=== PATIENT | female | born 1950 | race Caucasian/White ===

== ENCOUNTER 2023-06-02 21:49 | Outpatient (REF) | payer MEDICARE, SELFPAY ==
[2023-06-06 14:14] LABS: Age Gdln ACOG Testing Note (.); Pap IG (Image Guided) Note (.)
== END 2023-06-02 21:50 | disposition home or self-care (01) ==
LOC: LAB 21:49
PROVIDERS: Visit Provider Obstetrics & Gynecology
DX: Z01.419 Encounter for gynecological examination (general) (routine) without abnormal findings (principal)
CPT/HCPCS: G0145

== ENCOUNTER 2023-07-08 07:46 | Outpatient (OUT) | payer MEDICARE, SELFPAY ==
--- NOTE | 2023-07-08 07:49 | US_ITS ---
The [address] [address] Patient Name: PRESTON CAMPOS MRN: [id number] date: 1950 Sex: F Assigned Patient Location: US Current Patient Location: US Accession/Order Number: [id number] Exam Date: 07/08/2023 07:55 Report Date: 07/08/2023 14:25 At the request of: MACIEJ SZYMANSKI Procedure: US thyroid EXAMINATION: US thyroid HISTORY: Papillary Microcarcinoma Of Thyroid C73 COMPARISON: Ultrasound thyroid 06/06/2022, 11/28/2021, 06/01/2021 FINDINGS: RIGHT LOBE: Thyroidectomy with no suspicious tissue within thyroid fossa. Lobe size: LEFT LOBE: Thyroidectomy with no suspicious tissue within thyroid fossa. Cephalad to the left lobe fossa is a stable 10 x 7 x 5 mm hypoechoic smoothly marginated structure; possible lymph node. Lobe size: ISTHMUS: Thyroidectomy. No suspicious tissue. Thickness: US/US thyroid IMPRESSION: 1. Post thyroidectomy with no suspicious tissue remaining within thyroid fossa. 2. Stable small focal area of hypoechoic tissue cephalad to the left thyroid fossa of doubtful clinical significance. Electronically authenticated by: PEDRO SULLIVAN Date: 07/08/2023 14:25
[2023-07-08 09:14] LABS: Thyroid Stimulating Hormone 0.537 uIU/mL (0.358-3.740)
== END 2023-07-08 07:47 | disposition home or self-care (01) ==
LOC: US 07:46
PROVIDERS: PCP Family Medicine; Visit Provider Otolaryngology
DX: C73 Malignant neoplasm of thyroid gland (principal); E03.9 Hypothyroidism, unspecified
CPT/HCPCS: 36415; 76536; 84443

== ENCOUNTER 2024-02-12 12:56 | Outpatient (OUT) | payer MEDICARE, SELFPAY ==
--- NOTE | 2024-02-12 13:04 | XR_ITS ---
[address] [address] Patient Name: PRESTON CAMPOS MRN: [id number] date: 1950 Sex: F Assigned Patient Location: [facility] Current Patient Location: [facility] Accession/Order Number: [id number] Exam Date: 02/12/2024 13:15 Report Date: 02/12/2024 13:35 At the request of: CONNOR PERSAUD Procedure: XR DEXA axial skeleton EXAMINATION: XR DEXA axial skeleton HISTORY: Estrogen Deficiency E28.39 COMPARISON: DEXA bone densitometry 05/03/2021 TECHNIQUE: Dual-energy X-ray absorptiometry (DXA) was performed. FINDINGS: SPINE ANALYSIS: Average bone mineral density is 1.205 g/cm2. T-score (standard deviation relative to young adult mean): 0.2 . -1.9% change since prior study. HIP ANALYSIS: Lowest bone mineral density is within the right femoral neck, 0.792 g/cm2. T-score (standard deviation relative to young adult mean): -1.8 . -3.0% change since prior study. XR/XR DEXA axial skeleton IMPRESSION: [employer] Classification: Osteopenia - Moderate Fracture Risk Electronically authenticated by: PEDRO SULLIVAN Date: 02/12/2024 13:35
== END 2024-02-12 12:57 | disposition home or self-care (01) ==
LOC: RAD 12:56
PROVIDERS: PCP Family Medicine; Visit Provider Family Medicine
DX: E28.39 Other primary ovarian failure (principal); M85.80 Other specified disorders of bone density and structure, unspecified site
CPT/HCPCS: 77080

== ENCOUNTER 2024-07-01 08:43 | Outpatient (OUT) | payer MEDICARE, SELFPAY ==
--- NOTE | 2024-07-01 08:46 | US_ITS ---
The [address] [address] Patient Name: PRESTON CAMPOS MRN: [id number] date: 1950 Sex: F Assigned Patient Location: US Current Patient Location: Accession/Order Number: [id number] Exam Date: 07/01/2024 08:47 Report Date: 07/02/2024 05:29 At the request of: MACIEJ SZYMANSKI Procedure: US thyroid EXAMINATION: US thyroid HISTORY: Papillary Microcarcinoma Of Thyroid COMPARISON: Ultrasound thyroid 07/08/2023, 06/01/2021 FINDINGS: RIGHT LOBE: Thyroidectomy. Within mid thyroid fossa is a hypoechoic 7 x 4 x 3 mm area without appreciable internal blood flow; nonspecific. LEFT LOBE: Thyroidectomy. Within superior aspect of thyroid fossa is a 12 x 7 x 6 mm hypoechoic area with small amount of internal blood flow on color Doppler. ISTHMUS: Thyroidectomy. US/US thyroid IMPRESSION: 1. Small nonspecific 7 mm hypoechoic area within right thyroid bed, not appreciably changed. 06/01/2021. 2. Stable 12 mm nonspecific soft tissue within left thyroid bed, but stable compared to studies back to 06/01/2021. Electronically authenticated by: PEDRO SULLIVAN Date: 07/02/2024 05:29
[2024-07-01 10:17] LABS: Thyroid Stimulating Hormone 0.082 uIU/mL (0.358-3.740)
== END 2024-07-01 08:44 | disposition home or self-care (01) ==
LOC: US 08:44
PROVIDERS: PCP Family Medicine; Visit Provider Otolaryngology
DX: C73 Malignant neoplasm of thyroid gland (principal)
CPT/HCPCS: 36415; 76536; 84443

== ENCOUNTER 2024-08-23 09:04 | Outpatient (OUT) | payer MEDICARE, SELFPAY | END 2024-08-23 09:05 | disposition home or self-care (01) | LOC: LAB 09:04 | PROVIDERS: PCP Family Medicine; Visit Provider Otolaryngology | DX: E89.0 Postprocedural hypothyroidism (principal) | CPT/HCPCS: 36415; 84443 ==

== ENCOUNTER 2024-10-25 11:23 | Outpatient (OUT) | payer MEDICARE, SELFPAY ==
[2024-10-25 12:21] LABS: Thyroid Stimulating Hormone 1.204 uIU/mL (0.358-3.740)
== END 2024-10-25 11:24 | disposition home or self-care (01) ==
LOC: LAB 11:23
PROVIDERS: PCP Family Medicine; Visit Provider Otolaryngology
DX: E89.0 Postprocedural hypothyroidism (principal)
CPT/HCPCS: 36415; 84443

== ENCOUNTER 2025-06-07 19:11 | Outpatient (REF) | payer MEDICARE, SELFPAY ==
--- OUTSIDE RECORDS SUMMARY | 2025-06-07 19:20 | XMS_ITS | CCD ---
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 Name Role Phone Connor Persaud Primary Care Provider [phone] Self, Referral Attending Provider Unavailable Connor Persaud Attending Provider [phone] Stone Lind Attending Provider Camilo Kelley Attending Provider Connor Persaud Primary Care Provider Lux Bowden Unavailable [phone] Susanna Atkins Unavailable Unavailable MD Connor Persaud Primary Care Provider MD Jerson Clark V Attending Provider [phone] Connor Persaud Primary Care Provider Lux Bowden DO Unavailable [phone] MD Lucas Melo Attending Provider Connor Persaud Primary Care Provider Lux Bowden DO Unavailable Delmar RANGEL Susanna Unavailable Unavailable HUNG, DR RYAN Primary Care Unavailable TIMMIS, DR WING Attending Unavailable TIMMIS, DR WING Admitting Unavailable HUNG, DR RYAN Primary Care Unavailable HUNG, DR RYAN Consulting Unavailable HUNG, DR RYAN Attending Unavailable HUNG, DR RYAN Admitting Unavailable ZIEBER, DR PEDRO Calderon Consulting Unavailable KAL, DR DOMINGUEZ Consulting Unavailable KAL, DR DOMINGUEZ Attending Unavailable KAL, DR DOMINGUEZ Admitting Unavailable HUNG, DR RYAN Primary Care Unavailable Lux Bowden DO Unavailable [facility] MD Connor Persaud Primary Care Provider MD Lucas Melo Attending Provider [facility] Provider Connor Persaud MD Primary Care Provider Connor Persuad MD Unavailable Connor Persaud MD Primary Care Provider [phone] Lux Bowden DO Attending Provider [phone] HungConnor Primary Care Unavailable Lux Bowden Attending Unavailable Lux Bowden Admitting Unavailable HUNG, CONNOR LANTIGUA Primary Care Unavailable JERSON CLARK Attending Unavailable JERSON CLARK Referring Unavailable HUNGCONNOR Primary Care Unavailable HUNG, CONNOR LANTIGUA Primary Care Unavailable HUNG, CONNOR LANTIGUA Primary Care Unavailable AMBER, JERSON Referring Unavailable GABY MELGAR Attending Unavailable JERSON CLARK Referring Unavailable HUNG, CONNOR LANTIGUA Primary Care Unavailable ELGIN CLARKEK Referring Unavailable HUNG, CONNOR LANTIGUA Primary Care Unavailable GUERLINE SAUCEDO Attending Unavailable MARTHA FABIAN Referring Unavailable HUNG, CONNOR LANTIGUA Primary Care Unavailable HUNG, CONNOR LANTIGUA Primary Care Unavailable MARTHA FABAIN Referring Unavailable CAMILO KELLEY Attending Unavailable HUNGCONNOR Camilo M Attending Unavailable CAMILO KELLEY Attending Unavailable HUNG, JORDINEN M Attending Unavailable CAMILO KELLEY Attending Unavailable LUX BOWDEN Attending Unavailable MACIEJ SZYMANSKI Attending Unavailable CONNOR PERSAUD M Attending Unavailable MACIEJ SZYMANSKI Attending Unavailable CONNOR PERSAUD M Attending Unavailable MACIEJ SZYMANSKI Attending Unavailable Unavailable Unavailable Unavailable Medications Current Medications Medication Drug Class(es) Dates Sig (Normalized) Sig (Original) acetaminophen 325 mg / HYDROcodone bitartrate 5 mg oral tablet (6 sources) Opioid Agonist Start: 09-26-2020 take 1 tablet by mouth every four to six hours as needed for pain Hydrocodone-Aceta minophen ([place]) 5-325 mg tablet Active 1 TAB PO EVERY 4-6 HOURS as needed for pain 14 September 26, 2020 acetaminophen 325 mg / oxyCODONE hydrochloride 5 mg oral tablet (5 sources) Opioid Agonist Start: 10-12-2020 take 1 tablet by mouth every four to six hours as needed for pain Oxycodone-Acetami nophen (Percocet) 5-325 mg tablet Active 1 TAB PO EVERY 4-6 HOURS as needed for pain 20 October 12, 2020 b complex vitamins capsule (20 sources) take 1 capsule by mouth in the morning b complex vitamins capsule Take 1 capsule by mouth in the morning. Active Doxylamine (16 sources) doxylamine succinate (SLEEP AID ORAL) Take 1 Cap-Full by mouth as needed. Active doxylamine succi alfredito (SLEEP AID ORAL) Take 1 Cap-Full by mouth as needed. 0 Active Comment on above: Take 1 Cap-Full by m outh as needed. ergocalciferol 1.25 mg oral capsule (20 sources) Provitamin D2 Compound Start: 10-21-19 take 1 capsule by mouth every week ergocalciferol (Vitamin D2) 1.25 MG (11591 UT) capsule Indications: Vitamin D deficiency TAKE 1 CAPSULE BY MOUTH WEEKLY 12 capsule 3 10/21/2024 Active Start: 06-28-2024 take 1 capsule by mo uth once daily Vitamin D, Ergocalciferol, 45612 units capsule Indications: Vitamin D deficiency Take 1 each by mouth Daily 90 capsule 06/28/2024 Active Start: 08-17-2013 End: 09-20-2020 take 1 capsule by mouth every week ergocalciferol 50,000 unit capsule (VITAMIN D2, DRISDOL) take 1 capsule by oral route every week 08/17/2013 Active Comment on above: take 1 capsule by or al route every week Fish Oils (12 sources) omega-3 (FISH OI L) 300 MG capsule Take by mouth Daily Active hydroCHLOROthiazide 25 mg / lisinopril 20 mg oral tablet (20 sources) Thiazide Diuretic, Angiotensin Converting Enzyme Inhibitor Start: 07-16-2023 lisinopril-hydroCHLORO thiazide 20-25 MG tablet Indications: Benign essential hypertension (CMS/HCC) TAKE 1 AND 1/2 TABLETS BY MOUTH EVERY DAY 135 tablet 3 07/16/2023 Active Start: 09-01-2020 take 1.5 tablets by mouth once daily lisinopril-hydroCHLOROthiazide 20-25 MG tablet Indications: Benign essential hypertension Take 1.5 tablets by mouth Daily 135 tablet 3 07/26/2024 Active take 1 tablet by celso th once lisinopril-hydrochlorothiazide (PRINZIDE , ZESTORETIC) 20-25 mg per tablet Take 1 tablet by mouth once daily. 1.5 tablet daily Active Comment on above: Take 1 tablet by celso th once daily. Take 1 tablet by celso th once daily. 1.5 tablet daily ibuprofen 600 mg oral tablet (8 sources) Nonsteroidal Anti-inflammatory Drug Start: 09-26-2020 Ibuprofen Active 600 MG PO EVERY 4-6 HOURS 14 September 26, 2020 12:31pm do not exceed 4 doses in a 24 hour period Start: 09-26-2020 take 12-21 tablets b y mouth every four to six hours in the morning Ibuprofen 600 mg tablet Active 600 MG PO EVERY 4-6 HOURS as needed for pain 14 September 26, 2020 12:00am 200mg x2 taken on 10-09-20 in AM Comment on above: Take 600 mg by mouth every 6 hours as needed. letrozole 2.5 mg oral tablet (20 sources) Aromatase Inhibitor Start: 11-01-19 End: 09-27-20 take 1 tablet by mouth once daily letrozole (Femara) 2.5 MG chemo tablet Take 2.5 mg by mouth Daily. 04/16/2023 Active Comment on above: Take 1 tablet by celso th once daily. TAKE 1 TABLET BY CELSO TH EVERY DAY levothyroxine sodium 0.1 mg oral tablet (20 sources) l-Thyroxine Start: 07-14-20 24 End: 09-12-20 24 take 1 tablet by mouth before mealtime levothyroxine (Synthroid) 112 MCG tablet Indications: Postoperative hypothyroidism (CMS/HCC) Take 1 tablet (112 mcg) by mouth in the morning. Take before meals. 30 tablet 1 07/14/2024 08/31/2024 Discontinued Start: 08-29-2021 End: 01-06-2025 levothyroxine (SYNTHROID) 12 5 mcg tablet Take 112 mcg by mouth once daily. 08/29/2021 01/06/2025 Discontinued Start: 08-29-2021 End: 07-15-2024 take 1 tablet by mouth before mealtime levothyroxine (Synthroid) 125 MCG tablet Indications: Postoperative hypothyroidism (CMS/HCC) Take 1 tablet (125 mcg) by mouth in the morning. Take before meals. 90 tablet 3 07/16/2023 07/15/2024 Active Start: 09-01-2020 End: 11-02-2025 take 1 tablet by mouth before mealtime levothyroxine (Synthroid) 100 MCG tablet Indications: Postoperative hypothyroidism Take 1 tablet (100 mcg) by mouth in the morning. Take before meals. 90 tablet 3 11/02/2024 11/02/2025 Active Start: 09-01-2020 End: 09-04-2020 take 1 tablet by mouth once daily Levothyroxine (Levoxyl) 125 mcg Tablet Discontinued 125 MCG PO Daily September 01, 2020 12:00am September 04, 2020 11:10am levothyroxine so dium (SYNTHROID ORAL) Take by mouth. 0 Active Comment on above: Take 100 mcg by mout h daily before breakfast. 125 mg daily Take by mouth. 125 mcg. melatonin 5 mg chewable tablet (16 sources) melatonin 5 mg c hew Take by mouth as needed. Active Comment on above: Take by mouth. Take by mouth as nee ded. metFORMIN hydrochloride 500 mg oral tablet (6 sources) Biguanide Start: 0 take 1 tablet by mouth once daily Metformin 500 mg Tablet Active 500 MG PO Daily September 01, 2020 12:00am Multivitamin preparation (5 sources) Start: 0 take 1 tablet by mouth once daily Multivitamin Active 1 TAB PO Daily September 01, 2020 8:30am Start: 09-01-2020 take 1 tablet by celso th once daily Multivitamin Active 1 TAB PO Daily September 01, 2020 1:00am Multivitamin Tablet (1 source) Start: 09-01-2020 take 1 tablet by mouth once daily Multivitamin Tablet Active 1 TAB PO Daily September 01, 2020 12:00am VITAMIN B COMPLEX ORAL (9 sources) VITAMIN B COMPLE X ORAL Take by mouth once daily. Active VITAMIN B COMPLE X ORAL Take by mouth once daily. 0 Active Comment on above: Take by mouth once d aily. Completed/Discontinued Medications Medication Drug Class(es) Dates Sig (Normalized) Sig (Original) ALPRAZolam 0.25 mg oral tablet (20 sources) Benzodiazepine Start: 09-01-2020 End: 06-07-2025 ALPRAZolam (Xanax) 0.25 MG tablet Indications: Adjustment disorder with anxiety Take 1 tablet (0.25 mg) by mouth as needed at bedtime for anxiety or sleep 30 tablet 02/10/2024 06/07/2025 Discontinued (Other) Comment on above: Take 0.25 mg by mout h at bedtime as needed. atorvastatin 20 mg oral tablet (9 sources) HMG-CoA Reductase Inhibitor Start: 05-09-2022 End: 01-15-2024 take 1 tablet by mouth once daily atorvastatin (LIPITOR) 20 mg tablet Take 20 mg by mouth once daily. 0 05/09/2022 01/15/2024 Discontinued (Discontinued by another Health Care Provider) Comment on above: Take 20 mg by mouth once daily. doxepin hydrochloride 10 mg oral capsule (2 sources) Tricyclic Antidepressant Start: 12-07-2020 take 1 capsule by mouth once daily at bedtime doxepin capsule 10 mg TAKE 1 CAPSULE BY MOUTH EVERY DAY AT BEDTIME 0 12/07/2020 Active Comment on above: TAKE 1 CAPSULE BY MO UTH EVERY DAY AT BEDTIME mirtazapine 30 mg oral tablet (10 sources) Start: 04-27-2021 End: 01-15-2024 take 1 tablet by mouth once daily at bedtime mirtazapine (REMERON) 30 mg tablet Take 30 mg by mouth daily at bedtime. 0 04/27/2021 01/15/2024 Discontinued (Discontinued by another Health Care Provider) Comment on above: Take 30 mg by mouth daily at bedtime. MULTIVITAMIN ORAL (10 sources) End: 01-15-2024 MULTIVITAMIN ORAL Take by mouth. 0 01/15/2024 Discontinued (Discontinued by Patient) MULTIVITAMIN ORA L Take by mouth. 0 Active Comment on above: Take by mouth. 100 ml zoledronic acid 0.04 mg/ml injection (2 sources) Bisphosphonate Start: 01-06-2025 End: 01-06-2025 4 mg, INTRAVENOUS, Administer over 15 Minutes, ONCE, 1 dose, On Jessica 01/06/25 at 1430, Hazardous Potential Reproductive Risk Drug: Use appropriate PPE. Start: 07-15-2024 End: 07-15-2024 4 mg, INTRAVENOUS, Administe r over 15 Minutes, ONCE, 1 dose, On Jessica 07/15/24 at 1500, Hazardous Potential Reproductive Risk Drug: Use appropriate PPE. Problems Active Problems Problem Classification Problem Date Documented Date Episodic/Chronic Adjustment disorders (20 sources) Adjustment disorder with anxious mood; 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: [Adjustment disorder with anxiety] Onset: 04-28-2023 04-28-2023 Chronic Anxiety disorders (20 sources) Anxiety neurosis ; 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: [Generalized anxiety disorder] Onset: 10-23-2020 Chronic Cancer of breast (20 sources) Malignant neoplasm of upper-outer quadrant of female breast; 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: [Malignant neoplasm of upper-outer quadrant of left female breast] Onset: 10-23-2020 Chronic Comment on above: Problem List clean-u p per request of Phys. EHR Cmte Cancer of thyroid (20 sources) Malignant tumor of thyroid gland; 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: [Malignant neoplasm of thyroid gland] Onset: 05-03-2020 Chronic Cancer of uterus (20 sources) Malignant neoplasm of endometrium of corpus uteri ; 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: [Malignant neoplasm of endometrium] Onset: 04-03-2018 Chronic Cataract (20 sources) Bilateral cataracts; 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: [Unspecified cataract] Onset: 02-10-2024 02-10-2024 Chronic Chronic kidney disease (20 sources) Chronic kidney disease stage 3A ; 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: [Stage 3a chronic kidney disease] Onset: 04-28-2023 07-15-2024 Chronic Complications of surgical procedures or medical care (20 sources) Postoperative hypothyroidism; 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: [Postprocedural hypothyroidism] Onset: 09-12-2015 04-28-2023 Chronic Diabetes mellitus with complications (20 sources) Type 2 diabetes mellitus; 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: [Type 2 diabetes mellitus with diabetic chronic kidney disease] Onset: 04-07-2019 08-16-2024 Chronic Diabetes mellitus without complication (16 sources) Diabetes mellitus; 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: [Type 2 diabetes mellitus without complications] 04-03-2018 Chronic Disorders of lipid metabolism (20 sources) Hypertriglyceridemia; 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: [Pure hyperglyceridemia] Onset: 04-28-2023 04-28-2023 Chronic Essential hypertension (20 sources) Hypertensive disorder; 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: [Essential (primary) hypertension] Onset: 04-28-2023 04-08-2018 Chronic Hypertension with complications and secondary hypertension (20 sources) Hypertension secondary to endocrine disorder; 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: [Hypertension secondary to endocrine disorders] Onset: 04-28-2023 08-16-2024 Chronic Immunizations and screening for infectious disease (3 sources) Encounter for screening for human papillomavirus (HPV); 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: [Patient encounter status] Onset: 11-28-2022 09-13-2024 Episodic Menopausal disorders (20 sources) Decreased estrogen level; 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: [Other primary ovarian failure] Onset: 04-28-2023 04-28-2023 Chronic Nutritional deficiencies (20 sources) Vitamin D deficiency; 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: [Vitamin D deficiency, unspecified] Onset: 04-28-2023 04-28-2023 Chronic Osteoporosis (20 sources) Postmenopausal osteoporosis; 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: [Age-related osteoporosis without current pathological fracture] Onset: 05-26-2023 05-26-2023 Chronic Other aftercare (1 source) Prophylactic aromatase inhibitors given; 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: [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] Episodic Other female genital disorders (20 sources) Vaginal bleeding; 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: [Abnormal uterine and vaginal bleeding, unspecified] Onset: 04-28-2023 04-28-2023 Chronic Other nutritional; endocrine; and metabolic disorders (16 sources) Obese class II; 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: [Obesity, unspecified] Onset: 04-11-2018 04-11-2018 Chronic Other nutritional; endocrine; and metabolic disorders (11 sources) Obesity caused by energy imbalance; 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: [Morbid (severe) obesity due to excess calories] Onset: 04-28-2023 08-16-2024 Chronic Other nutritional; endocrine; and metabolic disorders (11 sources) Body mass index 30+ - obesity; 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: [Body mass index (BMI) 39.0-39.9, adult] Onset: 03-15-2025 08-16-2024 Chronic Other nutritional; endocrine; and metabolic disorders (2 sources) Severe obesity; 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: [Class 2 severe obesity due to excess calories with serious comorbidity and body mass index (BMI) of 38.0 to 38.9 in adult ([facility])] 08-16-2024 Chronic Other nutritional; endocrine; and metabolic disorders (20 sources) Obesity; 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: [Obesity, unspecified] Onset: 04-28-2023 04-28-2023 Chronic Other screening for suspected conditions (not mental disorders or infectious disease) (20 sources) Endometrium thickened; 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: [Abnormal findings on diagnostic imaging of other specified body structures] Onset: 04-28-2023 04-28-2023 Chronic Other screening for suspected conditions (not mental disorders or infectious disease) (20 sources) Encounter for screening for malignant neoplasm of cervix; 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: [Mammography abnormal] Onset: 08-04-2020 Episodic Residual codes; unclassified (20 sources) Obstructive sleep apnea syndrome; 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: [Obstructive sleep apnea (adult) (pediatric)] Onset: 04-28-2023 04-28-2023 Chronic Residual codes; unclassified (2 sources) Postmenopausal state; 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: [Asymptomatic menopausal state] 06-07-2025 Episodic Thyroid disorders (20 sources) Hypothyroidism; 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: [Hypothyroidism, unspecified] Onset: 08-08-2023 04-08-2018 Chronic Past or Other Problems Problem Classification Problem Date Documented Da te Episodic/Chronic Mood disorders (20 sources) Mood disorders Onset: 08-12-2023 08-12-2023 Nonmalignant breast conditions (20 sources) Breast lump; 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: [Unspecified lump in the left breast, unspecified quadrant] Onset: 09-08-2024 09-04-2020 Episodic Comment on above: Problem List clean-u p per request of Phys. EHR Cmte Nonmalignant breast conditions (2 sources) Unspecified lump in the left breast, unspecified quadrant; 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: [Mass of multiple sites of left breast] Other connective tissue disease (20 sources) Muscle pain; 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: [Myalgia, unspecified site] Onset: 11-21-2023 11-21-2023 Episodic Other female genital disorders (20 sources) Vaginal discharge; 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: [Other specified noninflammatory disorders of vagina] Onset: 04-28-2023 04-28-2023 Episodic Other gastrointestinal disorders (20 sources) Stool DNA-based colorectal cancer screening positive; 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: [Other fecal abnormalities] Onset: 11-25-2024 11-25-2024 Episodic Residual codes; unclassified (20 sources) Insomnia; 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: [Insomnia, unspecified] Onset: 04-28-2023 04-28-2023 Episodic Residual codes; unclassified (20 sources) Pain; 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: [Pain, unspecified] Onset: 04-28-2023 04-28-2023 Episodic Residual codes; unclassified (20 sources) Estrogen receptor positive tumor; 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: [Estrogen receptor positive status [ER+]] Onset: 04-28-2023 04-28-2023 Episodic Residual codes; unclassified (1 source) Estrogen receptor positive status [ER+]; 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: [Malignant neoplasm of upper-outer quadrant of left breast in female, estrogen receptor positive (HCC)] Onset: 10-23-2020 Episodic Thyroid disorders (20 sources) Mass of thyroid gland; 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: [Disorder of thyroid, unspecified] Onset: 04-28-2023 04-28-2023 Episodic Varicose veins of lower extremity (20 sources) Varicose veins of lower extremity; 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: [Asymptomatic varicose veins of bilateral lower extremities] Onset: 08-16-2024 08-16-2024 Episodic Results Test Name Value Interpretation Reference Range Facility Laboratory - Hematology and Cell countson 03-15-2025 HbA1c (Bld) [Mass fraction] 5.7 % [facility] No Panel Informationon 03-15 Interpretation and review of laboratory results Normal [facility] CNOVSPon 01-06-2025 CNOVSP Visit (SP) Office ( [facility]) -- SAVANA TRAN ([id number]) 1950 F Date Time Provider Department 01/06/25 2:00 PM GUERLINE SAUCEDO During your visit today, we recorded the following information about you: Temperature Pulse Respiration Blood pressure 97.7 degrees 96/minute 16/minute 109/65 Weight 105.5 kg Guerline Saucedo APRN.CNP 01/06/2025 4:04 PM Signed NAME: Savana Tran CLINIC NO.: [id number] DATE OF SERVICE: January 06, 2025 (Aminah) Some elements in this clinic note that are critical to medical decision making have been carefully reviewed and included from a prior clinic note dated: July 15, 2024 (Amber) Referring Provider: Dr. Lucas Melo Additional Clinicians involved in Savana Tran's care: Dr. Connor Persaud, Dr. Kd Kelley, Dr. Charlie Bowden, Dr. Maciej Szymanski CC: Breast cancer follow up. ASSESSMENT/PLAN: 1. Malignant neoplasm of upper-outer quadrant of left breast in female, estrogen receptor positive 74 year old woman with left breast cancer T1c(sn)N0M0 s/p lumpectomy with Dr. Kelley on 09/26/2020. She presents for Medical oncology opinion regarding ER/OR + HER2-gilbert (-) breast cancer with a prior history of resected endometrial adenocarcinoma diagnosed and treated in 07/2018. Oncotype DX recurrence score was 16. She completed radiation. And is currently on AI since December 2020. She also had genetic testing due to her history or multiple cancers. The results are scanned into Pulsant and reviewed and negative. 2. Endometrial cancer Staging for this was: IB endometrioid type endometrial adenocarcinoma, FIGO grade 1, + LVSI, tumor size 6 cm, 72% depth of invasion with limited pelvic sampling s/p pelvic RT after surgery. Normal IHC MMR expression. 3. Cancer of thyroid She has also had a history of papillary thyroid cancer 2019 noted in a thyroidectomy specimen for a nodule that was causing her difficulty swallowing. She follows with ENT. Thyroglobulin Ab is elevated Obviating the need for thyroglobulin levels and therefore we will just follow TSH. 4. Anxiety neurosis Managed by her PCP. PLAN: Zometa today and q 6 months 4mg due to tolerance Continue Femara 2.5 mg daily Labs 1 week prior to visit - CBC, CMP, TSH, breast tumor markers RTC in 6 months with labs as above _- HPI: CASE HISTORY: Reverse Chronological Order 01/10/2021-Current - Femara 2.5 mg p.o. daily 12/07/2020-01/03/2021- Radiation to left breast total dose 5005 cGy 10/12/2020 - Re-excision and evacuation of hematoma 09/26/2020 - [facility] left breast lumpectomy and SLN resection A. [place] lymph nodes, left axilla, biopsy: - Four lymph nodes, negative for metastatic carcinoma (0/4) - Concurs with the frozen section diagnosis Note: One additional lymph node has been identified in the fibroadipose tissue which was not submitted for intraoperative frozen section. All lymph nodes are negative for metastatic carcinoma. B. Left breast, lumpectomy with radioactive seeds localization: - Invasive ductal carcinoma, [place] histologic grade 2 (3+2+1), size: 17mm - Ductal carcinoma in situ, nuclear grade 2, solid and cribriform patterns, with focal central necrosis and associated microcalcifications - Medial margin is focally positive for invasive carcinoma; all other margins are negative - Prior biopsy site reactions - Pathologic Stage Classification: pT1c (sn)nN0 pM - not applicable ER+ (95%) OR+ (85%) HER2- (0) 08/09/2020 - Mammography / US: Left upper breast anomaly 2 O'Clock 02/18/2020 - CT CAP: Chest: Stable appearance of numerous bilateral pulmonary nodules measuring up to 5mm size. No new or enlarging nodules are seen. The central airways are widely patent. A/P: Stable CT of the abdomen and pelvis. No findings to suggest abdominal or pelvic metastatic disease. Hepatic steatosis. Findings suggestive of hepatic hemangiomas. Updated Visit, January 07, 2024: Savana returns today for a follow-up visit. Overall she is feeling well. She has recently gained some weight back that she had lost and is trying to get back on her diet. She does engage in exercise [place] local [place]. Patient's TSH is normal today. Continues to follow-up with Dr. Bowden. CA 27.29 is less than 10.0. Will proceed with Zometa today. Updated Visit, July 15, 2024: Savana returns today for a follow up. TSH: 0.089, decreased from 0.258 in 12/2023. She endorses watching what she eats, she has lost 6lbs since her last visit. Unfortunately, her brother about 2 months ago from cancer. Updated Visit, January 15, 2024: Savana Tran returns for scheduled follow-up. Since her last visit there has been there has been no significant medical changes. She remains on Femara 2.5 mg daily. She denies any (more content not included)... Normal [facility] CA 27.29on 12-30-2024 Cancer Ag 27-29 Qn <10.0 Normal <38.6 [facility] Comment on above: Order Comment: Speci men Type: BLOOD SPECIMEN Ordering Facility: [facility] Address: [address] [place] [address] Result Comment: The CA27.29 test was performed using the Siemens Shopnationaur XP chemiluminometric immunoassay method. Results obtained with different assay methods or kits cannot be used interchangeably. [facility] will discontinue CA 27.29 testing effective 03/08/2025, with CA 15-3 as its replacement. In preparation for the discontinuation, CA 15-3 testing in parallel was conducted with CA 27.29 to establish a new baseline. Performed By: #### L [id number] #### [facility] CLIA [id number] [address] [place] [address] [place] CBC W Auto Differential pane l (Bld)on 12-30-2024 Basophils (Bld) [#/Vol] 0.04 10*3/uL Normal <0.11 [facility] Comment on above: Order Comment: Speci men Type: BLOOD SPECIMEN Ordering Facility: [facility] Address: [address] [place] [address] Performed By: #### 2 4323-8 #### [facility] CLIA [id number] [address] [place] [address] 02373 Basophils/100 WBC (Bld) 0.5 % Normal [facility] Comment on above: Order Comment: Speci men Type: BLOOD SPECIMEN Ordering Facility: [facility] Address: [address] [place] [address] Performed By: #### 2 4323-8 #### [facility] CLIA [id number] [address] [place] [address] 71157 Differential cell count method Nom (Bld) Auto Normal [facility] Comment on above: Order Comment: Speci men Type: BLOOD SPECIMEN Ordering Facility: [facility] Address: [address] [place] [address] Performed By: #### 2 4323-8 #### [facility] CLIA [id number] [address] [place] [address] 84124 Eosinophils (Bld) [#/Vol] 0.08 10*3/uL Normal <0.46 [facility] Comment on above: Order Comment: Speci men Type: BLOOD SPECIMEN Ordering Facility: [facility] Address: [address] [place] [address] Performed By: #### 2 4323-8 #### [facility] CLIA [id number] [address] [place] [address] 10220 Eosinophils/100 WBC (Bld) 1.0 % Normal [facility] Comment on above: Order Comment: Speci men Type: BLOOD SPECIMEN Ordering Facility: [facility] Address: [address] [place] [address] Performed By: #### 2 4323-8 #### [facility] CLIA [id number] [address] [place] [address] 49643 Erythrocyte distribution width (RBC) [Ratio] 12.8 % Normal 11.5-15.0 [facility] Comment on above: Order Comment: Speci men Type: BLOOD SPECIMEN Ordering Facility: [facility] Address: [address] [place] [address] Performed By: #### 2 4323-8 #### [facility] CLIA [id number] [address] [place] [address] 75431 Hematocrit (Bld) [Volume fraction] 46.0 % Normal 36.0-46.0 [facility] Comment on above: Order Comment: Speci men Type: BLOOD SPECIMEN Ordering Facility: [facility] Address: [facility] [place] [address] Performed By: #### 2 4323-8 #### [facility] CLIA [id number] [address] [place] [address] 71903 Hemoglobin (Bld) [Mass/Vol] 15.4 g/dL Normal 11.5-15.5 [facility] Comment on above: Order Comment: Speci men Type: BLOOD SPECIMEN Ordering Facility: [facility] Address: [address] [place] [address] Performed By: #### 2 4323-8 #### [facility] CLIA [id number] [address] [place] [address] 17267 Immature granulocytes (Bld) [#/Vol] 10*3/uL Normal <0.10 [facility] Comment on above: Order Comment: Speci men Type: BLOOD SPECIMEN Ordering Facility: [facility] Address: [address] [place] [address] Performed By: #### 2 432-8 #### [facility] CLIA [id number] [address] [place] [address] 71709 Immature granulocytes/100 WBC (Bld) 0.1 % Normal [facility] Comment on above: Order Comment: Speci men Type: BLOOD SPECIMEN Ordering Facility: [facility] Address: [address] [place] [address] Performed By: #### 2 4323-8 #### [facility] CLIA [id number] [address] [place] [address] 31452 Lymphocytes (Bld) [#/Vol] 1.24 10*3/uL Normal 1.00-4.00 [facility] Comment on above: Order Comment: Speci men Type: BLOOD SPECIMEN Ordering Facility: [facility] Address: [address] [place] [address] Performed By: #### 2 4323-8 #### [facility] CLIA [id number] [address] [place] [address] 85194 Lymphocytes/100 WBC (Bld) 16.0 % Normal [facility] Comment on above: Order Comment: Speci men Type: BLOOD SPECIMEN Ordering Facility: [facility] Address: [address] [place] [address] Performed By: #### 2 4323-8 #### [facility] CLIA [id number] [address] [place] [address] MCH (RBC) [Entitic mass] 30.5 pg Normal 26.0-34.0 [facility] Comment on above: Order Comment: Speci men Type: BLOOD SPECIMEN Ordering Facility: [facility] Address: [address] [place] [address] 45851 Performed By: #### 2 4323-8 #### [facility] CLIA [id number] [address] [place] [address] 36406 MCHC (RBC) [Mass/Vol] 33.5 g/dL Normal 30.5-36.0 [facility] Comment on above: Order Comment: Speci men Type: BLOOD SPECIMEN Ordering Facility: [facility] Address: [address] [place] [address] 99649 Performed By: #### 2 4323-8 #### [facility] CLIA [id number] [address] [place] [address] 32745 MCV (RBC) [Entitic vol] 91.1 fL Normal 80.0-100.0 [facility] Comment on above: Order Comment: Speci men Type: BLOOD SPECIMEN Ordering Facility: [facility] Address: [address] [place] [address] 70979 Performed By: #### 2 4323-8 #### [facility] CLIA [id number] [address] [place] [address] 56195 Monocytes (Bld) [#/Vol] 0.49 10*3/uL Normal <0.87 [facility] Comment on above: Order Comment: Speci men Type: BLOOD SPECIMEN Ordering Facility: [facility] Address: [address] [place] [address] Performed By: #### 2 4323-8 #### [facility] CLIA [id number] [address] [place] [address] 13536 Monocytes/100 WBC (Bld) 6.3 % Normal [facility] Comment on above: Order Comment: Speci men Type: BLOOD SPECIMEN Ordering Facility: [facility] Address: [address] [place] [address] Performed By: #### 2 4323-8 #### [facility] CLIA [id number] [address] [place] [address] 61893 Neutrophils (Bld) [#/Vol] 5.89 10*3/uL Normal 1.45-7.50 [facility] Comment on above: Order Comment: Speci men Type: BLOOD SPECIMEN Ordering Facility: [facility] Address: [address] [place] [address] Performed By: #### 2 4323-8 #### [facility] CLIA [id number] [address] [place] [address] 12194 Neutrophils/100 WBC (Bld) 76.1 % Normal [facility] Comment on above: Order Comment: Speci men Type: BLOOD SPECIMEN Ordering Facility: [facility] Address: [address] [place] [address] Performed By: #### 2 4323-8 #### [facility] CLIA [id number] [address] [place] [address] 52903 Nucleated RBC (Bld) [#/Vol] 10*3/uL Normal <0.01 [facility] Comment on above: Order Comment: Speci men Type: BLOOD SPECIMEN Ordering Facility: [facility] Address: [address] [place] [address] Performed By: #### 2 4323-8 #### [facility] CLIA [id number] [address] [place] [address] 15886 Nucleated RBC/100 WBC (Bld) [Ratio] 0.0 /100 WBC Normal [facility] Comment on above: Order Comment: Speci men Type: BLOOD SPECIMEN Ordering Facility: [facility] Address: [address] [place] [address] Performed By: #### 2 4323-8 #### [facility] CLIA [id number] [address] [place] [address] 77421 Platelet mean volume (Bld) [Entitic vol] 9.9 fL Normal 9.0-12.7 [facility] Comment on above: Order Comment: Speci men Type: BLOOD SPECIMEN Ordering Facility: [facility] Address: [address] [place] [address] 08329 Performed By: #### 2 4323-8 #### [facility] CLIA [id number] [address] [place] [address] 40093 Platelets (Bld) [#/Vol] 244 10*3/uL Normal 150-400 [facility] Comment on above: Order Comment: Speci men Type: BLOOD SPECIMEN Ordering Facility: [facility] Address: [address] [place] [address] Performed By: #### 2 4323-8 #### [facility] CLIA [id number] [address] [place] [address] 45258 RBC (Bld) [#/Vol] 5.05 10*6/uL Normal 3.90-5.20 [facility] Comment on above: Order Comment: Speci men Type: BLOOD SPECIMEN Ordering Facility: [facility] Address: [address] [place] [address] Performed By: #### 2 4323-8 #### [facility] CLIA [id number] [address] [place] [address] 40054 WBC (Bld) [#/Vol] 7.75 10*3/uL Normal 3.70-11.00 [facility] Comment on above: Order Comment: Speci men Type: BLOOD SPECIMEN Ordering Facility: [facility] Address: [address] [place] [address] Performed By: #### 2 4323-8 #### [facility] CLIA [id number] [address] [place] [address] 88735 [facility] CBC W AUTO DIFF BLDon Basophils/100 WBC (Bld) 0.5 % [facility] BASOPHILS # BLD AUTO 0.04 [facility] DIFFERENTIAL METHOD BLD Auto [facility] EOSINOPHIL # BLD AUTO 0.08 [facility] LYMPHOCYTES # BLD AUTO 1.24 [facility] MONOCYTES # BLD AUTO 0.49 [facility] NEUTROPHILS # BLD AUTO 5.89 [facility] NRBC # BLD AUTO <0.01 [facility] NRBC/100 WBC BLD-RTO 0 /100 WBC [facility] PLATELET # BLD AUTO 244 [facility] PMV BLD AUTO 9.9 fL 9.0 - 12.7 fL [facility] WBC # BLD AUTO 7.75 [facility] Eosinophils/100 WBC (Bld) 1 % [facility] Erythrocyte distribution width (RBC) [Ratio] 12.8 % 11.5 - 15.0 % [facility] Hematocrit (Bld) [Volume fraction] 46 % 36.0 - 46.0 % [facility] Hemoglobin (Bld) [Mass/Vol] 15.4 g/dL 11.5 - 15.5 g/dL [facility] IMM GRANULOCYTES # BLD AUTO <0.03 [facility] IMM GRANULOCYTES/LEUK NFR BLD AUTO 0.1 % [facility] Lymphocytes/100 WBC (Bld) 16 % [facility] MCH (RBC) [Entitic mass] 30.5 pg 26.0 - 34.0 pg [facility] MCHC (RBC) [Mass/Vol] 33.5 g/dL 30.5 - 36.0 g/dL [facility] MCV (RBC) [Entitic vol] 91.1 fL 80.0 - 100.0 fL [facility] Monocytes/100 WBC (Bld) 6.3 % [facility] Neutrophils/100 WBC (Bld) 76.1 % [facility] RBC (Bld) [#/Vol] 5.05 10*6/uL 3.90 - 5.2 0 m/uL [facility] Specimen Type: BLOOD SPECIMEN Ordering Facility: [facility] Address: [address] [place] [address] Original Ordering Provider: JERSON KAUR [facility] Cancer Ag15-3 SerPl-aCncon 0 12-30-2024 Cancer Ag 15-3 Qn 8.3 U/mL Normal <26.0 [facility] Comment on above: Order Comment: Speci men Type: BLOOD SPECIMEN Ordering Facility: [facility] Address: [address] [place] [address] Result Comment: The CA 15-3 test methodology used is the Electrochemiluminescence Immunoassay by [employer]. Results obtained with different methods or kits cannot be used interchangeably. [facility] will discontinue CA 27.29 testing effective 03/08/2025, with CA 15-3 as its replacement. In preparation for the discontinuation, CA 15-3 testing in parallel was conducted with CA 27.29 to establish a new baseline. Performed By: #### 3 016-3, 6875-9 #### [facility] CLIA [id number] [address] [place] [address] [place] [address] [facility] Comprehensive metabolic 2000 panelon 12-30-2024 Albumin [Mass/Vol] 4.3 g/dL Normal 3.9-4.9 [facility] Comment on above: Order Comment: Speci men Type: BLOOD SPECIMEN Ordering Facility: [facility] Address: [address] [place] [address] Performed By: #### 2 4323-8 #### [facility] CLIA [id number] [address] [place] [address] 01570 ALP [Catalytic activity/Vol] 69 U/L Normal 34-123 [facility] Comment on above: Order Comment: Speci men Type: BLOOD SPECIMEN Ordering Facility: [facility] Address: [address] [place] [address] Performed By: #### 2 4323-8 #### [facility] CLIA [id number] [address] [place] [address] 97651 ALT [Catalytic activity/Vol] 25 U/L Normal 7-38 [facility] Comment on above: Order Comment: Speci men Type: BLOOD SPECIMEN Ordering Facility: [facility] Address: [address] [place] [address] Performed By: #### 2 4323-8 #### [facility] CLIA [id number] [address] [place] [address] 27370 Anion gap [Moles/Vol] 11 mmol/L Normal 8-15 [facility] Comment on above: Order Comment: Speci men Type: BLOOD SPECIMEN Ordering Facility: [facility] Address: [address] [place] [id number] Performed By: #### 2 4323-8 #### [facility] CLIA [id number] [address] [place] [address] AST [Catalytic activity/Vol] 17 U/L Normal 13-35 [facility] Comment on above: Order Comment: Speci men Type: BLOOD SPECIMEN Ordering Facility: [facility] Address: [address] [place] [address] Performed By: #### 2 4323-8 #### [facility] CLIA [id number] [address] [place] [address] 77661 Bilirubin [Mass/Vol] 0.3 mg/dL Normal 0.2-1.3 [facility] Comment on above: Order Comment: Speci men Type: BLOOD SPECIMEN Ordering Facility: [facility] Address: [address] [place] [address] Performed By: #### 2 4323-8 #### [facility] CLIA [id number] [address] [place] [address] 38701 Calcium [Mass/Vol] 9.7 mg/dL Normal 8.5-10.2 [facility] Comment on above: Order Comment: Speci men Type: BLOOD SPECIMEN Ordering Facility: [facility] Address: [address] [place] [address] Performed By: #### 2 4323-8 #### [facility] CLIA [id number] [address] [place] [address] 91081 Chloride [Moles/Vol] 99 mmol/L Normal 98-107 [facility] Comment on above: Order Comment: Speci men Type: BLOOD SPECIMEN Ordering Facility: [facility] Address: [address] [place] [address] Performed By: #### 2 4323-8 #### [facility] CLIA [id number] [address] [place] [address] CO2 [Moles/Vol] 27 mmol/L Normal 22-30 [facility] Comment on above: Order Comment: Speci men Type: BLOOD SPECIMEN Ordering Facility: [facility] Address: [address] [place] [address] Performed By: #### 2 4323-8 #### [facility] CLIA [id number] [address] [place] [address] 49763 Creatinine [Mass/Vol] 1.10 mg/dL High 0.58-0.96 [facility] Comment on above: Order Comment: Speci men Type: BLOOD SPECIMEN Ordering Facility: [facility] Address: [address] [place] [address] Performed By: #### 2 4323-8 #### [facility] CLIA [id number] [address] [place] [address] 20537 Creatinine and Glomerular filtration rate.predicted panel (S/P/Bld) 53 mL/min/1.73m??? Low >=60 [facility] Comment on above: Order Comment: Speci men Type: BLOOD SPECIMEN Ordering Facility: [facility] Address: [address] [place] [address] Result Comment: Su mated Glomerular Filtration Rate (eGFR) is calculated using the 2020 CKD-EPI creatinine equation. This equation utilizes serum creatinine, sex, and age as parameters. The creatinine assay has traceable calibration to isotope dilution-mass spectrometry. Refer to KDIGO guidelines for clinical interpretation. In patients with unstable renal function, e.g. those with acute kidney injury, the eGFR may not accurately reflect actual GFR. Performed By: #### 2 4323-8 #### [facility] CLIA [id number] [address] [place] [address] 82805 Glucose [Mass/Vol] 102 mg/dL High 74-99 [facility] Comment on above: Order Comment: Speci men Type: BLOOD SPECIMEN Ordering Facility: [facility] Address: [address] [place] [id number] Result Comment: The [place] [employer] (ADA) provides guidance for cutoff values for fasting glucose and random glucose. The ADA defines fasting as no caloric intake for at least 8 hours. Fasting plasma glucose results between 100 to 125 mg/dL indicate increased risk for diabetes (prediabetes). Fasting plasma glucose results greater than or equal to 126 mg/dL meet the criteria for diagnosis of diabetes. In the absence of unequivocal hyperglycemia, results should be confirmed by repeat testing. In a patient with classic symptoms of hyperglycemia or hyperglycemic crisis, random plasma glucose results greater than or equal to 200 mg/dL meet the criteria for diagnosis of diabetes. Reference: Standards of Medical Care in Diabetes 2016, [place] [employer]. Diabetes Care. 2016.39(Suppl 1). Performed By: #### 2 4323-8 #### [facility] CLIA [id number] [address] [place] [address] Potassium [Moles/Vol] 3.7 mmol/L Normal 3.7-5.1 [facility] Comment on above: Order Comment: Speci men Type: BLOOD SPECIMEN Ordering Facility: [facility] Address: [address] [place] [address] Performed By: #### 2 4323-8 #### [facility] CLIA [id number] [address] [place] [address] 21246 Protein [Mass/Vol] 6.9 g/dL Normal 6.3-8.0 [facility] Comment on above: Order Comment: Speci men Type: BLOOD SPECIMEN Ordering Facility: [facility] Address: [address] [place] [address] Performed By: #### 2 4323-8 #### [facility] CLIA [id number] [address] [place] [address] 75076 Sodium [Moles/Vol] 137 mmol/L Normal 136-144 [facility] Comment on above: Order Comment: Speci men Type: BLOOD SPECIMEN Ordering Facility: [facility] Address: [address] [place] [address] Performed By: #### 2 4323-8 #### [facility] CLIA [id number] [address] [place] [address] Urea nitrogen [Mass/Vol] 17 mg/dL Normal 7-21 [facility] Comment on above: Order Comment: Speci men Type: BLOOD SPECIMEN Ordering Facility: [facility] Address: [address] [place] [address] Performed By: #### 2 4323-8 #### [facility] CLIA [id number] [address] [place] [address] 28419 TSH SerPl-aCncon 12-30-2024 TSH Qn 1.160 m[IU]/L Normal 0.270-4.200 [facility] Comment on above: Order Comment: Speci men Type: BLOOD SPECIMEN Ordering Facility: [facility] Address: [address] [place] [address] Performed By: #### 3 016-3, 6875-9 #### [facility] CLIA [id number] [address] [place] [address] [facility] ALL THYROID STIM HORMONEon 0 10-25-2024 TSH Qn 1.204 m[IU]/L [facility] LIPID PANEL, STANDARDon 11-2 Cholesterol [Mass/Vol] 213 mg/dL High <200 [facility] Comment on above: Order Comment: FASTI NG:YES FASTING: YES Performed By: #### 7 600 #### [facility] [address], [address] [place] [address] [employer] Former: Saran Castillo MD Cholesterol in HDL [Mass/Vol] 50 mg/dL Normal > OR = 50 [facility] Comment on above: Order Comment: FASTI NG:YES FASTING: YES Performed By: #### 7 600 #### [facility] [address], [address] [place], [place] [id number] [employer] Former: Saran Castillo MD Cholesterol in LDL [Mass/Vol] 133 mg/dL High [facility] Comment on above: Order Comment: FASTI NG:YES FASTING: YES Result Comment: Refe rence range: <100 Desirable range <100 mg/dL for primary prevention; <70 mg/dL for patients with CHD or diabetic patients with > or = 2 CHD risk factors. LDL-C is now calculated using the Eric-Casiano calculation, which is a validated novel method providing better accuracy than the Friedewald equation in the estimation of LDL-C. Eric SS et al. DARYL. 2013;310(19): 6283-1951 (http://education.[employer].Mindlikes/faq/AWM838) Performed By: #### 7 600 #### [facility] [address], [address] [place] [address] [employer] Former: Saran Castillo MD Cholesterol.total/Ch olesterol in HDL [Mass ratio] 4.3 {ratio} Normal <5.0 [facility] Comment on above: Order Comment: FASTI NG:YES FASTING: YES Performed By: #### 7 600 #### [facility] [place] [address] [employer] Former: Saran Castillo MD NON HDL CHOLESTEROL 163 mg/dL (calc) High <130 [facility] Comment on above: Order Comment: FASTI NG:YES FASTING: YES Result Comment: For patients with diabetes plus 1 major ASCVD risk factor, treating to a non-HDL-C goal of <100 mg/dL (LDL-C of <70 mg/dL) is considered a therapeutic option. Performed By: #### 7 600 #### [facility] [place] [address] [employer] Former: Saran Castillo MD Triglyceride [Mass/Vol] 161 mg/dL High <150 [facility] Comment on above: Order Comment: FASTI NG:YES FASTING: YES Performed By: #### 7 600 #### [facility] [place] [address] [employer] Former: Saran Castillo MD MM screening mammo BI w/CADo n 09-06-2024 MM screening mammo BI w/CAD [place] [address] Mammography Report Signed Patient: Savana Tran MR#: [id number] : 1950 Acct:[id number] Age/Sex: 74 / F ADM Date: 09/06/24 Loc: OK Room: Type: CHAYITO MACEDO Attending Dr: Lux Bowden DO Copies to: Lux Persaud MD Ordering Provider: Lux Bowden Date of Service: 09/06/24 MM/MM screening mammo BI w/CAD: SCREENING CLINICAL DATA: Screening for malignancy. Personal history of left-sided breast cancer status post lumpectomy in 2019. SCREENING MAMMOGRAM - FULL FIELD DIGITAL WITH TOMOSYNTHESIS AND CAD COMPARISON:Mammograms dating back to 2020. Tomosynthesis craniocaudal and mediolateral oblique views of both breasts were obtained using low- dose digital technique. This examination was reviewed with the aid of CAD. FINDINGS: The breast tissue is composed of scattered fibroglandular densities. There are no dominant masses, typically malignant calcifications or architectural distortion. Stable posttreatment changes left breast. MM/MM screening mammo BI w/CAD IMPRESSION: NO MAMMOGRAPHIC EVIDENCE OF MALIGNANCY. ROUTINE FOLLOW-UP IS RECOMMENDED IN ONE YEAR. RESULT CODE: 1 Negative DENSITY CODE: 2 (approximately 25-50% glandular) FOLLOW UP: 1YR The false-negative rate of mammography is approximately 10-percent. Management of a palpable abnormality must be based on clinical grounds. Patient was entered into a reminder system with a target due date for the next mammogram. Impression dictated by: Matthew Jarquin Jr., D.ODayna09/06/2024 2:08 PM Dictation Location: [facility] Transcribed By: MAUREEN 09/06/24 1408 Dictated By: Matthew Jarquin Jr, DO 09/06/24 1407 Signed By: 09/06/24 1408 Normal [facility] Mammography reportOrdered By : Matthew Jarquin on 09-06-2024 Diagnostic imaging study [place] [address] Mammography Report Signed Patient: Savana Tran MR#: [id number] : 1950 Acct:[id number] Age/Sex: 74 / F ADM Date: 4 Loc: OK Room: Type: [facility] Attending Dr: Lux Bowden DO Copies to: Lux Persaud MD~ Ordering Provider: Lux Bowden Date of Service: 09/06/24 MM/MM screening mammo BI w/CAD: SCREENING CLINICAL DATA: Screening for malignancy. Personal history of left-sided breastcancer status post lumpectomy in 2020. SCREENING MAMMOGRAM - FULL FIELD DIGITAL WITH TOMOSYNTHESIS AND CAD COMPARISON:Mammograms dating back to 2020. Tomosynthesis craniocaudal and mediolateral oblique views of both breasts were obtained using low-dose digital technique. This examination was reviewed with the aid of CAD. FINDINGS: The breast tissue is composed of scattered fibroglandular densities. There are no dominant masses, typically malignant calcifications or architectural distortion. Stable posttreatment changes left breast. MM/MM screening mammo BI w/CAD IMPRESSION: NO MAMMOGRAPHIC EVIDENCE OF MALIGNANCY. ROUTINE FOLLOW-UP IS RECOMMENDED IN ONE YEAR. RESULT CODE: 1 Negative DENSITY CODE: 2 (approximately 25-50% glandular) FOLLOW UP: 1YR The false-negative rate of mammography is approximately 10-percent. Management of a palpable abnormality must be based on clinical grounds. Patient was entered into a reminder system with a target due date for the next mammogram. Impression dictated by: Matthew Jarquin Jr., D.O.09/06/2024 2:08 PM Dictation Location: [facility] Transcribed By: MAUREEN 09/06/24 1408 Dictated By: Matthew Jarquin Jr, DO 09/06/24 1407 Signed By: 09/06/24 1408 [facility] ALL THYROID STIM HORMONEon 10-23-2023 Interpretation and review of laboratory results Abnormal [facility] TSH Qn 0.25 m[IU]/L Low [facility]IN[facility] Laboratory - Hematology and Cell countson 08-16-2024 HbA1c (Bld) [Mass fraction] 5.6 % [facility] No Panel Informationon 08-16 Interpretation and review of laboratory results Normal [facility] CNOVSPon 07-15-2024 CNOVSP Visit (SP) Office (H EMASA) -- SAVAAN TRAN ([id number]) 1950 F Date Time Provider Department 07/15/24 2:00 PM JERSON CLARK During your visit today, we recorded the following information about you: Temperature Pulse Respiration Blood pressure 97.1 degrees 89/minute 16/minute 131/79 Weight Height 104.7 kg 1.6 m Jerson Clark MD 07/16/2024 8:21 AM Signed NAME: Savana Tran CLINIC NO.: [id number] DATE OF SERVICE: July 15, 2024 (Amber) Some elements in this clinic note that are critical to medical decision making have been carefully reviewed and included from a prior clinic note dated: January 15, 2024 (Liam) Referring Provider: Dr. Lucas Melo Additional Clinicians involved in Savana Tran's care: Dr. Connor Persaud, Dr. Kd Kelley, Dr. Charlie Bowden, Dr. Maciej Szymanski CC: Breast cancer follow up. ASSESSMENT/PLAN: 1. Malignant neoplasm of upper-outer quadrant of left breast in female, estrogen receptor positive 74 year old woman with left breast cancer T1c(sn)N0M0 s/p lumpectomy with Dr. Kelley on 09/26/2020. She presents for Medical oncology opinion regarding ER/OR + HER2-gilbert (-) breast cancer with a prior history of resected endometrial adenocarcinoma diagnosed and treated in 07/2018. Oncotype DX recurrence score was 16. She completed radiation. And is currently on AI since December 2020. She also had genetic testing due to her history or multiple cancers. The results are scanned into Pulsant and reviewed and negative. 2. Endometrial cancer Staging for this was: IB endometrioid type endometrial adenocarcinoma, FIGO grade 1, + LVSI, tumor size 6 cm, 72% depth of invasion with limited pelvic sampling s/p pelvic RT after surgery. Normal IHC MMR expression. 3. Cancer of thyroid She has also had a history of papillary thyroid cancer 2019 noted in a thyroidectomy specimen for a nodule that was causing her difficulty swallowing. She follows with ENT. Thyroglobulin Ab is elevated Obviating the need for thyroglobulin levels and therefore we will just follow TSH. 4. Anxiety neurosis Managed by her PCP. PLAN: Zometa today and q 6 months 4mg due to tolerance Continue Femara 2.5 mg daily Labs 1 week prior to visit - CBC, CMP, TSH, breast tumor markers RTC in 6 months with labs as above _- HPI: CASE HISTORY: Reverse Chronological Order 01/10/2021-Current - Femara 2.5 mg p.o. daily 12/07/2020-01/03/2021- Radiation to left breast total dose 5005 cGy 10/12/2020 - Re-excision and evacuation of hematoma 09/26/2020 - [facility] left breast lumpectomy and SLN resection A. Tyler lymph nodes, left axilla, biopsy: - Four lymph nodes, negative for metastatic carcinoma (0/4) - Concurs with the frozen section diagnosis Note: One additional lymph node has been identified in the fibroadipose tissue which was not submitted for intraoperative frozen section. All lymph nodes are negative for metastatic carcinoma. B. Left breast, lumpectomy with radioactive seeds localization: - Invasive ductal carcinoma, Mihir histologic grade 2 (3+2+1), size: 17mm - Ductal carcinoma in situ, nuclear grade 2, solid and cribriform patterns, with focal central necrosis and associated microcalcifications - Medial margin is focally positive for invasive carcinoma; all other margins are negative - Prior biopsy site reactions - Pathologic Stage Classification: pT1c (sn)nN0 pM - not applicable ER+ (95%) OR+ (85%) HER2- (0) 08/09/2020 - Mammography / US: Left upper breast anomaly 2 O'Clock 02/18/2020 - CT CAP: Chest: Stable appearance of numerous bilateral pulmonary nodules measuring up to 5mm size. No new or enlarging nodules are seen. The central airways are widely patent. A/P: Stable CT of the abdomen and pelvis. No findings to suggest abdominal or pelvic metastatic disease. Hepatic steatosis. Findings suggestive of hepatic hemangiomas. Updated Visit, July 15, 2024: Savana returns today for a follow up. TSH: 0.089, decreased from 0.258 in 12/2023. She endorses watching what she eats, she has lost 6lbs since her last visit. Unfortunately, her brother about 2 months ago from cancer. Updated Visit, January 15, 2024: Savana Tran returns for scheduled follow-up. Since her last visit there has been there has been no significant medical changes. She remains on Femara 2.5 mg daily. She denies any side effects from the Femara. She has mild muscle and joint aches which is tolerable. She denies any breast/chest wall changes. No lumps or bumps. No unusual pain. Since her last visit she had cataract surgery. Updated Visit, July 18, 2023: Savana Tran returns for 6-month follow-up. She remains on Femara 2.5 mg daily and overall is tolerating it fa (more content not included)... Normal [facility] CBC W Auto Differential pane l (Bld)on 07-08-2024 Basophils (Bld) [#/Vol] 0.03 10*3/uL [facility] Differential cell count method Nom (Bld) Auto [facility] Eosinophils (Bld) [#/Vol] 0.06 10*3/uL [facility] Immature granulocytes (Bld) [#/Vol] [facility] Immature granulocytes/100 WBC (Bld) 0.3 % [facility] Lymphocytes (Bld) [#/Vol] 1.17 10*3/uL [facility] Monocytes (Bld) [#/Vol] 0.49 10*3/uL [facility] Neutrophils (Bld) [#/Vol] 4.65 10*3/uL [facility] Nucleated RBC (Bld) [#/Vol] [facility] Nucleated RBC/100 WBC (Bld) [Ratio] 0.0 % /100 WBC [facility] Platelet mean volume (Bld) [Entitic vol] 10.2 fL 9.0 - 12.7 fL [facility] Platelets (Bld) [#/Vol] 217 10*3/uL [facility] WBC (Bld) [#/Vol] 6.42 10*3/uL [facility] Basophils (Bld) [#/Vol] 0.03 10*3/uL Normal <0.11 [facility] Comment on above: Order Comment: Speci men Type: BLOOD SPECIMEN Ordering Facility: [facility] Address: [address] [place] [address] Performed By: #### 5 7021-8 #### [facility] CLIA [id number] [address] [place] [address] Basophils/100 WBC (Bld) 0.5 % Normal [facility] Comment on above: Order Comment: Speci men Type: BLOOD SPECIMEN Ordering Facility: [facility] Address: [address] [place] [address] Performed By: #### 5 7021-8 #### [facility] CLIA [id number] [address] [place] [address] Differential cell count method Nom (Bld) Auto Normal [facility] Comment on above: Order Comment: Speci men Type: BLOOD SPECIMEN Ordering Facility: [facility] Address: [address] [place] [address] Performed By: #### 5 7021-8 #### [facility] CLIA [id number] [address] [place] [address] Eosinophils (Bld) [#/Vol] 0.06 10*3/uL Normal <0.46 [facility] Comment on above: Order Comment: Speci men Type: BLOOD SPECIMEN Ordering Facility: [facility] Address: [address] [place] [address] Performed By: #### 5 7021-8 #### [facility] CLIA [id number] [address] [place] [address] Eosinophils/100 WBC (Bld) 0.9 % Normal [facility] Comment on above: Order Comment: Speci men Type: BLOOD SPECIMEN Ordering Facility: [facility] Address: [address] [place] [address] Performed By: #### 5 7021-8 #### [facility] CLIA [id number] [address] [place] [address] Erythrocyte distribution width (RBC) [Ratio] 12.9 % Normal 11.5-15.0 [facility] Comment on above: Order Comment: Speci men Type: BLOOD SPECIMEN Ordering Facility: [facility] Address: [address] [place] [address] Performed By: #### 5 7021-8 #### [facility] CLIA [id number] [address] [place] [address] Hematocrit (Bld) [Volume fraction] 44.3 % Normal 36.0-46.0 [facility] Comment on above: Order Comment: Speci men Type: BLOOD SPECIMEN Ordering Facility: [facility] Address: [address] [place], [place] [address] Performed By: #### 5 7021-8 #### [facility] CLIA [id number] [address] [place] [address] Hemoglobin (Bld) [Mass/Vol] 14.9 g/dL Normal 11.5-15.5 [facility] Comment on above: Order Comment: Speci men Type: BLOOD SPECIMEN Ordering Facility: [facility] Address: [address] [place] [address] Performed By: #### 5 7021-8 #### [facility] CLIA [id number] [address] [place] [address] Immature granulocytes (Bld) [#/Vol] 10*3/uL Normal <0.10 [facility] Comment on above: Order Comment: Speci men Type: BLOOD SPECIMEN Ordering Facility: [facility] Address: [address] [place] [address] Performed By: #### 5 7021-8 #### [facility] CLIA [id number] [address] [place] [address] Immature granulocytes/100 WBC (Bld) 0.3 % Normal [facility] Comment on above: Order Comment: Speci men Type: BLOOD SPECIMEN Ordering Facility: [facility] Address: [address] [place] [address] Performed By: #### 5 7021-8 #### [facility] CLIA [id number] [address] [place] [address] Lymphocytes (Bld) [#/Vol] 1.17 10*3/uL Normal 1.00-4.00 [facility] Comment on above: Order Comment: Speci men Type: BLOOD SPECIMEN Ordering Facility: [facility] Address: [address] [place] [address] Performed By: #### 5 7021-8 #### [facility] CLIA [id number] [address] [place] [address] Lymphocytes/100 WBC (Bld) 18.2 % Normal [facility] Comment on above: Order Comment: Speci men Type: BLOOD SPECIMEN Ordering Facility: [facility] Address: [address] [place] [address] Performed By: #### 5 7021-8 #### [facility] CLIA [id number] [address] [place] [address] MCH (RBC) [Entitic mass] 30.6 pg Normal 26.0-34.0 [facility] Comment on above: Order Comment: Speci men Type: BLOOD SPECIMEN Ordering Facility: [facility] Address: [address] [place] [address] Performed By: #### 5 7021-8 #### [facility] CLIA [id number] [address] [place] [address] MCHC (RBC) [Mass/Vol] 33.6 g/dL Normal 30.5-36.0 [facility] Comment on above: Order Comment: Speci men Type: BLOOD SPECIMEN Ordering Facility: [facility] Address: [address] [place] [address] Performed By: #### 5 7021-8 #### [facility] CLIA [id number] [address] [place] [address] MCV (RBC) [Entitic vol] 91.0 fL Normal 80.0-100.0 [facility] Comment on above: Order Comment: Speci men Type: BLOOD SPECIMEN Ordering Facility: [facility] Address: [address] [place] [address] Performed By: #### 5 7021-8 #### [facility] CLIA [id number] [address] [place] [address] Monocytes (Bld) [#/Vol] 0.49 10*3/uL Normal <0.87 [facility] Comment on above: Order Comment: Speci men Type: BLOOD SPECIMEN Ordering Facility: [facility] Address: [address] [place] [address] Performed By: #### 5 7021-8 #### [facility] CLIA [id number] [address] [place] [address] Monocytes/100 WBC (Bld) 7.6 % Normal [facility] Comment on above: Order Comment: Speci men Type: BLOOD SPECIMEN Ordering Facility: [facility] Address: [address] [place] [address] Performed By: #### 5 7021-8 #### [facility] CLIA [id number] [address] [place] [address] Neutrophils (Bld) [#/Vol] 4.65 10*3/uL Normal 1.45-7.50 [facility] Comment on above: Order Comment: Speci men Type: BLOOD SPECIMEN Ordering Facility: [facility] Address: [address] [place] [address] Performed By: #### 5 7021-8 #### [facility] CLIA [id number] [address] [place] [address]33 Neutrophils/100 WBC (Bld) 72.5 % Normal [facility] Comment on above: Order Comment: Speci men Type: BLOOD SPECIMEN Ordering Facility: [facility] Address: [address] [place] [address] Performed By: #### 5 7021-8 #### [facility] CLIA [id number] [address] [place] [address] Nucleated RBC (Bld) [#/Vol] 10*3/uL Normal <0.01 [facility] Comment on above: Order Comment: Speci men Type: BLOOD SPECIMEN Ordering Facility: [facility] Address: [address] [place] [address] Performed By: #### 5 7021-8 #### [facility] CLIA [id number] [address] [place] [address] Nucleated RBC/100 WBC (Bld) [Ratio] 0.0 /100 WBC Normal [facility] Comment on above: Order Comment: Speci men Type: BLOOD SPECIMEN Ordering Facility: [facility] Address: [address] [place] [address] Performed By: #### 5 7021-8 #### [facility] CLIA [id number] [address] [place] [address]82 Platelet mean volume (Bld) [Entitic vol] 10.2 fL Normal 9.0-12.7 [facility] Comment on above: Order Comment: Speci men Type: BLOOD SPECIMEN Ordering Facility: [facility] Address: [address] [place] [address] Performed By: #### 5 7021-8 #### [facility] CLIA [id number] [address] [place] [address]70 Platelets (Bld) [#/Vol] 217 10*3/uL Normal 150-400 [facility] Comment on above: Order Comment: Speci men Type: BLOOD SPECIMEN Ordering Facility: [facility] Address: [address] [place] [address] Performed By: #### 5 7021-8 #### [facility] CLIA [id number] [address] [place] [address] 17123 RBC (Bld) [#/Vol] 4.87 10*6/uL Normal 3.90-5.20 [facility] Comment on above: Order Comment: Speci men Type: BLOOD SPECIMEN Ordering Facility: [facility] Address: [address] [place] [address] [place] [address] Performed By: #### 5 7021-8 #### [facility] CLIA [id number] [address] [place] [address] WBC (Bld) [#/Vol] 6.42 10*3/uL Normal 3.70-11.00 [facility] Comment on above: Order Comment: Speci men Type: BLOOD SPECIMEN Ordering Facility: [facility] Address: [address] [place] [address] Performed By: #### 5 7021-8 #### [facility] CLIA [id number] [address] [place] [address] [facility] CBC W AUTO DIFF BLDon [facility] BASOPHILS # BLD AUTO 0.03 [facility] DIFFERENTIAL METHOD BLD Auto [facility] EOSINOPHIL # BLD AUTO 0.06 [facility] LYMPHOCYTES # BLD AUTO 1.17 [facility] MONOCYTES # BLD AUTO 0.49 [facility] NEUTROPHILS # BLD AUTO 4.65 [facility] NRBC # BLD AUTO <0.01 [facility] NRBC/100 WBC BLD-RTO 0.0 /100 WBC [facility] PLATELET # BLD AUTO 217 [facility] PMV BLD AUTO 10.2 fL 9.0 - 12.7 fL [facility] WBC # BLD AUTO 6.42 [facility] IMM GRANULOCYTES # BLD AUTO <0.03 [facility] IMM GRANULOCYTES/LEUK NFR BLD AUTO 0.3 % [facility] Specimen Type: BLOOD SPECIMEN Ordering Facility: [facility] Address: [address] [place] [address] Original Ordering Provider: JERSON Alonso 07-08-2024 AMBER Telephone (HEMASA) -- SAVANA TRAN ([id number]) 1950 F Date Time Provider Department 07/08/24 BARBIE HINSON During your visit today, we recorded the following information about you: Barbie Hinson RN 07/08/2024 2:13 PM Signed Pt here for labs 1 week prior to OV. Ari/RUBENS: please review and sign labs as requested with 01/10 OV JANIE Rausch Natalie, RN 07/08/2024 2:[address] Ari fu orders to sign. 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 - ergocalciferol 50,000 unit capsule (VITAMIN D2, DRISDOL) take 1 capsule by oral route every week - levothyroxine (SYNTHROID) 125 mcg tablet 125 mcg. - melatonin 5 mg chew Take by mouth as needed. - doxylamine succinate (SLEEP AID ORAL) Take 1 Cap-Full by mouth as needed. - ALPRAZolam (XANAX) 0.25 mg tablet Take 0.25 mg by mouth at bedtime as needed. - lisinopril-hydrochlorothia zide (PRINZIDE, ZESTORETIC) 20-25 mg per tablet Take 1 tablet by mouth once daily. 1.5 tablet daily Problem List As Of Date 07/08/2024 Noted Resolved Endometrial cancer (HCC) [C54.1] 04/03/2018 Diabetes (HCC) [E11.9] Hypertension [I10] Hypothyroid [E03.9] Obesity, Class II, BMI 35-39.9 [E66.9] 04/11/2018 Anxiety neurosis [F41.1] 10/23/2020 Cancer of thyroid (HCC) [C73] 10/23/2020 Malignant neoplasm of upper-outer quadrant of l*10/23/2020 Encounter Status:Closed by BARBIE HINSON on 07/08/24 Normal [facility] Comprehensive metabolic 2000 panelOrdered By: Stoney Fierro on 07-08-2024 Albumin [Mass/Vol] 4.4 g/dL 3.9 - 4.9 g/dL [facility] ALP [Catalytic activity/Vol] 63 U/L 34 - 123 U/L [facility] ALT [Catalytic activity/Vol] 28 U/L 7 - 38 U/L [facility] Anion gap [Moles/Vol] 11 mmol/L 8 - 15 mmol/L [facility] AST [Catalytic activity/Vol] 18 U/L 13 - 35 U/L [facility] Bilirubin [Mass/Vol] 0.3 mg/dL 0.2 - 1 .3 mg/dL [facility] Calcium [Mass/Vol] 9.9 mg/dL 8.5 - 10. 2 mg/dL [facility] Chloride [Moles/Vol] 102 mmol/L 98 - 10 7 mmol/L [facility] CO2 [Moles/Vol] 26 mmol/L 22 - 30 mmol/L [facility] Creatinine [Mass/Vol] 1.12 mg/dL High 0.58 - 0.96 mg/dL [facility] GFR/1.73 sq M.predicted among non-blacks MDRD (S/P/Bld) [Vol rate/Area] 52 mL/min/{1.73_m2} Low - PINF [facility] Comment on above: Estimated Glomerular Filtration Rate (eGFR) is calculated using the 2020 CKD-EPI creatinine equation. This equation utilizes serum creatinine, sex, and age as parameters. The creatinine assay has traceable calibration to isotope dilution-mass spectrometry. Refer to KDIGO guidelines for clinical interpretation. In patients with unstable renal function, e.g. those with acute kidney injury, the eGFR may not accurately reflect actual GFR. Glucose [Mass/Vol] 103 mg/dL High 74 - 99 mg/dL [facility] Comment on above: The [place] [employer] (ADA) provides guidance for cutoff values for fasting glucose and random glucose. The ADA defines fasting as no caloric intake for at least 8 hours. Fasting plasma glucose results between 100 to 125 mg/dL indicate increased risk for diabetes (prediabetes). Fasting plasma glucose results greater than or equal to 126 mg/dL meet the criteria for diagnosis of diabetes. In the absence of unequivocal hyperglycemia, results should be confirmed by repeat testing. In a patient with classic symptoms of hyperglycemia or hyperglycemic crisis, random plasma glucose results greater than or equal to 200 mg/dL meet the criteria for diagnosis of diabetes. Reference: Standards of Medical Care in Diabetes 2016, [place] [employer]. Diabetes Care. 2016.39(Suppl 1). Interpretation and review of laboratory results Abnormal [facility] Potassium [Moles/Vol] 3.7 mmol/L 3.7 - 5.1 mmol/L [facility] Protein [Mass/Vol] 6.9 g/dL 6.3 - 8.0 g/dL [facility] Sodium [Moles/Vol] 139 mmol/L 136 - 144 mmol/L [facility] Urea nitrogen [Mass/Vol] 17 mg/dL 7 - 21 mg/dL [facility] Comprehensive metabolic 2000 panelon 07-08-2024 Albumin [Mass/Vol] 4.4 g/dL Normal 3.9-4.9 [facility] Comment on above: Order Comment: Speci men Type: BLOOD SPECIMEN Ordering Facility: [facility] Address: [address] [place] [address] Performed By: #### 2 4323-8 #### [facility] CLIA [id number] [address] [place] [address] ALP [Catalytic activity/Vol] 63 U/L Normal 34-123 [facility] Comment on above: Order Comment: Speci men Type: BLOOD SPECIMEN Ordering Facility: [facility] Address: [address] [place], [place] [address] Performed By: #### 2 4323-8 #### [facility] CLIA [id number] [address] [place] [address] ALT [Catalytic activity/Vol] 28 U/L Normal 7-38 [facility] Comment on above: Order Comment: Speci men Type: BLOOD SPECIMEN Ordering Facility: [facility] Address: [address] [place] [address] Performed By: #### 2 4323-8 #### [facility] CLIA [id number] [address] [place] [address] Anion gap [Moles/Vol] 11 mmol/L Normal 8-15 [facility] Comment on above: Order Comment: Speci men Type: BLOOD SPECIMEN Ordering Facility: [facility] Address: [address] [place] [address] Performed By: #### 2 4323-8 #### [facility] CLIA [id number] [address] [place] [address] AST [Catalytic activity/Vol] 18 U/L Normal 13-35 [facility] Comment on above: Order Comment: Speci men Type: BLOOD SPECIMEN Ordering Facility: [facility] Address: [address] [place] [address] Performed By: #### 2 4323-8 #### [facility] CLIA [id number] [address] [place] [address] Bilirubin [Mass/Vol] 0.3 mg/dL Normal 0.2-1.3 [facility] [place] Comment on above: Order Comment: Speci men Type: BLOOD SPECIMEN Ordering Facility: [facility] Address: [address] [place] [address] Performed By: #### 2 4323-8 #### [facility] CLIA [id number] [address] [place] [address] Calcium [Mass/Vol] 9.9 mg/dL Normal 8.5-10.2 [facility] Comment on above: Order Comment: Speci men Type: BLOOD SPECIMEN Ordering Facility: [facility] Address: [address] [place] [address] Performed By: #### 2 4323-8 #### [facility] CLIA [id number] [address] [place] [address] Chloride [Moles/Vol] 102 mmol/L Normal 98-107 [facility] [place] Comment on above: Order Comment: Speci men Type: BLOOD SPECIMEN Ordering Facility: [facility] Address: [address] [place] [address] Performed By: #### 2 4323-8 #### [facility] CLIA [id number] [address] [place] [address] CO2 [Moles/Vol] 26 mmol/L Normal 22-30 [facility] Comment on above: Order Comment: Speci men Type: BLOOD SPECIMEN Ordering Facility: [facility] Address: [address] [place] [address] Performed By: #### 2 4323-8 #### [facility] CLIA [id number] [address] [place] [address] Creatinine [Mass/Vol] 1.12 mg/dL High 0.58-0.96 [facility] Comment on above: Order Comment: Speci men Type: BLOOD SPECIMEN Ordering Facility: [facility] Address: [address] [place] [address] Performed By: #### 2 4323-8 #### [facility] CLIA [id number] [address] [place] [address] Creatinine and Glomerular filtration rate.predicted panel (S/P/Bld) 52 mL/min/1.73m??? Low >=60 [facility] Comment on above: Order Comment: Speci men Type: BLOOD SPECIMEN Ordering Facility: [facility] Address: [address] [place] [address] Result Comment: Su mated Glomerular Filtration Rate (eGFR) is calculated using the 2020 CKD-EPI creatinine equation. This equation utilizes serum creatinine, sex, and age as parameters. The creatinine assay has traceable calibration to isotope dilution-mass spectrometry. Refer to KDIGO guidelines for clinical interpretation. In patients with unstable renal function, e.g. those with acute kidney injury, the eGFR may not accurately reflect actual GFR. Performed By: #### 2 4323-8 #### [facility] CLIA [id number] [address] [place] [address] Glucose [Mass/Vol] 103 mg/dL High 74-99 [facility] Comment on above: Order Comment: Speci men Type: BLOOD SPECIMEN Ordering Facility: [facility] Address: [address] [place] [address] Result Comment: The [place] Diabetes [employer] (ADA) provides guidance for cutoff values for fasting glucose and random glucose. The ADA defines fasting as no caloric intake for at least 8 hours. Fasting plasma glucose results between 100 to 125 mg/dL indicate increased risk for diabetes (prediabetes). Fasting plasma glucose results greater than or equal to 126 mg/dL meet the criteria for diagnosis of diabetes. In the absence of unequivocal hyperglycemia, results should be confirmed by repeat testing. In a patient with classic symptoms of hyperglycemia or hyperglycemic crisis, random plasma glucose results greater than or equal to 200 mg/dL meet the criteria for diagnosis of diabetes. Reference: Standards of Medical Care in Diabetes 2016, [place] [employer] Association. Diabetes Care. 2016.39(Suppl 1). Performed By: #### 2 4323-8 #### [facility] CLIA [id number] [address] [place] [address] Potassium [Moles/Vol] 3.7 mmol/L Normal 3.7-5.1 [facility] Comment on above: Order Comment: Speci men Type: BLOOD SPECIMEN Ordering Facility: [facility] Address: [address] [place] [address] Performed By: #### 2 4323-8 #### [facility] CLIA [id number] [address] [place] [address] Protein [Mass/Vol] 6.9 g/dL Normal 6.3-8.0 [facility] Comment on above: Order Comment: Speci men Type: BLOOD SPECIMEN Ordering Facility: [facility] Address: [address] [place], [place] [address] Performed By: #### 2 4323-8 #### [facility] CLIA [id number] [address] [place] [address] Sodium [Moles/Vol] 139 mmol/L Normal 136-144 [facility] Comment on above: Order Comment: Speci men Type: BLOOD SPECIMEN Ordering Facility: [facility] Address: [address] [place], [place] [address] Performed By: #### 2 4323-8 #### [facility] CLIA [id number] [address] [place], [place] [address] Urea nitrogen [Mass/Vol] 17 mg/dL Normal 7-21 [facility] Comment on above: Order Comment: Speci men Type: BLOOD SPECIMEN Ordering Facility: [facility] Address: [address] [place] [address] Performed By: #### 2 4323-8 #### [facility] CLIA [id number] [address] [place], [place] [address] Laboratory - Hematology and Cell countson 07-08-2024 Basophils/100 WBC (Bld) 0.5 % [facility] Eosinophils/100 WBC (Bld) 0.9 % [facility] Erythrocyte distribution width (RBC) [Ratio] 12.9 % 11.5 - 15.0 % [facility] Hematocrit (Bld) [Volume fraction] 44.3 % 36.0 - 46.0 % [facility] Hemoglobin (Bld) [Mass/Vol] 14.9 g/dL 11.5 - 15.5 g/dL [facility] Lymphocytes/100 WBC (Bld) 18.2 % [facility] MCH (RBC) [Entitic mass] 30.6 pg 26.0 - 34.0 pg [facility] MCHC (RBC) [Mass/Vol] 33.6 g/dL 30.5 - 36.0 g/dL [facility] MCV (RBC) [Entitic vol] 91.0 fL 80.0 - 100.0 fL [facility] Monocytes/100 WBC (Bld) 7.6 % [facility] Neutrophils/100 WBC (Bld) 72.5 % [facility] RBC (Bld) [#/Vol] 4.87 10*6/uL 3.90 - 5.2 0 m/uL [facility] No Panel Informationon 07-08 [facility] TSH SerPl-aCncon 07-08-2024 TSH Qn 0.089 m[IU]/L Low 0.270-4.200 [facility] Comment on above: Order Comment: Speci men Type: BLOOD SPECIMEN Ordering Facility: [facility] Address: [address] [place] [address] Performed By: #### 2 4323-8 #### [facility] CLIA [id number] [address] [place] [address] ALL THYROID STIM HORMONEon 0 07-01-2024 Interpretation and review of laboratory results Abnormal [facility] TSH Qn 0.082 m[IU]/L Low [facility] CNOVSPon 01-15-2024 CNOVSP Visit (SP) Office ( [facility]) -- SAVANA TRAN ([id number]) 1950 F Date Time Provider Department 01/15/24 2:00 PM GABY MELGAR During your visit today, we recorded the following information about you: Temperature Pulse Respiration Blood pressure 97.8 degrees 94/minute 18/minute 142/68 Weight Height 107.3 kg 1.6 m Gaby Melgar APRN.CNP 01/27/2024 10:47 AM Signed NAME: Penny Tranhleen CLINIC NO.: [id number] DATE OF SERVICE: January 15, 2024 (Liam) Some elements in this clinic note that are critical to medical decision making have been carefully reviewed and included from a prior clinic note dated: July 18, 2023. (Liam) Referring Provider: Dr. Lucas Melo Additional Clinicians involved in [place] Tran's care: Dr. Connor Persaud, Dr. Kd Kelley, Dr. Charlie Bowden, Dr. Maciej Szymanski CC: Breast cancer follow up. ASSESSMENT/PLAN: 1. Malignant neoplasm of upper-outer quadrant of left breast in female, estrogen receptor positive 73 year old woman with left breast cancer T1c(sn)N0M0 s/p lumpectomy with Dr. Kelley on 09/26/2020. She presents for Medical oncology opinion regarding ER/OR + HER2-gilbert (-) breast cancer with a prior history of resected endometrial adenocarcinoma diagnosed and treated in 07/2018. Oncotype DX recurrence score was 16. She completed radiation. And is currently on AI since December 2020. She also had genetic testing due to her history or multiple cancers. The results are scanned into P[employer] and reviewed and negative. 2. Endometrial cancer Staging for this was: IB endometrioid type endometrial adenocarcinoma, FIGO grade 1, + LVSI, tumor size 6 cm, 72% depth of invasion with limited pelvic sampling s/p pelvic RT after surgery. Normal IHC MMR expression. 3. Cancer of thyroid She has also had a history of papillary thyroid cancer 2019 noted in a thyroidectomy specimen for a nodule that was causing her difficulty swallowing. She follows with ENT. Thyroglobulin Ab is elevated Obviating the need for thyroglobulin levels and therefore we will just follow TSH. 4. Anxiety neurosis Managed by her PCP. PLAN: Continue Femara 2.5 mg daily. Labs 1 week prior to visit CBC, CMP, TSH. Due to the dosing of Reclast which is only given once yearly we will need to switch to Zometa which we can give every 6 months. Follow up in 6 months with labs as above. TREATMENT TO DATE: 4. 01/10/2021 -current: Femara 2.5 mg p.o. daily 3. 12/07/2020 -01/03/2021: Radiation to left breast total dose 5005 cGy 2. 10/12/2020: Re-excision and evacuation of hematoma 1. 09/26/2020: [facility] left breast lumpectomy and SLN resection. HPI: Updated Visit, January 15, 2024: Savana Tran returns for scheduled follow-up. Since her last visit there has been there has been no significant medical changes. She remains on Femara 2.5 mg daily. She denies any side effects from the Femara. She has mild muscle and joint aches which is tolerable. She denies any breast/chest wall changes. No lumps or bumps. No unusual pain. Since her last visit she had cataract surgery. Updated Visit, July 18, 2023: Savana Tran returns for 6-month follow-up. She remains on Femara 2.5 mg daily and overall is tolerating it fairly well. She has joint and muscle aches but is unsure if it is directly related to the Femara. She is having some issues with the meniscus in her left knee. She denies any breast changes. She has occasional ache to the left breast scar tissue. She has mild exertional shortness of breath and also an occasional cough. She denies any unusual pain. After she receives the bone strengthener she has mild flulike symptoms. Updated Visit, January 17, 2023: Savana returns and has questions regarding. Pap smear was atypical / non-diagnostic and will need to be repeated. Discussed zolendronic acid while on AI. Dr. Bowden examined her breast, Dr. Kelley reviewed Mammogram from 08/2022. Anxious overall. Updated Visit, July 19, 2022: Savana is 72 years old and returns today anticipating start of Reclast however she broke a tooth and had it pulled 2 weeks ago. Hold Reclast that was planned. She is otherwise doing well on Femara 2.5 mg daily. I reviewed the remainder of her laboratories including an elevated thyroglobulin antibody and therefore thyroglobulin levels are not reliable. She does not follow with an bottom liner which in the future may be helpful. For now we will follow her TSH levels. I will defer breast examination today since she is seeing Dr. Kelley after having mammograms next month. 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 She is doing well and continues to try to modify her diet and weight to manage risk factors. Doing well - Dr. House (more content not included)... Normal [facility] PAP ACOG PANEL 2: 30 to 65on 12-06-2022 . . Normal [facility] Comment on above: Performed By: #### 4 [id number] #### [facility] [address] [place] [address] Dr. Deena Fernandez Age Gdln ACOG Testing Comment Normal [facility] Comment on above: Result Comment: <21 or >65 or no age provided Performed By: #### 4 [id number] #### [facility] [address] [place] [address] Dr. Deena Fernandez DIAGNOSIS: Comment Normal [facility] Comment on above: Result Comment: UNSA TISFACTORY FOR EVALUATION. Performed By: #### 4 [id number] #### [facility] [address] [place] [address] Dr. Deena Fernandez Methodology: Comment Normal [facility] Comment on above: Result Comment: This liquid based ThinPrep(R) pap test was screened with the use of an image guided system. Performed By: #### 4 [id number] #### [facility] [address] [place] [address] Dr. Deena Fernandez Note: Comment Normal [facility] Comment on above: Result Comment: The Pap smear is a screening test designed to aid in the detection of premalignant and malignant conditions of the uterine cervix. It is not a diagnostic procedure and should not be used as the sole means of detecting cervical cancer. Both false-positive and false-negative reports do occur. . Performed By: #### 4 [id number] #### [facility] [address] [place] [address] Dr. Deena Fernandez Performed by: Comment Normal [facility] Comment on above: Result Comment: Liana Batista, Candle Molder Machine (ASCP) Performed By: #### 4 [id number] #### [facility] [address] [place] [address] Dr. Deena Fernandez QC reviewed by: Comment Normal [facility] Comment on above: Result Comment: Susanna Ortez, Supervisory Candle M[employer] (ASCP) Performed By: #### 4 [id number] #### [facility] [address] [place] [address] Dr. Deena Fernandez Recommendation: Comment Normal [facility] Comment on above: Result Comment: Sugg est follow up as clinically appropriate. Performed By: #### 4 [id number] #### [facility] [address] [place] [address] Dr. Deena Fernandez Specimen adequacy: Comment Normal [facility] Comment on above: Result Comment: Spec imen processed and examined but unsatisfactory for evaluation of epithelial abnormality because of insufficient cellularity. Performed By: #### 4 [id number] #### [facility] [address] [place], [place] [address] Dr. Deena Fernandez US THYROIDon 06-07-2022 US THYROID EXAMINATION: US THYR OID HISTORY: Primary malignant neoplasm of thyroid gland COMPARISON: Ultrasound thyroid 11/28/2021 FINDINGS: RIGHT LOBE: No thyroid tissue or suspicious findings within right thyroid fossa. LEFT LOBE: No thyroid tissue or suspicious findings within left thyroid fossa. ISTHMUS: No thyroid tissue or suspicious findings. IMPRESSION: 1. Post thyroidectomy with no residual thyroid tissue or suspicious findings. Electronically authenticated by: PEDRO SULLIVAN Date: 2022-06-07 06:54 Normal [facility] Free T4on 12-05-2021 Free T4 [Mass/Vol] 2.01 ng/dL High 0.80-1.80 [place] [place] [employer] Comment on above: Performed By: #### T SH, FT4 #### [facility] [address] [place], [place] [id number] TSHon 12-05-2021 TSH 0.745 uIU/mL Normal 0.400-4.500 [facility] [employer] Comment on above: Performed By: #### T SH, FT4 #### [facility] [address] [place], [place] [id number] Q - THYROID PANEL + TSHon FREE T4 INDEX (T7) 3.8 Normal 1.4-3.8 [place] [employer] Comment on above: Order Comment: [facility] Testing performed at: [facility], [facility], [address] [place] [address], [address] [place] [address], [place], [address], Air Pumper: Saran Castillo MD [facility] Date/Time: [facility] Results Received Date/Time: [facility] Reported Date/Time: Performed By: #### 9 225F #### [facility] Default [address] [place] [address] T3 UPTAKE 31 % Normal 22-35 [facility] [employer] Comment on above: Order Comment: [facility] Testing performed at: [employer] [employer] [facility], [address] [place] [address], [address] [place] [address], [address] [place] [address], Air Pumper: Saran Castillo MD [facility] Date/Time: [facility] Results Received Date/Time: [facility] Reported Date/Time: Performed By: #### 9 [id number] #### [facility] Default [address] [place] [address] T4 [Mass/Vol] 12.3 ug/dL High 5.1-11.9 [facility] [employer] Comment on above: Order Comment: [facility] performed at: [facility] [facility], [address] [place] [address], [address] [place] [address], [address] [place] [address], Air Pumper: Saran Castillo MD [facility] Date/Time: [facility] Results Received Date/Time: [facility] Reported Date/Time: Performed By: #### 9 [id number] #### [facility] [address] [place] [address] TSH Qn 0.62 m[IU]/L Normal 0.40-4.50 [facility] [employer] Comment on above: Order Comment: [facility] performed at: [employer], [employer] [facility], [address] [place] [address], [address] [place] [address], [address] [place] [address], Air Pumper: Saran Castillo MD [facility] Date/Time: [facility] Results Received Date/Time: [facility] Reported Date/Time: Performed By: #### 9 225F #### [facility] [address] [place] [address] COVID-19 Positive/Negativeon 10-10-2020 COVID-19 Positive/Negative Negative Negative [facility] Comment on above: Testing for SARS-CoV -2 by RT-PCRThis test was developed and its performance characteristics determined by [employer] and validated at the [facility]. This test has not been FDA cleared or approved. This test has been authorized by FDA under an Emergency Use Authorization (EUA). This test has been validated in accordance with the FDA's Guidance Document (Policy for Diagnostics Testing in Laboratories Certified to Perform High Complexity Testing under CLIA prior to Emergency Use Authorization for Coronavirus Disease-2019 during the Public Health Emergency) issued on January 20, 2020. This test is only authorized for the duration of time the declaration that circumstances exist justifying the authorization of the emergency use of in vitro diagnostic tests for detection of SARS-CoV-2 virus and/or diagnosis of COVID-19 infection under section 564(b)(1) of the Act, 21 U.S.C. 360bbb-3(b)(1), unless the authorization is terminated or revoked sooner. Otheron 10-10-2020 Coronavirus 2019 PCR Interp N/A [facility] Capillary blood glucose breanna urement by glucometer (mass/volume)on 09-26-2020 Glucose [Mass/Vol] 113 mg/dL [facility] Comment on above: Random Glucose Refer ence Range is dependent on time and content of last meal. Glucose of more than 200 mg/dL in a nonstressed, ambulatory subject supports the diagnosis of Diabetes Mellitus. Automated basophil %on 09-20 Basophils/100 WBC (Bld) 0.7 % [facility] Automated basophil counton 1 11-21-2019 Basophils (Bld) [#/Vol] 0.0 10*3/uL 0.0-0.2 [facility] Automated blood lymphocyte c ount (number/volume)on 09-20-2020 Lymphocytes (Bld) [#/Vol] 0.9 10*3/uL 1.00-4.8 [facility] Automated blood lymphocyte c ount as percentage of total leukocyteson 09-20-2020 Lymphocytes/100 WBC (Bld) 13.2 % [facility] Automated blood monocyte cou nton 09-20-2020 Monocytes (Bld) [#/Vol] 0.5 10*3/uL 0.0-0.8 [facility] Automated blood platelet cou nt (count/volume)on 09-20-2020 Platelets (Bld) [#/Vol] 214 10*3/uL 150-450 [facility] Automated blood platelet carolee n volume measurementon 09-20-2020 Platelet mean volume (Bld) [Entitic vol] 8.9 fL 6.3-10.7 [facility] Automated eosinophil %on Eosinophils/100 WBC (Bld) 0.4 % [facility] Automated eosinophil counton 09-20-2020 Eosinophils (Bld) [#/Vol] 0.0 10*3/uL 0.0-0.45 [facility] Automated erythrocyte distri bution width ratioon 09-20-2020 Erythrocyte distribution width (RBC) [Ratio] 13.5 % 11.9-15.3 [facility] Automated erythrocyte mean c orpuscular hemoglobin (mass per erythrocyte)on 09-20-2020 MCH (RBC) [Entitic mass] 30.2 pg 24.7-34.3 [facility] Automated erythrocyte mean c orpuscular hemoglobin concentration measurement (mass/volon 09-20-2020 MCHC (RBC) [Mass/Vol] 33.4 g/dL 32.0-35.0 [facility] Automated erythrocyte mean c orpuscular volumeon 09-20-2020 MCV (RBC) [Entitic vol] 90.4 fL 80-100 [facility] Automated monocyte %on 09-20 Monocytes/100 WBC (Bld) 8.4 % [facility] Automated neutrophil %on Neutrophils/100 WBC (Bld) 77.3 % [facility] Blood erythrocytes automated count (number/volume)on 09-20-2020 RBC (Bld) [#/Vol] 4.88 10*6/uL 3.60-5.00 [facility] Blood hemoglobin measurement (mass/volume)on 09-20-2020 Hemoglobin (Bld) [Mass/Vol] 14.8 g/dL 11.8-15.4 [facility] Blood leukocytes automated c ount (number/volume)on 09-20-2020 WBC (Bld) [#/Vol] 6.5 10*3/uL 4.5-11.0 [facility] Blood neutrophil count by au tomated method (number/volume)on 09-20-2020 Neutrophils (Bld) [#/Vol] 5.0 10*3/uL 1.8-7.7 [facility] Estimated glomerular filtrat ion rate (GFR) non- Americanon 09-20-2020 GFR/1.73 sq M predicted among non-blacks MDRD (S/P/Bld) [Vol rate/Area] 44 mL/min/{1.73_m2} [facility] Hematocrit [Volume Fraction] of Blood by Automated counton 09-20-2020 Hematocrit (Bld) [Volume fraction] 44.1 % 34.0-46.4 [facility] Otheron 09-20-2020 GFR/1.73 sq M.predicted MDRD (S/P/Bld) [Vol rate/Area] 53 mL/min/{1.73_m2} [facility] Comment on above: GFR estimated refere nce range: According to KDOQI guidelines, <60 ml/min/1.73m2 is sufficient to diagnose a patient with chronic kidney disease. Nucleated RBC/100 WBC (Bld) [Ratio] 0.0 % 0-0.5 [facility] Creatinine Clearance (Chem N/A [facility] Respiratory specimen 2019 no renuka coronavirus RNA detection by probe and target amplifion 09-20-2020 Respiratory specimen 2019 novel coronavirus RNA detection by probe and target amplifi Not detected Not Detected [facility] Comment on above: This nucleic acid am plification test was developed and itsperformance characteristics determined by [facility]. Nucleic acid amplification tests include PCRand TMA. This test has not been FDA cleared or approved.This test has been authorized by FDA under an Emergency UseAuthorization (EUA). This test is only authorized forthe duration of time the declaration that circumstancesexist justifying the authorization of the emergency use ofin vitro diagnostic tests for detection of SARS-CoV-2 virusand/or diagnosis of COVID-19 infection under udgtucm423(b)(1) of the Act, 21 U.S.C. 360bbb-3(b) (1), unless theauthorization is terminated or revoked sooner.When diagnostic testing is negative, the possibility of afalse negative result should be considered in the contextof a patient's recent exposures and the presence ofclinical signs and symptoms consistent with COVID-19. Anindividual without symptoms of COVID-19 and who is notshedding SARS-CoV-2 virus would expect to have a negative(not detected) result in this assay. Serum or plasma calcium breanna urement (mass/volume)on 09-20-2020 Calcium [Mass/Vol] 9.4 mg/dL 8.2-10.2 [facility] Serum or plasma chloride carolee surement (moles/volume)on 09-20-2020 Chloride [Moles/Vol] 101 mmol/L 95-114 [facility] Serum or plasma creatinine m easurement with calculation of estimated glomerular filtron 09-20-2020 Creatinine [Mass/Vol] 1.22 mg/dL 0.44-1.03 [facility] Serum or plasma glucose breanna urement (mass/volume)on 09-20-2020 Glucose [Mass/Vol] 87 mg/dL 70-100 [facility] Comment on above: ADA recommended refe rence rangeRandom Glucose Reference Range is dependent on time and content of last meal. Glucose of more than 200 mg/dL in a nonstressed, ambulatory subject supports the diagnosis of Diabetes Mellitus. Serum or plasma potassium me asurement (moles/volume)on 09-20-2020 Potassium [Moles/Vol] 3.6 mmol/L 3.5-5.1 [facility] Serum or plasma sodium measu rement (moles/volume)on 09-20-2020 Sodium [Moles/Vol] 137 mmol/L 136-146 [facility] Serum or plasma total carbon dioxide measurement (moles/volume)on 09-20-2020 CO2 [Moles/Vol] 23.2 mmol/L 22.0-30.0 [facility] Serum or plasma urea nitroge n measurement (mass/volume)on 09-20-2020 Urea nitrogen [Mass/Vol] 14 mg/dL 9- [facility] Tumor Staging Formon 020 Tumor Staging Form [id number] Normal [facility] Coding Summary.on 12-20-2019 Coding Summary. CODING DATE: FINAL [facility] DSC STATUS: Home (Routine DC) PAYOR: Medicare APC DESCRIPTION 5361 Level 1 Laparoscopy and Related Services ADMIT DX: REASON FOR VISIT DX: E07.9 Disorder of thyroid, unspecified FINAL DX: PRINCIPAL: C73 Malignant neoplasm of thyroid gland SECONDARY: E06.3 Autoimmune thyroiditis I10 Essential (primary) hypertension E11.9 Type 2 diabetes mellitus without complications F41.9 Anxiety disorder, unspecified Z85.41 Personal history of malignant neoplasm of cervix uteri G47.33 Obstructive sleep apnea (adult) (pediatric) Z99.89 Dependence on other enabling machines and devices Z85.42 Personal history of malignant neoplasm of other parts of uterus PYMT PROC APC STAT DESCRIPTION DOCTOR NAME DATE 22033 5361 J1 Thyroidectomy, total or Maciej Szymanski MD 12/09/2019 complete 27489 Anesthesia for all Bharat Diop MD procedures on esophagus, thyroid, larynx, trachea and lymphatic system of neck; not otherwise specified, age 1 year or older NOTE: The code number assigned matches the documented diagnosis and / or procedure in the patient's chart. However, the narrative phrase printed from the coding software may appear abbreviated, or result in slightly different terminology. Revised Coded By: Elba Strange Revised Date Saved: 12/20/2019 12:11 pm Normal [facility] Progress Note-Physicianon Progress Note-Physician Patient: SAVANA TRAN Age: 69 years Sex: Female : 1950 Associated Diagnoses: None Author: Bharat Diop MD Preoperative Information Anesthesia history: Patient History: No personal or Family history of problems with anesthesia. Re-eval prior to induction: Inital eval reviewed: No significant interval change. Review of Systems Constitutional: Negative. Cardiovascular: Cardiovascular risk stratafacation reviewed, 1 FOS without difficulty, No chest pain. Respiratory: No SOB. Hematology/Lymphatics: Negative. Gastrointestinal: Negative. Musculoskeletal: Negative. Neurologic: Negative. Health Status Allergies: Allergic Reactions (Selected) No Known Allergies Current medications: (Selected) Inpatient Medications Ordered Lactated Ringers IV Zo 1000 mL 1,000 mL: 1,000 mL, IV, 150 mL/hr, Routine, Start date 12/09/19 11:30:00 EST, 6.7 hour(s), Total volume (mL): 1,000, 2.06, m2 Documented Medications Documented alprazolam 0.25 mg Tab: 0.25 mg = 1 tab(s), Oral, Bedtime, Refills(s) 0, Anxiety hydrochlorothiazide-lisino pril 25 mg-20 mg Tab: 1 tab(s), Oral, Daily, Refill(s) 0, High blood pressure levothyroxine 125 mcg (0.125 mg) Tab: 125 microgram = 1 tab(s), Oral, Daily, Refills(s) 0, Thyroid metformin 500 mg oral tablet: 500 mg = 1 tab(s), Oral, Daily, Refills(s) 0, Blood glucose Problem list: All Problems HTN (hypertension) / SNOMED CT 2492958813 / Confirmed Diabetes / SNOMED CT 401172939 / Confirmed Thyroid mass / SNOMED CT 0867241482 / Confirmed Cervical cancer / SNOMED CT 270817737 / Confirmed Anxiety / SNOMED CT 32312105 / Confirmed Histories Past Medical History: No active or resolved past medical history items have been selected or recorded. Procedure history: History of hysterectomy.. (9812866869). Colonoscopy (934170504). Hysteroscopy (949540740). Biopsy of thyroid (47076623). Social History Social & Psychosocial Habits Alcohol 12/07/2019 Risk Assessment: Denies Alcohol Use Substance Abuse 12/07/2019 Risk Assessment: Denies Substance Abuse Tobacco 12/07/2019 Risk Assessment: Denies Tobacco Use . Physical Examination Pain assessment: Self-reports no pain. Airway: Mallampati classification: II (soft palate, fauces, uvula visible). Distance: Adequate. Mouth: Adequate opening. Neck: Full range of motion. Respiratory: Respirations are non-labored. Cardiovascular: Regular rhythm. Neurologic: Alert, Oriented. Review / Management Results review: No qualifying data available . Plan [place] [employer] Anesthesiologists (ASA) physical status classification: Class II. Anesthetic Preoperative Plan Anesthesia: General. . Anesthetic plan, risks, benefits, and alternatives discussed with the patient and/or family. Patient verbalized understanding. Pt agrees with anesthetic plan and accepts all risks including but not limited to; Bleeding, infection, nerve injury, dental injury, eye injury, headache, low blood pressure, serious problems with the heart and lungs, allergic reactions, and .. Normal [facility] Comment on above: Result Comment: Elec tronically Signed By: Jadon CASTRO, Bharat\.br\Date and Time Signed: 12/15/19 14:02 EST Calciumon 12-10-2019 Calcium [Mass/Vol] 8.7 mg/dL Low 8.9-11.1 [facility] Comment on above: Performed By: #### 1 [id number], [id number], [id number], [id number], [id number], [id number], [id number], [id number] #### [facility] [address] [place] [address] Inpatient Clinical Summaryon 12-10-2019 Inpatient Clinical Summary [address] [address] Clinical Summary Person Information: Name: SAVANA TRAN Age: 69 Years : 1950 Sex: Female PCP: CONNOR PERSAUD MD Marital Status: Race: White Ethnicity: Non- or Language: Jamaican Visit Id: Visit Reason: THYROID MASS Speciality: Acuity: Enc Type: Ambulatory/Same Day Surgery Med Service: Surgery Arrival: 12/09/2019 10:40:45 Discharge: Dispo Type: Address: [address] [place] [address] Provider Notes: Diagnosis: Thyroid mass Problems No Problems Documented Smoking Status: Functional Status: Sensory Deficits: History of Falls: Mobility Assistance Prior to Admission: ADLs: Independent Current Level of Assistance for Self-Care/Mobility: Cognitive Status: Allergies No Known Allergies Measurements: Height: Weight: 107.0 kg Blood Pressure: 116 mmHg / 73 mmHg BMI: Procedures Thyroidectomy, total or complete (12/09/2019) Immunizations No Immunizations Documented This Visit Final Med List: alprazolam (alprazolam 0.25 mg Tab) 1 Tablets By Mouth at bedtime. hydrochlorothiazide-lisino pril (hydrochlorothiazide-lisin opril 25 mg-20 mg Tab) 1 Tablets By Mouth every day. levothyroxine (levothyroxine 125 mcg (0.125 mg) Tab) 1 Tablets By Mouth every day. metformin (metformin 500 mg oral tablet) 1 Tablets By Mouth every day. Care Team Members: Attending Physician: Maciej Szymanski MD Consulting Physician: Referring Physician: Maciej Szymanski MD Follow up: With: Address: When: [place] [address] [place] (1) 12/15/2019 11:20 AM With: Address: When: CONNOR Bruno [facility] [place] [address] [place] (1) Patient Education Information: Normal [facility] Inpatient Patient Summaryon 12-10-2019 Inpatient Patient Summary [address] [address] Patient Discharge Instructions PERSON INFORMATION Name: SAVANA TRAN Date of : 1950 Current Date: 12/10/2019 08:19:43 PHYSICIANS Admitting Physician: Maciej Szymanski MD Primary Care Physician: CONNOR PERSAUD MD PCP Comment: Discharge Diagnosis: Thyroid mass Condition at Discharge: SAVANA TRAN has been given the following list of follow-up instructions, prescriptions, and patient education materials: PATIENT FOLLOW-UP INFORMATION Diet: Regular Discharge Activity: Expect mild pain, Expect minimal amount of drainage and/or bleeding, Activity as tolerated Discharge Restrictions: Wound Care Instructions: Remove Your Dressing In Days Call Your Doctor For: Return to Work: IF UNABLE TO CONTACT YOUR PHYSICIAN AND YOU FEEL IT IS AN EMERGENCY, GO TO THE NEAREST EMERGENCY ROOM OR CALL 1 Home Treatment: Devices/Equipment: Special Services: Additional Instructions: Antibiotic ointment to incision 2-3 times daily Keep neck dry 3 days No strenuous activity Primary Care Physician to provide the following pending test results: Follow up: With: Address: When: [place] [address] [place] (1) 12/15/2019 11:20 AM With: Address: When: CONNOR Bruno [facility] [place] [address] [place] (1) In the event that this physician does not participate in your insurance network, please consult with your insurance company to find a nearby participating provider. Comment: MARC Camarillo KATHLEEN K, have received the attached patient education materials/instructions and have verbalized understanding: Patient Signature __ Date Clinican/Nurse Signature Date HERE ARE THE MEDICATION CHANGES THAT OCCURRED DURING YOUR HOSPITAL STAY Medications to Continue with No Changes Other Medications alprazolam (alprazolam 0.25 mg Tab) 1 Tablets By Mouth at bedtime. Last Dose: N ext Dose: hydrochlorothiazide-lisino pril (hydrochlorothiazide-lisin opril 25 mg-20 mg Tab) 1 Tablets By Mouth every day. Last Dose: N ext Dose: levothyroxine (levothyroxine 125 mcg (0.125 mg) Tab) 1 Tablets By Mouth every day. Last Dose: N ext Dose: metformin (metformin 500 mg oral tablet) 1 Tablets By Mouth every day. Last Dose: N ext Dose: Comment: MEDICATION LIST PROVIDED FOR YOU IS A LIST OF YOUR CURRENT MEDICATIONS. PLEASE CARRY THIS WITH YOU AT ALL TIMES. alprazolam (alprazolam 0.25 mg Tab) 1 Tablets By Mouth at bedtime. hydrochlorothiazide-lisino pril (hydrochlorothiazide-lisin opril 25 mg-20 mg Tab) 1 Tablets By Mouth every day. levothyroxine (levothyroxine 125 mcg (0.125 mg) Tab) 1 Tablets By Mouth every day. metformin (metformin 500 mg oral tablet) 1 Tablets By Mouth every day. Pharmacy Information: [facility] Comment: PATIENT EDUCATION INFORMATION Instructions: Medication Leaflets: Thank you for choosing [facility] Normal [facility] Interdisciplinary Note - Fernando e Manageron 12-10-2019 Interdisciplinary Note - Clinic Office Manager Pt discharged home prior to rounds with CRM. No needs per nursing. Normal [facility] Comment on above: Result Comment: Elec tronically Signed By: Justina LIMA, Rebecca\.alvarado\Date and Time Signed: 12/10/19 11:27 EST Main OR Intraoperative Recor don 12-10-2019 Main OR Intraoperative Record IntraOp Document Type FT Summary Primary Physician: Maciej Szymanski MD Finalized Date/Time: 12/10/19 12:37:18 Pt. Name: SAVANA TRAN/Sex: 1950 Female Med Rec #: [id number] Physician: Maciej Szymanski MD Financial #: [id number] Pt. Type: A Room/Bed: N302/17 Admit/Disch: 12/09/19 10:40:45 - 12/10/19 09:20:00 Institution: Case Times FT Entry 1 Patient Times In Room 12/09/19 12:25:00 Out Room 12/09/19 14:48:00 Procedure Times Start 12/09/19 13:00:00 Stop 12/09/19 14:40:00 Anesthesia Times Start 12/09/19 12:25:00 Stop 12/09/19 14:48:00 Last Modified By: Wenceslao LIMA, Frankie Alvarado 12/09/19 14:48:53 General Comments: 12/10/2019 Chart opened to review and send charges Cali Diop BAKERY TEAM MEMBER Case Attendance FT Entry 1 Entry 2 Entry 3 Case Attendee Bright DOLL, Ashley Szymanski MD, Ra Mooney DO Role Performed Anesthesiologist Surgeon - Primary Surgeon - Assist 1 Janitor Head Time In 12/09/19 12:25:00 12/09/19 12:32:00 12/09/19 12:32:00 Time Out 12/09/19 14:48:00 12/09/19 14:43:00 12/09/19 14:06:00 Procedure THYROIDECTOMY(.) THYROIDECTOMY(.) THYROIDECTOMY(.) Comments , 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 Last Modified By: Wenceslao LIMA, Frankie Billy RN, Frankie Brand RN 12/09/19 14:48:56 12/09/19 14:48:56 12/09/19 14:48:56 Entry 4 Entry 5 Entry 6 Case Attendee Wenceslao LIMA, Frankie Ritchie RN, Norberto Cervantes CST Role Performed Vacuum Drier Operator - Primary Vacuum Drier Operator - Primary Scrub - Primary Time In 12/09/19 12:25:00 12/09/19 12:25:00 12/09/19 12:25:00 Time Out 12/09/19 14:48:00 12/09/19 14:48:00 12/09/19 14:48:00 Procedure THYROIDECTOMY(.) THYROIDECTOMY(.) THYROIDECTOMY(.) Comments preceptor for Jimena Cole, BAKERY TEAM MEMBER/SA Last Modified By: Wenceslao LIMA, Frankie Billy RN, Frankie Brand RN 12/09/19 14:48:56 12/09/19 14:48:56 12/09/19 14:48:56 Entry 7 Entry 8 Case Attendee Stacey BAKERY TEAM MEMBER/SA, Jimena Lino CST Role Performed Staff - Other BAKERY TEAM MEMBER/SA Time In 12/09/19 12:25:00 12/09/19 12:30:00 Time Out 12/09/19 12:53:00 12/09/19 14:48:00 Procedure THYROIDECTOMY(.) THYROIDECTOMY(.) Comments in orientation Last Modified By: Frankie Billy RN, RN, Andrea L 12/09/19 14:48:56 12/09/19 14:48:56 General Comments: Luis Carlos Paredes from [employer] nerve monitoring, present in the OR for surgical procedure. Perioperative Protocols FT Pre-Care Text: Implements protective measures prior to operative or invasive procedure, confirms identity before the operative or invasive procedure, verifies operative procedure, surgical site, and laterality Entry 1 Procedure(s) THYROIDECTOMY(.) Patient Identity Birthday, ID Band Verified (select at Check, Patient least 2): Participation Consents / H and P Anesthesia Consent, Operative Site N/A Verified HandP, Surgery/Procedure Marking Verified Consent Surgical Site Yes Laterality Verified n/a Verified Procedure Verified Yes Correct Patient Yes Position Verified Availability Equipment, Medication Prep Dry n/a Verified (If Applicable) PreOp Antibiotic Yes Time Out Bright DOLL, Ashley C, Given Participants Kaleb CASTRO, Maciej Castellanos, Jelani ARAIZA, Wenceslao Arcos RN, Erma Bautista RN, Obi Chinchilla BAKERY TEAM MEMBER, Stacey Thornton BAKERY TEAM MEMBER/, Kelsey Romero BAKERY TEAM MEMBER, Jimena Amin Time Out Complete 12/09/19 12:47:00 Outcomes Met? Yes Last Modified By: Frankie Blily RN 12/09/19 13:00:52 Post-Care Text: The patient is free from signs and symptoms of injury caused by extraneous objects Allergy Information FT Pre-Care Text: Verifies allergies Entry 1 Allergies Reviewed? Yes Allergies Reviewed Self/Patient With Outcomes Met? Yes Last Modified By: Frankie Billy RN 12/09/19 12:14:16 Post-Care Text: The patient received appropriate medication(s) safely administered during the perioperative period Surgical Procedures FT Entry 1 Procedure Description Procedure THYROIDECTOMY Modifiers . Surgeon Description TOTAL THYROIDECTOMY, REMOVAL OF SUBSTERNAL THYROID Primary Procedure Yes Primary Surgeon Maciej Szymanski MD Start 12/09/19 13:00:00 Stop 12/09/19 14:40:00 Anesthesia Type General Surgical Service ENT Wound Class 1 - Clean Last Modified By: Frankie Billy RN 12/09/19 14:49:11 General Case Data FT Pre-Care Text: Classifies surgical wound, implements aseptic technique, initiates traffic control Entry 1 Case Information OR OR 2 FT Case Level Level 4 Wound Class 1 - Clean Specialty ENT ASA Class 2 Preop Diagnosis THYROID MASS Postop Same As Preop Yes Postop Diagnosis THYROID MASS Outcomes Met? Yes Last Modified By: Frankie Billy RN 12/09/19 14:04:30 Post-Care Text: The patient is free from signs and symptoms of infection Skin Assessment (Pre Procedure) FT Pre-Care Text: Implements protective measures to prevent skin/ tissue injury due to thermal or mechanical sources Evaluates for signs and symptoms of physical injury to skin and tissue Entry 1 Skin Integrity Intact, [place], Warm, and Skin Abnormality No Dry Outcomes Met? Yes Last Modified By: Frankie Billy RN 12/09/19 12:58:43 Post-Care Text: The patient is free from signs and symptoms of injury caused by extraneous objects Patient Positioning FT Pre-Care Text: Identifies physical alterations that require additional precautions for procedure-specific positioning, verifies presence of prosthetics or corrective devices, positions the patient, evaluates the patient for signs and symptoms of injury as a result of positioning Entry 1 Procedure THYROIDECTOMY(.) Body Position Supine Feet Uncrossed? Yes Left Arm Position Tucked and Padded at Side Right Arm Position Tucked and Padded at Left Leg Position Extended Side Right Leg Position Extended Positioning Device Arm Sled Bilateral, Donut Headrest, Heel Padding, Safety Strap, Shoulder Roll(s), Gel Pads, Pillow Large Under Knees Press Points Checked Yes By Frankie Billy RN, Ashley Dewitt Tinker RN, Obi Chinchilla CST, Benjamin Outcomes Met? Yes Last Modified By: Frankie Billy RN 12/09/19 12:58:35 Post-Care Text: The patient is free from signs and symptoms of injury related to positioning Patient Care Devices FT Pre-Care Text: Implements protective measures to prevent skin/ tissue injury due to thermal or mechanical sources Entry 1 Entry 2 Entry 3 Equipment Type CAUTERY UNIT[F] HARMONIC SCALPEL UNIT HEADLIGHT[F] [F] Equipment Number [id number] Equipment Setting 20-20-20 Outcomes Met? Yes Yes Yes Last Modified By: Frankie Billy RN, RN, Andrea L Krupp RN, Andrea L 12/09/19 12:25:14 12/09/19 12:25:14 12/09/19 12:25:14 Entry 4 Entry 5 Entry 6 Equipment Type MISTRAL FORCED AIR MONITOR CHARGE SURGERY VENA FLOW UNIT[F] WARMING SYSTEM UNIT[F] [F] Equipment Number [id number] Equipment Setting Outcomes Met? Yes Yes Yes Last Modified By: Frankie Billy RN, RN, Andrea L Krupp RN, Andrea L 12/09/19 12:25:14 12/09/19 12:25:14 12/09/19 12:25:14 Entry 7 Equipment Type GLIDESCOPE, INTUBATING[F] Equipment Number Equipment Setting Outcomes Met? Yes Last Modified By: Frankie Billy RN 12/09/19 12:56:32 Post-Care Text: The patient is free from signs and symptoms of injury caused by extraneous objects Transport To OR FT Pre-Care Text: Transports according to individual needs. Evaluates for signs and symptoms of skin and tissue injury as a result of transfer or transport Entry 1 Via Cart By Frankie Billy RN Safety Precautions Side Rails Up Outcomes Met? Yes Last Modified By: Frankie Billy RN 12/09/19 12:50:57 Post-Care Text: The patient is free from signs and symptoms of injury related to transfer/transport Cautery FT Pre-Care Text: Implements protective measures to prevent injury due to electrical sources, and evaluates for signs and symptoms of electrical injury Entry 1 ESU Identification ESU Type CAUTERY UNIT[F] Equipment Number [id number] ESU Settings Cut 20 Coag 20 Bipolar 20 ESU Grounding Pad Site Left Thigh Hair Removal Pad Yes Site Pre Pad Site Clear and Intact Post Pad Site Clear and Intact Condition Condition Grounding Pad Erma LIMA, Flavia Looney Placed By Outcomes Met? Yes Last Modified By: Frankie Billy RN 12/09/19 12:59:23 Post-Care Text: The patient if free from signs and symptoms of electrical injury Counts Verification FT Pre-Care Text: Performs required counts Entry 1 Entry 2 Entry 3 Procedure(s) THYROIDECTOMY(.) THYROIDECTOMY(.) THYROIDECTOMY(.) Type Initial Closing Final Items Sponges, Sharps, Sponges, Sharps, Sponges, Sharps, Other/See Comments Other/See Comments Other/See Comments Status Correct Correct Correct Time 12/09/19 12:48:00 12/09/19 14:08:00 12/09/19 14:13:00 By Obi BERNAL, Obi Thornton CST, Wenceslao Thornton RN, Erma Bautista RN, Flavia Billy RN, Norberto Peacock CST Outcomes Met? Yes Yes Yes Last Modified By: Frankie Billy RN, RN, Frankie Billy RN, Frankie Alvarado 12/09/19 12:53:50 12/09/19 14:08:48 12/09/19 14:13:13 Post-Care Text: The patient is free from signs and symptoms of injury caused by extraneous objects Skin Prep FT Pre-Care Text: Performs skin preparations Entry 1 Procedure THYROIDECTOMY(.) Prep Area neck, bilateral shoudlers, chest Prep Agents Betadine Scrub and Solution Hair Removal Methods Not Indicated By Jimena Cole CST Outcomes Met? Yes Last Modified By: Frankie Billy RN 12/09/19 12:54:20 Post-Care Text: The patient is free from signs and symptoms of infection Departure From OR FT Pre-Care Text: Transports according to individual needs. Evaluates for signs and symptoms of skin and tissue injury as a result of transfer or transport. Entry 1 Via Patient Bed Safety Precautions Side Rails Up PostOp Destination PACU Transported By Erma LIMA, Bright Chinchilla Carly C Patient Status Stable Report Given Corrie Doss RN To/Hand Off Communication Skin. Condition Intact, [place], Warm, and Dry Airway Maintenance Oxygen in Use? Yes Airway Device Simple Mask Flow Rate 8 L Outcomes Met? Yes Last Modified By: Frankie Billy RN 12/09/19 14:49:07 Post-Care Text: The patient is free from signs and symptoms of injury related to transfer/transport General Comments: Verbal and written report given to PACU nurse. Dressing/Packing FT Pre-Care Text: Administers care to wound sites Entry 1 Type Dressing Items DRESSING TELFA 3 X 8 [1238][F] Site and Details anterior neck- Outcomes Met? Yes bacitracin ointment, telfa, fluffs, sterile blue twoel wrapped around neck and secured with silk tape. Last Modified By: Frankie Billy RN 12/09/19 14:37:52 Post-Care Text: The patient is free from signs and symptoms of infection Medication Administration FT Pre-Care Text: Verifies allergies, administers prescribed medications and solutions, administers prescribed antibiotic therapy and immunizing agents as ordered, evaluates response to medications Administers prescribed medications and solutions Entry 1 Route of Admin Field Expiration Date Yes Verified Ordered By Maciej Szymanski MD Transcribed/To Flavia Ritchie RN Field By Administered By Maciej Szymanski MD Outcomes Met? Yes Last Modified By: Frankie Billy RN 12/09/19 12:55:32 Post-Care Text: The patient received appropriate medication(s) safely administered during the perioperative period For Bernabe-Price please see scanned medication reconcilliation form for medications used at the field during the procedure. Communication FT Pre-Care Text: Maintains patient's dignity and privacy,and maintains patient confidentiality Entry 1 Entry 2 Entry 3 Communication Phone Phone Phone Communication By Wenceslao LIMA, Frankie Billy RN, Frankie Brand RN Date and Time 12/09/19 13:00:00 12/09/19 13:52:00 12/09/19 14:03:00 Surgery Update family updated of updated family via family updated that surgery start per surgery seating is closing volunteer all is well incision. per Outcomes Met? Yes Yes Yes Last Modified By: Wenceslao LIMA, Frankie Billy RN, Frankie Brand RN 12/09/19 13:02:09 12/09/19 13:53:29 12/09/19 14:04:20 Post-Care Text: The patient's right to privacy is maintained Drains/Tubes FT Pre-Care Text: Administers care to invasive device sites Entry 1 Device Type DRAIN ORLIN [facility] necck SILICONE 7FR [[id number]][F] Quantity 1 Inserted By Maciej Szymanski MD Present on Arrival? No Immediate DC? No DC'd at End of Case? No Outcomes Met? Yes Last Modified By: Frankie Billy RN 12/09/19 14:01:02 Post-Care Text: The patient is free from signs and symptoms of infection Urinary Catheter Pre-Care Text: Patient is prepped using sterile technique. Entry 1 Urinary Catheter TRAY URINE MINNA CATH Present Upon Arrival No Inserted LF 16FR [[id number]][F] Insertion Date/Time 12/09/19 12:38:00 Urine Residual 275 Insertion Site Uretheral Urine clear, yellow urine Characteristics output Inserted By Norberto Crocker CST Discontinued? Yes When was the Discontinued at end of DC'd By Jimena Cole CST catheter case discontinued? Outcomes Met? Yes Last Modified By: Frankie Billy RN 12/09/19 14:44:15 Post-Care Text: The patient is free from signs of trauma. Cultures and Specimens FT Pre-Care Text: Manages specimen handling and disposition Manages culture specimen collection Entry 1 Cultures Ordered Yes Culture Disposition Lab Culture Source urine from flores Specimens Ordered Yes catheter Specimen Disposition Designated OR Area Frozen Section Times Outcomes Met? Yes Last Modified By: Frankie Billy RN 12/09/19 12:53:29 Post-Care Text: The patient is free from signs and symptoms of injury caused by extraneous objects The patient is free from signs and symptoms of infection General Comments: specimen; 1. left lobe of thyroid 2. right lobe of thyroid Temperature Control Entry 1 Temperature Control BLANKET MISTRAL AIR Quantity 1 Aid PLUS LOWER BODY [[id number]][F] Fluid/[place] Unit Mistral warming system Setting 43 C/ high Body Site Lower anterior torso Last Modified By: Frankie Billy RN 12/09/19 12:55:04 Case Comments Finalized By: Janet Diop CST Document Signatures Signed By: Frankie Billy RN 12/09/19 14:49 Janet Diop CST 12/10/19 12:37 Normal [facility] Operative Reporton 0 Operative Report Date of Surgery: 12/09/2019 SURGEON: Maciej Szymanski Jr., M.D. CO-SURGEON: Ra Palomares D.O. PREOPERATIVE DIAGNOSIS: 1. Multinodular goiter 2. Thyroid neoplasm POSTOPERATIVE DIAGNOSIS: 1. Multinodular goiter 2. Thyroid neoplasm OPERATION: Substernal total thyroidectomy ANESTHESIA: General BLOOD LOSS: Less than 50 cc COMPLICATIONS: None GROSS FINDINGS: This is a 69 year old white female with a history of substernal mass of the thyroid gland and bilateral thyroid nodules with atypia noted on needle aspiration. Intraoperatively, a large mass was identified in the substernal thyroid region on the left with extension into the chest. Both of the thyroid lobes were found to be multinodular in nature with significant adherence of the musculature to the surface. Recurrent laryngeal nerves were identified throughout the surgery stimulated and found to be intact. Parathyroid glands were definitely noted superior and inferiorly on the right. PROCEDURE: Savana was brought to the Operating Room Suite at [facility] at which time general anesthesia was administered via endotracheal tube with incorporated recurrent laryngeal nerve monitor. The patient was placed in supine position with her head placed into extension. The anterior neck was identified, palpated and marked and then locally injected with 1% lidocaine with Epinephrine. The anterior neck, upper chest and lower face were then sterile prepped and draped in normal fashion. With this completed a transverse incision was placed in the neck approximately two to three finger breadths above the level of the sternal notch. Vertical dissection was completed using electric Bovie cautery through the level of the platysma. Platysmal flaps were then developed superior and inferiorly with hemostasis being achieved using the bipolar cautery and the harmonic scalpel. With the flaps elevated both superiorly and inferiorly strap muscles are identified. The left strap muscles were laterally retracted and blunt dissection was completed circumferentially around the area of the thyroid lobe. A large substernal extension was then gently elevated out of the substernal region and reflected into the neck. The superior vascular contributions to the gland were identified and these were divided using vascular clips and harmonic scalpel. The lateral aspect of the gland was then dissected bluntly with nerve stimulation revealing no evidence of nerve involvement. These tissues were then divided using the harmonic scalpel. This was completed from the superficial to deep plane. This was completed all the way to the inferior aspect where the vasculature was also divided. The recurrent laryngeal nerve was then identified. Blunt dissection was completed circumferentially around the area of the lobe to the point where it was reflected on the anterior tracheal wall. Once again the nerve was stimulated and found to be intact. The posterior capsule was divided bluntly and using harmonic scalpel. The isthmus was then divided on the right side of the trachea and the entire left thyroid lobe and isthmus were removed and sent for pathological analysis. Residual hemostasis was achieved using bipolar cautery. The neck was irrigated with Saline. There was no evidence of any bleeding. When this was completed attention was then turned toward the right side of the neck. Once again strap muscles were loosely retracted to the lateral aspect. The isthmus of the thyroid was grasped and used as a retractor. The gland was identified. Strap muscles were bluntly dissected away from the gland. The superior vasculature of the gland was identified. These vessels were divided using vascular clips and harmonic scalpel. With blunt lateral dissection the recurrent laryngeal nerve was then identified. Superior parathyroid and inferior parathyroid glands were identified and these were maintained. Blunt dissection was completed along the level of the gland as it was reflected in a medial fashion. Posterior capsule was then divided using harmonic scalpel and the entire right thyroid lobe was removed and sent for pathological analysis. Residual hemostasis was achieved using bipolar cautery. Both recurrent laryngeal nerves were stimulated along with the vagus nerve being stimulated and found to be intact. After copious irrigation full examination of the neck revealed no evidence of bleeding. The retractors were then removed. Small vacuum drain was placed in the wound and brought out the inferior aspect of the neck. The neck incision was then repaired in layered fashion by Dr. Szymanski. The wound was then cleaned and dressed. Anesthesia was reversed and the patient awoke without difficulty. The patient was taken to Post-Anesthesia Care Unit in stable and satisfactory condition. Ra Palomares D.O. (For Maciej Szymanski Jr., M.D.) Maceij Szymanski Jr., M.D. lkr Dictated: 12/09/2019 #[id number] Typed: 12/09/2019 #[id number] cc: Maciej Szymanski Jr., M.D. [facility] Comment on above: Result Comment: Elec tronically Signed By: Maciej Szymanski MD\Date and Time Signed: 12/10/19 07:26 EST Operative Report Date of Surgery: 12/09/2019 SURGEON: Maciej Szymanski Jr., M.D. CO-SURGEON: Ra Palomares D.O. HONEY EXTRACTOR: Jimena Cole PRIMARY CARE PHYSICIAN: Connor Persaud MD PREOPERATIVE DIAGNOSIS: Bilateral thyroid masses with substernal left thyroid mass POSTOPERATIVE DIAGNOSIS: Bilateral thyroid masses with substernal left thyroid mass OPERATION: Total thyroidectomy, removal of substernal thyroid ANESTHESIA: General endotracheal with recurrent laryngeal nerve monitoring endotracheal tube COMPLICATIONS: None FINDINGS: 5 cm left-sided substernal thyroid mass and 3 cm right thyroid mass INDICATIONS: This 69 year old woman presented with bilateral thyroid masses. Fine needle aspiration was performed on each side which revealed atypia of undetermined significance. A co-surgeon was necessary because of the large size of the patient's mass and because it was substernal and close approximation to the great vessels. PROCEDURE: The patient identified in the Holding Area and taken back to the Operating Room where she was placed in the supine position. After induction of general endotracheal anesthesia using a recurrent laryngeal nerve monitoring tube a shoulder roll was placed and the neck prepped and draped in a sterile fashion. A 10 cm incision was mapped out following natural skin crease. A larger than usual incision was used because of the patient's obesity in order to make sure there was adequate exposure. The incision was made and dissection carried out down through the platysma with electrocautery. Subplatysmal flaps were raised superiorly to the thyroid notch and inferiorly to the clavicle. Gelpi retractors were then used to retract the incision and the strap muscles were incised in the midline. The strap muscles were then elevated off of the anterior thyroid bilaterally with blunt dissection and harmonic scalpel. The isthmus was transected with electrocautery and attention was first turned to the left gland. A subcapsular dissection was performed first freeing the lateral surface of the gland and then using finger dissection in the superior mediastinum. The substernal mass was freed from its fascial attachments and elevated into the neck. Then using blunt dissection the capsule of the thyroid was carefully dissected away. The superior thyroid vessels were identified, Hemoclipped and transected. The middle thyroid vein was transected with harmonic scalpel and the fascia of the gland was carefully swept away posteriorly and bluntly dissected and transected with harmonic scalpel when necessary. The superior and inferior parathyroid vessels were identified and bluntly dissected away from the thyroid gland. Once the tracheoesophageal groove was exposed the recurrent laryngeal nerve was identified with nerve stimulator and then with the gland well clear of the tracheoesophageal groove and the recurrent laryngeal nerve the remaining fascial attachments were bluntly dissected and transected with harmonic scalpel. The left thyroid gland was then removed and sent for pathologic analysis. Attention was then turned to the right thyroid and the same procedure was performed. Hemostasis was then achieved with bipolar cautery on each side and the wound was copiously irrigated with Normal Saline. A #7 round Orlin-Lane drain was placed through a stab incision in the sternal notch. The strap muscles were reapproximated in the midline with an interrupted 3-0 Vicryl suture and then the skin was closed in three layers with two deep interrupted 4-0 Vicryl suture layers through the platysma muscle and the subcutaneous tissue and then a 5-0 running Nylon was used to close the skin. The antibiotic ointment was then placed over the incision and a pressure dressing was placed and the patient awakened and taken to the Recovery Room in good condition. Maciej Szymanski Jr., M.D. lkr Dictated: 12/09/2019 #[id number] Typed: 12/09/2019 #[id number] cc: Maciej Szymanski Jr., M.D. [facility] Comment on above: Result Comment: Elec tronically Signed By: Maciej Szymanski MDbr\Date and Time Signed: 12/10/19 07:25 EST Progress Note-Physicianon Progress Note-Physician ENT POD 1 Resting comfortably AVSS Wound C/D/I Drain 9cc overnight AM Ca 8.7 Drain removed. D/C home Normal [facility] Comment on above: Result Comment: Elec tronically Signed By: Maciej Szymanski MDbr\Date and Time Signed: 12/10/19 07:35 EST Calciumon 12-09-2019 Calcium [Mass/Vol] 9.1 mg/dL Normal 8.9-11.1 [facility] Comment on above: Performed By: #### 1 [id number], 2456254, 9675389, 3049522, 9119397, 9320055, 06807024, 4502507 #### [facility] [address] [place] [address] Main OR PACU I Recordon 11-21 Main OR PACU I Record PACU Phase I Document Type FT Summary Primary Physician: Maciej Szymanski MD Finalized Date/Time: 12/09/19 16:33:07 Pt. Name: SAVANA TRAN /Sex: 1950 Female Med Rec #: [id number] Physician: Maciej Szymanski MD Financial #: [id number] Pt. Type: O Room/Bed: [facility] Admit/Disch: 12/09/19 10:40:45 - Institution: Case Times PACU I FT Pre-Care Text: Identifies barriers to communication and implements measures to provide psychological support Develops individualized plan of care, and ensures continuity of care Maintains patient's dignity and privacy, and maintains patient confidentiality Identifies and reports philosophical, cultural, and spiritual beliefs and values Identifies individual values and wishes concerning care Implements aseptic technique, and administers prescribed antibiotic therapy and immunizing agents as ordered Evaluates postoperative tissue perfusion Implements thermoregulation measures, and monitors body temperature Evaluates postoperative respiratory status Evaluates postoperative cardiac status Evaluates postoperative neurological status Assesses pain control, collaborated in initiating patient-controlled analgesia and implements alternative methods of pain control Verifies allergies, administers prescribed medications and solutions, evaluates response to medications Entry 1 In PACU I 12/09/19 14:50:00 Discharge from PACU 12/09/19 15:58:00 I Outcomes Met? Yes Last Modified By: Corrie Doss RN 12/09/19 16:32:46 Post-Care Text: The patient demonstrates knowledge of the expected response to the operative or invasive procedure The patient's care is consistent with the individualized perioperative plan of care The patient's right to privacy is maintained The patient's value system, lifestyle, ethnicity, and culture are considered, respected, and incorporated into the perioperative plan of care The patient participates in decisions affecting his or her perioperative plan of care The patient is free from signs and symptoms of infection The patient has wound/tissue perfusion consistent with or improved from baseline levels established preoperatively The patient is at or returning to normothermia at the conclusion of the immediate postoperative period The patient's respiratory function is consistent with or improved from baseline levels established preoperatively The patient's cardiovascular status is consistent with or improved from baseline levels established preoperatively The patient's cardiovascular status is consistent with or improved from baseline levels established preoperatively The patient demonstrates and/or reports adequate pain control throughout the perioperative period The patient received appropriate medication(s), safely administered during the perioperative period Acuity Level PACU I FT Entry 1 Start Time 12/09/19 14:50:00 Stop Time 12/09/19 15:58:00 Acuity Level Acuity Level I Last Modified By: Corrie Doss RN 12/09/19 16:33:05 Finalized By: Corrie Doss RN Document Signatures Signed By: Corrie Doss RN 12/09/19 16:33 Normal [facility] Main OR Preoperative Recordo n 12-09-2019 Main OR Preoperative Record PreOp Document Type FT Summary Primary Physician: Maciej Szymanski MD Finalized Date/Time: 12/09/19 12:26:25 Pt. Name: SAVANA TRAN Ying GonzalezB./Sex: 1950 Female Med Rec #: [id number] Physician: Maciej Szymanski MD Financial #: [id number] Pt. Type: A Room/Bed: [place] [address] Admit/Disch: 12/09/19 10:40:45 - Institution: Case Times PreOp FT Pre-Care Text: Verifies consent for planned procedure, identifies individual values and wishes concerning care, includes family members in perioperative teaching Entry 1 Patient Times. In Pre Surgery 12/09/19 10:45:00 Out Pre Surgery 12/09/19 12:23:00 Outcomes Met? Yes Last Modified By: Frankie Billy RN 12/09/19 12:26:24 Post-Care Text: The patient participates in decisions affecting his or her perioperative plan of care Finalized By: Frankie Billy RN Document Signatures Signed By: Frankie Billy RN 12/09/19 12:26 Normal [facility] UA With Cult Reflexon 2019 Bilirubin Ql (U) Negative Normal Negative [facility] Comment on above: Performed By: #### 1 [id number], 7963798, 1405043, 4975372, 3137205, 7883218, 15970075, 4113681 #### [facility] [address] [place] [address] Clarity (U) CLEAR Normal Clear [facility] Comment on above: Performed By: #### 1 [id number], 8051512, 9059083, 1018327, 9655269, 0802516, 77888257, 1055816 #### [facility] [address] [place] [address] Color (U) YELLOW Normal Yellow [facility] Comment on above: Performed By: #### 1 9335568, 5295964, 7462534, 8681279, 5145379, 0823696, 38592656, 9984061 #### [facility] [address] [place] [address] Crystals LM Ql (Urine sed) Present Normal [facility] Comment on above: Performed By: #### 1 5806589, 0552625, 8807262, 8668424, 4518917, 1111640, 13536737, 8670820 #### [facility] [address] [place] [address] Epithelial cells.squamous LM.HPF (Urine sed) [#/Area] 0-2 Normal 0-2 [facility] Comment on above: Performed By: #### 1 1240611, 1668760, 1273379, 7280645, 4953995, 0905261, 55365260, 9688440 #### [facility] [address] [place] [address] Glucose Test strip (U) [Mass/Vol] Negative Normal Negative [facility] Comment on above: Performed By: #### 1 2349266, 9679249, 0057902, 4605858, 7179596, 9577660, 01650991, 5781304 #### [facility] [address] [place] [address] Hemoglobin Ql (U) TRACE Abnormal Negative [facility] Comment on above: Performed By: #### 1 4558086, 0820207, 5419512, 0495395, 6210921, 3059712, 44401338, 3324117 #### [facility] [address] [place] [address] Ketones (U) [Mass/Vol] Negative Normal Negative [facility] Comment on above: Performed By: #### 1 2111982, 9170735, 3309485, 1374736, 9507334, 1665712, 30784127, 9947313 #### [facility] [address] [place] [address] Waves.plasma/Lithi um.RBC (Bld) [Mass ratio] 0-3 Normal 0-3 [facility] Comment on above: Performed By: #### 1 9821720, 0821907, 5977342, 4030155, 4347999, 4394632, 80366839, 3383975 #### [facility] [address] [place] [address] Nitrite Ql (U) Negative Normal Negative [facility] Comment on above: Performed By: #### 1 8372177, 9716574, 5226732, 4928265, 3891566, 3344755, 53242323, 6652285 #### [facility] [address] [place] [address] pH (U) 6.0 [pH] 5.0-9.0 [facility] Comment on above: Performed By: #### 1 8482569, 6707596, 8052307, 0417532, 1845545, 0294458, 12003116, 5130607 #### [facility] [address] [place] [address] Protein (U) [Mass/Vol] Negative Normal Negative [facility] Comment on above: Performed By: #### 1 0326248, 4093049, 1608529, 8790841, 9364857, 1906125, 89136392, 6445011 #### [facility] [address] [place] [address] Specific gravity (U) [Rel density] 1.010 1.005-1.030 [facility] Comment on above: Performed By: #### 1 4941189, 5352718, 7875141, 7590581, 9342579, 1098540, 47527379, 6199285 #### [facility] [address] [place] [address] UA Spec Desc Flores Normal [facility] Comment on above: Performed By: #### 1 5139465, 2136564, 3561845, 5052382, 6029015, 4039349, 39434568, 7088086 #### [facility] [address] [place] [address] Urobilinogen Qn (U) 0.2 {Margo'U}/dL Normal 0.0-1.0 [facility] Comment on above: Performed By: #### 1 8002610, 3665479, 8053259, 2916969, 1078027, 4689411, 05581095, 9058816 #### [facility] [address] [place] [address] WBC Auto Ql (U) Negative Normal Negative [facility] Comment on above: Performed By: #### 1 1759041, 4431538, 7259388, 8510559, 7539828, 1653805, 51743758, 3387618 #### [facility] [address] [place] [address] WBC LM.HPF (Urine sed) [#/Area] 0-5 Normal 0-5 [facility] Comment on above: Performed By: #### 1 6783885, 8988025, 7690810, 7135491, 3565755, 6074766, 32336945, 4548634 #### [facility] [address] [place] [address] Coding Summary.on 12-08-2019 Coding Summary. CODING DATE: 020 FINAL [facility] STATUS: Home (Routine DC) PAYOR: Medicare APC DESCRIPTION 5521 Level 1 Imaging without Contrast ADMIT DX: REASON FOR VISIT DX: Z01.818 Encounter for other preprocedural examination FINAL DX: PRINCIPAL: Z01.818 Encounter for other preprocedural examination SECONDARY: E07.9 Disorder of thyroid, unspecified PYMT PROC APC STAT DESCRIPTION DOCTOR NAME DATE NOTE: The code number assigned matches the documented diagnosis and / or procedure in the patient's chart. However, the narrative phrase printed from the coding software may appear abbreviated, or result in slightly different terminology. Coded By: Felisa Miner CphT Date Saved: 12/08/2019 01:02 pm Normal [facility] Auto Diffon 12-07-2019 Basophils/100 WBC (Bld) 0.6 % Normal 0.0-2.0 [facility] Comment on above: Order Comment: Order Added by Discern Expert. Performed By: #### 1 8166849, 7210286, 3735696, 2067451, 1490731, 4070981, 20043245, 7428816 #### [facility] [address] [place] [address] Basophils/Leukocytes Auto (Bld) [Pure # fraction] 0.0 E9/L Normal 0.0-0.2 [facility] Comment on above: Order Comment: Order Added by Discern Expert. Performed By: #### 1 9406068, 8493903, 3691379, 6655539, 5043831, 1728411, 32278557, 9739496 #### [facility] [address] [place] [address] Eosinophils/100 WBC (Bld) 1.9 % Normal 0.0-8.0 [facility] Comment on above: Order Comment: Order Added by Discern Expert. Performed By: #### 1 0798725, 7503290, 4172658, 3548129, 5857295, 5043892, 18609881, 0558995 #### [facility] [address] [place] [address] Eosinophils/Leukocyt es Auto (Bld) [Pure # fraction] 0.1 E9/L Normal 0.0-0.5 [facility] Comment on above: Order Comment: Order Added by Discern Expert. Performed By: #### 1 4290302, 8152443, 8023247, 3777822, 2645860, 4708502, 97899477, 5091717 #### [facility] [address] [place] [address] Lymphocytes/100 WBC (Bld) 12.7 % Low 14.0-50.0 [facility] Comment on above: Order Comment: Order Added by Kalani Expert. Performed By: #### 1 5426796, 5915737, 1176611, 4158196, 9104735, 4002254, 42174724, 9671552 #### [facility] [address] [place] [address] Lymphocytes/Leukocyt es Auto (Bld) [Pure # fraction] 0.7 E9/L Low 1.0-4.0 [facility] Comment on above: Order Comment: Order Added by Discern Expert. Performed By: #### 1 9547780, 8985241, 8307316, 3774825, 0490759, 6512359, 07689303, 9190037 #### [facility] [address] [place] [address] Monocytes/100 WBC (Bld) 8.4 % Normal 4.0-14.0 [facility] Comment on above: Order Comment: Order Added by Kalani Expert. Performed By: #### 1 7032081, 0757513, 0913115, 4769751, 3841453, 8214583, 56606572, 0111736 #### [facility] [address] [place] [address] Monocytes/Leukocytes Auto (Bld) [Pure # fraction] 0.4 E9/L Normal 0.2-1.0 [facility] Comment on above: Order Comment: Order Added by Kalani Expert. Performed By: #### 1 8088055, 3673661, 8924236, 5263933, 5099857, 4423976, 71513169, 3997229 #### [facility] [address] [place] [address] Neutrophils/100 WBC (Bld) 76.4 % High 36.0-75.0 [facility] Comment on above: Order Comment: Order Added by Kalani Expert. Performed By: #### 1 1440097, 3465269, 3998197, 2129774, 5145735, 3102469, 10339998, 3345931 #### [facility] [address] [place] [address] Neutrophils/Leukocyt es Auto (Bld) [Pure # fraction] 4.0 E9/L Normal 2.0-7.5 [facility] Comment on above: Order Comment: Order Added by Discern Expert. Performed By: #### 1 6823805, 7453145, 0147855, 4162455, 3227534, 9387073, 16347201, 8441078 #### [facility] [address] [place] [address] BUNon 12-07-2019 Urea nitrogen [Mass/Vol] 19 mg/dL Normal 5-21 [facility] Comment on above: Performed By: #### 2 807853, 6995247, 43090194, 9957484, 3426243 #### [facility] [address] [place] [address] CBC w/ Auto Diffon 0 Erythrocyte distribution width (RBC) [Ratio] 13.5 % Normal 10.9-14.2 [facility] Comment on above: Performed By: #### 1 5717709, 7993322, 1323422, 4701884, 5775969, 8795928, 52593439, 7062586 #### [facility] [address] [place] [address] Hematocrit (Bld) [Volume fraction] 42.9 % Normal 34.0-46.0 [facility] Comment on above: Performed By: #### 1 4253742, 0555444, 9710230, 1012038, 0925111, 5703459, 29482525, 7309749 #### [facility] [address] [place] [address] Hemoglobin (Bld) [Mass/Vol] 14.5 g/dL Normal 12.0-16.0 [facility] Comment on above: Performed By: #### 1 8903075, 0321397, 8701073, 6074629, 8837940, 7062991, 63621456, 3665293 #### [facility] [address] [place] [address] MCH (RBC) [Entitic mass] 30.4 pg Normal 27.0-34.0 [facility] Comment on above: Performed By: #### 1 4710155, 6915092, 0516856, 8160323, 7403737, 4558706, 98300187, 4643882 #### [facility] [address] [place] [address] [id number] MCHC (RBC) [Mass/Vol] 33.9 g/dL Normal 31.4-36.0 [facility] Comment on above: Performed By: #### 1 [id number], [id number], 3404075, 2249040, 0066751, 7917063, 96024225, 7950137 #### [facility] [address] [place] [address] 55178 MCV (RBC) [Entitic vol] 89.7 fL Normal 80.0-100.0 [facility] Comment on above: Performed By: #### 1 [id number], 5450654, 2036148, 1197592, 1798888, 6521823, 57697991, 6589933 #### [facility] [address] [place] [address] 28226 Platelet mean volume (Bld) [Entitic vol] 8.3 fL Normal 6.4-10.8 [facility] Comment on above: Performed By: #### 1 [id number], 8177729, 7377323, 8589706, 2335859, 6276622, 77101376, 0913546 #### [facility] [address] [place] [address] 60885 Platelets (Bld) [#/Vol] 194.0 E9/L Normal 150.0-500.0 [facility] Comment on above: Performed By: #### 1 [id number], 5314048, 8172043, 9298154, 4852348, 9809619, 14735934, 4650973 #### [facility] [address] [place] [address] 76801 RBC (Bld) [#/Vol] 4.8 E12/L Normal 4.3-5.9 [facility] Comment on above: Performed By: #### 1 [id number], 5501491, 8107385, 0538445, 0722000, 2837298, 90195171, 1545878 #### [facility] [address] [place] [address] WBC corrected for nucl RBC Auto (Bld) [#/Vol] 5.3 E9/L Normal 4.0-11.0 [facility] Comment on above: Performed By: #### 1 [id number], 7425008, 7490651, 2694096, 6981534, 1785675, 12262059, 9202759 #### [facility] [address] [place] [address] Calciumon 12-07-2019 Calcium [Mass/Vol] 9.7 mg/dL Normal 8.9-11.1 [facility] Comment on above: Performed By: #### 1 3107306, 2346514, 0473295, 8909298, 7340287, 0774161, 87814404, 9447380 #### [facility] [address] [place] [address] Creatinineon 12-07-2019 Creatinine [Mass/Vol] 1.1 mg/dL Normal 0.5-1.3 [facility] Comment on above: Performed By: #### 1 [id number], 4351346, 2121917, 5966427, 3564979, 5159069, 94727317, 2438109 #### [facility] [address] [place] [address] Glucoseon 12-07-2019 Glucose [Mass/Vol] 117 mg/dL Normal 55-199 [facility] Comment on above: Performed By: #### 2 430200, 5393160, 92005146, 0557498, 7409498 #### [facility] [address] [place] [address] Lyteson 12-07-2019 Anion gap [Moles/Vol] 9 mmol/L Normal 6-16 [facility] Comment on above: Performed By: #### 1 7245599, 1317151, 4854633, 7778674, 6529385, 9893936, 29717459, 8580275 #### [facility] [address] [place] [address] Chloride [Moles/Vol] 107 mmol/L Normal 101-111 [facility] Comment on above: Performed By: #### 1 [id number], 4860994, 3646799, 4682416, 8281163, 1050462, 91046409, 2321334 #### [facility] [address] [place] [address] CO2 [Moles/Vol] 26 mmol/L Normal 21-31 [facility] Comment on above: Performed By: #### 1 1178771, 1873870, 1489229, 1960556, 3511522, 7400911, 07722671, 0834616 #### [facility] [address] [place] [address] Potassium [Moles/Vol] 3.7 mmol/L Normal 3.5-5.3 [facility] Comment on above: Performed By: #### 1 1899750, 6712389, 7716455, 1326303, 2489901, 6249790, 78113433, 6891686 #### [facility] [address] [place] [address] Sodium [Moles/Vol] 138 mmol/L Normal 135-145 [facility] Comment on above: Performed By: #### 1 6347665, 4335323, 7561791, 1783292, 1924134, 7776343, 81419648, 7463860 #### [facility] [address] [place] [address] Magnesiumon 12-07-2019 Magnesium [Mass/Vol] 2.0 mg/dL Normal 1.3-2.4 [facility] Comment on above: Performed By: #### 1 6017650, 9944691, 3789180, 6362293, 9357811, 4249075, 28396604, 8342890 #### [facility] [address] [place] [address] PT & PTTon 12-07-2019 aPTT Coag (PPP) [Time] 30.0 second(s) Normal 25.1-36.5 [facility] Comment on above: Result Comment: Hepa rin therapeutic range (represented by Anti-Factor Xa activity of 0.2 - 0.4 U/mL) corresponds to PTT of 56.6 - 109.0 sec. Performed By: #### 1 5130105, 9884559, 1223478, 1048888, 0357634, 8112413, 08442564, 2762423 #### [facility] [address] [place] [address] INR Coag (PPP) [Relative time] 1.0 {INR} [facility] Comment on above: Result Comment: INR results are specifically intended to assess patients stabilized on long-term Anticoagulation therapy suggested INR?s ?Less Intensive Anticoagulation? 2.0 ? 3.0 Conventional Range 3.0 ? 4.5 Performed By: #### 1 4709320, 1805836, 8346281, 3277126, 0761695, 5408507, 74777078, 7518103 #### [facility] [address] [place] [address] PT Coag (PPP) [Time] 11.5 second(s) Normal 10.2-12.9 [facility] Comment on above: Performed By: #### 1 9752151, 5782787, 4786313, 6720332, 3543011, 4503865, 89227473, 6505178 #### [facility] [address] [place] [address] Phosphoruson 12-07-2019 Phosphate [Mass/Vol] 3.7 mg/dL Normal 1.9-4.6 [facility] Comment on above: Performed By: #### 1 2412022, 8285150, 5051883, 8667463, 0185399, 4962943, 63665168, 0014824 #### [facility] [address] [place] [address] Plt Function Assayon 020 Platelet function (closure time) collagen+Epinephrine induced (Bld) [Time] 140 second(s) High 70-138 [facility] Comment on above: Result Comment: Norm al ASA vWD Glanzmann?s Thrombasthenia ------- ------ ------- COL/EPI Normal Abnormal Abnormal Abnormal Col/ADP Normal Normal Abnormal Abnormal Performed By: #### 1 3298967, 2370462, 4415576, 5668220, 9806915, 7632481, 36818026, 6058361 #### [facility] [address] [place] [address] TSHon 12-07-2019 TSH Qn 0.86 mcIU/mL Normal 0.34-5.60 [facility] Comment on above: Performed By: #### 1 5268617, 5740333, 3856444, 7776531, 3678318, 7946100, 07621164, 1080618 #### [facility] [address] [place] [address] XR Chest 2 Viewson 0 XR Chest 2 Views Exam Date/Time: 12/07/2019 08:45 EST Reason for Exam: Pre Op Report IMPRESSION: NO ACUTE INTRATHORACIC PROCESS. EXAMINATION: Chest x-ray, 2 view. HISTORY: Preoperative evaluation. TECHNIQUE: Frontal and lateral views of the chest. COMPARISON: None available FINDINGS: Cardiomediastinal silhouette is within normal limits. No pneumothorax, pleural effusion, or consolidation. Degenerative changes of the spine. FINAL REPORT Dictated: 12/07/2019 1:57 pm Az Sevilla DO Signed (Electronic Signature): 12/07/2019 1:57 pm Signed by: Az Sevilla DO Transcribed by: JAMIE Technologist: CC Normal [facility] eGFRon 12-07-2019 GFR/1.73 sq M predicted among blacks MDRD (S/P/Bld) [Vol rate/Area] 60 mL/min/1.73 m2 Normal >=59 [facility] Comment on above: Order Comment: Order added by Discern Expert. Result Comment: eGFR is race adjusted. AA=. Performed By: #### 1 [id number], 2356586, 8790406, 9346598, 2043284, 6054133, 64904697, 4590939 #### [facility] [address] [place] [address] GFR/1.73 sq M predicted among non-blacks MDRD (S/P/Bld) [Vol rate/Area] 49 mL/min/1.73 m2 Low >=59 [facility] Comment on above: Order Comment: Order added by Discern Expert. Result Comment: Dental Appliance Repairer yulia kidney disease could be indicated at eGFR's of less than 60 mL/min/1.73m2. Kidney failure is indicated at less than 15 mL/min/1.73m2. Performed By: #### 1 4478636, 0560154, 3195692, 6574144, 6394558, 1850882, 26062305, 1923974 #### [facility] [address] [place] [address] Vital Signs Date Time Vital Sign Value Performing Clinician Facility 06-07-2025 13:23-0400 Diastolic blood pressure 74 mm[Hg] Lux Kal DO Work Phone: [facility] 06-07-2025 13:23-0400 Systolic blood pressure 122 mm[Hg] Lux Kal DO Work Phone: [facility] 06-07-2025 13:18-0400 Body mass index (BMI) [Ratio] 37.56 kg/m2 Lux Kal DO Work Phone: [facility] 06-07-2025 13:18-0400 Body weight 99.25 kg Lux Kal DO Work Phone: [facility] 05-26-2025 10:22-0400 Body height 162.6 cm Camilo Itzkowitz DO Work Phone: [facility] 05-26-2025 10:22-0400 Body mass index (BMI) [Ratio] 38.45 kg/m2 Camilo Itzkowitz DO Work Phone: [facility] 05-26-2025 10:22-0400 Body weight 101.61 kg Camilo Itzkowitz DO Work Phone: [facility] 05-26-2025 10:22-0400 Diastolic blood pressure 85 mm[Hg] Camilo Itolayinkakowitz DO Work Phone: [facility] 05-26-2025 10:22-0400 Systolic blood pressure 130 mm[Hg] Camilo Itzkowitz DO Work Phone: [facility] 03-15-2025 14:50-0400 Body height 162.6 cm Connor Persaud MD Work Phone: [facility] 03-15-2025 14:50-0400 Body mass index (BMI) [Ratio] 38.96 kg/m2 Connor Persaud MD Work Phone: [facility] 03-15-2025 14:50-0400 Body weight 102.97 kg Connor Persaud MD Work Phone: [facility] 03-15-2025 14:50-0400 Diastolic blood pressure 78 mm[Hg] Connor Persaud MD Work Phone: [facility] 03-15-2025 14:50-0400 Heart rate 87 /min Connor Persaud MD Work Phone: [facility] 03-15-2025 14:50-0400 SaO2% (BldA) [Mass fraction] 96 % Connor Persaud MD Work Phone: [facility] 03-15-2025 14:50-0400 Systolic blood pressure 118 mm[Hg] Connor Persaud MD Work Phone: [facility] 01-06-2025 13:42-0400 Body mass index (BMI) [Ratio] 41.21 kg/m2 Guerline Saucedo PROP AND EFFECTS DESIGNER.CINDER CRUSHER OPERATOR Work Phone: [facility] 01-06-2025 13:42-0400 Body temperature 97.7 [degF] Guerline Saucedo PROP AND EFFECTS DESIGNER.CINDER CRUSHER OPERATOR Work Phone: [facility] 01-06-2025 13:42-0400 Body weight 105.5 kg Guerline Saucedo PROP AND EFFECTS DESIGNER.CINDER CRUSHER OPERATOR Work Phone: [facility] 01-06-2025 13:42-0400 Diastolic blood pressure 65 mm[Hg] Guerline Aminah PROP AND EFFECTS DESIGNER.CINDER CRUSHER OPERATOR Work Phone: [facility] 01-06-2025 13:42-0400 Heart rate 96 /min Guerline Aminah PROP AND EFFECTS DESIGNER.CINDER CRUSHER OPERATOR Work Phone: [facility] 01-06-2025 13:42-0400 Respiratory rate 16 /min Guerline Aminah PROP AND EFFECTS DESIGNER.CINDER CRUSHER OPERATOR Work Phone: [facility] 01-06-2025 13:42-0400 SaO2% (BldA) [Mass fraction] 95 % Guerline Aminah PROP AND EFFECTS DESIGNER.CINDER CRUSHER OPERATOR Work Phone: [facility] 01-06-2025 13:42-0400 Systolic blood pressure 109 mm[Hg] Guerline Aminah PROP AND EFFECTS DESIGNER.CINDER CRUSHER OPERATOR Work Phone: [facility] 11-29-2024 08:55-0500 Body height 162.6 cm Connor Persaud MD Work Phone: [facility] 11-29-2024 08:55-0500 Body mass index (BMI) [Ratio] 38.79 kg/m2 Connor Persaud MD Work Phone: [facility] 11-29-2024 08:55-0500 Body weight 102.51 kg Connor Persaud MD Work Phone: [facility] 11-29-2024 08:55-0500 Diastolic blood pressure 78 mm[Hg] Connor Persaud MD Work Phone: [facility] 11-29-2024 08:55-0500 Heart rate 81 /min Connor Persaud MD Work Phone: [facility] 11-29-2024 08:55-0500 SaO2% (BldA) [Mass fraction] 94 % Connor Persaud MD Work Phone: [facility] 11-29-2024 08:55-0500 Systolic blood pressure 112 mm[Hg] Connor Persaud MD Work Phone: [facility] 11-25-2024 15:31-0500 Body height 162.6 cm Camilo Itzkowitz DO Work Phone: [facility] 11-25-2024 15:31-0500 Body mass index (BMI) [Ratio] 39.14 kg/m2 Camilo Itzkowitz DO Work Phone: [facility] 11-25-2024 15:31-0500 Body weight 103.42 kg Camilo Itzkowitz DO Work Phone: [facility] 11-25-2024 15:31-0500 Diastolic blood pressure 68 mm[Hg] Camilo Itzkowitz DO Work Phone: [facility] 11-25-2024 15:31-0500 Systolic blood pressure 122 mm[Hg] Camilo Itzkowitz DO Work Phone: [facility] 11-02-2024 10:24-0500 Body height 162.6 cm Maciej Szymanski MD Work Phone: [facility] 11-02-2024 10:24-0500 Body mass index (BMI) [Ratio] 38.45 kg/m2 Maciej Szymanski MD Work Phone: [facility] 11-02-2024 10:24-0500 Body weight 101.61 kg Maciej Szymanski MD Work Phone: [facility] 11-02-2024 10:24-0500 Diastolic blood pressure 79 mm[Hg] Maciej Szymanski MD Work Phone: [facility] 11-02-2024 10:24-0500 Heart rate 88 /min Maciej Szymanski MD Work Phone: [facility] 11-02-2024 10:24-0500 Systolic blood pressure 143 mm[Hg] Maciej Szymanski MD Work Phone: [facility] 09-13-2024 10:17-0500 Body height 162.6 cm Connor Persaud MD Work Phone: [facility] 09-13-2024 10:17-0500 Body mass index (BMI) [Ratio] 38.45 kg/m2 Connor Persaud MD Work Phone: [facility] 09-13-2024 10:17-0500 Body weight 101.61 kg Connor Persaud MD Work Phone: [facility] 09-13-2024 10:17-0500 Diastolic blood pressure 88 mm[Hg] Connor Persaud MD Work Phone: [facility] 09-13-2024 10:17-0500 Heart rate 76 /min Connor Persaud MD Work Phone: [facility] 09-13-2024 10:17-0500 SaO2% (BldA) [Mass fraction] 92 % Connor Persaud MD Work Phone: [facility] 09-13-2024 10:17-0500 Systolic blood pressure 134 mm[Hg] Connor Persaud MD Work Phone: [facility] 08-31-2024 13:21-0500 Body height 162.6 cm Maciej Szymanski MD Work Phone: [facility] 08-31-2024 13:21-0500 Body mass index (BMI) [Ratio] 38.11 kg/m2 Maciej Szymanski MD Work Phone: [facility] 08-31-2024 13:21-0500 Body weight 100.7 kg Maciej Szymanski MD Work Phone: [facility] 08-31-2024 13:21-0500 Diastolic blood pressure 74 mm[Hg] Maciej Szymanski MD Work Phone: [facility] 08-31-2024 13:21-0500 Systolic blood pressure 113 mm[Hg] Maciej Szymanski MD Work Phone: [facility] 08-16-2024 08:41-0400 Body height 162.6 cm Connor Persaud MD Work Phone: [facility] 08-16-2024 08:41-0400 Body mass index (BMI) [Ratio] 38.28 kg/m2 Connor Persaud MD Work Phone: [facility] 08-16-2024 08:41-0400 Body weight 101.15 kg Connor Persaud MD Work Phone: [facility] 08-16-2024 08:41-0400 Diastolic blood pressure 82 mm[Hg] Connor Persaud MD Work Phone: [facility] 08-16-2024 08:41-0400 Heart rate 80 /min Connor Persaud MD Work Phone: [facility] 08-16-2024 08:41-0400 SaO2% (BldA) [Mass fraction] 94 % Connor Persaud MD Work Phone: [facility] 08-16-2024 08:41-0400 Systolic blood pressure 122 mm[Hg] Connor Persaud MD Work Phone: [facility] 07-15-2024 13:49-0400 Body height 160 cm Jerson Clark MD Work Phone: [facility] 07-15-2024 13:49-0400 Body mass index (BMI) [Ratio] 40.9 kg/m2 Jerson Clark MD Work Phone: [facility] 07-15-2024 13:49-0400 Body temperature 97.11 [degF] Jerson Clark MD Work Phone: [facility] 07-15-2024 13:49-0400 Body weight 104.7 kg Jerson Clark MD Work Phone: [facility] 07-15-2024 13:49-0400 Diastolic blood pressure 79 mm[Hg] Jerson Clark MD Work Phone: [facility] 07-15-2024 13:49-0400 Heart rate 89 /min Jerson Clark MD Work Phone: [facility] 07-15-2024 13:49-0400 Respiratory rate 16 /min Jerson Clark MD Work Phone: [place] [address]-26-2024 13:49-0400 SaO2% (BldA) [Mass fraction] 96 % Jerson Clark MD Work Phone: [facility] 07-15-2024 13:49-0400 Systolic blood pressure 131 mm[Hg] Jerson Clark MD Work Phone: [facility] 07-14-2024 13:19-0400 Body height 162.6 cm Maciej Szymanski MD Work Phone: [facility] 07-14-2024 13:19-0400 Body mass index (BMI) [Ratio] 39.48 kg/m2 Maciej Szymanski MD Work Phone: [facility] 07-14-2024 13:19-0400 Body weight 104.33 kg Maciej Szymanski MD Work Phone: [facility] 07-14-2024 13:19-0400 Diastolic blood pressure 79 mm[Hg] Maciej Szymanski MD Work Phone: [facility] 07-14-2024 13:19-0400 Systolic blood pressure 116 mm[Hg] Maciej Szymanski MD Work Phone: [facility] 01-15-2024 13:42-0400 Body height 160 cm Gaby Melgar APRN.CINDER CRUSHER OPERATOR Work Phone: [facility] 01-15-2024 13:42-0400 Body temperature 97.81 [degF] Gaby Melgar APRN.CINDER CRUSHER OPERATOR Work Phone: [facility] 01-15-2024 13:42-0400 Body weight 107.3 kg Gaby Melgar APRN.CINDER CRUSHER OPERATOR Work Phone: [facility] 01-15-2024 13:42-0400 Diastolic blood pressure 68 mm[Hg] Gaby Melgar APRN.CINDER CRUSHER OPERATOR Work Phone: [facility] 01-15-2024 13:42-0400 Heart rate 94 /min Gaby Melgar APRN.CINDER CRUSHER OPERATOR Work Phone: [facility] 01-15-2024 13:42-0400 Respiratory rate 18 /min Gaby Melgar APRN.CINDER CRUSHER OPERATOR Work Phone: [facility] 01-15-2024 13:42-0400 SaO2% (BldA) [Mass fraction] 100 % Gaby Melgar APRN.CINDER CRUSHER OPERATOR Work Phone: [facility] 01-15-2024 13:42-0400 Systolic blood pressure 142 mm[Hg] Gaby Melgar APRN.CINDER CRUSHER OPERATOR Work Phone: [facility] 07-18-2023 13:58-0400 Body height 160 cm Gaby Melgar APRN.CINDER CRUSHER OPERATOR Work Phone: [facility] 07-18-2023 13:58-0400 Body temperature 97.59 [degF] Gaby Melgar APRN.CINDER CRUSHER OPERATOR Work Phone: [facility] 07-18-2023 13:58-0400 Body weight 108.68 kg Gaby Melgar APRN.CINDER CRUSHER OPERATOR Work Phone: [facility] 07-18-2023 13:58-0400 Diastolic blood pressure 56 mm[Hg] Gaby Melgar APRN.CINDER CRUSHER OPERATOR Work Phone: [facility] 07-18-2023 13:58-0400 Heart rate 86 /min Gaby Melgar APRN.CINDER CRUSHER OPERATOR Work Phone: [facility] 07-18-2023 13:58-0400 Respiratory rate 16 /min Gaby Melgar APRN.CINDER CRUSHER OPERATOR Work Phone: [facility] 07-18-2023 13:58-0400 SaO2% (BldA) [Mass fraction] 96 % Gaby Melgar APRN.CINDER CRUSHER OPERATOR Work Phone: [facility] 07-18-2023 13:58-0400 Systolic blood pressure 140 mm[Hg] Gaby Melgar APRN.CINDER CRUSHER OPERATOR Work Phone: [facility] 07-19-2022 14:49-0400 Body height 160 cm Jerson Clark MD Work Phone: [facility] 07-19-2022 14:49-0400 Body temperature 97.39 [degF] Jerson Clark MD Work Phone: [facility] 07-19-2022 14:49-0400 Body weight 100.06 kg Jerson Clark MD Work Phone: [facility] 07-19-2022 14:49-0400 Diastolic blood pressure 87 mm[Hg] Jerson Clark MD Work Phone: [facility] 07-19-2022 14:49-0400 Heart rate 90 /min Jerson Clark MD Work Phone: [facility] 07-19-2022 14:49-0400 Respiratory rate 16 /min Jerson Clark MD Work Phone: [facility] 07-19-2022 14:49-0400 SaO2% (BldA) [Mass fraction] 98 % Jerson Clark MD Work Phone: [facility] 07-19-2022 14:49-0400 Systolic blood pressure 147 mm[Hg] Jerson Clark MD Work Phone: [facility] 01-11-2022 15:07-0400 Body height 160 cm Jerson Clark MD Work Phone: [facility] 01-11-2022 15:07-0400 Body temperature 98.01 [degF] Jerson Clark MD Work Phone: [facility] 01-11-2022 15:07-0400 Body weight 107.96 kg Jerson Clark MD Work Phone: [facility] 01-11-2022 15:07-0400 Diastolic blood pressure 88 mm[Hg] Jerson Clark MD Work Phone: [facility] 01-11-2022 15:07-0400 Heart rate 93 /min Jerson Clark MD Work Phone: [facility] 01-11-2022 15:07-0400 Respiratory rate 16 /min Jerson Clark MD Work Phone: [facility] 01-11-2022 15:07-0400 SaO2% (BldA) [Mass fraction] 96 % Jerson Clark MD Work Phone: [facility] 01-11-2022 15:07-0400 Systolic blood pressure 144 mm[Hg] Jerson Clark MD Work Phone: [facility] 09-26-2020 13:35-0500 BP Diastolic 56 mm[Hg] [facility] 09-26-2020 13:35-0500 BP Systolic 100 mm[Hg] [facility] 09-26-2020 13:35-0500 Pulse (Heart Rate) 75 /min [facility] 09-26-2020 13:35-0500 Pulse Oximetry 97 % [facility] 09-26-2020 13:35-0500 Respiratory Rate 20 /min [facility] 09-26-2020 12:39-0500 Body Temperature 98.4 [degF] [facility] 09-26-2020 11:06-0500 BMI (Body Mass Index) 39.8 kg/m2 [facility] 09-26-2020 11:06-0500 Body weight [address] [facility] 09-26-2020 11:06-[address] [facility] 09-04-2020 11:25-[address] [facility] 09-04-2020 11:18-0500 Body Temperature 97.8 [degF] [facility] 09-04-2020 11:18-0500 Body weight 104.[address] [facility] 09-04-2020 11:18-0500 BP Diastolic 84 mm[Hg] [facility] 09-04-2020 11:18-0500 BP Systolic 146 mm[Hg] [facility] 09-04-2020 11:18-0500 Pulse (Heart Rate) 79 /min [facility] 09-04-2020 11:18-0500 Pulse Oximetry 98 % [facility] 09-04-2020 11:18-0500 Respiratory Rate 20 /min [facility] 08-16-2020 10:45-0400 Body Temperature 98.7 [degF] [facility] 08-16-2020 10:45-0400 BP Diastolic 81 mm[Hg] [facility] 08-16-2020 10:45-0400 BP Systolic 129 mm[Hg] [facility] 08-16-2020 10:45-0400 Pulse (Heart Rate) 92 /min [facility] 08-16-2020 10:45-0400 Pulse Oximetry 97 % [facility] 08-16-2020 10:45-0400 Respiratory Rate 16 /min [facility] Encounters Encounter Date Encounter Type Care Provider Facility Start: 06-07-2025 End: 06-07-2025 Bamboo flowsheet Lux Akl DO Work Phone: [facility] Start: 06-07-2025 End: 06-07-2025 Bamboo flowsheet Lux Kal DO Work Phone: [facility] Start: 06-07-2025 End: 06-07-2025 Patient encounter procedure Lux Kal DO Work Phone: [facility] Comment on above: Well woman exam with routine gynecological exam; Breast cancer screening by mammogram; Postmenopausal state Start: 05-26-2025 End: 05-26-2025 Office outpatient visit 25 minutes Camilo Kelley DO Work Phone: [facility] Comment on above: Malignant neoplasm o f upper-outer quadrant of left breast in female, estrogen receptor positive (HCC) (Primary Dx); Estrogen receptor positive status (ER+) Start: 05-26-2025 End: 05-26-2025 ambulatory CAMILO Emanuel WARREN Not Available Start: 03-15-2025 End: 03-15-2025 Office outpatient visit 25 minutes Connor Persaud MD Work Phone: [facility] Comment on above: Type 2 diabetes catalina itus with stage 3a chronic kidney disease, without long-term current use of insulin (HCC) (CMS/HCC); Morbid (severe) obesity due to excess calories (CMS/HCC); Essential (primary) hypertension (CMS/HCC); Body mass index (BMI) 38.0-38.9, adult; Type 2 diabetes mellitus with diabetic cataract (CMS/HCC); Type 2 diabetes mellitus with other specified complication; Hyperlipidemia, unspecified (CMS/HCC); Type 2 diabetes mellitus with diabetic peripheral angiopathy without gangrene (CMS/HCC); Chronic kidney disease, stage 3a (HCC) ([facility]/HCC) Start: 03-15-2025 End: 03-15-2025 ambulatory CONNOR PERSAUD Not Available Start: 01-06-2025 End: 01-06-2025 ambulatory Chair Kortney Villanueva Work Phone: Hematology/Oncology Comment on above: Malignant neoplasm o f upper-outer quadrant of left breast in female, estrogen receptor positive (HCC) (Primary Dx) Start: 01-06-2025 End: 01-06-2025 Office outpatient visit 25 minutes Guerline Saucedo APRN.CNP Work Phone: Hematology/Oncology Comment on above: Malignant neoplasm o f upper-outer quadrant of left breast in female, estrogen receptor positive (HCC) (Primary Dx) Start: 12-30-2024 End: 12-30-2024 Clinisync Result Encounter Generic External Data Provider [facility] Department Unsolicited Start: 12-30-2024 End: 12-30-2024 Clinisync Result Encounter Generic External Data Provider [facility] External Department Unsolicited Start: 12-30-2024 End: 12-30-2024 ambulatory CONNOR PERSAUD Facility:[facility] Start: 12-29-2024 End: 12-29-2024 Postop follow up visit related to original px Camilo Castellanos Itnitin DO Work Phone: [facility] Comment on above: Positive colorectal cancer screening using Cologuard test (Primary Dx) Start: 12-20-2024 End: 12-20-2024 ambulatory CAMILO H ITZSTEFANWITZ Not Available Start: 11-29-2024 End: 11-29-2024 Office outpatient visit 15 minutes Connor Persaud MD Work Phone: [facility] Comment on above: Positive colorectal cancer screening using Cologuard test (Primary Dx) Start: 11-29-2024 End: 11-29-2024 ambulatory CONNOR PERSAUD Not Available Start: 11-25-2024 End: 11-25-2024 Office outpatient visit 40 minutes Camilo Castellanos Itgiorgiotz DO Work Phone: [facility] Comment on above: Malignant neoplasm o f upper-outer quadrant of left breast in female, estrogen receptor positive (CMS/HCC) (Primary Dx); Positive colorectal cancer screening using Cologuard test Start: 11-25-2024 End: 11-25-2024 ambulatory CAMILO H ITZSTEFANWITZ Not Available Start: 11-02-2024 End: 11-02-2024 Bamjudith Szymanski MD Work Phone: [facility] Start: 11-02-2024 End: 11-02-2024 Yelena Szymanski MD Work Phone: [facility] Start: 11-02-2024 End: 11-02-2024 Office outpatient visit 15 minutes Maciej Szymanski MD Work Phone: [facility] Comment on above: Postoperative hypoth yroidism (CMS/HCC) (Primary Dx); Papillary microcarcinoma of thyroid (CMS/HCC) Start: 11-02-2024 End: 11-02-2024 ambulatory MACIEJ SZYMANSKI Not Available Start: 10-25-2024 End: 10-25-2024 Clinisync Result Encounter Generic External Data Provider [facility] External Department Unsolicited Start: 10-25-2024 End: 10-25-2024 Clinisync Result Encounter Generic External Data Provider [facility] External Department Unsolicited Start: 09-27-2024 End: 09-27-2024 Refill Jerson Clark MD Work Phone: Hematology/Oncology Comment on above: Refill Request Start: 09-13-2024 End: 09-13-2024 Bamboo flowsheet Connor Persaud MD Work Phone: [facility] Start: 09-13-2024 End: 09-13-2024 Bamboo flowsheet Connor Persaud MD Work Phone: [facility] Start: 09-13-2024 End: 09-13-2024 Assay of hemosiderin, quant Connor Persaud MD Work Phone: [facility] Start: 09-13-2024 End: 09-13-2024 Patient encounter procedure Connor Persaud MD Work Phone: [facility] Comment on above: Routine general medi julio examination at [facility] facility (Primary Dx); Hypertriglyceridemia (CMS/HCC); Wellness examination; Encounter for screening for colorectal malignant neoplasm; Encounter for vaccination; Medicare annual wellness visit, subsequent; Primary hypertension (CMS/HCC); Type 2 diabetes mellitus with stage 3a chronic kidney disease, without long-term current use of insulin (HCC) (CMS/HCC); Acquired hypothyroidism (CMS/HCC); Cancer of thyroid (CMS/HCC); Infiltrating ductal carcinoma of breast, unspecified laterality (CMS/HCC) Start: 09-13-2024 End: 09-13-2024 Patient encounter status Connor Persaud MD Work Phone: [facility] Start: 09-13-2024 End: 09-13-2024 ambulatory CONNOR PERSAUD Not Available Start: 09-06-2024 End: 09-06-2024 Patient encounter procedure [facility] Work Phone: Start: 09-06-2024 End: 09-06-2024 ambulatory Connor Persaud MD Work Phone: [facility] Work Phone: Start: 08-31-2024 End: 08-31-2024 Bamboo flowsheet Maciej Szymanski MD Work Phone: [facility] Start: 08-31-2024 End: 08-31-2024 Bamboo flowsheet Maciej Szymanski MD Work Phone: [facility] Start: 08-31-2024 End: 08-31-2024 Office outpatient visit 15 minutes Maciej Szymanski MD Work Phone: [facility] Comment on above: Postoperative hypoth yroidism (CMS/HCC) (Primary Dx) Start: 08-31-2024 End: 08-31-2024 ambulatory MACIEJ SZYMANSKI Not Available Start: 08-23-2024 End: 08-23-2024 Clinisync Result Encounter Generic External Data Provider [facility] External Department Unsolicited Start: 08-23-2024 End: 08-23-2024 Clinisync Result Encounter Generic External Data Provider [facility] External Department Unsolicited Start: 08-16-2024 End: 08-16-2024 Office outpatient visit 25 minutes Connor Persaud MD Work Phone: [facility] Comment on above: 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) (Primary Dx); Morbid (severe) obesity due to excess calories (CMS/HCC); Essential (primary) hypertension (CMS/HCC); Body mass index (BMI) 39.0-39.9, adult; Type 2 diabetes mellitus with stage 3a chronic kidney disease, without long-term current use of insulin (HCC) (CMS/HCC); Class 2 severe obesity due to excess calories with serious comorbidity and body mass index (BMI) of 38.0 to 38.9 in adult (CMS/HCC); Anxiety; 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 Start: 08-16-2024 End: 08-16-2024 ambulatory CONNOR PERSAUD Not Available Start: 07-15-2024 End: 07-15-2024 ambulatory Chair 18 [place] Work Phone: Hematology/Oncology Comment on above: Malignant neoplasm o f upper-outer quadrant of left breast in female, estrogen receptor positive (HCC) (Primary Dx) Start: 07-15-2024 End: 07-15-2024 Office outpatient visit 25 minutes Jerson Clark MD Work Phone: Hematology/Oncology Comment on above: Malignant neoplasm o f upper-outer quadrant of left breast in female, estrogen receptor positive (HCC) (Primary Dx); Stage 3a chronic kidney disease (HCC); Cancer of thyroid (HCC) Start: 07-14-2024 End: 07-14-2024 Bamboo flowsheet Maciej Szymanski MD Work Phone: [facility] Start: 07-14-2024 End: 07-14-2024 Bamboo flowsheet Maciej Szymanski MD Work Phone: [facility] Start: 07-14-2024 End: 07-14-2024 Office outpatient visit 25 minutes Maceij Szymanski MD Work Phone: [facility] Comment on above: Postoperative hypoth yroidism (CMS/HCC) (Primary Dx); Papillary microcarcinoma of thyroid (CMS/HCC) Start: 07-14-2024 End: 07-14-2024 ambulatory MACIEJ SZYMANSKI Not Available Start: 07-08-2024 End: 07-08-2024 ambulatory CONNOR PERSAUD Facility:[facility] Start: 07-08-2024 End: 07-08-2024 Clinisync Result Encounter Generic External Data Provider [facility] External Department Unsolicited Start: 07-08-2024 End: 07-08-2024 Clinisync Result Encounter Generic External Data Provider [facility] External Department Unsolicited Start: 07-08-2024 End: 07-08-2024 Telephone encounter Barbie Hinson RN Hematology/Oncology Comment on above: Orders Start: 07-01-2024 End: 07-01-2024 Clinisync Result Encounter Generic External Data Provider [facility] External Department Unsolicited Start: 07-01-2024 End: 07-01-2024 Clinisync Result Encounter Generic External Data Provider [facility] External Department Unsolicited Start: 06-07-2024 End: 06-07-2024 ambulatory LUX BOWDEN Not Available Start: 01-15-2024 End: 01-15-2024 ambulatory Gaby Melgar APRN.CINDER CRUSHER OPERATOR Work Phone: Hematology/Oncology Comment on above: Malignant neoplasm o f upper-outer quadrant of left breast in female, estrogen receptor positive (HCC) (Primary Dx) Start: 01-15-2024 End: 01-15-2024 Patient encounter procedure Gaby Melgar APRN.CINDER CRUSHER OPERATOR Work Phone: [place] Start: 01-06-2024 Refill Gaby Melgar APRN.CINDER CRUSHER OPERATOR Work Phone: Hematology/Oncology Comment on above: Refill Request Start: 08-21-2023 End: 08-21-2023 ambulatory MD Connor Persaud Work Phone: [facility] Work Phone: Start: 08-21-2023 End: 08-21-2023 Patient encounter procedure MD Connor Persaud Work Phone: [facility] Work Phone: Start: 08-12-2023 Patient encounter procedure Generic Provider [facility] Start: 07-18-2023 End: 07-18-2023 ambulatory Gaby Melgar APRN.CINDER CRUSHER OPERATOR Work Phone: Hematology/Oncology Comment on above: Malignant neoplasm o f upper-outer quadrant of left breast in female, estrogen receptor positive (HCC) (Primary Dx); Endometrial cancer (HCC); Cancer of thyroid (HCC) Start: 07-18-2023 End: 07-18-2023 Patient encounter procedure Gaby Melgar APRN.CINDER CRUSHER OPERATOR Work Phone: [facility] Start: 04-15-2023 Refill Jerson calderon MD Work Phone: Hematology/Oncology Comment on above: Refill Request Start: 01-17-2023 End: 01-17-2023 ambulatory Chair 18 [address] Work Phone: Hematology/Oncology Comment on above: Malignant neoplasm o f upper-outer quadrant of left breast in female, estrogen receptor positive (HCC) (Primary Dx); Endometrial cancer (HCC) Start: 01-17-2023 Telephone encounter Financial Navigator Jc Work Phone: Hematology/Oncology Comment on above: Benefits Investigati on Start: 01-10-2023 Social Work Susanna RANGEL Hematolo gy/Oncology Start: 11-27-2022 End: 11-27-[address] LUX BOWDEN Facility:[facility] Start: 09-03-2022 Telephone encounter Lucas Melo MD Work Phone: [facility] Comment on above: Orders Start: 08-20-2022 End: 08-20-2022 ambulatory MD Connor Persaud Work Phone: [facility] Work Phone: Start: 08-20-2022 End: 08-20-2022 Patient encounter procedure MD Connor Persaud Work Phone: [facility] Start: 07-19-2022 End: 07-19-2022 ambulatory Jerson Clark MD Work Phone: Hematology/Oncology Comment on above: Malignant neoplasm o f upper-outer quadrant of left breast in female, estrogen receptor positive (HCC); Endometrial cancer (HCC); Cancer of thyroid (HCC); Anxiety neurosis Start: 07-19-2022 End: 07-19-2022 Patient encounter procedure Jerson Clark MD Work Phone: [place] Start: 06-25-2022 End: 06-25-2022 Patient encounter procedure MD Connor Persaud Work Phone: [facility] Start: 06-06-2022 End: 06-07-[address] CONNOR PERSAUD Facility:[facility] Start: 01-11-2022 End: 01-11-2022 ambulatory Jerson Clark MD Work Phone: Hematology/Oncology Comment on above: Malignant neoplasm o f upper-outer quadrant of left breast in female, estrogen receptor positive (HCC) (Primary Dx); Aromatase inhibitor use; Endometrial cancer (HCC); Cancer of thyroid (HCC); Anxiety neurosis Start: 01-11-2022 End: 01-11-2022 Patient encounter procedure Jerson Clark MD Work Phone: [place] Start: 10-10-2020 End: 10-10-2020 Patient encounter procedure Connor Persaud -Pre-Surgical Testing Start: 09-26-2020 End: 09-26-2020 Admission to day surgery Connor Persaud -Sur[facility] Start: 09-20-2020 End: 09-20-2020 Patient encounter procedure Connor Allena -Pre-Surgical Testing Start: 09-04-2020 Registered Recurring Connor Persaud -C ancer Center Start: 08-16-2020 End: 08-16-2020 Admission to day surgery Connor Persaud -Ultrasound Cnt r for Breast Car Start: 08-09-2020 End: 08-09-2020 Patient encounter procedure Connor Allena [facility] Start: 08-03-2020 End: 08-03-2020 Patient encounter procedure Connor [facility] Procedures Date Procedure Procedure Detail Performing Clinician Start: 03-15-2025 Hemoglobin glycosylated a1c Connor Persaud MD Work Phone: Start: 12-30-2024 [facility] CBC W AUTO DIFF BLD Generic External Data Provider Start: 12-20-2024 Adela Kelley DO Work Phone: Start: 10-25-2024 ALL THYROID STIM HORMONE Maciej Szymanski MD Work Phone: Start: 09-06-2024 Screening mammography of bilateral breasts Connor Persaud MD Work Phone: Start: 08-23-2024 ALL THYROID STIM HORMONE Maciej Szymanski MD Work Phone: Start: 08-16-2024 Hemoglobin glycosylated a1c Connor Persaud MD Work Phone: Start: 07-08-2024 [facility] CBC W AUTO DIFF BLD Generic External Data Provider Start: 07-01-2024 ALL THYROID STIM HORMONE Maciej Szymanski MD Work Phone: Start: 08-21-2023 Bilateral mammography MD Connor Persaud Work Phone: Start: 04-28-2023 H/O: hysterectomy History of hysterectomy Generic Provider Start: 08-20-2022 Bilateral mammography MD Connor Persaud Work Phone: Start: 06-25-2022 Dual energy X-ray absorptiometry MD Connor Persaud Work Phone: Start: 08-24-2021 Adult depression screening assessment Jerson Clark MD Work Phone: Start: 09-26-2020 Mammo specimen of breast left Rugen Hung Start: 09-26-2020 Lumpectomy of left breast Rugen Knox Start: 09-26-2020 Radionuclide sentinel lymph node study Rugen Hung Start: 09-25-2020 Mammography Rugen Hung Start: 09-25-2020 Ultrasonography guided needle localization of lesion of left breast Rugen Hung Start: 08-16-2020 Mammography Rugen Hung Start: 08-16-2020 Core needle biopsy of breast Rugen Knox Start: 08-09-2020 Mammography Rugen Hung Start: 08-09-2020 Ultrasonography of left breast Rugen Knox Start: 08-03-2020 Screening mammography Rugen Knox Start: 06-06-2014 Colonoscopy Generic Provider Plan of Treatment Date Care Activity Detail Author Start: 12-20-2034 Screening for malignant neoplasm of colon [facility] Start: 09-22-2027 Screening for malignant neoplasm of colon [facility] Start: 06-12-2026 End: 06-12-2026 Patient encounter procedure 06/12/2026 11:00 AM EDT Procedure Visit SHANELLE HANNON [address] [place] [id number] Lux Bowden DO [address] [place] [address] SHANELLE HANNON Start: 01-06-2026 BP Controlled (<130/80) BP Controlled (<130/80) [facility] Start: 12-30-2025 Complete blood count Hemoglobin/Hematocrit [facility] Start: 12-30-2025 Creatinine measurement Serum Creatinine [facility] Start: 12-09-2025 Glaucoma screening Diabetes: Retinopathy Screening [facility] Start: 11-25-2025 End: 11-25-2025 Patient encounter procedure 11/25/2025 10:30 AM EST Office Visit [facility] [address] [place] [id number] Camilo Kelley DO [address] [place] [address] [facility] Start: 11-09-2025 End: 11-09-2025 Patient encounter procedure [facility] Start: 09-13-2025 Medicare Annual Wellness (AWV) Medicare Annual Wellness (AWV) [facility] Start: 09-05-2025 End: 09-05-2025 Patient encounter procedure 09/05/2025 9:00 AM EST Office Visit [facility] [address] [facility] [address] [place] [phone] Connor Persaud MD [address] [facility] [address] [place] [address] [facility] Start: 07-08-2025 Complete blood count Hemoglobin/Hematocrit [facility] Start: 07-08-2025 Creatinine measurement Serum Creatinine [facility] Start: 07-08-2025 End: 07-08-2025 Follow-up encounter Hematology/Oncolog y Comment on above: 6 month follow up with zometa Start: 07-01-2025 End: 07-01-2025 Patient encounter procedure 07/01/2025 1:00 PM EDT Office Visit [facility] [address] [place] [address] [place] [address] [facility] Comment on above: labs Start: 06-20-2025 Influenza vaccination Influenza Vaccine (#1) [facility] Start: 06-15-2025 Hemoglobin A1c measurement Diabetes: Hemoglobin A1C [facility] Start: 06-07-2025 End: 06-07-2026 DXA Skeletal system Views for bone density DEXA bone density Imaging Routine Postmenopausal state Expected: 06/07/2025 (Approximate), Expires: 06/07/2026 [facility] Comment on above: Expected: 06/07/2025 (Approximate), Expi res: 06/07/2026 Start: 06-07-2025 End: 08-07-2026 MG Breast - bilateral Screening Bilateral screening mammogram Imaging Routine Breast cancer screening by mammogram Expected: 06/07/2025, Expires: 08/07/2026 [facility] Work Phone: Comment on above: Expected: 06/07/2025, Expires: Start: 06-07-2025 End: 06-07-2025 Patient encounter procedure [facility] Comment on above: Arrived Start: 05-26-2025 End: 05-26-2025 Patient encounter procedure 05/26/2025 10:30 AM EDT Office Visit [facility] [address] [phone] Camilo Kelley DO [address] [facility] [address] [place] [address] [facility] Start: 03-15-2025 End: 03-15-2025 Patient encounter procedure [facility] Start: 02-14-2025 Hemoglobin A1c measurement HbA1C [facility] Start: 02-09-2025 Urine screening for protein Diabetes: Urine Protein Screening [facility] Start: 01-12-2025 End: 04-13-2025 Cancer Ag 15-3 [Units/volume] in Serum or Plasma CA 15-3 BLD Lab Routine Stage 3a chronic kidney disease (HCC) Malignant neoplasm of upper-outer quadrant of left breast in female, estrogen receptor positive (HCC) Cancer of thyroid (HCC) Expected: 01/12/2025 (Approximate), Expires: 04/13/2025 [facility] Work Phone: Comment on above: Expected: 01/12/2025 (Approximate), Expi res: 04/13/2025 Start: 01-12-2025 End: 04-13-2025 Cancer Ag 27-29 [Units/volume] in Serum or Plasma CA 27.29 BLOOD Lab Routine Stage 3a chronic kidney disease (HCC) Malignant neoplasm of upper-outer quadrant of left breast in female, estrogen receptor positive (HCC) Cancer of thyroid (HCC) Expected: 01/12/2025 (Approximate), Expires: 04/13/2025 [facility] Comment on above: Expected: 01/12/2025 (Approximate), Expi res: 04/13/2025 Start: 01-12-2025 End: 04-13-2025 CBC W Auto Differential panel - Blood COMPLETE BLOOD COUNT AND DIFFERENTIAL Lab Routine Stage 3a chronic kidney disease (HCC) Malignant neoplasm of upper-outer quadrant of left breast in female, estrogen receptor positive (HCC) Cancer of thyroid (HCC) Expected: 01/12/2025 (Approximate), Expires: 04/13/2025 [facility] Comment on above: Expected: 01/12/2025 (Approximate), Expi res: 04/13/2025 Start: 01-12-2025 End: 04-13-2025 Comprehensive metabolic 2000 panel - Serum or Plasma COMPREHENSIVE METABOLIC PANEL Lab Routine Stage 3a chronic kidney disease (HCC) Malignant neoplasm of upper-outer quadrant of left breast in female, estrogen receptor positive (HCC) Cancer of thyroid (HCC) Expected: 01/12/2025 (Approximate), Expires: 04/13/2025 [facility] Comment on above: Expected: 01/12/2025 (Approximate), Expi res: 04/13/2025 Start: 01-12-2025 End: 04-13-2025 Thyrotropin [Units/volume] in Serum or Plasma THYROID STIMULATING HORMONE Lab Routine Stage 3a chronic kidney disease (HCC) Malignant neoplasm of upper-outer quadrant of left breast in female, estrogen receptor positive (HCC) Cancer of thyroid (HCC) Expected: 01/12/2025 (Approximate), Expires: 04/13/2025 [facility] Comment on above: Expected: 01/12/2025 (Approximate), Expi res: 04/13/2025 Start: 01-06-2025 End: 01-06-2025 Follow-up encounter Hematology/Oncolog y Comment on above: 6 month follow up with zometa Start: 12-30-2024 End: 12-30-2024 Patient encounter procedure 12/30/2024 2:00 PM EDT Office Visit [facility] [address] [place] [address] [place] [address] [facility] Comment on above: lab Start: 11-29-2024 End: 11-29-2024 Patient encounter procedure 11/29/2024 9:00 AM EST Office Visit [facility] [address] [place] [address] Connor Persaud MD [address] [place] [address] [facility] Start: 11-25-2024 End: 11-25-2024 Patient encounter procedure 11/25/2024 3:30 PM EST [facility] [address] [place] [phone] Camilo Kelley H, DO [address] [place] [address] [address] [facility] Start: 11-16-2024 Hemoglobin A1c measurement Diabetes: Hemoglobin A1C [facility] Start: 11-12-2024 End: 11-12-2024 Patient encounter procedure 11/12/2024 10:45 AM EST [facility] [address] [facility] [address] [place] [phone] Camilo Kelley H, DO [address] [facility] [address] [place] [address] [facility] Start: 11-02-2024 End: 11-02-2024 Patient encounter procedure [facility] Comment on above: Arrived Start: 10-20-2024 Advance Directive Discussion Advance Directive Discussion [facility] Start: 10-19-2024 End: 10-19-2024 Patient encounter procedure 10/19/2024 11:20 AM EST Office Visit [facility] [address] [place] [phone] Maciej Szymanski MD [address] [place] [address] [facility] Start: 09-13-2024 End: 09-13-2025 Lipid 1996 panel - Serum or Plasma Lipid panel Lab Routine Hypertriglyceridemia (CMS/HCC) Wellness examination Expected: 09/13/2024 (Approximate), Expires: 09/13/2025 [facility] Work Phone: Comment on above: Expected: 09/13/2024 (Approximate), Expi res: 09/13/2025 Start: 09-13-2024 End: 09-13-2024 Patient encounter procedure [facility] Comment on above: Arrived Start: 08-31-2024 End: 08-31-2025 Thyrotropin [Units/volume] in Serum or Plasma TSH Lab Routine Postoperative hypothyroidism (CMS/HCC) Expected: 08/31/2024 (Approximate), Expires: 08/31/2025 [facility] Work Phone: Comment on above: Expected: 08/31/2024 (Approximate), Expi res: 08/31/2025 Start: 08-31-2024 End: 08-31-2024 Patient encounter procedure 08/31/2024 1:30 PM EST Office Visit [facility] [address] [place] [address] Maciej Szymanski MD [address] [place] [address] [facility] Start: 08-16-2024 End: 08-16-2024 Patient encounter procedure 08/16/2024 9:00 AM EDT Office Visit [facility] [address] [place] [address] Connor Persaud MD [address] [place] [address] [facility] Start: 08-12-2024 Medicare Annual Wellness (AWV) Medicare Annual Wellness (AWV) [facility] Start: 08-11-2024 Hemoglobin A1c measurement HbA1C [facility] Start: 07-15-2024 End: 07-15-2024 Follow-up encounter Hematology/Oncolog y Comment on above: 6 month follow up with Marily labs 1 w [place] [employer] prior Start: 07-14-2024 End: 07-14-2024 Patient encounter procedure [facility] Comment on above: Arrived Start: 07-08-2024 End: 10-07-2024 Thyrotropin [Units/volume] in Serum or Plasma [facility] Work Phone: Comment on above: Expected: 07/08/2024, Expires: Start: 06-20-2024 Covid-19 Vaccine () Covid-19 Vaccine () [facility] Start: 06-20-2024 Covid-19 Vaccine () Covid-19 Vaccine () [facility] Start: 06-20-2024 [facility] Start: 06-06-2024 Screening for malignant neoplasm of colon [facility] Start: 05-11-2024 Hemoglobin A1c measurement Diabetes: Hemoglobin A1C [facility] Start: 01-16-2024 End: 03-17-2024 CBC W Auto Differential panel - Blood CBC + DIFF Lab Routine Malignant neoplasm of upper-outer quadrant of left breast in female, estrogen receptor positive (HCC) Endometrial cancer (HCC) Cancer of thyroid (HCC) Expected: 01/16/2024, Expires: 03/17/2024 [facility] Work Phone: Comment on above: Expected: 01/16/2024, Expires: Start: 01-16-2024 End: 03-17-2024 Comprehensive metabolic 2000 panel - Serum or Plasma COMP METABOLIC PANEL Lab Routine Malignant neoplasm of upper-outer quadrant of left breast in female, estrogen receptor positive (HCC) Endometrial cancer (HCC) Cancer of thyroid (HCC) Expected: 01/16/2024, Expires: 03/17/2024 [facility] Work Phone: Comment on above: Expected: 01/16/2024, Expires: 4 Start: 01-16-2024 End: 03-17-2024 Thyrotropin [Units/volume] in Serum or Plasma TSH BLD Lab Routine Malignant neoplasm of upper-outer quadrant of left breast in female, estrogen receptor positive (HCC) Endometrial cancer (HCC) Cancer of thyroid (HCC) Expected: 01/16/2024, Expires: 03/17/2024 [facility] Work Phone: Comment on above: Expected: 01/16/2024, Expires: Start: 10-20-2023 Advance Directive Discussion Advance Directive Discussion [facility] Start: 10-20-2023 Behavioral Health Screening Behavioral Health Screening [facility] Start: 10-20-2023 Depression Assessment Depression Assessment [facility] Start: 08-23-2023 BP CONTROLLED (<130/80) BP CONTROLLED (<130/80) [facility] Start: 08-20-2023 Screening for malignant neoplasm of breast Mammogram Screening [facility] Start: 06-20-2023 Covid-19 Vaccine () Covid-19 Vaccine () [facility] Start: 06-20-2023 Influenza vaccination Influenza Vaccine (#1) [facility] Start: 01-16-2023 End: 07-19-2023 CBC W Auto Differential panel - Blood CBC + DIFF Lab Routine Malignant neoplasm of upper-outer quadrant of left breast in female, estrogen receptor positive (HCC) Cancer of thyroid (HCC) Expected: 01/16/2023 (Approximate), Expires: 07/19/2023 [facility] Work Phone: Comment on above: Expected: 01/16/2023 (Approximate), Expi res: 07/19/2023 Start: 01-16-2023 End: 07-19-2023 Comprehensive metabolic 2000 panel - Serum or Plasma COMP METABOLIC PANEL Lab Routine Malignant neoplasm of upper-outer quadrant of left breast in female, estrogen receptor positive (HCC) Cancer of thyroid (HCC) Expected: 01/16/2023 (Approximate), Expires: 07/19/2023 [facility] Work Phone: Comment on above: Expected: 01/16/2023 (Approximate), Expi res: 07/19/2023 Start: 01-16-2023 End: 03-18-2023 Thyrotropin [Units/volume] in Serum or Plasma TSH BLD Lab Routine Malignant neoplasm of upper-outer quadrant of left breast in female, estrogen receptor positive (HCC) Cancer of thyroid (HCC) Expected: 01/16/2023 (Approximate), Expires: 03/18/2023 [facility] Work Phone: Comment on above: Expected: 01/16/2023 (Approximate), Expi res: 03/18/2023 Start: 10-26-2022 Hemoglobin A1c/Hemoglobin.total in Blood HBA1C [facility] Start: 10-20-2022 ADVANCE DIRECTIVE DISCUSSION ADVANCE DIRECTIVE DISCUSSION [facility] Start: 10-20-2022 DEPRESSION ASSESSMENT DEPRESSION ASSESSMENT [facility] Start: 08-24-2022 Adult depression screening assessment DEPRESSION SCREENING [facility] Start: 07-19-2022 End: 09-18-2022 Comprehensive metabolic 2000 panel - Serum or Plasma COMP METABOLIC PANEL Lab Routine Malignant neoplasm of upper-outer quadrant of left breast in female, estrogen receptor positive (HCC) Expected: 07/19/2022, Expires: 09/18/2022 [facility] Work Phone: Comment on above: Expected: 07/19/2022, Expires: 2 Start: 07-19-2022 End: 09-18-2022 Thyrotropin [Units/volume] in Serum or Plasma TSH BLD Lab Routine Cancer of thyroid (HCC) Expected: 07/19/2022, Expires: 09/18/2022 [facility] Work Phone: Comment on above: Expected: 07/19/2022, Expires: 2 Start: 07-18-2022 End: 09-17-2022 Thyroglobulin Ab [Units/volume] in Serum or Plasma THYROGLOBULIN AB Lab Routine Cancer of thyroid (HCC) Expected: 07/18/2022 (Approximate), Expires: 09/17/2022 [facility] Work Phone: Comment on above: Expected: 07/18/2022 (Approximate), Expi res: 09/17/2022 Start: 07-18-2022 End: 09-17-2022 Thyroglobulin and Thyrogobulin Ab panel - Serum or Plasma THYROGLOBULIN BLD Lab Routine Cancer of thyroid (HCC) Expected: 07/18/2022 (Approximate), Expires: 09/17/2022 [facility] Work Phone: Comment on above: Expected: 07/18/2022 (Approximate), Expi res: 09/17/2022 Start: 07-14-2022 End: 02-10-2023 Dxa bone density study 1/> sites axial skel DXA-AXIAL SKELETON Radiology Routine Aromatase inhibitor use Malignant neoplasm of upper-outer quadrant of left breast in female, estrogen receptor positive (HCC) Endometrial cancer (HCC) Expected: 07/14/2022 (Approximate), Expires: 02/10/2023 [facility] Work Phone: Comment on above: Expected: 07/14/2022 (Approximate), Expi res: 02/10/2023 Start: 06-20-2022 Influenza vaccination INFLUENZA (#1) [facility] Start: 12-03-2021 COVID-19 VACCINE (4 - Booster for Pfizer series) COVID-19 VACCINE (4 - Booster for Pfizer series) [facility] Start: 12-03-2021 Covid-19 Vaccine (6 - Mixed Product series) Covid-19 Vaccine (6 - Mixed Product series) [facility] Start: 10-25-2021 Hemoglobin A1c measurement HbA1C [facility] Start: 10-25-2021 Hemoglobin A1c/Hemoglobin.total in Blood HBA1C [facility] Start: 10-20-2021 ADVANCE DIRECTIVE DISCUSSION ADVANCE DIRECTIVE DISCUSSION [facility] Start: 10-20-2021 DEPRESSION ASSESSMENT DEPRESSION ASSESSMENT [facility] Start: 06-20-2021 Influenza vaccination INFLUENZA (#1) [facility] Start: 02-20-2021 COVID-19 VACCINE (3 - Pfizer risk 4-dose series) COVID-19 VACCINE (3 - Pfizer risk 4-dose series) [facility] Start: 09-09-2019 PNEUMOCOCCAL: 65+ (2 - PPSV23 if available, else PCV20) PNEUMOCOCCAL: 65+ (2 - PPSV23 if available, else PCV20) [facility] Start: 09-09-2019 PNEUMOCOCCAL: 65+ (2 - PPSV23 or PCV20) PNEUMOCOCCAL: 65+ (2 - PPSV23 or PCV20) [facility] Start: 11-04-2018 Pneumococcal Vaccine: 65+ (2 - PPSV23 or PCV20) Pneumococcal Vaccine: 65+ (2 - PPSV23 or PCV20) [facility] Start: 11-04-2018 Pneumococcal Vaccine: 65+ (2 of 2 - PPSV23 or PCV20) Pneumococcal Vaccine: 65+ (2 of 2 - PPSV23 or PCV20) [facility] Start: 11-04-2018 PNEUMOCOCCAL: 65+ (2 - PPSV23 if available, else PCV20) PNEUMOCOCCAL: 65+ (2 - PPSV23 if available, else PCV20) [facility] Start: 06-06-2015 Screening for malignant neoplasm of colon [facility] Start: 2015 BONE DENSITY BONE DENSITY [facility] Start: 2015 Bone Density Screening Bone Density Screening [facility] Start: 2015 PNEUMOVAX AGE 65 AND OVER WITH 5YR LOOKBACK (#1) PNEUMOVAX AGE 65 AND OVER WITH 5YR LOOKBACK (#1) [facility] Start: 2015 Screening for osteoporosis Bone Density Screening [facility] Start: 2010 Hepatitis B Vaccine (1 of 3 - Risk 3-dose series) Hepatitis B Vaccine (1 of 3 - Risk 3-dose series) [facility] Start: 2010 RSV Vaccine (1 - 1-dose 60+ series) RSV Vaccine (1 - 1-dose 60+ series) [facility] Start: 2010 RSV Vaccine (1 - Risk 60-74 years 1-dose series) RSV Vaccine (1 - Risk 60-74 years 1-dose series) [facility] Start: 1995 COLOGUARD (FIT-DNA) COLOGUARD (FIT-DNA) [facility] Start: 1995 Colonoscopy COLONOSCOPY [facility] Start: 1995 COLORECTAL CANCER SCREENING COLORECTAL CANCER SCREENING [facility] Start: [address] COLONOGRAPHY [facility] Start: 1995 FECAL OCCULT BLOOD FECAL OCCULT BLOOD [facility] Start: 1995 Screening for malignant neoplasm of colon [facility] Start: 1995 SIGMOIDOSCOPY SIGMOIDOSCOPY [facility] Start: 1990 Mammography [facility] Start: 1990 Screening for malignant neoplasm of breast Mammogram Screening [facility] Start: 1969 Urine microalbumin profile [facility] Start: 1968 ANNUAL PCP TEAM CHRONIC DISEASE VISIT ANNUAL PCP TEAM CHRONIC DISEASE VISIT [facility] Start: 1968 Anxiety Screening Anxiety Screening [facility] Start: 1968 BP CONTROLLED (<130/80) BP CONTROLLED (<130/80) [facility] Start: 1968 Depression Screening Depression Screening [facility] Start: 1968 Hepatitis B surface antibody level LDL CHOLESTEROL [facility] Start: 1968 HEPATITIS C SCREENING HEPATITIS C SCREENING [facility] Start: 1968 Hepatitis C screening Hepatitis C Screening [facility] Start: 1960 3 comp foot exam completed DIABETIC FOOT EXAM [facility] Start: 1960 Diabetic foot examination Diabetic Foot Exam [facility] Start: 1960 Glaucoma screening Dilated Retinal Exam [facility] Start: 1960 Hepatitis B screening URINE ALBUMIN:CREATININE RATIO [facility] Start: 1960 Hepatitis C antibody, confirmatory test DILATED RETINAL EXAM [facility] Start: 1955 Hemoglobin A1c measurement HbA1C [facility] Start: 1955 Hemoglobin A1c/Hemoglobin.total in Blood HBA1C [facility] Start: 1950 Screening for malignant neoplasm of colon [facility] Noninvasive colorect al cancer DNA and occult blood screening [Presence] in Stool Cologuard colon cancer screening Lab Routine Encounter for screening for colorectal malignant neoplasm Ordered: 09/13/2024 [facility] Comment on above: Ordered: 09/13/2024 Patient referral [facility] THIN PREP TIS PAP AN D HR HPV DNA THIN PREP TIS PAP AND HR HPV DNA Pathology and Cytology Routine Well woman exam with routine gynecological exam Ordered: 06/07/2025 [facility] Comment on above: Ordered: 06/07/2025 [facility] Immunizations Immunization Date Immunization Notes Care Provider Elyse sales 09-13-2024 Influenza, High-dose Seasonal, Quadrivalent, Preservative Free Connor Persaud MD Work Phone: [facility] 09-13-2024 influenza virus vacc ine, unspecified formulation Camilo Kelley DO Work Phone: [facility] 08-12-2023 Influenza, High-dose Seasonal, Quadrivalent, Preservative Free Generic Provider [facility] 08-12-2023 pneumococcal polysaccharide vaccine, 23 valent Generic Provider [facility] 08-12-2023 influenza virus vacc ine, unspecified formulation Generic Provider [facility] 08-12-2022 Influenza, High-dose Seasonal, Quadrivalent, Preservative Free Generic Provider [facility] 08-12-2022 influenza virus vacc ine, unspecified formulation Gaby Melgar APRN.CNP Work Phone: [facility] 10-08-2021 Pfizer Purple Cap SARS-CoV-2 Vaccination Generic Provider [facility] 01-23-2021 COVID-19 vaccine (UNSPECIFIED) Jerson Clark MD Work Phone: [facility] 01-23-2021 COVID-19 vaccine, ag e 12+ yr (PFIZER-BIONTECH - PURPLE TOP) Jerson Clark MD Work Phone: [facility] 01-22-2021 Pfizer Purple Cap SARS-CoV-2 Vaccination Generic Provider [facility] 01-01-2021 COVID-19 vaccine (UNSPECIFIED) Jerson Clark MD Work Phone: [facility] 01-01-2021 COVID-19 vaccine, ag e 12+ yr (PFIZER-BIONTECH - PURPLE TOP) Jerson Clark MD Work Phone: [facility] 08-23-2020 influenza, high dose seasonal, preservative-free Generic Provider [facility] 08-23-2020 influenza, high-dose , quadrivalent vaccine (FLUZONE HIGH DOSE QUADRIVALENT) Jerson Clark MD Work Phone: [facility] 10-07-2019 influenza, high dose seasonal, preservative-free Jerson Clark MD Work Phone: [facility] 10-07-2019 Influenza, High-dose Seasonal, Quadrivalent, Preservative Free Generic Provider [facility] 06-24-2019 zoster vaccine recombinant Jerson Clark MD Work Phone: [facility] 06-23-2019 zoster vaccine recombinant Generic Provider [facility] 04-23-2019 zoster vaccine recombinant Jerson Clark MD Work Phone: [facility] 04-22-2019 zoster vaccine recombinant Generic Provider [facility] 09-09-2018 Influenza, High-dose Seasonal, Quadrivalent, Preservative Free Generic Provider [facility] 09-09-2018 Influenza, injectabl e, Madin Tomah Canine Kidney, preservative free, quadrivalent Jerson Clark MD Work Phone: [facility] 09-09-2018 pneumococcal conjuga te vaccine, 13 valent Jerson Clark MD Work Phone: [facility] Payers Date Payer Category Payer Medicare MEDICARE MEDICAR E A AND B [id number] 2018-Present [phone] [address] [address] [place] [address] Medicare [id number] 2018 Medicare [id number] 2018 Private Health Insurance [facility] AARP SUPPLEMENT [id number] 2018-Present [phone] [address] [place] [address] Indemnity [id number] 2018 Private Health Insurance [id number] 2018 Unknown AARP AARP [id number] 2018-Present [address] [place] [address] [id number] 1959 Medicare [id number] 1959 Self-pay [id number] 1959 Unknown [id number] 1950 Unknown [id number] 1950 Unknown [id number] [id number] 1950 Unknown [id number] [id number] 1950 Unknown [id number] .125 1950 Unknown [id number] [id number] .125 1950 Unknown [id number] [id number] .125 1950 Unknown [id number] [id number] .125 1950 Unknown [id number] [id number] .1259 1950 Unknown [id number] .125 1950 Unknown [id number] [id number] .125 1950 Unknown [id number] [id number] .125 1950 Unknown [id number] [id number] .125 1950 Unknown [id number] [id number] .125 1950 Unknown [id number] [id number] .1259 Medicare [id number] Medicare Medicare-OP No Part B [id number] Private Health Insurance [id number] Unknown [id number] Social History Date Type Detail Facility Start: 09-26-2020 End: 04-26-2023 Tobacco smoking status NHIS Never smoked tobacco (finding) [facility] Start: 1950 Sex Assigned At Female F [facility] Start: 03-31-2018 End: 04-26-2023 Tobacco use and exposure Smokeless tobacco non-user [facility] Start: 01-11-2022 End: 01-06-2025 Alcohol intake Current non-drinker of alcohol (finding) [facility] Start: 1950 Sex Assigned At Not on file C [facility] Start: 01-01-2022 End: 08-23-2022 Exposure to SARS-CoV-2 (event) Not sure [facility] Start: 07-18-2023 End: 08-09-2024 History of Social function [facility] Start: 07-18-2023 End: 08-09-2024 Tobacco use panel [facility] Adult Depression Screening Assessment 0 [facility] Start: 08-16-2024 End: 05-26-2025 Alcoholic beverage intake Lifetime non-drinker (finding) [facility] Do you belong to any clubs or organizations such as christian groups, unions, fraternal or athletic groups, or school groups? No [facility] Are you now , , , , never or living with a partner? [facility] How often to you hav e a drink containing alcohol? Never [facility] Do you feel stress - tense, restless, nervous, or anxious, or unable to sleep at night because your mind is troubled all the time - these days [OSQ] Not at all [facility] (I/We) worried wheth er (my/our) food would run out before (I/we) got money to buy more. Never true [facility] Start: 05-29-2023 Alcohol Comment Caffeine: coff ee, tea [facility] Start: 09-07-2024 Sex Female (finding) [facility] NEGATED: Highlighted rowStart: [place] History of tobacco use Passive smoker [facility] Medical Equipment Procedure Code Equipment Code Equipment Origin al Text Equipment Identifier Dates Biopsy, breast, with lumpectomy FDA Start: 09-26-2020 Biopsy, breast, with lumpectomy biozorb FDA Start: 09-26-2020 Biopsy, breast, with lumpectomy biozorb FDA Start: 09-26-2020 Biopsy, breast, with lumpectomy biozorb FDA Start: 09-26-2020 Biopsy, breast, with lumpectomy biozorb FDA Start: 09-26-2020 Biopsy, breast, with lumpectomy biozorb FDA Start: 09-26-2020 Goals Date Patient Goal Desired Activity /State Functional Status Date Assessment Result Facility 03-15-2025 Patient Health Quest ionnaire 2 item (PHQ-2) [Reported] [facility] 04-11-2018 Are you deaf, or do you have serious difficulty hearing No 04/11/2018 11:14 AM Lea Sierra [facility] 04-11-2018 Are you blind, or do you have serious difficulty seeing, even when wearing glasses No 04/11/2018 11:14 AM Lea Ruiz [facility] 04-11-2018 Do you have serious difficulty walking or climbing stairs No 04/11/2018 11:14 AM Lea Sierra [facility] 04-11-2018 Do you have difficul ty dressing or bathing No 04/11/2018 11:14 AM Lea Sierra [facility] 04-11-2018 Because of a physica l, mental, or emotional condition, do you have difficulty doing errands alone such as visiting a physician's office or shopping No 04/11/2018 11:14 AM Lea Sierra [facility] Mental Status Date Assessment Result Facility 04-11-2018 Because of a physica l, mental, or emotional condition, do you have serious difficulty concentrating, remembering, or making decisions No 04/11/2018 11:14 AM EDT Lea Astorga [facility] Clinical Notes 01-11-2022 to 06-07-2025 Roberta Hart LPN - 06/07/2025 1:10 PM Mayito Kelley DO - 05/26/2025 10:30 AM Oh Persaud MD - 03/15/2025 3:07 PM Oh Persaud MD - 03/15/2025 3:06 PM EDT Note Date & Type Note Facility 06-07-2025 History of Present illness Narrative Reason for Appointment: Patient ID: Savana Tran is a 75 y.o. female who presents for Well Women Visit Patient presents today for Annual Exam. MEDICATIONS Current Outpatient Medications Medication Instructions b complex vitamins capsule 1 capsule, Daily ergocalciferol (VITAMIN D2) 1.25 mg, Oral, Weekly letrozole (FEMARA) 2.5 mg, Daily levothyroxine (SYNTHROID) 100 mcg, Oral, Daily before breakfast lisinopril-hydroCHLOROthiazide 20-25 MG tablet 1.5 tablets, Oral, Daily omega-3 (FISH OIL) 300 MG capsule Oral, Daily ALLERGIES No Known Allergies PROBLEMS Active Ambulatory Problems Diagnosis Date Noted Abnormal mammogram 08/04/2020 Postoperative hypothyroidism 09/12/2015 Adjustment disorder with anxiety 04/28/2023 Benign essential hypertension 04/28/2023 Decreased estrogen level 04/28/2023 Endometrial cancer (HCC) 04/28/2023 History of hysterectomy 04/28/2023 Essential (primary) hypertension 04/28/2023 Hypertension due to endocrine disorder 04/28/2023 Hyperlipidemia, unspecified 04/28/2023 Insomnia 04/28/2023 Invasive ductal carcinoma of breast (HCC) 04/28/2023 Malignant neoplasm of upper-outer quadrant of left female breast (HCC) 04/28/2023 Adenocarcinoma of endometrium (HCC) 04/28/2023 Mucinous adenocarcinoma of uterus, stage 1 (HCC) 04/28/2023 Morbid (severe) obesity due to excess calories ([facility]-HCC) 04/28/2023 Obstructive sleep apnea syndrome 04/28/2023 Pain 04/28/2023 Papillary microcarcinoma of thyroid (HCC) 04/28/2023 Postmenopausal bleeding 04/28/2023 Vaginal bleeding 04/28/2023 Vaginal discharge 04/28/2023 Chronic kidney disease due to hypertension 04/28/2023 Chronic kidney disease, stage 3a (CMS-HCC) 04/28/2023 Thickened endometrium 04/28/2023 Thyroid mass 04/28/2023 Type 2 diabetes mellitus with diabetic chronic kidney disease (HCC) 04/28/2023 Type 2 diabetes mellitus with other specified complication (HCC) 04/28/2023 Vitamin D deficiency 04/28/2023 Estrogen receptor positive status (ER+) 04/28/2023 Diabetic renal disease (HCC) 04/07/2019 Anxiety 10/23/2020 Malignant neoplasm of uterus (HCC) 04/21/2018 Cancer of thyroid (HCC) 10/23/2020 Malignant tumor of thyroid gland (HCC) 05/03/2020 Osteoporosis, post-menopausal 05/26/2023 Medicare annual wellness visit, subsequent 05/26/2023 Hypothyroid 08/08/2023 Myalgia 11/21/2023 Cataracts, bilateral 02/10/2024 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 08/16/2024 Left breast mass 09/08/2024 Positive colorectal cancer screening using Cologuard test 11/25/2024 Body mass index (BMI) 38.0-38.9, adult 03/15/2025 Type 2 diabetes mellitus with diabetic cataract (HCC) 03/15/2025 Type 2 diabetes mellitus with diabetic peripheral angiopathy without gangrene (HCC) 03/15/2025 Resolved Ambulatory Problems Diagnosis Date Noted No Resolved Ambulatory Problems Past Medical History: Diagnosis Date A vague feeling of discomfort Abnormal thyroid ultrasound 10/15/2019 Breast cancer (HCC) Breast cancer screening by mammogram 2017 Cataract DM (diabetes mellitus) (HCC) DM (diabetes mellitus), type 2 (HCC) Encounter for screening colonoscopy 2017 Family history of cancer Genetic testing Goiter H/O dilation and curettage History of colon polyps 12/20/2024 HTN (hypertension) Hx of CT scan of abdomen 02/18/[address] scan of chest 02/18/2020 Hypothyroidism Obesity FESTUS on CPAP 2014 Postmenopausal Sleep apnea 2014 Status post thyroidectomy 06/07/2022 Thyroid disease Visit for review of DEXA scan 05/03/2021 Well woman exam HISTORY PAST MEDICAL HISTORY SOCIAL HISTORY Past Medical History: Diagnosis Date A vague feeling of discomfort Abnormal thyroid ultrasound 10/15/2019 Adenocarcinoma of endometrium (HCC) Anxiety Breast cancer (HCC) left-ER/OR+ Her2 neg Breast cancer screening by mammogram 2016 neg Cataract Cataracts, bilateral Cataracts, bilateral DM (diabetes mellitus) (HCC) DM (diabetes mellitus), type 2 (HCC) without comp Encounter for screening colonoscopy 2016 neg Endometrial cancer (HCC) 03/06/2018 S/P Radiation 6-8 weeks Radiation Therapy Family history of cancer Genetic testing negative Goiter H/O dilation and curettage History of colon polyps 12/20/2024 HTN (hypertension) Hx of CT scan of abdomen 02/18/2020 CT scan of abdomen and pelvis. No malignancy metastasis, she does have some steatosis or fat in the liver with stable hemagiomas or blood filled cysts Hx of CT scan of chest 02/18/2020 CT scan of chest, Stable Pulmonary Nodules Hypothyroidism post procedural Mucinous adenocarcinoma of uterus, stage 1 (HCC) Obesity FESTUS on CPAP 2013 Postmenopausal Sleep apnea 2013 Status post thyroidectomy 06/07/2022 Post Thyroidectomy with no residual tissue or suspicious findings Thickened endometrium Heterogenous endometrial thickening 02/11/2018 pelvic U/S Thyroid disease Vaginal discharge Visit for review of DEXA scan 05/03/2021 Dexa Osteopenia-Moderate Fracture Risk Well woman exam Social History Tobacco Use Smoking status: Never Smokeless tobacco: Never Substance Use Topics Alcohol use: Never Comment: Caffeine: coffee, tea Drug use: Never FAMILY HISTORY Family History Problem Relation Name Age of Onset Hypertension Mother They have passed Heart disease Mother They have passed Stroke Mother They have passed Cancer Mother They have passed Diabetes Father They have passed Hypertension Father They have passed Heart disease Father They have passed Stroke Father They have passed Breast cancer Sister Diabetes Maternal Grandmother They have passed Stroke Maternal Grandfather They have passed Mental illness Maternal Grandfather They have passed Ovarian cancer Neg Hx Colon cancer Neg Hx SURGICAL HISTORY Past Surgical History: Procedure Laterality Date BI US GUIDED BREAST LOCALIZATION AND BIOPSY LEFT Left 08/16/2020 BI US GUIDED BREAST LOCALIZATION AND BIOPSY LEFT [facility] LEGACY BREAST BIOPSY Left 07/2020 BREAST LUMPECTOMY Left 09/26/2020 w/ [facility] LN Biopsy CATARACT EXTRACTION, BILATERAL Bilateral 01/12/2024 Left January 26 Right COLONOSCOPY 12/20/2024 With Cauterization of Polyp DILATION AND CURETTAGE 03/06/2018 hysteroscopy- Dr. Bowden [facility] EYE EXAM 2009 HYSTERECTOMY 04/10/2018 BSP, Lymphadenectomy, Cystoscopy -Dr. Marcial HYSTEROSCOPY 03/06/2018 D and C -Dr. Bowden [facility] OTHER SURGICAL HISTORY 10/12/2020 evacuation of hematoma, resection of medial margin PAP SMEAR 02/13/2021 negative TOTAL THYROIDECTOMY 12/09/2019 Timmis VAGINAL DELIVERY childbirth REVIEW OF SYSTEMS Review of Systems: Review of Systems Constitutional: Negative. HENT: Negative. Eyes: Negative. Respiratory: Negative. Cardiovascular: Negative. Gastrointestinal: Negative. Genitourinary: Negative. Musculoskeletal: Negative. Skin: Negative. Neurological: Negative. All other systems reviewed and are negative. Hematological: Negative. Endocrine: Negative. Allergic/Immunologic: Negative. OBJECTIVE Objective: Physical Exam Constitutional: Appearance: Normal appearance. She is well-developed. Genitourinary: Vulva normal. Vaginal cuff intact. Cervix is absent. Uterus is absent. Cardiovascular: Rate and Rhythm: Normal rate and regular rhythm. Abdominal: General: Bowel sounds are normal. There is no distension. Palpations: Abdomen is soft. Tenderness: There is no abdominal tenderness. There is no guarding or rebound. Musculoskeletal: General: No swelling. Normal range of motion. Right lower leg: No edema. Left lower leg: No edema. Neurological: Mental Status: She is alert and oriented to person, place, and time. Skin: General: Skin is warm and dry. Psychiatric: Mood and Affect: Mood normal. Behavior: Behavior normal. Vitals and nursing note reviewed. Exam conducted with a client associate present. Vitals: Estimated body mass index is 37.56 kg/m as calculated from the following: Height as of 05/26/25: 5' 4 . Weight as of this encounter: 218 lb 12.8 oz. BP: 122/74 No LMP recorded. ASSESSMENT & PLAN ICD-10-CM 1. Well woman exam with routine gynecological exam Z01.419 THIN PREP TIS PAP AND HR HPV DNA 2. Breast cancer screening by mammogram Z12.31 Bilateral screening mammogram Bilateral screening mammogram 3. Postmenopausal state Z78.0 DEXA bone density Orders Placed This Encounter Procedures Bilateral screening mammogram DEXA bone density Annual Wellness Exam (Post Hysterectomy): Patient presents today for routine annual exam. Patient states she has no current complaints. Patients vitals were reviewed and within normal limits. Growth and development is noted to be appropriate for age. Menstrual history is noted to be obsolete due to patients history of hysterectomy. No mental health concerns was expressed. Pap Smear: Speculum was inserted into the vagina and pap was obtained without difficulty. HPV testing was performed per guidelines. Patient was advised that pap results could take anywhere from 7 to 10 days to receive and our office will reach out to the patient with those once we have them. Patient can also view results via [employer]. I reinforced importance of condom use for STI prevention. Patient declined cultures to be performed with today's visit. Breast Exam: Upon examination, clinical breast exam was noted to be normal. Patient was counseled on breast self-awareness, including the importance of knowing what is normal for her own breasts and promptly reporting any changes such as new lumps, skin dimpling, nipple discharge, or pain. Screening mammogram recommended annually beginning at age 40 or earlier if risk factors are present. Discussed signs and symptoms of breast cancer and when to seek medical attention. Answered all patient questions. Follow Up: Patient is to return to our office in one year for annual exam unless needed otherwise. Documented by Roberta Hart LPN on behalf of: Lux Bowden DO documented in this encounter [facility] 05-26-2025 History of Present illness Narrative Images from the original note were not included. Savana Tran 1950 Savana Tran is a 75 y.o. female presents with chief complaint of 4 1/2 poy Lt. lumpectomy HPI: HPI Savana is 4 1/2 yrs post Lt. Lumpectomy SUBJECTIVE: MEDICATIONS: ALLERGIES Current Outpatient Medications Medication Instructions ALPRAZolam (XANAX) 0.25 mg, Oral, Nightly PRN b complex vitamins capsule 1 capsule, Daily ergocalciferol (VITAMIN D2) 1.25 mg, Oral, Weekly letrozole (FEMARA) 2.5 mg, Daily levothyroxine (SYNTHROID) 100 mcg, Oral, Daily before breakfast lisinopril-hydroCHLOROthiazide 20-25 MG tablet 1.5 tablets, Oral, Daily omega-3 (FISH OIL) 300 MG capsule Oral, Daily No Known Allergies PAST MEDICAL HISTORY: SOCIAL HISTORY SURGICAL HISTORY: Past Medical History: Diagnosis Date A vague feeling of discomfort Abnormal thyroid ultrasound 10/15/2019 Adenocarcinoma of endometrium (HCC) Anxiety Breast cancer (HCC) left-ER/OR+ Her2 neg Breast cancer screening by mammogram 2016 neg Cataract Cataracts, bilateral Cataracts, bilateral DM (diabetes mellitus) (HCC) DM (diabetes mellitus), type 2 (HCC) without comp Encounter for screening colonoscopy 2016 neg Endometrial cancer (HCC) 03/06/2018 S/P Radiation 6-8 weeks Radiation Therapy Family history of cancer Genetic testing negative Goiter H/O dilation and curettage History of colon polyps 12/20/2024 HTN (hypertension) Hx of CT scan of abdomen 02/18/2020 CT scan of abdomen and pelvis. No malignancy metastasis, she does have some steatosis or fat in the liver with stable hemagiomas or blood filled cysts Hx of CT scan of chest 02/18/2020 CT scan of chest, Stable Pulmonary Nodules Hypothyroidism post procedural Mucinous adenocarcinoma of uterus, stage 1 (HCC) Obesity FESTUS on CPAP 2013 Postmenopausal Sleep apnea 2014 Status post thyroidectomy 06/07/2022 Post Thyroidectomy with no residual tissue or suspicious findings Thickened endometrium Heterogenous endometrial thickening 02/11/2018 pelvic U/S Thyroid disease Vaginal discharge Visit for review of DEXA scan 05/03/2021 Dexa Osteopenia-Moderate Fracture Risk Well woman exam Social History Tobacco Use Smoking status: Never Smokeless tobacco: Never Substance Use Topics Alcohol use: Never Comment: Caffeine: coffee, tea Drug use: Never Past Surgical History: Procedure Laterality Date BI US GUIDED BREAST LOCALIZATION AND BIOPSY LEFT Left 08/16/2020 BI US GUIDED BREAST LOCALIZATION AND BIOPSY LEFT [facility] DATA LEGACY BREAST BIOPSY Left 07/2020 BREAST LUMPECTOMY Left 09/26/2020 w/ [place] LN Biopsy CATARACT EXTRACTION, BILATERAL Bilateral 01/12/2024 Left January 26 Right COLONOSCOPY 12/20/2024 With Cauterization of Polyp DILATION AND CURETTAGE 03/06/2018 hysteroscopy- Dr. Bowden [facility] EYE EXAM 2009 HYSTERECTOMY 04/10/2018 BSP, Lymphadenectomy, Cystoscopy -Dr. Marcial HYSTEROSCOPY 03/06/2018 D and C -Dr. oBwden [facility] OTHER SURGICAL HISTORY 10/12/2020 evacuation of hematoma, resection of medial margin PAP SMEAR 02/13/2021 negative TOTAL THYROIDECTOMY 12/09/2019 Timmis VAGINAL DELIVERY childbirth FAMILY HISTORY Family History Problem Relation Name Age of Onset Hypertension Mother They have passed Heart disease Mother They have passed Stroke Mother They have passed Cancer Mother They have passed Diabetes Father They have passed Hypertension Father They have passed Heart disease Father They have passed Stroke Father They have passed Breast cancer Sister Diabetes Maternal Grandmother They have passed Stroke Maternal Grandfather They have passed Mental illness Maternal Grandfather They have passed Ovarian cancer Neg Hx Colon cancer Neg Hx REVIEW OF SYMPTOMS: Review of Systems Constitutional: Negative for diaphoresis and unexpected weight change. HENT: Negative for hearing loss, tinnitus and voice change. Respiratory: Negative for shortness of breath. Cardiovascular: Negative for chest pain and palpitations. Musculoskeletal: Positive for arthralgias. Neurological: Negative for dizziness, seizures and headaches. All other systems reviewed and are negative. Hematological: Negative for adenopathy. Does not bruise/bleed easily. OBJECTIVE: Visit Vitals BP 130/85 Ht 5' 4 Wt 224 lb BMI 38.45 kg/m Smoking Status Never BSA 2.15 m Physical Exam Exam conducted with a client associate present. HENT: Head: Normocephalic. Cardiovascular: Rate and Rhythm: Normal rate and regular rhythm. Pulmonary: Effort: Pulmonary effort is normal. Breath sounds: Normal breath sounds. Chest: Comments: Bilateral supra-clavicular, infraclavicular and axillary lymph nodes were normal. Each breast was examined in the sitting and supine position. There was no evidence of abnormal masses, skin dimpling or nipple discharge in the right breast. The left breast has minimal XRT changes and a well healed incision in the UOQ. The tissue under the incision is hard with a firm 1 cm round mass, that is unchanged from prior exams Abdominal: General: Abdomen is flat. Bowel sounds are normal. Palpations: Abdomen is soft. Skin: General: Skin is warm and dry. Neurological: Mental Status: She is alert. ASSESSMENT AND PLAN: Assessment/Plan Diagnoses and all orders for this visit: Malignant neoplasm of upper-outer quadrant of left breast in female, estrogen receptor positive (HCC) Estrogen receptor positive status (ER+) Her mamm's mamm's are due in Aug. From a breast surgical standpoint, she is doing well. The scar tissue in the left axilla is stable and unchanged. I'll see her in 6 months for recheck. documented in this encounter [facility] 03-15-2025 History of Present illness Narrative Associated Problem(s): Hyperlipidemia, unspecified (CMS/HCC) This is a chronic medical condition that is stable since last assessment. No changes in treatment are suggested at this time. Continue Current meds. Associated Problem(s): Morbid (severe) obesity due to excess calories (CMS/HCC) Weight was up a little Associated Problem(s): Body mass index (BMI) 38.0-38.9, adult Needs life style modification. 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 Increase fluids. Associated Problem(s): Chronic kidney disease, stage 3a (HCC) (CMS/HCC) Avoid NSAIDs such as Ibuprofen, Motrin, Naprosyn. Increase fluids. Associated Problem(s): Essential (primary) hypertension (CMS/HCC) Our specific goals, for your hypertension, is to keep your blood pressure less than 140/90, and the importance of weight control. We made recommendations on how to control your blood pressure, and minimize your risk of these copmplications. We also discussed your current barriers to a healthy living and importance of healthy diet and exercise. Prior to your visit today we have reviewed your chart and formed a plan to assist with providing you the best possible care. We reviewed the possible complications of hypertension including, stroke, heart failure and kidney impairment. In addition, we discussed your medications, the importance of taking them as prescribed. DASH diet handouts Associated Problem(s): Type 2 diabetes mellitus with diabetic peripheral angiopathy without gangrene (CMS/[facility]) No Tobacco use Follow ADA 1800 diet low carbohydrate Continue Med Compliance Goal LDL less than 100 Goal BP 130/80 Goal HgbA1c < 7.0% Monitor Feet, monitor for infection Needs Exercise Yearly eye exams Prior to your visit today we reviewed your chart and outlined testing and treatment needed for your care. Reviewed poissble complications of diabetes including, loss of vision, kidney failure and increased risk of heart attacks and stroke. We made recommendations on how to control your blood sugars, and minimize your risk of these complications. We discussed your current barriers to a healthy living and importance of healthy diet and exercise. Images from the original note were not included. HPI Diabetes Additional comments: Last A1c was 5.6 Last edited by Orquidea Tompkins MA on 03/15/2025 7:23 AM. Subjective Patient ID: Savana Tran is a 75 y.o. female who presents for Diabetes (Last A1c was 5.6). Pt sugars been 102 to 125's Diabetes She presents for her follow-up diabetic visit. She has type 2 diabetes mellitus. Her disease course has been stable. There are no hypoglycemic associated symptoms. Pertinent negatives for hypoglycemia include no confusion, dizziness, headaches, nervousness/anxiousness, speech difficulty or tremors. There are no diabetic associated symptoms. Pertinent negatives for diabetes include no blurred vision, no chest pain and no fatigue. There are no hypoglycemic complications. Symptoms are stable. There are no diabetic complications. There are no known risk factors for coronary artery disease. Current diabetic treatment includes diet. Her weight is decreasing steadily. She is following a diabetic diet. Meal planning includes avoidance of concentrated sweets. She has not had a previous visit with a dietitian. She participates in exercise intermittently. There is no change in her home blood glucose trend. An AILEEN inhibitor/angiotensin II receptor arben is being taken. She does not see a vehicle detailer.Eye exam is current. Hypertension This is a chronic problem. The current episode started more than 1 year ago. The problem is unchanged. The problem is controlled. Pertinent negatives include no blurred vision, chest pain, headaches or shortness of breath. There are no associated agents to hypertension. Risk factors for coronary artery disease include diabetes mellitus. The current treatment provides moderate improvement. There are no compliance problems. Current Outpatient Medications on File Prior to Visit Medication Sig Dispense Refill ALPRAZolam (Xanax) 0.25 MG tablet Take 1 tablet (0.25 mg) by mouth as needed at bedtime for anxiety or sleep 30 tablet 0 b complex vitamins capsule Take 1 capsule by mouth in the morning. ergocalciferol (Vitamin D2) 1.25 MG (76133 UT) capsule TAKE 1 CAPSULE BY MOUTH WEEKLY 12 capsule 3 letrozole (Femara) 2.5 MG chemo tablet Take 2.5 mg by mouth Daily. levothyroxine (Synthroid) 100 MCG tablet Take 1 tablet (100 mcg) by mouth in the morning. Take before meals. 90 tablet 3 lisinopril-hydroCHLOROthiazide 20-25 MG tablet Take 1.5 tablets by mouth Daily 135 tablet 3 omega-3 (FISH OIL) 300 MG capsule Take by mouth Daily No current facility-administered medications on file prior to visit. I have reviewed and reconciled the history and medication list with the patient today. No Known Allergies Social History Tobacco Use Smoking status: Never Smokeless tobacco: Never Substance Use Topics Alcohol use: Never Comment: Caffeine: coffee, tea Drug use: Never Family History Problem Relation Name Age of Onset Hypertension Mother They have passed Heart disease Mother They have passed Stroke Mother They have passed Cancer Mother They have passed Diabetes Father They have passed Hypertension Father They have passed Heart disease Father They have passed Stroke Father They have passed Breast cancer Sister Diabetes Maternal Grandmother They have passed Stroke Maternal Grandfather They have passed Mental illness Maternal Grandfather They have passed Ovarian cancer Neg Hx Colon cancer Neg Hx Past Medical History: Diagnosis Date A vague feeling of discomfort Abnormal thyroid ultrasound 10/15/2019 Adenocarcinoma of endometrium (CMS/HCC) Anxiety Breast cancer (CMS/HCC) left-ER/OR+ Her2 neg Breast cancer screening by mammogram 2016 neg Cataract Cataracts, bilateral Cataracts, bilateral DM (diabetes mellitus) (CMS/HCC) DM (diabetes mellitus), type 2 (CMS/HCC) without comp Encounter for screening colonoscopy 2016 neg Endometrial cancer (CMS/HCC) 03/06/2018 S/P Radiation 6-8 weeks Radiation Therapy Family history of cancer Genetic testing negative Goiter (CMS/HCC) H/O dilation and curettage History of colon polyps 12/20/2024 HTN (hypertension) (CMS/HCC) Hx of CT scan of abdomen 02/18/2020 CT scan of abdomen and pelvis. No malignancy metastasis, she does have some steatosis or fat in the liver with stable hemagiomas or blood filled cysts Hx of CT scan of chest 02/18/2020 CT scan of chest, Stable Pulmonary Nodules Hypothyroidism (CMS/HCC) post procedural Mucinous adenocarcinoma of uterus, stage 1 (CMS/HCC) Obesity FESTUS on CPAP 2013 Postmenopausal Sleep apnea 2014 Status post thyroidectomy (CMS/HCC) 06/07/2022 Post Thyroidectomy with no residual tissue or suspicious findings Thickened endometrium Heterogenous endometrial thickening 02/11/2018 pelvic U/S Thyroid disease (CMS/HCC) Vaginal discharge Visit for review of DEXA scan 05/03/2021 Dexa Osteopenia-Moderate Fracture Risk Well woman exam Past Surgical History: Procedure Laterality Date BI US GUIDED BREAST LOCALIZATION AND BIOPSY LEFT Left 08/16/2020 BI US GUIDED BREAST LOCALIZATION AND BIOPSY LEFT [facility] DATA LEGACY BREAST BIOPSY Left 07/2020 BREAST LUMPECTOMY Left 09/26/2020 w/ [place] LN Biopsy CATARACT EXTRACTION, BILATERAL Bilateral 01/12/2024 Left January 26 Right COLONOSCOPY 12/20/2024 With Cauterization of Polyp DILATION AND CURETTAGE 03/06/2018 hysteroscopy- Dr. Bowden [facility] EYE EXAM 2009 HYSTERECTOMY 04/10/2018 BSP, Lymphadenectomy, Cystoscopy -Dr. Marcial HYSTEROSCOPY 03/06/2018 D and C -Dr. Bowden [facility] OTHER SURGICAL HISTORY 10/12/2020 evacuation of hematoma, resection of medial margin PAP SMEAR 02/13/2021 negative TOTAL THYROIDECTOMY 12/09/2019 [facility] VAGINAL DELIVERY childbirth Visit Vitals BP 118/78 Pulse 87 Ht 5' 4 Wt 227 lb SpO2 96% BMI 38.96 kg/m Smoking Status Never BSA 2.16 m Review of Systems Constitutional: Negative for fatigue. Eyes: Negative for blurred vision. Respiratory: Negative for shortness of breath. Cardiovascular: Negative for chest pain. Musculoskeletal: Positive for back pain. Right side Neurological: Negative for dizziness, tremors, speech difficulty and headaches. Psychiatric/Behavioral: Negative for confusion. The patient is not nervous/anxious. Objective Physical Exam Constitutional: General: She is not in acute distress. Appearance: Normal appearance. HENT: Head: Normocephalic. Neck: Vascular: No carotid bruit. Cardiovascular: Rate and Rhythm: Normal rate and regular rhythm. Pulmonary: Effort: Pulmonary effort is normal. No respiratory distress. Breath sounds: Normal breath sounds. Musculoskeletal: Arms: Comments: Some tight muscles Neurological: General: No focal deficit present. Mental Status: She is alert and oriented to person, place, and time. Psychiatric: Mood and Affect: Mood normal. Office Visit on 03/15/2025 Component Date Value Ref Range Status Hemoglobin A1C 03/15/2025 5.7 Final Assessment/Plan Problem List Items Addressed This Visit Essential (primary) hypertension (CMS/HCC) Our specific goals, for your hypertension, is to keep your blood pressure less than 140/90, and the importance of weight control. We made recommendations on how to control your blood pressure, and minimize your risk of these copmplications. We also discussed your current barriers to a healthy living and importance of healthy diet and exercise. Prior to your visit today we have reviewed your chart and formed a plan to assist with providing you the best possible care. We reviewed the possible complications of hypertension including, stroke, heart failure and kidney impairment. In addition, we discussed your medications, the importance of taking them as prescribed. DASH diet handouts Hyperlipidemia, unspecified (CMS/HCC) This is a chronic medical condition that is stable since last assessment. No changes in treatment are suggested at this time. Continue Current meds. Morbid (severe) obesity due to excess calories (CMS/HCC) Weight was up a little Chronic kidney disease, stage 3a (HCC) (CMS/[facility]) Avoid NSAIDs such as Ibuprofen, Motrin, Naprosyn. Increase fluids. Type 2 diabetes mellitus with diabetic chronic kidney disease (CMS/HCC) Avoid NSAIDs such as Ibuprofen, Motrin, Naprosyn. Increase fluids. Relevant Orders POCT Glycated hemoglobin, total (Completed) Type 2 diabetes mellitus with other specified complication A1c 5.7 previous 5.6 Body mass index (BMI) 38.0-38.9, adult Needs life style modification. 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 Reviewed poissble complications of diabetes including, loss of vision, kidney failure and increased risk of heart attacks and stroke. We made recommendations on how to control your blood sugars, and minimize your risk of these complications. We discussed your current barriers to a healthy living and importance of healthy diet and exercise. Follow up in about 6 months (around 09/15/2025) for Diabetes. documented in this encounter [facility] 01-06-2025 History of Present illness Narrative Images from the original note were not included. NAME: Marc Savana CLINIC NO.: [id number] DATE OF SERVICE: January 06, 2025 (Aminah) Some elements in this clinic note that are critical to medical decision making have been carefully reviewed and included from a prior clinic note dated: July 15, 2024 (Amber) Referring Provider: Dr. Lucas Melo Additional Clinicians involved in Savana Tran's care: Dr. Connor Persaud, Dr. Kd Kelley, Dr. Charlie Bowden, Dr. Maciej Szymanski CC: Breast cancer follow up. ASSESSMENT/PLAN: 1. Malignant neoplasm of upper-outer quadrant of left breast in female, estrogen receptor positive 74 year old woman with left breast cancer T1c(sn)N0M0 s/p lumpectomy with Dr. Kelley on 09/26/2020. She presents for Medical oncology opinion regarding ER/OR + HER2-gilbert (-) breast cancer with a prior history of resected endometrial adenocarcinoma diagnosed and treated in 07/2018. Oncotype DX recurrence score was 16. She completed radiation. And is currently on AI since December 2020. She also had genetic testing due to her history or multiple cancers. The results are scanned into [employer] and reviewed and negative. 2. Endometrial cancer Staging for this was: IB endometrioid type endometrial adenocarcinoma, FIGO grade 1, + LVSI, tumor size 6 cm, 72% depth of invasion with limited pelvic sampling s/p pelvic RT after surgery. Normal IHC MMR expression. 3. Cancer of thyroid She has also had a history of papillary thyroid cancer 2019 noted in a thyroidectomy specimen for a nodule that was causing her difficulty swallowing. She follows with ENT. Thyroglobulin Ab is elevated Obviating the need for thyroglobulin levels and therefore we will just follow TSH. 4. Anxiety neurosis Managed by her PCP. PLAN: Zometa today and q 6 months 4mg due to tolerance Continue Femara 2.5 mg daily Labs 1 week prior to visit - CBC, CMP, TSH, breast tumor markers RTC in 6 months with labs as above HPI: CASE HISTORY: Reverse Chronological Order 01/10/2021-Current - Femara 2.5 mg p.o. daily 12/07/2020-01/03/2021- Radiation to left breast total dose 5005 cGy 10/12/2020 - Re-excision and evacuation of hematoma 09/26/2020 - [facility] left breast lumpectomy and SLN resection A. Tyler lymph nodes, left axilla, biopsy: - Four lymph nodes, negative for metastatic carcinoma (0/4) - Concurs with the frozen section diagnosis Note: One additional lymph node has been identified in the fibroadipose tissue which was not submitted for intraoperative frozen section. All lymph nodes are negative for metastatic carcinoma. B. Left breast, lumpectomy with radioactive seeds localization: - Invasive ductal carcinoma, Mihir histologic grade 2 (3+2+1), size: 17mm - Ductal carcinoma in situ, nuclear grade 2, solid and cribriform patterns, with focal central necrosis and associated microcalcifications - Medial margin is focally positive for invasive carcinoma; all other margins are negative - Prior biopsy site reactions - Pathologic Stage Classification: pT1c (sn)nN0 pM - not applicable ER+ (95%) OR+ (85%) HER2- (0) 08/09/2020 - Mammography / US: Left upper breast anomaly 2 O'Clock 02/18/2020 - CT CAP: Chest: Stable appearance of numerous bilateral pulmonary nodules measuring up to 5mm size. No new or enlarging nodules are seen. The central airways are widely patent. A/P: Stable CT of the abdomen and pelvis. No findings to suggest abdominal or pelvic metastatic disease. Hepatic steatosis. Findings suggestive of hepatic hemangiomas. Updated Visit, January 07, 2024: Savana returns today for a follow-up visit. Overall she is feeling well. She has recently gained some weight back that she had lost and is trying to get back on her diet. She [place] engage in exercise at [place] local [place]. Patient's TSH is normal today. Continues to follow-up with Dr. Bowden. CA 27.29 is less than 10.0. Will proceed with Zometa today. Updated Visit, July 15, 2024: Savana returns today for a follow up. TSH: 0.089, decreased from 0.258 in 12/2023. She endorses watching what she eats, she has lost 6lbs since her last visit. Unfortunately, her brother about 2 months ago from cancer. Updated Visit, January 15, 2024: Savana Tran returns for scheduled follow-up. Since her last visit there has been there has been no significant medical changes. She remains on Femara 2.5 mg daily. She denies any side effects from the Femara. She has mild muscle and joint aches which is tolerable. She denies any breast/chest wall changes. No lumps or bumps. No unusual pain. Since her last visit she had cataract surgery. Updated Visit, July 18, 2023: Savana Tran returns for 6-month follow-up. She remains on Femara 2.5 mg daily and overall is tolerating it fairly well. She has joint and muscle aches but is unsure if it is directly related to the Femara. She is having some issues with the meniscus in her left knee. She denies any breast changes. She has occasional ache to the left breast scar tissue. She has mild exertional shortness of breath and also an occasional cough. She denies any unusual pain. After she receives the bone strengthener she has mild flulike symptoms. Updated Visit, January 17, 2023: Savana returns and has questions regarding. Pap smear was atypical / non-diagnostic and will need to be repeated. Discussed zolendronic acid while on AI. Dr. Bowden examined her breast, Dr. Kelley reviewed Mammogram from 08/2022. Anxious overall. Updated Visit, July 19, 2022: Savana is 72 years old and returns today anticipating start of Reclast however she broke a tooth and had it pulled 2 weeks ago. Hold Reclast that was planned. She is otherwise doing well on Femara 2.5 mg daily. I reviewed the remainder of her laboratories including an elevated thyroglobulin antibody and therefore thyroglobulin levels are not reliable. She does not follow with an bottom liner which in the future may be helpful. For now we will follow her TSH levels. I will defer breast examination today since she is seeing Dr. Kelley after having mammograms next month. Updated Visit, January 11, 2022: Savana is 71 yo and returns in follow up for intermediate AI use for ER+ IDC Left Breast T1c s/p lumpectomy in 09/26/2020. She is doing well and continues to try to modify her diet and weight to manage risk factors. Doing well - Dr. Kelley is examining her every 3-4 months, will defer exam. We discussed bone health and osteoporosis prevention and will obtain a DXA and consider zolendronic acid supplementation to prevent bone morbidity. Updated Visit, September 07, 2021: Doing well overall and has tolerable aches and pains in her joints and muscles. Is really trying to change her diet and has done so but is frustrated with gaining weight. She will continue to try. Synthroid has been adjusted by Dr. Persaud. She is seeing Dr. Kelley for her exam in a few months. Mammograms were fine and will need them again in 1 year. Updated Visit, May 09, 2021: She will work on her diet again Anxiety is markedly improved Labs are stable. CRF is stable Doing well on Femara Updated Visit, February 07, 2021: Patient started on femara for a stage I er positive breast cancer on 01/10/2021. Tolerating well. Takes it before bed. No arthralgias or hot flashes. She is feeling better everyday. She has no complaints today. Updated Visit, January 10, 2021: Savana is 70 years old and returns having completed breast conservation plus radiation for left breast cancer that was ER positive HER-2 negative diagnosed on 08/09/2020. She is emotional today because she is worried about her own wellbeing given that she has very little family support. She is clearly very lonely having lost her . She has no other complaints. She is already in touch with our health social work professor. And happy to provide any supportive care that I can. Updated Visit, November 13, 2020: Savana is 70 yo and returns to discuss her plan for adjuvant therapy. Given her low RS by [id number] analysis, I am recommending adjuvant hormone therapy only. She will proceed with radiation first and then will need AI following for at least 5 years. All questions were answered. Initial Visit, October 23, 2020: Savana Tran presents today Hematology and Oncology evaluation. She is a 70 year old female who Had a routine Mammogram that picked up abnormality 08/03/2020 needle biopsy on 08/09/2020 diagnosed infiltrating ductal adenocarcinoma. She took care of her sister who had metastatic breast cancer and remembering that has caused her a great deal of anxiety. She lives alone but has 1 son and very sweet [id number] that are very supportive. Her initial resection was 09/26/2020 and had a positive margin and developed a hematoma. Re-resection on 10/12/2020 demonstrated no evidence of residual carcinoma. She has also had a history of papillary thyroid cancer 2019 noted in a thyroidectomy specimen for a nodule that was causing her difficulty swallowing and breathing. Changed her diet and is eating much better - so far has lost 10 lbs. Prior history of endometrial cancer summarized below SURGERY & DATE: 04/10/2018 Laparoscopic total hysterectomy, bilateral salpingo-oophorectomy, bilateral pelvic lymphadenectomy, and cystoscopy : IB endometrioid type endometrial adenocarcinoma, FIGO grade 1, + LVSI, tumor size 6 cm, 72% depth of invasion with limited pelvic sampling s/p pelvic RT after surgery Pelvic RT: 06/11/18-07/24/2018 We discussed dietary strategies for cancer risk reduction as well as genetic counseling. REVIEW OF SYSTEMS Per HPI and otherwise negative by full review of organ systems. ECOG PERFORMANCE STATUS: 0 PHYSICAL EXAMINATION: Vitals: BP 109/65 Pulse 96 Temp (Src) 97.7 (Temporal) Resp 16 Wt 232 lb 9.4 oz (105.5kg) SpO2 95% Body surface area is 2.17 meters squared. Exam limited to gross visualization where appropriate. Gen.: This is an age-appropriate patient in no acute distress. Head: Appears atraumatic with no visible lesions. Eyes: Pupils equally round and reactive to light, extraocular muscles are intact. Neck: Supple. Respiratory: Appears to be respiring comfortably. Neurologic: Nonfocal to gross visualization. Alert and oriented 3. Psychiatric: No evidence of inappropriate anxiety or depression. Skin: Visible areas of skin without rash, lesions, wounds or petechiae. ALLERGIES: ALLERGIES No Known Allergies MEDICATIONS: levothyroxine (SYNTHROID) 100 mcg tablet^Take 100 mcg by mouth.^Disp: ^Rfl: letrozole (FEMARA) 2.5 mg tablet^Take 1 tablet by mouth every afternoon.^Disp: 90 tablet^Rfl: 2 VITAMIN B COMPLEX ORAL^Take by mouth once daily.^Disp: ^Rfl: ergocalciferol 50,000 unit capsule (VITAMIN D2, DRISDOL)^take 1 capsule by oral route every week^Disp: ^Rfl: melatonin 5 mg chew^Take by mouth as needed.^Disp: ^Rfl: ALPRAZolam (XANAX) 0.25 mg tablet^Take 0.25 mg by mouth as needed.^Disp: ^Rfl: lisinopril-hydrochlorothiazide (PRINZIDE, ZESTORETIC) 20-25 mg per tablet^Take 1 tablet by mouth once daily. 1.5 tablet daily^Disp: ^Rfl: doxylamine succinate (SLEEP AID ORAL)^Take 1 Cap-Full by mouth as needed.^Disp: ^Rfl: LABORATORY VALUES: WBC (k/uL) Date Value 12/30/2024 7.75 RBC (m/uL) Date Value 12/30/2024 5.05 Hemoglobin (g/dL) Date Value 12/30/2024 15.4 Hematocrit (%) Date Value 12/30/2024 46.0 MCV (fL) Date Value 12/30/2024 91.1 MCH (pg) Date Value 12/30/2024 30.5 MCHC (g/dL) Date Value 12/30/2024 33.5 RDW-CV (%) Date Value 12/30/2024 12.8 Platelet Count (k/uL) Date Value 12/30/2024 244 MPV (fL) Date Value 12/30/2024 9.9 Glucose (mg/dL) Date Value 12/30/2024 102 (H) BUN (mg/dL) Date Value 12/30/2024 17 Creatinine (mg/dL) Date Value 12/30/2024 1.10 (H) Sodium (mmol/L) Date Value 12/30/2024 137 Potassium (mmol/L) Date Value 12/30/2024 3.7 Chloride (mmol/L) Date Value 12/30/2024 99 CO2 (mmol/L) Date Value 12/30/2024 27 Protein, Total (g/dL) Date Value 12/30/2024 6.9 Albumin (g/dL) Date Value 12/30/2024 4.3 Calcium, Total (mg/dL) Date Value 12/30/2024 9.7 Alkaline Phosphatase (U/L) Date Value 12/30/2024 69 Bilirubin, Total (mg/dL) Date Value 12/30/2024 0.3 AST (U/L) Date Value 12/30/2024 17 ALT (U/L) Date Value 12/30/2024 25 DIAGNOSIS: No diagnosis found. PAST MEDICAL HISTORY Diagnosis Date Diabetes (HCC) Endometrial cancer (HCC) Hypertension Hypothyroid FESTUS (obstructive sleep apnea) recently stopped BIPAP due to discomfort PAST SURGICAL HISTORY Procedure Laterality Date BREAST LUMPECTOMY HX Left COLONOSCOPY 2016 D+C HYSTERECTOMY HX 04/10/2018 THYROIDECTOMY TOTAL/COMPLETE Social History Tobacco Use Smoking status: Never Passive exposure: Never Smokeless tobacco: Never Vaping Use Vaping status: Never Used Substance Use Topics Alcohol use: No Drug use: No FAMILY HISTORY Problem Relation Age of Onset Cancer Mother Stroke Mother in her 80s Heart Father in his 80s Breast Cancer Sister Heart Brother in his 70s other (COPD) Sister other (ICH) Sister recent 2018 diagnosis Diabetes Sister Stroke Brother in his 80s Hypertension Brother None Brother No Known Problems Brother None Son I spent a total of 30 minutes on the date of service which included preparing to see the patient, [id number] patient care, completing clinical documentation, performing a medically appropriate examination, counseling and educating the patient/family/caregiver, ordering medications, tests, or procedures, independently interpreting results (not separately reported), communicating results to the patient/family/caregiver, and care coordination (not separately reported). . Guerline Saucedo APRN, MEDICAL TRANSPORT SPECIALIST-C, OCN Hematology and Oncology Services Provided at: [place], [place] CC: Dr. Lucas Kelley documented in this encounter [facility] 01-06-2025 Note HNO ID: [id number] Author: GUERLINE SAUCEDO APRN.MICHAELLE Service: ? Author Type: Nurse Practitioner Type: Progress Notes Filed: 01/06/2025 16:04 Note Text: NAME: Savana Tran [facility] NO.: [id number] DATE OF SERVICE: January 06, 2025 (Aminah) Some elements in this clinic note that are critical to medical decision making have been carefully reviewed and included from a prior clinic note dated: July 15, 2024 (Amber) Referring Provider: Dr. Lucas Melo Additional Clinicians involved in Savana Tran's care: Dr. Connor Persaud, Dr. Kd Kelley, Dr. Charlie Bowden, Dr. Maciej Szymanski CC: Breast cancer follow up. ASSESSMENT/PLAN: 1. Malignant neoplasm of upper-outer quadrant of left breast in female, estrogen receptor positive 74 year old woman with left breast cancer T1c(sn)N0M0 s/p lumpectomy with Dr. Kelley on 09/26/2020. She presents for Medical oncology opinion regarding ER/OR + HER2-gilbert (-) breast cancer with a prior history of resected endometrial adenocarcinoma diagnosed and treated in 07/2018. Oncotype DX recurrence score was 16. She completed radiation. And is currently on AI since December 2020. She also had genetic testing due to her history or multiple cancers. The results are scanned into Pulsant and reviewed and negative. 2. Endometrial cancer Staging for this was: IB endometrioid type endometrial adenocarcinoma, FIGO grade 1, + LVSI, tumor size 6 cm, 72% depth of invasion with limited pelvic sampling s/p pelvic RT after surgery. Normal IHC MMR expression. 3. Cancer of thyroid She has also had a history of papillary thyroid cancer 2019 noted in a thyroidectomy specimen for a nodule that was causing her difficulty swallowing. She follows with ENT. Thyroglobulin Ab is elevated Obviating the need for thyroglobulin levels and therefore we will just follow TSH. 4. Anxiety neurosis Managed by her PCP. PLAN: Zometa today and q 6 months 4mg due to tolerance Continue Femara 2.5 mg daily Labs 1 week prior to visit - CBC, CMP, TSH, breast tumor markers RTC in 6 months with labs as above HPI: CASE HISTORY: Reverse Chronological Order 01/10/2021-Current - Femara 2.5 mg p.o. daily 12/07/2020-01/03/2021- Radiation to left breast total dose 5005 cGy 10/12/2020 - Re-excision and evacuation of hematoma 09/26/2020 - [facility] [place] left breast lumpectomy and SLN resection A. Tyler lymph nodes, left axilla, biopsy: - Four lymph nodes, negative for metastatic carcinoma (0/4) - Concurs with the frozen section diagnosis Note: One additional lymph node has been identified in the fibroadipose tissue which was not submitted for intraoperative frozen section. All lymph nodes are negative for metastatic carcinoma. B. Left breast, lumpectomy with radioactive seeds localization: - Invasive ductal carcinoma, Mihir histologic grade 2 (3+2+1), size: 17mm - Ductal carcinoma in situ, nuclear grade 2, solid and cribriform patterns, with focal central necrosis and associated microcalcifications - Medial margin is focally positive for invasive carcinoma; all other margins are negative - Prior biopsy site reactions - Pathologic Stage Classification: pT1c (sn)nN0 pM - not applicable ER+ (95%) OR+ (85%) HER2- (0) 08/09/2020 - Mammography / US: Left upper breast anomaly 2 O'Clock 02/18/2020 - CT CAP: Chest: Stable appearance of numerous bilateral pulmonary nodules measuring up to 5mm size. No new or enlarging nodules are seen. The central airways are widely patent. A/P: Stable CT of the abdomen and pelvis. No findings to suggest abdominal or pelvic metastatic disease. Hepatic steatosis. Findings suggestive of hepatic hemangiomas. Updated Visit, January 07, 2024: Savana returns today for a follow-up visit. Overall she is feeling well. She has recently gained some weight back that she had lost and is trying to get back on her diet. She does engage in exercise at her local [facility]. Patient's TSH is normal today. Continues to follow-up with Dr. Bowden. CA 27.29 is less than 10.0. Will proceed with Zometa today. Updated Visit, July 15, 2024: Savana returns today for a follow up. TSH: 0.089, decreased from 0.258 in 12/2023. She endorses watching what she eats, she has lost 6lbs since her last visit. Unfortunately, her brother about 2 months ago from cancer. Updated Visit, January 15, 2024: Savana Tran returns for scheduled follow-up. Since her last visit there has been there has been no significant medical changes. She remains on Femara 2.5 mg daily. She denies any side effects from the Femara. She has mild muscle and joint aches which is tolerable. She denies any breast/chest wall changes. No lumps or bumps. No unusual pain. Since her last visit she had cataract surgery. Updated Visit, July 18, 2023: Savana Tran returns for 6-month foll (more content not included)... [facility] 12-20-2024 History of Present illness Narrative Images from the original note were not included. Savana Tran is a 74 y.o. female presents for colonoscopy HPI: HPI Colonoscopy completed 12/20/24 OBJECTIVE: Physical Exam ASSESSMENT AND PLAN: Assessment/Plan Problem List Items Addressed This Visit Positive colorectal cancer screening using Cologuard test - Primary A tiny polyp was removed from the colon. She will need a repeat scope in 3 years documented in this encounter [facility] 11-29-2024 History of Present illness Narrative Associated Problem(s): Positive colorectal cancer screening using Cologuard test Referral to Dr. Kelley Images from the original note were not included. Subjective Patient ID: Savana Tran is a 74 y.o. female who presents for discuss cologuard options. Pt is here to discuss cologuard results and options Pt does see dr kelley and he is willing to do the colonoscopy just needs a referral Current Outpatient Medications on File Prior to Visit Medication Sig Dispense Refill ALPRAZolam (Xanax) 0.25 MG tablet Take 1 tablet (0.25 mg) by mouth as needed at bedtime for anxiety or sleep 30 tablet 0 b complex vitamins capsule Take 1 capsule by mouth in the morning. ergocalciferol (Vitamin D2) 1.25 MG (75491 UT) capsule TAKE 1 CAPSULE BY MOUTH WEEKLY 12 capsule 3 letrozole (Femara) 2.5 MG chemo tablet Take 2.5 mg by mouth Daily. levothyroxine (Synthroid) 100 MCG tablet Take 1 tablet (100 mcg) by mouth in the morning. Take before meals. 90 tablet 3 lisinopril-hydroCHLOROthiazide 20-25 MG tablet Take 1.5 tablets by mouth Daily 135 tablet 3 omega-3 (FISH OIL) 300 MG capsule Take by mouth Daily No current facility-administered medications on file prior to visit. I have reviewed and reconciled the history and medication list with the patient today. No Known Allergies Social History Tobacco Use Smoking status: Never Smokeless tobacco: Never Substance Use Topics Alcohol use: Never Comment: Caffeine: coffee, tea Drug use: Never Family History Problem Relation Name Age of Onset Hypertension Mother They have passed Heart disease Mother They have passed Stroke Mother They have passed Cancer Mother They have passed Diabetes Father They have passed Hypertension Father They have passed Heart disease Father They have passed Stroke Father They have passed Breast cancer Sister Diabetes Maternal Grandmother They have passed Stroke Maternal Grandfather They have passed Mental illness Maternal Grandfather They have passed Ovarian cancer Neg Hx Colon cancer Neg Hx Past Medical History: Diagnosis Date A vague feeling of discomfort Abnormal thyroid ultrasound 10/15/2019 Adenocarcinoma of endometrium (CMS/HCC) Anxiety Breast cancer (CMS/HCC) left-ER/OR+ Her2 neg Breast cancer screening by mammogram 2016 neg Cataract Cataracts, bilateral Cataracts, bilateral DM (diabetes mellitus) (CMS/HCC) DM (diabetes mellitus), type 2 (CMS/HCC) without comp Encounter for screening colonoscopy 2016 neg Endometrial cancer (CMS/HCC) 03/06/2018 S/P Radiation 6-8 weeks Radiation Therapy Family history of cancer Genetic testing negative Goiter (CMS/HCC) H/O dilation and curettage HTN (hypertension) (CMS/HCC) Hx of CT scan of abdomen 02/18/2020 CT scan of abdomen and pelvis. No malignancy metastasis, she does have some steatosis or fat in the liver with stable hemagiomas or blood filled cysts Hx of CT scan of chest 02/18/2020 CT scan of chest, Stable Pulmonary Nodules Hypothyroidism (CMS/HCC) post procedural Mucinous adenocarcinoma of uterus, stage 1 (CMS/HCC) Obesity FESTUS on CPAP 2013 Postmenopausal Sleep apnea 2014 Status post thyroidectomy (CMS/HCC) 06/07/2022 Post Thyroidectomy with no residual tissue or suspicious findings Thickened endometrium Heterogenous endometrial thickening 02/11/2018 pelvic U/S Thyroid disease (CMS/HCC) Vaginal discharge Visit for review of DEXA scan 05/03/2021 Dexa Osteopenia-Moderate Fracture Risk Well woman exam Past Surgical History: Procedure Laterality Date BI US GUIDED BREAST LOCALIZATION AND BIOPSY LEFT Left 08/16/2020 BI US GUIDED BREAST LOCALIZATION AND BIOPSY LEFT [facility] BREAST BIOPSY Left 07/2020 BREAST LUMPECTOMY Left 09/26/2020 w/ Tyler LN Biopsy CATARACT EXTRACTION, BILATERAL Bilateral 01/12/2024 Left January 26 Right DILATION AND CURETTAGE 03/06/2018 hysteroscopy- Dr. Bowden [facility] EYE EXAM 2009 HYSTERECTOMY 04/10/2018 BSP, Lymphadenectomy, Cystoscopy -Dr. Marcial HYSTEROSCOPY 03/06/2018 D and C -Dr. Bowden [facility] OTHER SURGICAL HISTORY 10/12/2020 evacuation of hematoma, resection of medial margin PAP SMEAR 02/13/2021 negative TOTAL THYROIDECTOMY 12/09/2019 Timmis VAGINAL DELIVERY childbirth Visit Vitals BP 112/78 Pulse 81 Ht 5' 4 Wt 226 lb SpO2 94% BMI 38.79 kg/m Smoking Status Never BSA 2.16 m Review of Systems Cardiovascular: Negative for chest pain. Gastrointestinal: Negative for blood in stool. Objective Physical Exam Constitutional: Appearance: Normal appearance. She is obese. Abdominal: General: Abdomen is flat. There is no distension. Palpations: Abdomen is soft. Tenderness: There is no abdominal tenderness. Neurological: Mental Status: She is alert. Assessment/Plan Problem List Items Addressed This Visit Positive colorectal cancer screening using Cologuard test - Primary Referral to Dr. Kelley Relevant Orders Ambulatory referral to General Surgery No follow-ups on file. documented in this encounter [facility] 11-25-2024 History of Present illness Narrative Images from the original note were not included. Savana Tran 1950 Savana Tran is a 74 y.o. female presents with chief complaint of 4th poy Lt. lumpectomy (Mamms due in ) HPI: PAOLA Sawant is 4 years post left lumpectomy, she is doing well from a breast standpoint. She did a cologuard test in September which was positive. She was waiting to see her PCP about it. SUBJECTIVE: MEDICATIONS: ALLERGIES Current Outpatient Medications Medication Instructions ALPRAZolam (XANAX) 0.25 mg, Oral, Nightly PRN b complex vitamins capsule 1 capsule, Daily ergocalciferol (VITAMIN D2) 1.25 mg, Oral, Weekly letrozole (FEMARA) 2.5 mg, Daily levothyroxine (SYNTHROID) 100 mcg, Oral, Daily before breakfast lisinopril-hydroCHLOROthiazide 20-25 MG tablet 1.5 tablets, Oral, Daily No Known Allergies PAST MEDICAL HISTORY: SOCIAL HISTORY SURGICAL HISTORY: Past Medical History: Diagnosis Date A vague feeling of discomfort Abnormal thyroid ultrasound 10/15/2019 Adenocarcinoma of endometrium (CMS/HCC) Anxiety Breast cancer (CMS/HCC) left-ER/OR+ Her2 neg Breast cancer screening by mammogram 2016 neg Cataract Cataracts, bilateral Cataracts, bilateral DM (diabetes mellitus) (CMS/HCC) DM (diabetes mellitus), type 2 (CMS/HCC) without comp Encounter for screening colonoscopy 2016 neg Endometrial cancer (CMS/HCC) 03/06/2018 S/P Radiation 6-8 weeks Radiation Therapy Family history of cancer Genetic testing negative Goiter (CMS/HCC) H/O dilation and curettage HTN (hypertension) (CMS/HCC) Hx of CT scan of abdomen 02/18/2020 CT scan of abdomen and pelvis. No malignancy metastasis, she does have some steatosis or fat in the liver with stable hemagiomas or blood filled cysts Hx of CT scan of chest 02/18/2020 CT scan of chest, Stable Pulmonary Nodules Hypothyroidism (CMS/HCC) post procedural Mucinous adenocarcinoma of uterus, stage 1 (CMS/HCC) Obesity FESTUS on CPAP 2013 Postmenopausal Sleep apnea 2014 Status post thyroidectomy (CMS/HCC) 06/07/2022 Post Thyroidectomy with no residual tissue or suspicious findings Thickened endometrium Heterogenous endometrial thickening 02/11/2018 pelvic U/S Thyroid disease (CMS/HCC) Vaginal discharge Visit for review of DEXA scan 05/03/2021 Dexa Osteopenia-Moderate Fracture Risk Well woman exam Social History Tobacco Use Smoking status: Never Smokeless tobacco: Never Substance Use Topics Alcohol use: Never Comment: Caffeine: coffee, tea Drug use: Never Past Surgical History: Procedure Laterality Date BI US GUIDED BREAST LOCALIZATION AND BIOPSY LEFT Left 08/16/2020 BI US GUIDED BREAST LOCALIZATION AND BIOPSY LEFT [facility] DATA LEGACY BREAST BIOPSY Left 07/2020 BREAST LUMPECTOMY Left 09/26/2020 w/ [place] LN Biopsy CATARACT EXTRACTION, BILATERAL Bilateral 01/12/2024 Left January 26 Right DILATION AND CURETTAGE 03/06/2018 hysteroscopy- Dr. Bowden [facility] EYE EXAM 2009 HYSTERECTOMY 04/10/2018 BSP, Lymphadenectomy, Cystoscopy -Dr. Marcial HYSTEROSCOPY 03/06/2018 D and C -Dr. Bowden [facility] OTHER SURGICAL HISTORY 10/12/2020 evacuation of hematoma, resection of medial margin PAP SMEAR 02/13/2021 negative TOTAL THYROIDECTOMY 12/09/2019 Tim[place] VAGINAL DELIVERY childbirth FAMILY HISTORY Family History Problem Relation Name Age of Onset Hypertension Mother They have passed Heart disease Mother They have passed Stroke Mother They have passed Cancer Mother They have passed Diabetes Father They have passed Hypertension Father They have passed Heart disease Father They have passed Stroke Father They have passed Breast cancer Sister Diabetes Maternal Grandmother They have passed Stroke Maternal Grandfather They have passed Mental illness Maternal Grandfather They have passed Ovarian cancer Neg Hx Colon cancer Neg Hx REVIEW OF SYMPTOMS: Review of Systems Constitutional: Negative for diaphoresis and unexpected weight change. HENT: Negative for hearing loss, tinnitus and voice change. Respiratory: Negative for shortness of breath. Cardiovascular: Negative for chest pain and palpitations. Musculoskeletal: Positive for arthralgias. Neurological: Negative for dizziness, seizures and headaches. All other systems reviewed and are negative. Hematological: Negative for adenopathy. Does not bruise/bleed easily. OBJECTIVE: Visit Vitals BP 122/68 Ht 5' 4 Wt 228 lb BMI 39.14 kg/m Smoking Status Never BSA 2.16 m Physical Exam Exam conducted with a client associate present. HENT: Head: Normocephalic. Cardiovascular: Rate and Rhythm: Normal rate and regular rhythm. Pulmonary: Effort: Pulmonary effort is normal. Breath sounds: Normal breath sounds. Chest: Comments: Bilateral supra-clavicular, infraclavicular and axillary lymph nodes were normal. Each breast was examined in the sitting and supine position. There was no evidence of abnormal masses, skin dimpling or nipple discharge in the right breast. The left breast has minimal XRT changes and a well healed incision in the UOQ. The tissue under the incision is hard with a firm 1 cm round mass, that is unchanged from prior exams Abdominal: General: Abdomen is flat. Bowel sounds are normal. Palpations: Abdomen is soft. Skin: General: Skin is warm and dry. Neurological: Mental Status: She is alert. ASSESSMENT AND PLAN: Assessment/Plan Problem List Items Addressed This Visit Malignant neoplasm of upper-outer quadrant of left female breast (CMS/HCC) - Primary Positive colorectal cancer screening using Cologuard test I reviewed her mamm's done 09/06/24 which were negative. From a breast surgical standpoint, she is doing well. I'll see her in 6 months for recheck We talked about the positive cologuard I explained the colonoscopy procedure in detail to the patient and discussed the risks and benefits including but not exclusive of bleeding, and perforation. I asked the patient not to drive, operate any machinery or make any important decisions on the day of the procedure. I offered to set her up for a colonoscopy but she wants to first talk to her PCP about it. If he wants her to get the scope she will call my office to schedule it documented in this encounter [facility] 11-02-2024 History of Present illness Narrative Subjective Patient ID: Savana Tran is a 74 y.o. female who presents for Thyroid Nodule (6 week follow up TSH [facility]) TSH 1.204 on synthroid 100mcg/d. Due for thyroid US in Sept Family History Problem Relation Name Age of Onset Hypertension Mother They have passed Heart disease Mother They have passed Stroke Mother They have passed Cancer Mother They have passed Diabetes Father They have passed Hypertension Father They have passed Heart disease Father They have passed Stroke Father They have passed Breast cancer Sister Diabetes Maternal Grandmother They have passed Stroke Maternal Grandfather They have passed Mental illness Maternal Grandfather They have passed Ovarian cancer Neg Hx Colon cancer Neg Hx Active Ambulatory Problems Diagnosis Date Noted Abnormal mammogram 08/04/2020 Postoperative hypothyroidism (CMS/HCC) 09/12/2015 Adjustment disorder with anxiety (CMS/HCC) 04/28/2023 Benign essential hypertension (CMS/HCC) 04/28/2023 Decreased estrogen level 04/28/2023 Endometrial cancer (CMS/HCC) 04/28/2023 History of hysterectomy 04/28/2023 Hypertension (CMS/HCC) 04/28/2023 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) 04/28/2023 Hypertriglyceridemia (CMS/HCC) 04/28/2023 Insomnia 04/28/2023 Invasive ductal carcinoma of breast (CMS/HCC) 04/28/2023 Malignant neoplasm of upper-outer quadrant of left female breast (CMS/HCC) 04/28/2023 Adenocarcinoma of endometrium (CMS/HCC) 04/28/2023 Mucinous adenocarcinoma of uterus, stage 1 (CMS/HCC) 04/28/2023 Obesity 04/28/2023 Obstructive sleep apnea syndrome 04/28/2023 Pain 04/28/2023 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/2023 Postmenopausal bleeding 04/28/2023 Vaginal bleeding 04/28/2023 Vaginal discharge 04/28/2023 Chronic kidney disease due to hypertension (CMS/HCC) 04/28/2023 Stage 3 chronic kidney disease (HCC) (CMS/HCC) 04/28/2023 Thickened endometrium 04/28/2023 Thyroid mass (CMS/HCC) 04/28/2023 Type 2 diabetes mellitus with diabetic chronic kidney disease (CMS/HCC) 04/28/2023 Type 2 diabetes mellitus with other specified complication ([facility]/HCC) 04/28/2023 Vitamin D deficiency 04/28/2023 Estrogen receptor positive status (ER+) 04/28/2023 Diabetic renal disease ([facility]/HCC) 04/07/2019 Anxiety 10/23/2020 Malignant neoplasm of uterus (CMS/HCC) 04/21/2018 Cancer of thyroid ([facility]/HCC) 10/23/2020 Malignant tumor of thyroid gland ([facility]/HCC) 05/03/2020 Osteoporosis, post-menopausal (CMS/HCC) 05/26/2023 Medicare annual wellness visit, subsequent 05/26/2023 Hypothyroid (CMS/HCC) 08/08/2023 Myalgia 11/21/2023 Cataracts, bilateral 02/10/2024 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 08/16/2024 Left breast mass 09/08/2024 Resolved Ambulatory Problems Diagnosis Date Noted No Resolved Ambulatory Problems Past Medical History: Diagnosis Date A vague feeling of discomfort Abnormal thyroid ultrasound 10/15/2019 Breast cancer ([facility]) Breast cancer screening by mammogram 2017 Cataract DM (diabetes mellitus) ([facility]) DM (diabetes mellitus), type 2 ([facility]) Encounter for screening colonoscopy 2017 Family history of cancer Genetic testing Goiter ([facility]) H/O dilation and curettage HTN (hypertension) (CMS/[facility]) Hx of CT scan of abdomen 02/18/[address] scan of chest 02/18/2020 Hypothyroidism (CMS/HCC) FESTUS on CPAP 2013 Postmenopausal Sleep apnea 2014 Status post thyroidectomy ([facility]) 06/07/2022 Thyroid disease ([facility]) Visit for review of DEXA scan 05/03/2021 Well woman exam Past Surgical History: Procedure Laterality Date BI US GUIDED BREAST LOCALIZATION AND BIOPSY LEFT Left 08/16/2020 BI US GUIDED BREAST LOCALIZATION AND BIOPSY LEFT [facility] DATA LEGACY BREAST BIOPSY Left 07/2020 BREAST LUMPECTOMY Left 09/26/2020 w/ [place] LN Biopsy CATARACT EXTRACTION, BILATERAL Bilateral 01/12/2024 Left January 26 Right DILATION AND CURETTAGE 03/06/2018 hysteroscopy- Dr. Bowden [facility] EYE EXAM 2009 HYSTERECTOMY 04/10/2018 BSP, Lymphadenectomy, Cystoscopy -Dr. Marcial HYSTEROSCOPY 03/06/2018 D and C -Dr. Bowden [facility] OTHER SURGICAL HISTORY 10/12/2020 evacuation of hematoma, resection of medial margin PAP SMEAR 02/13/2021 negative TOTAL THYROIDECTOMY 12/09/2019 K[place] VAGINAL DELIVERY childbirth No Known Allergies Current Outpatient Medications on File Prior to Visit Medication Sig Dispense Refill ALPRAZolam (Xanax) 0.25 MG tablet Take 1 tablet (0.25 mg) by mouth as needed at bedtime for anxiety or sleep 30 tablet 0 b complex vitamins capsule Take 1 capsule by mouth in the morning. ergocalciferol (Vitamin D2) 1.25 MG (15500 UT) capsule TAKE 1 CAPSULE BY MOUTH WEEKLY 12 capsule 3 letrozole (Femara) 2.5 MG chemo tablet Take 2.5 mg by mouth Daily. levothyroxine (Synthroid) 100 MCG tablet Take 1 tablet (100 mcg) by mouth in the morning. Take before meals. 30 tablet 1 lisinopril-hydroCHLOROthiazide 20-25 MG tablet Take 1.5 tablets by mouth Daily 135 tablet 3 No current facility-administered medications on file prior to visit. Objective Last Recorded Vitals Vitals: 11/02/24 1024 BP: 143/79 Pulse: 88 ENT Physical Exam Constitutional Appearance: patient appears well-developed, well-nourished and well-groomed, Communication/Voice: communication appropriate for developmental age; vocal quality normal; Assessment/Plan Diagnoses and all orders for this visit: Postoperative hypothyroidism (CMS/HCC) Papillary microcarcinoma of thyroid (CMS/HCC) One year supply of synthroid. F/U one year with TSH and thyroid US documented in this encounter [facility] 09-13-2024 History of Present illness Narrative Associated Problem(s): Invasive ductal carcinoma of breast (CMS/HCC) Sees Dr. Kelley and in remission Also sees [facility] Cancer doctor Associated Problem(s): Cancer of thyroid (CMS/HCC) Sees Dr. Szymanski and has had scans Associated Problem(s): Hypothyroid (CMS/HCC) This is a chronic medical condition that is stable since last assessment. No changes in treatment are suggested at this time. Continue Current meds. Associated Problem(s): Type 2 diabetes mellitus with diabetic chronic kidney disease (CMS/HCC) No Tobacco use Follow ADA 1800 diet low carbohydrate Continue Med Compliance Goal LDL less than 100 Goal BP 130/80 Goal HgbA1c < 7.0% Monitor Feet, monitor for infection Needs Exercise Yearly eye exams Prior to your visit today we reviewed your chart and outlined testing and treatment needed for your care. Reviewed poissble complications of diabetes including, loss of vision, kidney failure and increased risk of heart attacks and stroke. We made recommendations on how to control your blood sugars, and minimize your risk of these complications. We discussed your current barriers to a healthy living and importance of healthy diet and exercise. Associated Problem(s): Hypertension (CMS/HCC) Our specific goals, for your hypertension, is to keep your blood pressure less than 140/90, and the importance of weight control. We made recommendations on how to control your blood pressure, and minimize your risk of these copmplications. We also discussed your current barriers to a healthy living and importance of healthy diet and exercise. Prior to your visit today we have reviewed your chart and formed a plan to assist with providing you the best possible care. We reviewed the possible complications of hypertension including, stroke, heart failure and kidney impairment. In addition, we discussed your medications, the importance of taking them as prescribed. DASH diet handouts Associated Problem(s): Medicare annual wellness visit, subsequent Colonoscopy every 10 years or Cologuard every 3 years ages 50-75 Flu Vaccine yearly Pneumovax and Prevnar Mammo yearly for women and PSA yearly for men Labs/Screening yearly to rule out Diabetes, Chronic Kidney disease and liver disease Hepatitis Screen forat risk populations Shingles vaccine after 65 if indicated Tetanus Vaccine every 10 years Lipids yearly under the age of 75 If Smoking history: one time CT scan of chest and Ultrasound of Aorta to screen for Anuerysm Images from the original note were not included. Subjective : Chief Complaint: Savana Tran is an 74 y.o. female here for an annual wellness visit. I have reviewed and reconciled the history and medication list with the patient today. Current Outpatient Medications Medication Sig Dispense Refill ALPRAZolam (Xanax) 0.25 MG tablet Take 1 tablet (0.25 mg) by mouth as needed at bedtime for anxiety or sleep 30 tablet 0 b complex vitamins capsule Take 1 capsule by mouth in the morning. letrozole (Femara) 2.5 MG chemo tablet Take 2.5 mg by mouth Daily. levothyroxine (Synthroid) 100 MCG tablet Take 1 tablet (100 mcg) by mouth in the morning. Take before meals. 30 tablet 1 lisinopril-hydroCHLOROthiazide 20-25 MG tablet Take 1.5 tablets by mouth Daily 135 tablet 3 Vitamin D, Ergocalciferol, 42423 units capsule Take 1 each by mouth Daily 90 capsule 0 No current facility-administered medications for this visit. Review of Systems Constitutional: Negative for chills, fatigue, fever and unexpected weight change. Respiratory: Negative for cough. Cardiovascular: Negative for chest pain. Gastrointestinal: Negative for abdominal pain, blood in stool, constipation, diarrhea, nausea and vomiting. Genitourinary: Negative for dysuria, enuresis, frequency and hematuria. Musculoskeletal: Negative for back pain. Neurological: Negative for dizziness, tremors, syncope, facial asymmetry and speech difficulty. Psychiatric/Behavioral: Negative for agitation, behavioral problems, confusion and dysphoric mood. The patient is not nervous/anxious. List of current healthcare providers: Patient Care Team: Connor Persaud MD as PCP - General (Family Medicine) Connor Persaud MD as PCP - ACO [employer] Medicare Annual Visit Over the past 2 weeks, how often have you been bothered by any of the following problems? Little interest or pleasure in doing things: Not at all Feeling down, depressed, or hopeless: Not at all Patient Health Questionnaire-2 Score: 0 Jean Fall Risk History of Falling, Immediate or Within 3 Months: No Health Risk Assessment Form Do you need help eating, bathing, using the toilet, dressing, or getting around your home?: No Can you prepare your own meals?: Yes Can you do your own housework without help?: Yes Can you shop for groceries or clothes without help?: Yes Do you exercise for about 20 minutes 3 or more days a week?: Yes How confident are you that you can control and manage most of your health problems?: Very confident Can you mange your money, credit cards and accounts, pay bills and taxes?: Yes Vision Screening: Yes, no gross abnormalities Hearing Screening: Yes, no gross abnormalities Cognitive Screening Self Assessment: No overt cognitive deficiency is apparent by direct observation Three Word Registration: Leader, Season, Table Clock Drawing: Normal Clock - 2 Three Word Recall: All 3 words correct - 3 Total Score (0-5 Points): 5 Pain Assessment Pain Score: 0 - No pain Advance Care Planning Do you have a living will?: Yes Do you have a medical power of disability attorney?: Yes Objective : BP 134/88 Pulse 76 Ht 5' 4 Wt 224 lb SpO2 92% BMI 38.45 kg/m No results found. Physical Exam Constitutional: General: She is not in acute distress. Appearance: Normal appearance. She is obese. HENT: Head: Normocephalic. Neck: Vascular: No carotid bruit. Cardiovascular: Rate and Rhythm: Normal rate and regular rhythm. Pulmonary: Effort: Pulmonary effort is normal. No respiratory distress. Breath sounds: Normal breath sounds. Neurological: General: No focal deficit present. Mental Status: She is alert and oriented to person, place, and time. Psychiatric: Mood and Affect: Mood normal. Assessment/Plan : The following health maintenance schedule was reviewed with the patient and provided in printed form in the after visit summary: Health Maintenance Topic Date Due Colorectal Cancer Screening 06/06/2024 Diabetes: Hemoglobin A1C 11/16/2024 Diabetes: Urine Protein Screening 02/09/2025 Medicare Annual Wellness (AWV) 09/13/2025 Diabetes: Retinopathy Screening 12/09/2025 Influenza Vaccine Completed Pneumococcal Vaccine: 65+ Years Completed Advance Care Planning Patient willing to discuss ACP. If in place, renew periodically. If not in place, recommend obtaining ACP. Assessment/Plan Problem List Items Addressed This Visit Hypertension ([facility]) Our specific goals, for your hypertension, is to keep your blood pressure less than 140/90, and the importance of weight control. We made recommendations on how to control your blood pressure, and minimize your risk of these copmplications. We also discussed your current barriers to a healthy living and importance of healthy diet and exercise. Prior to your visit today we have reviewed your chart and formed a plan to assist with providing you the best possible care. We reviewed the possible complications of hypertension including, stroke, heart failure and kidney impairment. In addition, we discussed your medications, the importance of taking them as prescribed. DASH diet handouts Hypertriglyceridemia ([facility]) Relevant Orders Lipid panel Invasive ductal carcinoma of breast ([facility]) Sees Dr. Kelley and in remission Also sees [facility] Cancer doctor Type 2 diabetes mellitus with diabetic chronic kidney disease ([facility]) No Tobacco use Follow ADA 1800 diet low carbohydrate Continue Med Compliance Goal LDL less than 100 Goal BP 130/80 Goal HgbA1c < 7.0% Monitor Feet, monitor for infection Needs Exercise Yearly eye exams Prior to your visit today we reviewed your chart and outlined testing and treatment needed for your care. Reviewed poissble complications of diabetes including, loss of vision, kidney failure and increased risk of heart attacks and stroke. We made recommendations on how to control your blood sugars, and minimize your risk of these complications. We discussed your current barriers to a healthy living and importance of healthy diet and exercise. Cancer of thyroid ([facility]) Sees Dr. Szymanski and has had scans Medicare annual wellness visit, subsequent Colonoscopy every 10 years or Cologuard every 3 years ages 50-75 Flu Vaccine yearly Pneumovax and Prevnar Mammo yearly for women and PSA yearly for men Labs/Screening yearly to rule out Diabetes, Chronic Kidney disease and liver disease Hepatitis Screen forat risk populations Shingles vaccine after 65 if indicated Tetanus Vaccine every 10 years Lipids yearly under the age of 75 If Smoking history: one time CT scan of chest and Ultrasound of Aorta to screen for Anuerysm Hypothyroid (CMS/HCC) This is a chronic medical condition that is stable since last assessment. No changes in treatment are suggested at this time. Continue Current meds. Other Visit Diagnoses Routine general medical examination at health care facility - Primary Wellness examination Relevant Orders Lipid panel Encounter for screening for colorectal malignant neoplasm Relevant Orders Cologuard colon cancer screening Encounter for vaccination Relevant Orders Influenza, high-dose seasonal, quadrivalent, PF (GAB176) (Fluzone High Dose [place] 0.7mL dose) (Completed) Orders Placed This Encounter Procedures Influenza, high-dose seasonal, quadrivalent, PF (JYP825) (Fluzone High Dose [place] 0.7mL dose) Lipid panel Standing Status: Future Number of Occurrences: 1 Standing Expiration Date: 09/13/2025 Cologuard colon cancer screening Order Specific Question: Print requisition? Answer: No Electronically signed by Connor Persaud MD on September 13, 2024 documented in this encounter [facility] 08-31-2024 History of Present illness Narrative Subjective Patient ID: Savana Tran is a 74 y.o. female who presents for Hypothyroidism (6 week TSH check [facility] 08/23/24) TSH 0.25 on synthroid 112mcg/d Family History Problem Relation Name Age of Onset Hypertension Mother They have passed Heart disease Mother They have passed Stroke Mother They have passed Cancer Mother They have passed Diabetes Father They have passed Hypertension Father They have passed Heart disease Father They have passed Stroke Father They have passed Breast cancer Sister Diabetes Maternal Grandmother They have passed Stroke Maternal Grandfather They have passed Mental illness Maternal Grandfather They have passed Ovarian cancer Neg Hx Colon cancer Neg Hx Active Ambulatory Problems Diagnosis Date Noted Abnormal mammogram 08/04/2020 Postoperative hypothyroidism (CMS/HCC) 09/12/2015 Adjustment disorder with anxiety (CMS/HCC) 04/28/2023 Benign essential hypertension (CMS/HCC) 04/28/2023 Decreased estrogen level 04/28/2023 Endometrial cancer ([facility]/HCC) 04/28/2023 History of hysterectomy 04/28/2023 Hypertension ([facility]/HCC) 04/28/2023 Hypertension due to endocrine disorder ([facility]/HCC) 04/28/2023 Hypertriglyceridemia (CMS/HCC) 04/28/2023 Insomnia 04/28/2023 Invasive ductal carcinoma of breast (CMS/HCC) 04/28/2023 Malignant neoplasm of upper-outer quadrant of left female breast ([facility]/HCC) 04/28/2023 Adenocarcinoma of endometrium ([facility]/HCC) 04/28/2023 Mucinous adenocarcinoma of uterus, stage 1 ([facility]) 04/28/2023 Obesity 04/28/2023 Obstructive sleep apnea syndrome 04/28/2023 Pain 04/28/2023 Papillary microcarcinoma of thyroid ([facility]) 04/28/2023 Postmenopausal bleeding 04/28/2023 Vaginal bleeding 04/28/2023 Vaginal discharge 04/28/2023 Chronic kidney disease due to hypertension (CMS/HCC) 04/28/2023 Stage 3 chronic kidney disease (HCC) ([facility]) 04/28/2023 Thickened endometrium 04/28/2023 Thyroid mass ([facility]) 04/28/2023 Type 2 diabetes mellitus with diabetic chronic kidney disease ([facility]) 04/28/2023 Type 2 diabetes mellitus with other specified complication ([facility]) 04/28/2023 Vitamin D deficiency 04/28/2023 Estrogen receptor positive status (ER+) 04/28/2023 Diabetic renal disease ([facility]) 04/07/2019 Anxiety 10/23/2020 Malignant neoplasm of uterus (CMS/HCC) 04/21/2018 Cancer of thyroid (CMS/[facility]) 10/23/2020 Malignant tumor of thyroid gland ([facility]/HCC) 05/03/2020 Osteoporosis, post-menopausal ([facility]/HCC) 05/26/2023 Medicare annual wellness visit, subsequent 05/26/2023 Hypothyroid ([facility]) 08/08/2023 Myalgia 11/21/2023 Cataracts, bilateral 02/10/2024 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 08/16/2024 Resolved Ambulatory Problems Diagnosis Date Noted No Resolved Ambulatory Problems Past Medical History: Diagnosis Date A vague feeling of discomfort Abnormal thyroid ultrasound 10/15/2019 Breast cancer ([facility]) Breast cancer screening by mammogram 2017 Cataract DM (diabetes mellitus) ([facility]) DM (diabetes mellitus), type 2 ([facility]) Encounter for screening colonoscopy 2017 Family history of cancer Genetic testing Goiter ([facility]) H/O dilation and curettage HTN (hypertension) ([facility]) Hx of CT scan of abdomen 02/18/[address] scan of chest 02/18/2020 Hypothyroidism ([facility]) FESTUS on CPAP 2013 Postmenopausal Sleep apnea 2014 Status post thyroidectomy ([facility]) 06/07/2022 Thyroid disease ([facility]) Visit for review of DEXA scan 05/03/2021 Well woman exam Past Surgical History: Procedure Laterality Date BI US GUIDED BREAST LOCALIZATION AND BIOPSY LEFT Left 08/16/2020 BI US GUIDED BREAST LOCALIZATION AND BIOPSY LEFT [facility] DATA LEGACY BREAST BIOPSY Left 07/2020 BREAST LUMPECTOMY Left 09/26/2020 w/ [place] LN Biopsy CATARACT EXTRACTION, BILATERAL Bilateral 01/12/2024 Left January 26 Right DILATION AND CURETTAGE 03/06/2018 hysteroscopy- Dr. Bowden [facility] EYE EXAM 2009 HYSTERECTOMY 04/10/2018 BSP, Lymphadenectomy, Cystoscopy -Dr. Marcial HYSTEROSCOPY 03/06/2018 D and C -Dr. Bowden [facility] OTHER SURGICAL HISTORY 10/12/2020 evacuation of hematoma, resection of medial margin PAP SMEAR 02/13/2021 negative TOTAL THYROIDECTOMY 12/09/2019 Timmis VAGINAL DELIVERY childbirth No Known Allergies Current Outpatient Medications on File Prior to Visit Medication Sig Dispense Refill ALPRAZolam (Xanax) 0.25 MG tablet Take 1 tablet (0.25 mg) by mouth as needed at bedtime for anxiety or sleep 30 tablet 0 b complex vitamins capsule Take 1 capsule by mouth in the morning. letrozole (Femara) 2.5 MG chemo tablet Take 2.5 mg by mouth Daily. levothyroxine (Synthroid) 112 MCG tablet Take 1 tablet (112 mcg) by mouth in the morning. Take before meals. 30 tablet 1 lisinopril-hydroCHLOROthiazide 20-25 MG tablet Take 1.5 tablets by mouth Daily 135 tablet 3 Vitamin D, Ergocalciferol, 84211 units capsule Take 1 each by mouth Daily 90 capsule 0 No current facility-administered medications on file prior to visit. Objective Last Recorded Vitals Vitals: 08/31/24 1321 BP: 113/74 ENT Physical Exam Constitutional Appearance: patient appears well-developed, well-nourished and well-groomed, Communication/Voice: communication appropriate for developmental age; vocal quality normal; Assessment/Plan Diagnoses and all orders for this visit: Postoperative hypothyroidism (CMS/HCC) I will decrease synthroid further to 100mcg/d and recheck a TSH documented in this encounter [facility] 08-31-2024 Miscellaneous Notes Addended by: JEWELS AMOS on: 08/31/2024 01:52 PM Modules accepted: Orders documented in this encounter [facility] 08-31-2024 Note Addended by: JEWELS AMOS on: 08/31/2024 01:52 PM Modules accepted: Orders [facility] Work Phone: 08-31-2024 Note Addended by: JEWELS AMOS on: 08/31/2024 01:52 PM Modules accepted: Orders [facility] Work Phone: 08-16-2024 History of Present illness Narrative Associated Problem(s): 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 Elevate legs Compression stockings as needed Images from the original note were not included. HPI Diabetes Additional comments: Last A1c was 5.8 Last edited by Orquidea Tompkins MA on 08/16/2024 7:36 AM. Subjective Patient ID: Savana Tran is a 74 y.o. female who presents for Diabetes (Last A1c was 5.8) and Hypertension. Pt sugars been 80 to 130's Diabetes She presents for her follow-up diabetic visit. She has type 2 diabetes mellitus. Her disease course has been stable. There are no hypoglycemic associated symptoms. Pertinent negatives for hypoglycemia include no confusion, dizziness, headaches, nervousness/anxiousness, speech difficulty or tremors. There are no diabetic associated symptoms. Pertinent negatives for diabetes include no blurred vision, no chest pain and no fatigue. There are no hypoglycemic complications. Symptoms are stable. There are no diabetic complications. There are no known risk factors for coronary artery disease. Current diabetic treatment includes diet. Her weight is decreasing steadily. She is following a diabetic diet. Meal planning includes avoidance of concentrated sweets. She has not had a previous visit with a dietitian. She participates in exercise intermittently. There is no change in her home blood glucose trend. An AILEEN inhibitor/angiotensin II receptor arben is being taken. She does not see a vehicle detailer.Eye exam is current. Hypertension This is a chronic problem. The current episode started more than 1 year ago. The problem is unchanged. The problem is controlled. Pertinent negatives include no blurred vision, chest pain, headaches or shortness of breath. There are no associated agents to hypertension. Risk factors for coronary artery disease include diabetes mellitus. The current treatment provides moderate improvement. There are no compliance problems. Current Outpatient Medications on File Prior to Visit Medication Sig Dispense Refill ALPRAZolam (Xanax) 0.25 MG tablet Take 1 tablet (0.25 mg) by mouth as needed at bedtime for anxiety or sleep 30 tablet 0 b complex vitamins capsule Take 1 capsule by mouth in the morning. letrozole (Femara) 2.5 MG chemo tablet Take 2.5 mg by mouth Daily. levothyroxine (Synthroid) 112 MCG tablet Take 1 tablet (112 mcg) by mouth in the morning. Take before meals. 30 tablet 1 lisinopril-hydroCHLOROthiazide 20-25 MG tablet Take 1.5 tablets by mouth Daily 135 tablet 3 Vitamin D, Ergocalciferol, 78025 units capsule Take 1 each by mouth Daily 90 capsule 0 No current facility-administered medications on file prior to visit. I have reviewed and reconciled the history and medication list with the patient today. No Known Allergies Social History Tobacco Use Smoking status: Never Smokeless tobacco: Never Substance Use Topics Alcohol use: Never Comment: Caffeine: coffee, tea Drug use: Never Family History Problem Relation Name Age of Onset Hypertension Mother They have passed Heart disease Mother They have passed Stroke Mother They have passed Cancer Mother They have passed Diabetes Father They have passed Hypertension Father They have passed Heart disease Father They have passed Stroke Father They have passed Breast cancer Sister Diabetes Maternal Grandmother They have passed Stroke Maternal Grandfather They have passed Mental illness Maternal Grandfather They have passed Ovarian cancer Neg Hx Colon cancer Neg Hx Past Medical History: Diagnosis Date A vague feeling of discomfort Abnormal thyroid ultrasound 10/15/2019 Adenocarcinoma of endometrium (CMS/HCC) Anxiety Breast cancer (CMS/HCC) left-ER/OR+ Her2 neg Breast cancer screening by mammogram 2016 neg Cataract Cataracts, bilateral Cataracts, bilateral DM (diabetes mellitus) (CMS/HCC) DM (diabetes mellitus), type 2 (CMS/HCC) without comp Encounter for screening colonoscopy 2016 neg Endometrial cancer (CMS/HCC) 03/06/2018 S/P Radiation 6-8 weeks Radiation Therapy Family history of cancer Genetic testing negative Goiter (CMS/HCC) H/O dilation and curettage HTN (hypertension) (CMS/HCC) Hx of CT scan of abdomen 02/18/2020 CT scan of abdomen and pelvis. No malignancy metastasis, she does have some steatosis or fat in the liver with stable hemagiomas or blood filled cysts Hx of CT scan of chest 02/18/2020 CT scan of chest, Stable Pulmonary Nodules Hypothyroidism (CMS/HCC) post procedural Mucinous adenocarcinoma of uterus, stage 1 (CMS/HCC) Obesity FESTUS on CPAP 2013 Postmenopausal Sleep apnea 2013 Status post thyroidectomy (CMS/HCC) 06/07/2022 Post Thyroidectomy with no residual tissue or suspicious findings Thickened endometrium Heterogenous endometrial thickening 02/11/2018 pelvic U/S Thyroid disease (CMS/HCC) Vaginal discharge Visit for review of DEXA scan 05/03/2021 Dexa Osteopenia-Moderate Fracture Risk Well woman exam Past Surgical History: Procedure Laterality Date BI US GUIDED BREAST LOCALIZATION AND BIOPSY LEFT Left 08/16/2020 BI US GUIDED BREAST LOCALIZATION AND BIOPSY LEFT NOMS DATA LEGACY BREAST BIOPSY Left 07/2020 BREAST LUMPECTOMY Left 09/26/2020 w/ [place] LN Biopsy CATARACT EXTRACTION, BILATERAL Bilateral 01/12/2024 Left January 26 Right DILATION AND CURETTAGE 03/06/2018 hysteroscopy- Dr. Bowden [facility] EYE EXAM 2009 HYSTERECTOMY 04/10/2018 BSP, Lymphadenectomy, Cystoscopy -Dr. Marcial HYSTEROSCOPY 03/06/2018 D and C -Dr. Bowden [facility] OTHER SURGICAL HISTORY 10/12/2020 evacuation of hematoma, resection of medial margin PAP SMEAR 02/13/2021 negative TOTAL THYROIDECTOMY 12/09/2019 Timmis VAGINAL DELIVERY childbirth Visit Vitals BP 122/82 Pulse 80 Ht 5' 4 Wt 223 lb SpO2 94% BMI 38.28 kg/m Smoking Status Never BSA 2.14 m Review of Systems Constitutional: Negative for fatigue and unexpected weight change. Eyes: Negative for blurred vision. Respiratory: Negative for shortness of breath. Cardiovascular: Negative for chest pain. Gastrointestinal: Negative for abdominal pain and blood in stool. Genitourinary: Negative for flank pain. Neurological: Negative for dizziness, tremors, speech difficulty and headaches. Psychiatric/Behavioral: Negative for confusion. The patient is not nervous/anxious. Objective Physical Exam Office Visit on 08/16/2024 Component Date Value Ref Range Status Hemoglobin A1C 08/16/2024 5.6 Final Assessment/Plan Problem List Items Addressed This Visit Hypertension due to endocrine disorder ([facility]) - Primary Our specific goals, for your hypertension, is to keep your blood pressure less than 140/90, and the importance of weight control. We made recommendations on how to control your blood pressure, and minimize your risk of these copmplications. We also discussed your current barriers to a healthy living and importance of healthy diet and exercise. Prior to your visit today we have reviewed your chart and formed a plan to assist with providing you the best possible care. We reviewed the possible complications of hypertension including, stroke, heart failure and kidney impairment. In addition, we discussed your medications, the importance of taking them as prescribed. DASH diet handouts Obesity Diet and Exercise Encouraged Type 2 diabetes mellitus with diabetic chronic kidney disease ([facility]) No Tobacco use Follow ADA 1800 diet low carbohydrate Continue Med Compliance Goal LDL less than 100 Goal BP 130/80 Goal HgbA1c < 7.0% Monitor Feet, monitor for infection Needs Exercise Yearly eye exams Prior to your visit today we reviewed your chart and outlined testing and treatment needed for your care. Reviewed poissble complications of diabetes including, loss of vision, kidney failure and increased risk of heart attacks and stroke. We made recommendations on how to control your blood sugars, and minimize your risk of these complications. We discussed your current barriers to a healthy living and importance of healthy diet and exercise. Relevant Orders POCT Glycated hemoglobin, total (Completed) Anxiety Patient's Medicine is effective at controlling symptoms at current dose and frequency. PDMP reviewed with no evidence of overuse and abuse D/W patient to avoid use of benzodiazepines when consuming alcohol Advised against operating heavy machinery and driving long distances while on medicines. Other Visit Diagnoses Morbid (severe) obesity due to excess calories (CMS/HCC) Essential (primary) hypertension (CMS/HCC) Body mass index (BMI) 39.0-39.9, adult Follow up in about 6 months (around 02/14/2025). Associated Problem(s): Anxiety Patient's Medicine is effective at controlling symptoms at current dose and frequency. PDMP reviewed with no evidence of overuse and abuse D/W patient to avoid use of benzodiazepines when consuming alcohol Advised against operating heavy machinery and driving long distances while on medicines. Associated Problem(s): Obesity Diet and Exercise Encouraged Associated Problem(s): Type 2 diabetes mellitus with diabetic chronic kidney disease (CMS/HCC) No Tobacco use Follow ADA 1800 diet low carbohydrate Continue Med Compliance Goal LDL less than 100 Goal BP 130/80 Goal HgbA1c < 7.0% Monitor Feet, monitor for infection Needs Exercise Yearly eye exams Prior to your visit today we reviewed your chart and outlined testing and treatment needed for your care. Reviewed poissble complications of diabetes including, loss of vision, kidney failure and increased risk of heart attacks and stroke. We made recommendations on how to control your blood sugars, and minimize your risk of these complications. We discussed your current barriers to a healthy living and importance of healthy diet and exercise. Associated Problem(s): 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) Our specific goals, for your hypertension, is to keep your blood pressure less than 140/90, and the importance of weight control. We made recommendations on how to control your blood pressure, and minimize your risk of these copmplications. We also discussed your current barriers to a healthy living and importance of healthy diet and exercise. Prior to your visit today we have reviewed your chart and formed a plan to assist with providing you the best possible care. We reviewed the possible complications of hypertension including, stroke, heart failure and kidney impairment. In addition, we discussed your medications, the importance of taking them as prescribed. DASH diet handouts documented in this encounter [facility] 07-16-2024 Evaluation note Diagnosis Malignant neoplasm of upper-outer quadrant of left breast in female, estrogen receptor positive (HCC)- Primary Stage 3a chronic kidney disease (HCC) Cancer of thyroid (HCC) Malignant neoplasm of thyroid gland documented in this encounter [facility]09-26-2024 Instructions* Patient Instructions* Emi Marin - 07/15/2024 2:20 PM EDT Zometa today and q 6 months 4mg due to tolerance Continue Femara 2.5 mg daily Labs 1 week prior to visit - CBC, CMP, TSH, breast tumor markers RTC in 6 months with labs as above [facility] History of Present illness Narrative* Jerson Clark MD - 07/15/2024 2:00 PM EDT NAME: Savana Tran CLINIC NO.: [id number] DATE OF SERVICE: July 15, 2024 (Amber) Some elements in this clinic note that are critical to medical decision making have been carefully reviewed and included from a prior clinic note dated: January 15, 2024 (Liam) Referring Provider: Dr. Lucas Melo Additional Clinicians involved in Savana Tran's care: Dr. Connor Persaud, Dr. Kd Kelley, Dr. Charlie Bowden, Dr. Maciej Szymanski CC: Breast cancer follow up. ASSESSMENT/PLAN: 1. Malignant neoplasm of upper-outer quadrant of left breast in female, estrogen receptor positive 74 year old woman with left breast cancer T1c(sn)N0M0 s/p lumpectomy with Dr. Kelley on 09/26/2020. She presents for Medical oncology opinion regarding ER/OR + HER2-gilbert (-) breast cancer with a prior history of resected endometrial adenocarcinoma diagnosed and treated in 07/2018. Oncotype DX recurrence score was 16. She completed radiation. And is currently on AI since December 2020. She also had genetic testing due to her history or multiple cancers. The results are scanned into Pulsant and reviewed and negative. 2. Endometrial cancer Staging for this was: IB endometrioid type endometrial adenocarcinoma, FIGO grade 1, + LVSI, tumor size 6 cm, 72% depth of invasion with limited pelvic sampling s/p pelvic RT after surgery. Normal IHC MMR expression. 3. Cancer of thyroid She has also had a history of papillary thyroid cancer 2019 noted in a thyroidectomy specimen for anodule that was causing her difficulty swallowing. She follows with ENT. Thyroglobulin Ab is elevated Obviating the need for thyroglobulin levels and therefore we will justfollow TSH. 4. Anxiety neurosis Managed by her PCP. PLAN: Zometa today and q 6 months 4mg due to tolerance Continue Femara 2.5 mg daily Labs 1 week prior to visit - CBC, CMP, TSH, breast tumor markers RTC in 6 months with labs as above HPI: CASE HISTORY: Reverse Chronological Order 01/10/2021-Current - Femara 2.5 mg p.o. daily 12/07/2020-01/03/2021- Radiation to left breast total dose 5005 cGy 10/12/2020 - Re-excision and evacuation of hematoma 09/26/2020 - [facility] left breast lumpectomy and SLN resection A. Tyler lymph nodes, left axilla, biopsy: - Four lymph nodes, negative for metastatic carcinoma (0/4) - Concurs with the frozen section diagnosis Note: One additional lymph node has been identified in the fibroadipose tissue which was not submitted for intraoperative frozen section. All lymph nodes are negative for metastatic carcinoma. B. Left breast, lumpectomy with radioactive seeds localization: - Invasive ductal carcinoma, Mihir histologic grade 2 (3+2+1), size: 17mm - Ductal carcinoma in situ, nuclear grade 2, solid and cribriform patterns, with focal central necrosis and associated microcalcifications - Medial margin is focally positive for invasive carcinoma; all other margins are negative - Prior biopsy site reactions - Pathologic Stage Classification: pT1c (sn)nN0 pM - not applicable ER+ (95%) OR+ (85%) HER2- (0) 08/09/2020 - Mammography / US: Left upper breast anomaly 2 O'Clock 02/18/2020 - CT CAP: Chest: Stable appearance of numerous bilateral pulmonary nodules measuring up to 5mm size. No new or enlarging nodules are seen. The central airways are widely patent. A/P: Stable CT of the abdomen and pelvis. No findings to suggest abdominal or pelvic metastatic disease. Hepatic steatosis. Findings suggestive of hepatic hemangiomas. Updated Visit, July 15, 2024: Savana returns today for a follow up. TSH: 0.089, decreased from 0.258 in 12/2023. She endorses watching what she eats, she has lost 6lbs since her last visit. Unfortunately, her brother about 2 months ago from cancer. Updated Visit, January 15, 2024: Savana Tran returns for scheduled follow-up. Since her last visit there has been there has been no significant medical changes. She remains on Femara 2.5 mg daily. She denies any side effects from the Femara. She has mild muscle and joint aches which is tolerable. She denies any breast/chestwall changes. No lumps or bumps. No unusual pain. Since her last visit she had cataract surgery. Updated Visit, July 18, 2023: Savana Tran returns for 6-month follow-up. She remains on Femara 2.5 mg daily and overall istolerating it fairly well. She has joint and muscle aches but is unsure if it is directly related to the Femara. She is having some issues with the meniscus in her left knee. She denies any breast changes. She has occasional ache to the left breast scar tissue. She has mild exertional shortness of breath and also an occasional cough. She denies any unusual pain. After she receives the bone strengthener she has mild flulike symptoms. Updated Visit, January 17, 2023: Savana returns and has questions regarding. Pap smear was atypical / non- diagnostic and will needto be repeated. Discussed zolendronic acid while on AI. Dr. Bowden examined her breast, Dr. Kelley reviewed Mammogram from 08/2022. Anxious overall. Updated Visit, July 19, 2022: Savana is 72 years old and returns today anticipating start of Reclast however she broke a tooth and had it pulled 2 weeks ago. Hold Reclast that was planned. She is otherwise doing well on Femara 2.5 mg daily. I reviewed the remainder of her laboratories including an elevated thyroglobulin antibody and therefore thyroglobulin levels are not reliable. She does not follow with an endocrinologistwhich in the future may be helpful. For now we will follow her TSH levels. I will defer breast examination today since she is seeing Dr. Kelley after having mammograms next month. Updated Visit, January 11, 2022: Savana is 71 yo and returns in follow up for intermediate AI use for ER+ IDC Left Breast T1c s/p lumpectomy in 09/26/2020. She is doing well and continues to try to modify her diet and weight to managerisk factors. Doing well - Dr. Kelley is examining her every 3-4 months, will defer exam. We discussed bone health and osteoporosis prevention and will obtain a DXA and consider zolendronicacid supplementation to prevent bone morbidity. Updated Visit, September 07, 2021: Doing well overall and has tolerable aches and pains in her joints and muscles. Is really trying tochange her diet and has done so but is frustrated with gaining weight. She will continue to try. Synthroid has been adjusted by Dr. Persaud. She is seeing Dr. Kelley for her exam in a few months. Mammograms were fine and will need them again in 1 year. Updated Visit, May 09, 2021: She will work on her diet again Anxiety is markedly improved Labs are stable. CRF is stable Doing well on Femara Updated Visit, February 07, 2021: Patient started on femara for a stage I er positive breast cancer on 01/10/2021. Tolerating well. Takes it before bed. No arthralgias or hot flashes. She is feeling better everyday. She has no complaints today. Updated Visit, January 10, 2021: Savana is 70 years old and returns having completed breast conservation plus radiation for left breast cancer that was ER positive HER-2 negative diagnosed on 08/09/2020. She is emotional today because she is worried about her own wellbeing given that she has very little family support. She is clearly very lonely having lost her . She has no other complaints. She is already in touch withour health social work professor. And happy to provide any supportive care that I can. Updated Visit, November 13, 2020: Savana is 70 yo and returns to discuss her plan for adjuvant therapy. Given her low RS by [id number] analysis, I am recommending adjuvant hormone therapy only. She will proceed with radiation first and then will need AI following for at least 5 years. All questions were answered. Initial Visit, October 23, 2020: Savana Tran presents today Hematology and Oncology evaluation. She is a 70 year old female who Had a routine Mammogram that picked up abnormality 08/03/2020 needle biopsy on 08/09/2020 diagnosed infiltrating ductal adenocarcinoma. She took care of her sister who had metastatic breast cancer and remembering that has caused her a great deal of anxiety. She lives alone but has 1 son and very sweet [id number] that are very supportive. Her initial resection was 09/26/2020 and had a positive margin and developed a hematoma. Re-resection on 10/12/2020 demonstrated no evidence of residual carcinoma. She has also had a history of papillary thyroid cancer 2019 noted in a thyroidectomy specimen for anodule that was causing her difficulty swallowing and breathing. Changed her diet and is eating much better - so far has lost 10 lbs. Prior history of endometrial cancer summarized below SURGERY & DATE: 04/10/2018 Laparoscopic total hysterectomy, bilateral salpingo-oophorectomy, bilateral pelvic lymphadenectomy,and cystoscopy : IB endometrioid type endometrial adenocarcinoma, FIGO grade 1, + LVSI, tumor size 6 cm, 72% depth of invasion with limited pelvic sampling s/p pelvic RT after surgery Pelvic RT: 06/11/18-07/24/2018 We discussed dietary strategies for cancer risk reduction as well as genetic counseling. REVIEW OF SYSTEMS Per HPI and otherwise negative by full review of organ systems. ECOG PERFORMANCE STATUS: 0 PHYSICAL EXAMINATION: Vitals: BP 131/79 Pulse 89 Temp (Src) 97.1 (Temporal) Resp 16 Ht 5' 2.992 (1.60m) Wt 230lb 13.2 oz (104.7kg) SpO2 96% BMI 40.90 kg/(m^2). Body surface area is 2.16 meters squared. Exam limited to gross visualization where appropriate. Gen.: This is an age-appropriate patient in no acute distress. Head: Appears atraumatic with no visible lesions. Eyes: Pupils equally round and reactive to light, extraocular muscles are intact. Neck: Supple. Respiratory: Appears to be respiring comfortably. Neurologic: Nonfocal to gross visualization. Alert and oriented 3. Psychiatric: No evidence of inappropriate anxiety or depression. Skin: Visible areas of skin without rash, lesions, wounds or petechiae. ALLERGIES: ALLERGIES No Known Allergies MEDICATIONS: letrozole (FEMARA) 2.5 mg tablet take 1 tablet by mouth every day VITAMIN B COMPLEX ORAL Take by mouth once daily. ergocalciferol 50,000 unit capsule (VITAMIN D2, DRISDOL) take 1 capsule by oral route every week levothyroxine (SYNTHROID) 125 mcg tablet Take 112 mcg by mouth once daily. ALPRAZolam (XANAX) 0.25 mg tablet Take 0.25 mg by mouth as needed. lisinopril-hydrochlorothiazide (PRINZIDE, ZESTORETIC) 20-25 mg per tablet Take 1 tablet by mouth once daily. 1.5 tablet daily melatonin 5 mg chew Take by mouth as needed. (Patient not taking: Reported on 07/15/2024) doxylamine succinate (SLEEP AID ORAL) Take 1 Cap-Full by mouth as needed. (Patient not taking: Reported on 07/15/2024) LABORATORY VALUES: WBC (k/uL) Date Value 07/08/2024 6.42 RBC (m/uL) Date Value 07/08/2024 4.87 Hemoglobin (g/dL) Date Value 07/08/2024 14.9 Hematocrit (%) Date Value 07/08/2024 44.3 MCV (fL) Date Value 07/08/2024 91.0 MCH (pg) Date Value 07/08/2024 30.6 MCHC (g/dL) Date Value 07/08/2024 33.6 RDW-CV (%) Date Value 07/08/2024 12.9 Platelet Count (k/uL) Date Value 07/08/2024 217 MPV (fL) Date Value 07/08/2024 10.2 Glucose (mg/dL) Date Value 07/08/2024 103 (H) BUN (mg/dL) Date Value 07/08/2024 17 Creatinine (mg/dL) Date Value 07/08/2024 1.12 (H) Sodium (mmol/L) Date Value 07/08/2024 139 Potassium (mmol/L) Date Value 07/08/2024 3.7 Chloride (mmol/L) Date Value 07/08/2024 102 CO2 (mmol/L) Date Value 07/08/2024 26 Protein, Total (g/dL) Date Value 07/08/2024 6.9 Albumin (g/dL) Date Value 07/08/2024 4.4 Calcium, Total (mg/dL) Date Value 07/08/2024 9.9 Alkaline Phosphatase (U/L) Date Value 07/08/2024 63 Bilirubin, Total (mg/dL) Date Value 07/08/2024 0.3 AST (U/L) Date Value 07/08/2024 18 ALT (U/L) Date Value 07/08/2024 28 DIAGNOSIS: (C50.412, Z17.0) Malignant neoplasm of upper-outer quadrant of left breast in female, estrogen receptor positive (HCC) (primary encounter diagnosis) Plan: CA 15-3 BLD, CA 27.29 BLOOD, COMPREHENSIVE METABOLIC PANEL, COMPLETE BLOOD COUNT AND DIFFERENTIAL, THYROID STIMULATING HORMONE (N18.31) Stage 3a chronic kidney disease (HCC) Plan: CA 15-3 BLD, CA 27.29 BLOOD, COMPREHENSIVE METABOLIC PANEL, COMPLETE BLOOD COUNT AND DIFFERENTIAL, THYROID STIMULATING HORMONE (C73) Cancer of thyroid (HCC) Plan: CA 15-3 BLD, CA 27.29 BLOOD, COMPREHENSIVE METABOLIC PANEL, COMPLETE BLOOD COUNT AND DIFFERENTIAL, THYROID STIMULATING HORMONE PAST MEDICAL HISTORY Diagnosis Date Diabetes (HCC) Endometrial cancer (HCC) Hypertension Hypothyroid FESTUS (obstructive sleep apnea) recently stopped BIPAP due to discomfort PAST SURGICAL HISTORY Procedure Laterality Date BREAST LUMPECTOMY HX Left COLONOSCOPY 2016 D+C HYSTERECTOMY HX 04/10/2018 THYROIDECTOMY TOTAL/COMPLETE Social History Tobacco Use Smoking status: Never Passive exposure: Never Smokeless tobacco: Never Vaping Use Vaping status: Never Used Substance Use Topics Alcohol use: No Drug use: No FAMILY HISTORY Problem Relation Age of Onset Cancer Mother Stroke Mother in her 80s Heart Father in his 80s Breast Cancer Sister Heart Brother in his 70s other (COPD) Sister other (ICH) Sister recent 2018 diagnosis Diabetes Sister Stroke Brother in his 80s Hypertension Brother None Brother No Known Problems Brother None Son I spent a total of 30 minutes on the date of service which included preparing to see the patient, [id number] patient care, completing clinical documentation, performing a medically appropriate examination, counseling and educating the patient/family/caregiver, ordering medications, tests, or procedures, independently interpreting results (not separately reported), communicating results to the patient/family/caregiver, and care coordination (not separately reported). Jerson Clark MD, CPE H[facility]ology [facility] Oncology Services Provided at: [place], [place] Scribe Attestation: This note was scribed by Emi Marin on July 15, 2024 under the direction and supervision of Dr. Jerson Clark. I attest that all of the information documented is correct to the best of my knowledge. Provider Attestation: I, Jerson Clark MD, attest that all information documented by the above scribe is correct, and was supervised by me and under my direction. CC: Dr. Lucas Kelley documented in this [facility] NoteHNO ID: [id number] Author: JERSON CLARK MD Service: ? Author Type: Physician Type: Progress Notes Filed: 07/16/2024 08:21 Note Text: NAME: Savana Tran [facility] NO.: [id number] DATE OF SERVICE: July 15, 2024 (Amber) Some elements in this clinic note that are critical to medical decision making have been carefully reviewed and included from a prior clinic note dated: January 15, 2024 (Liam) Referring Provider: Dr. Lucas Melo Additional Clinicians involved in Savana Tran's care: Dr. Connor Persaud, Dr. Kd Kelley, Dr. Charlie Bowden, Dr. Maciej Szymanski CC: Breast cancer follow up. ASSESSMENT/PLAN: 1. Malignant neoplasm of upper-outer quadrant of left breast in female, estrogen receptor positive 74 year old woman with left breast cancer T1c(sn)N0M0 s/p lumpectomy with Dr. Kelley on 09/26/2020. She presents for Medical oncology opinion regarding ER/OR + HER2-gilbert (-) breast cancer with a prior history of resected endometrial adenocarcinoma diagnosed and treated in 07/2018. Oncotype DX recurrence score was 16. She completed radiation. And is currently on AI since December 2020. She also had genetic testing due to her history or multiple cancers. The results are scanned into Pulsant and reviewed and negative. 2. Endometrial cancer Staging for this was: IB endometrioid type endometrial adenocarcinoma, FIGO grade 1, + LVSI, tumor size 6 cm, 72% depth of invasion with limited pelvic sampling s/p pelvic RT after surgery. Normal IHC MMR expression. 3. Cancer of thyroid She has also had a history of papillary thyroid cancer 2019 noted in a thyroidectomy specimen for a nodule that was causing her difficulty swallowing. She follows with ENT. Thyroglobulin Ab is elevated Obviating the need for thyroglobulin levels and therefore we will just follow TSH. 4. Anxiety neurosis Managed by her PCP. PLAN: Zometa today and q 6 months 4mg due to tolerance Continue Femara 2.5 mg daily Labs 1 week prior to visit - CBC, CMP, TSH, breast tumor markers RTC in 6 months with labs as above HPI: CASE HISTORY: Reverse Chronological Order 01/10/2021-Current - Femara 2.5 mg p.o. daily 12/07/2020-01/03/2021- Radiation to left breast total dose 5005 cGy 10/12/2020 - Re-excision and evacuation of hematoma 09/26/2020 - [facility] [facility] left breast lumpectomy and SLN resection A. Tyler lymph nodes, left axilla, biopsy: - Four lymph nodes, negative for metastatic carcinoma (0/4) - Concurs with the frozen section diagnosis Note: One additional lymph node has been identified in the fibroadipose tissue which was not submitted for intraoperative frozen section. All lymph nodes are negative for metastatic carcinoma. B. Left breast, lumpectomy with radioactive seeds localization: - Invasive ductal carcinoma, [place] histologic grade 2 (3+2+1), size: 17mm - Ductal carcinoma in situ, nuclear grade 2, solid and cribriform patterns, with focal central necrosis and associated microcalcifications - Medial margin is focally positive for invasive carcinoma; all other margins are negative - Prior biopsy site reactions - Pathologic Stage Classification: pT1c (sn)nN0 pM - not applicable ER+ (95%) OR+ (85%) HER2- (0) 08/09/2020 - Mammography / US: Left upper breast anomaly 2 O'Clock 02/18/2020 - CT CAP: Chest: Stable appearance of numerous bilateral pulmonary nodules measuring up to 5mm size. No new or enlarging nodules are seen. The central airways are widely patent. A/P: Stable CT of the abdomen and pelvis. No findings to suggest abdominal or pelvic metastatic disease. Hepatic steatosis. Findings suggestive of hepatic hemangiomas. Updated Visit, July 15, 2024: Savana returns today for a follow up. TSH: 0.089, decreased from 0.258 in 12/2023. She endorses watching what she eats, she has lost 6lbs since her last visit. Unfortunately, her brother about 2 months ago from cancer. Updated Visit, January 15, 2024: Savana Tran returns for scheduled follow-up. Since her last visit there has been there has been no significant medical changes. She remains on Femara 2.5 mg daily. She denies any side effects from the Femara. She has mild muscle and joint aches which is tolerable. She denies any breast/chest wall changes. No lumps or bumps. No unusual pain. Since her last visit she had cataract surgery. Updated Visit, July 18, 2023: Savana Tran returns for 6-month follow-up. She remains on Femara 2.5 mg daily and overall is tolerating it fairly well. She has joint and muscle aches but is unsure if it is directly related to the Femara. She is having some issues with the meniscus in her left knee. She denies any breast changes. She has occasional ache to the left breast scar tissue. She has mild exertional shortness of breath and also an occasional coug (more content not included)... [facility]09-25-2024 History of Present illness Narrative* Maciej Szymanski MD - 07/14/2024 1:30 PM EDT Subjective Patient ID: Savana Tran is a 74 y.o. female who presents for Thyroid Cancer (Follow up with ultrasound and labs 07/01/24 [facility]) Thyroid US shows a 7mm area of ST on the RT and 12mm on the left. No change per radiology. TSH 0.089 on synthroid 125mcg/year Family History Problem Relation Name Age of Onset Hypertension Mother Heart disease Mother Stroke Mother Cancer Mother Diabetes Father Hypertension Father Heart disease Father Stroke Father Breast cancer Sister Diabetes Maternal Grandmother Stroke Maternal Grandfather Mental illness Maternal Grandfather Ovarian cancer Neg Hx Colon cancer Neg Hx Active Ambulatory Problems Diagnosis Date Noted Abnormal mammogram 08/04/2020 Postoperative hypothyroidism (CMS/HCC) 09/12/2015 Adjustment disorder with anxiety (CMS/HCC) 04/28/2023 Benign essential hypertension (CMS/HCC) 04/28/2023 Decreased estrogen level 04/28/2023 Endometrial cancer (CMS/HCC) 04/28/2023 History of hysterectomy 04/28/2023 Hypertension (CMS/HCC) 04/28/2023 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) 04/28/2023 Hypertriglyceridemia (CMS/HCC) 04/28/2023 Insomnia 04/28/2023 Invasive ductal carcinoma of breast (CMS/HCC) 04/28/2023 Malignant neoplasm of upper-outer quadrant of left female breast (CMS/HCC) 04/28/2023 Adenocarcinoma of endometrium (CMS/HCC) 04/28/2023 Mucinous adenocarcinoma of uterus, stage 1 (CMS/HCC) 04/28/2023 Obesity 04/28/2023 Obstructive sleep apnea syndrome 04/28/2023 Pain 04/28/2023 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/2023 Postmenopausal bleeding 04/28/2023 Vaginal bleeding 04/28/2023 Vaginal discharge 04/28/2023 Chronic kidney disease due to hypertension ([facility]/HCC) 04/28/2023 Stage 3 chronic kidney disease (HCC) ([facility]) 04/28/2023 Thickened endometrium 04/28/2023 Thyroid mass ([facility]) 04/28/2023 Type 2 diabetes mellitus with diabetic chronic kidney disease (HCC) ([facility]) 04/28/2023 Type 2 diabetes mellitus with other specified complication ([facility]) 04/28/2023 Vitamin D deficiency 04/28/2023 Estrogen receptor positive status (ER+) 04/28/2023 Diabetic renal disease ([facility]) 04/07/2019 Anxiety neurosis ([facility]) 10/23/2020 Malignant neoplasm of uterus ([facility]) 04/21/2018 Cancer of thyroid ([facility]) 10/23/2020 Malignant tumor of thyroid gland ([facility]) 05/03/2020 Osteoporosis, post-menopausal ([facility]) 05/26/2023 Medicare annual wellness visit, subsequent 05/26/2023 Hypothyroid ([facility]) 08/08/2023 Myalgia 11/21/2023 Cataracts, bilateral 02/10/2024 Resolved Ambulatory Problems Diagnosis Date Noted No Resolved Ambulatory Problems Past Medical History: Diagnosis Date A vague feeling of discomfort Abnormal thyroid ultrasound 10/15/2019 Anxiety Breast cancer ([facility]) Breast cancer screening by mammogram 2017 Cataract DM (diabetes mellitus) ([facility]) DM (diabetes mellitus), type 2 ([facility]) Encounter for screening colonoscopy 2017 Family history of cancer Genetic testing Goiter ([facility]) H/O dilation and curettage HTN (hypertension) ([facility]) Hx of CT scan of abdomen 02/18/[address] scan of chest 02/18/2020 Hypothyroidism ([facility]) FESTUS on CPAP 2014 Postmenopausal Sleep apnea 2014 Status post thyroidectomy ([facility]) 06/07/2022 Thyroid disease ([facility]) Visit for review of DEXA scan 05/03/2021 Well woman exam Past Surgical History: Procedure Laterality Date BI US GUIDED BREAST LOCALIZATION AND BIOPSY LEFT Left 08/16/2020 BI US GUIDED BREAST LOCALIZATION AND BIOPSY LEFT [facility] BREAST BIOPSY Left 07/2020 BREAST LUMPECTOMY Left 09/26/2020 w/ [address] LN Biopsy CATARACT EXTRACTION, BILATERAL Bilateral 01/12/2024 Left January 26 Right DILATION AND CURETTAGE 03/06/2018 hysteroscopy- Dr. Bowden [facility] EYE EXAM 2009 HYSTERECTOMY 04/10/2018 BSP, Lymphadenectomy, Cystoscopy -Dr. Marcial HYSTEROSCOPY 03/06/2018 D and C -Dr. Bowden [facility] OTHER SURGICAL HISTORY 10/12/2020 evacuation of hematoma, resection of medial margin PAP SMEAR 02/13/2021 negative TOTAL THYROIDECTOMY 12/09/2019 Kaleb VAGINAL DELIVERY childbirth No Known Allergies Current Outpatient Medications on File Prior to Visit Medication Sig Dispense Refill ALPRAZolam (Xanax) 0.25 MG tablet Take 1 tablet (0.25 mg) by mouth as needed at bedtime for anxietyor sleep 30 tablet 0 b complex vitamins capsule Take 1 capsule by mouth in the morning. letrozole (Femara) 2.5 MG chemo tablet Take 2.5 mg by mouth Daily. levothyroxine (Synthroid) 125 MCG tablet Take 1 tablet (125 mcg) by mouth in the morning. Take before meals. 90 tablet 3 lisinopril-hydroCHLOROthiazide 20-25 MG tablet TAKE 1 AND 1/2 TABLETS BY MOUTH EVERY DAY 135 tablet3 Vitamin D, Ergocalciferol, 03448 units capsule Take 1 each by mouth Daily 90 capsule 0 No current facility-administered medications on file prior to visit. Objective Last Recorded Vitals Vitals: 07/14/24 1319 BP: 116/79 ENT Physical Exam Constitutional Appearance: patient appears well-developed, well-nourished and well-groomed, Communication/Voice: communication appropriate for developmental age; vocal quality normal; Assessment/Plan Diagnoses and all orders for this visit: Postoperative hypothyroidism (CMS/HCC) Papillary microcarcinoma of thyroid (CMS/HCC) Stable US. Repeat US one year. Decrease TSH to 112 and repeat TSH 6 weeks documented in this encounterTexas County Memorial [id number] Telephone encounter Note* Telephone Encounter - Barbie Hinson RN - 07/08/2024 2:[address] Ari fu orders to sign. Pt to be drawn Barbie Hinson RN [facility]09-19-2024 Miscellaneous Notes* Telephone Encounter - Barbie Hinson RN - 07/08/2024 2:[address] Ari fu orders to sign. Pt to be drawn Barbie Hinson RN * Telephone Encounter - Barbie Hinson RN - 07/08/2024 2:11 PM EDT Pt here for labs 1 week prior to OV. Ari/HM: please review and sign labs as requested with 01/10 OV Barbie Hinson RN documented in this encounter[facility] Telephone encounter Note * Telephone Encounter - Barbie Hinson RN - 07/08/2024 2:11 PM EDT Pt here for labs 1 week prior to OV. Ari/HM: please review and sign labs as requested with 01/10 OV Barbie Hinson RN [facility]03-28-2024 NoteHNO ID: [id number] Author: GABY MELGAR APRN.CINDER CRUSHER OPERATOR Service: ? Author Type: Nurse Practitioner Type: Progress Notes Filed: 01/27/2024 10:47 Note Text: NAME: Savana Tran CLINIC NO.: [id number] DATE OF SERVICE: January 15, 2024 (Liam) Some elements in this clinic note that are critical to medical decision making have been carefully reviewed and included from a prior clinic note dated: July 18, 2023. (Liam) Referring Provider: Dr. Lucas Melo Additional Clinicians involved in Savana Tran's care: Dr. Connor Persaud, Dr. Kd Kelley, Dr. Charlie Bowden, Dr. Maciej Szymanski CC: Breast cancer follow up. ASSESSMENT/PLAN: 1. Malignant neoplasm of upper-outer quadrant of left breast in female, estrogen receptor positive 73 year old woman with left breast cancer T1c(sn)N0M0 s/p lumpectomy with Dr. Kelley on 09/26/2020. She presents for Medical oncology opinion regarding ER/OR + HER2-gilbert (-) breast cancer with a prior history of resected endometrial adenocarcinoma diagnosed and treated in 07/2018. Oncotype DX recurrence score was 16. She completed radiation. And is currently on AI since December 2020. She also had genetic testing due to her history or multiple cancers. The results are scanned into Pulsant and reviewed and negative. 2. Endometrial cancer Staging for this was: IB endometrioid type endometrial adenocarcinoma, FIGO grade 1, + LVSI, tumor size 6 cm, 72% depth of invasion with limited pelvic sampling s/p pelvic RT after surgery. Normal IHC MMR expression. 3. Cancer of thyroid She has also had a history of papillary thyroid cancer 2019 noted in a thyroidectomy specimen for a nodule that was causing her difficulty swallowing. She follows with ENT. Thyroglobulin Ab is elevated Obviating the need for thyroglobulin levels and therefore we will just follow TSH. 4. Anxiety neurosis Managed by her PCP. PLAN: Continue Femara 2.5 mg daily. Labs 1 week prior to visit CBC, CMP, TSH. Due to the dosing of Reclast which is only given once yearly we will need to switch to Zometa which we can give every 6 months. Follow up in 6 months with labs as above. TREATMENT TO DATE: 4. 01/10/2021 -current: Femara 2.5 mg p.o. daily 3. 12/07/2020 -01/03/2021: Radiation to left breast total dose 5005 cGy 2. 10/12/2020: Re-excision and evacuation of hematoma 1. 09/26/2020: [facility] left breast lumpectomy and SLN resection. HPI: Updated Visit, January 15, 2024: Savana Tran returns for scheduled follow-up. Since her last visit there has been there has been no significant medical changes. She remains on Femara 2.5 mg daily. She denies any side effects from the Femara. She has mild muscle and joint aches which is tolerable. She denies any breast/chest wall changes. No lumps or bumps. No unusual pain. Since her last visit she had cataract surgery. Updated Visit, July 18, 2023: Savana Tran returns for 6-month follow-up. She remains on Femara 2.5 mg daily and overall is tolerating it fairly well. She has joint and muscle aches but is unsure if it is directly related to the Femara. She is having some issues with the meniscus in her left knee. She denies any breast changes. She has occasional ache to the left breast scar tissue. She has mild exertional shortness of breath and also an occasional cough. She denies any unusual pain. After she receives the bone strengthener she has mild flulike symptoms. Updated Visit, January 17, 2023: Savana returns and has questions regarding. Pap smear was atypical / non-diagnostic and will need to be repeated. Discussed zolendronic acid while on AI. Dr. Bowden examined her breast, Dr. Kelley reviewed Mammogram from 08/2022. Anxious overall. Updated Visit, July 19, 2022: Savana is 72 years old and returns today anticipating start of Reclast however she broke a tooth and had it pulled 2 weeks ago. Hold Reclast that was planned. She is otherwise doing well on Femara 2.5 mg daily. I reviewed the remainder of her laboratories including an elevated thyroglobulin antibody and therefore thyroglobulin levels are not reliable. She does not follow with an bottom liner which in the future may be helpful. For now we will follow her TSH levels. I will defer breast examination today since she is seeing Dr. Kelley after having mammograms next month. 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 She is doing well and continues to try to modify her diet and weight to manage risk factors. Doing well - Dr. Kelley is examining her every 3-4 months, will defer exam. We discussed bone health and osteoporosis prevention and will obtain a DXA and consider zolendronic acid supplementation to prevent bone morbidity. Updated Visit, September 07, 2021: Doing well overall and has tolerable aches and pains in her joints a (more content not included)...[facility]03-28-2024 History of Present illness Narrative* Gaby MelgarSHERRI.CINDER CRUSHER OPERATOR - 01/15/2024 1:47 PM EDT Images from the original note were not included. NAME: Savana Tran CLINIC NO.: [id number] DATE OF SERVICE: January 15, 2024 (Liam) Some elements in this clinic note that are critical to medical decision making have been carefully reviewed and included from a prior clinic note dated: July 18, 2023. (Liam) Referring Provider: Dr. Lucas Melo Additional Clinicians involved in Savana Tran's care: Dr. Connor Persaud, Dr. Kd Kelley, Dr. Charlie Bowden, Dr. Maciej Szymanski CC: Breast cancer follow up. ASSESSMENT/PLAN: 1. Malignant neoplasm of upper-outer quadrant of left breast in female, estrogen receptor positive 73 year old woman with left breast cancer T1c(sn)N0M0 s/p lumpectomy with Dr. Kelley on 09/26/2020. She presents for Medical oncology opinion regarding ER/OR + HER2-gilbert (-) breast cancer with a prior history of resected endometrial adenocarcinoma diagnosed and treated in 07/2018. Oncotype DX recurrence score was 16. She completed radiation. And is currently on AI since December 2020. She also had genetic testing due to her history or multiple cancers. The results are scanned into Pulsant and reviewed and negative. 2. Endometrial cancer Staging for this was: IB endometrioid type endometrial adenocarcinoma, FIGO grade 1, + LVSI, tumor size 6 cm, 72% depth of invasion with limited pelvic sampling s/p pelvic RT after surgery. Normal IHC MMR expression. 3. Cancer of thyroid She has also had a history of papillary thyroid cancer 2019 noted in a thyroidectomy specimen for anodule that was causing her difficulty swallowing. She follows with ENT. Thyroglobulin Ab is elevated Obviating the need for thyroglobulin levels and therefore we will justfollow TSH. 4. Anxiety neurosis Managed by her PCP. PLAN: Continue Femara 2.5 mg daily. Labs 1 week prior to visit CBC, CMP, TSH. Due to the dosing of Reclast which is only given once yearly we will need to switch to Zometa whichwe can give every 6 months. Follow up in 6 months with labs as above. TREATMENT TO DATE: 4. 01/10/2021 -current: Femara 2.5 mg p.o. daily 3. 12/07/2020 -01/03/2021: Radiation to left breast total dose 5005 cGy 2. 10/12/2020: Re-excision and evacuation of hematoma 1. 09/26/2020: [facility] left breast lumpectomy and SLN resection. HPI: Updated Visit, January 15, 2024: Savana Tran returns for scheduled follow-up. Since her last visit there has been there has been no significant medical changes. She remains on Femara 2.5 mg daily. She denies any side effects from the Femara. She has mild muscle and joint aches which is tolerable. She denies any breast/chestwall changes. No lumps or bumps. No unusual pain. Since her last visit she had cataract surgery. Updated Visit, July 18, 2023: Savana Tran returns for 6-month follow-up. She remains on Femara 2.5 mg daily and overall istolerating it fairly well. She has joint and muscle aches but is unsure if it is directly related to the Femara. She is having some issues with the meniscus in her left knee. She denies any breast changes. She has occasional ache to the left breast scar tissue. She has mild exertional shortness of breath and also an occasional cough. She denies any unusual pain. After she receives the bone strengthener she has mild flulike symptoms. Updated Visit, January 17, 2023: Savana returns and has questions regarding. Pap smear was atypical / non- diagnostic and will needto be repeated. Discussed zolendronic acid while on AI. Dr. Bowden examined her breast, Dr. Kelley reviewed Mammogram from 08/2022. Anxious overall. Updated Visit, July 19, 2022: Savana is 72 years old and returns today anticipating start of Reclast however she broke a tooth and had it pulled 2 weeks ago. Hold Reclast that was planned. She is otherwise doing well on Femara 2.5 mg daily. I reviewed the remainder of her laboratories including an elevated thyroglobulin antibody and therefore thyroglobulin levels are not reliable. She does not follow with an endocrinologistwhich in the future may be helpful. For now we will follow her TSH levels. I will defer breast examination today since she is seeing Dr. Kelley after having mammograms next month. 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 She is doing well and continues to try to modify her diet and weight to managerisk factors. Doing well - Dr. Kelley is examining her every 3-4 months, will defer exam. We discussed bone health and osteoporosis prevention and will obtain a DXA and consider zolendronicacid supplementation to prevent bone morbidity. Updated Visit, September 07, 2021: Doing well overall and has tolerable aches and pains in her joints and muscles. Is really trying tochange her diet and has done so but is frustrated with gaining weight. She will continue to try. Synthroid has been adjusted by Dr. Persaud. She is seeing Dr. Kelley for her exam in a few months. Mammograms were fine and will need them again in 1 year. Updated Visit, May 09, 2021: She will work on her diet again Anxiety is markedly improved Labs are stable. CRF is stable Doing well on Femara Updated Visit, February 07, 2021: Patient started on femara for a stage I er positive breast cancer on 01/10/2021. Tolerating well. Takes it before bed. No arthralgias or hot flashes. She is feeling better everyday. She has no complaints today. Updated Visit, January 10, 2021: Savana is 70 years old and returns having completed breast conservation plus radiation for left breast cancer that was ER positive HER-2 negative diagnosed on 08/09/2020. She is emotional today because she is worried about her own wellbeing given that she has very little family support. She is clearly very lonely having lost her . She has no other complaints. She is already in touch withour health social work professor. And happy to provide any supportive care that I can. Updated Visit, November 13, 2020: Savana is 70 yo and returns to discuss her plan for adjuvant therapy. Given her low RS by [id number] analysis, I am recommending adjuvant hormone therapy only. She will proceed with radiation first and then will need AI following for at least 5 years. All questions were answered. Initial Visit, October 23, 2020: Savana Tran presents today Hematology and Oncology evaluation. She is a 70 year old female who Had a routine Mammogram that picked up abnormality 08/03/2020 needle biopsy on 08/09/2020 diagnosed infiltrating ductal adenocarcinoma. She took care of her sister who had metastatic breast cancer and remembering that has caused her a great deal of anxiety. She lives alone but has 1 son and very sweet [id number]-ji-oih that are very supportive. Her initial resection was 09/26/2020 and had a positive margin and developed a hematoma. Re-resection on 10/12/2020 demonstrated no evidence of residual carcinoma. She has also had a history of papillary thyroid cancer 2019 noted in a thyroidectomy specimen for anodule that was causing her difficulty swallowing and breathing. Changed her diet and is eating much better - so far has lost 10 lbs. Prior history of endometrial cancer summarized below SURGERY & DATE: 04/10/2018 Laparoscopic total hysterectomy, bilateral salpingo-oophorectomy, bilateral pelvic lymphadenectomy,and cystoscopy : IB endometrioid type endometrial adenocarcinoma, FIGO grade 1, + LVSI, tumor size 6 cm, 72% depth of invasion with limited pelvic sampling s/p pelvic RT after surgery Pelvic RT: 06/11/18-07/24/2018 We discussed dietary strategies for cancer risk reduction as well as genetic counseling. RADIOGRAPHIC DATA: Reviewed on October 23, 2020 2. 08/09/2020 Mammography / US: left upper breast anomaly 2 O'Clock 1. 02/18/2020 CT CAP: Chest: Stable appearance of numerous bilateral pulmonary nodules measuring up to 5 mm size. No new or enlarging nodules are seen. The central airways are widely patent. Abd/Pelvis: 1. Stable CT of the abdomen and pelvis. No findings to suggest abdominal or pelvic metastatic disease. 2. Hepatic steatosis. Findings suggestive of hepatic hemangiomas. PATHOLOGIC PROFILE/MOLECULAR DATA: Reviewed on October 23, 2020 2. 10/12/2020: Left breast reexcision: Benign breast tissue with no residual tumor. 1. REVIEW OF SYSTEMS Per HPI and otherwise negative by full review of organ systems. ECOG PERFORMANCE STATUS: 0 PHYSICAL EXAMINATION: Vitals: BP 142/68 Pulse 94 Temp (Src) 97.8 (Temporal) Resp 18 Ht 5' 2.992 (1.60m) Wt 236lb 8.9 oz (107.3kg) SpO2 100% BMI 41.91 kg/(m^2). Body surface area is 2.18 meters squared. Exam limited to gross visualization where appropriate due to COVID-19. Gen.: This is an age-appropriate patient in no acute distress. Head: Appears atraumatic with no visible lesions. Eyes: Pupils equally round and reactive to light, extraocular muscles are intact. Neck: Supple. Mouth: Mucous membranes appeared to be moist. Respiratory: Appears to be respiring comfortably. Neurologic: Nonfocal to gross visualization. Alert and oriented 3. Psychiatric: No evidence of inappropriate anxiety or depression. Skin: Visible areas of skin without rash, lesions, wounds or petechiae. Breast exam Deferred ALLERGIES: ALLERGIES No Known Allergies MEDICATIONS: letrozole (FEMARA) 2.5 mg tablet take 1 tablet by mouth every day VITAMIN B COMPLEX ORAL Take by mouth once daily. ergocalciferol 50,000 unit capsule (VITAMIN D2, DRISDOL) take 1 capsule by oral route every week atorvastatin (LIPITOR) 20 mg tablet Take 20 mg by mouth once daily. (Patient not taking: Reported on 07/18/2023) levothyroxine (SYNTHROID) 125 mcg tablet 125 mcg. mirtazapine (REMERON) 30 mg tablet Take 30 mg by mouth daily at bedtime. (Patient not taking: Reported on 07/18/2023) melatonin 5 mg chew Take by mouth. (Patient not taking: Reported on 07/18/2023) MULTIVITAMIN ORAL Take by mouth. doxylamine succinate (SLEEP AID ORAL) Take 1 Cap-Full by mouth as needed. ALPRAZolam (XANAX) 0.25 mg tablet Take 0.25 mg by mouth at bedtime as needed. lisinopril-hydrochlorothiazide (PRINZIDE, ZESTORETIC) 20-25 mg per tablet Take 1 tablet by mouth once daily. 1.5 tablet daily LABORATORY VALUES: WBC (k/uL) Date Value 01/09/2024 5.17 RBC (m/uL) Date Value 01/09/2024 5.20 Hemoglobin (g/dL) Date Value 01/09/2024 15.5 Hematocrit (%) Date Value 01/09/2024 47.1 (H) MCV (fL) Date Value 01/09/2024 90.6 MCH (pg) Date Value 01/09/2024 29.8 MCHC (g/dL) Date Value 01/09/2024 32.9 RDW-CV (%) Date Value 01/09/2024 13.0 Platelet Count (k/uL) Date Value 01/09/2024 220 MPV (fL) Date Value 01/09/2024 9.9 Glucose (mg/dL) Date Value 01/09/2024 112 (H) BUN (mg/dL) Date Value 01/09/2024 18 Creatinine (mg/dL) Date Value 01/09/2024 1.16 (H) Sodium (mmol/L) Date Value 01/09/2024 140 Potassium (mmol/L) Date Value 01/09/2024 4.8 Chloride (mmol/L) Date Value 01/09/2024 102 CO2 (mmol/L) Date Value 01/09/2024 29 Protein, Total (g/dL) Date Value 01/09/2024 7.5 Albumin (g/dL) Date Value 01/09/2024 4.6 Calcium, Total (mg/dL) Date Value 01/09/2024 10.8 (H) Alkaline Phosphatase (U/L) Date Value 01/09/2024 82 Bilirubin, Total (mg/dL) Date Value 01/09/2024 0.3 AST (U/L) Date Value 01/09/2024 21 ALT (U/L) Date Value 01/09/2024 32 DIAGNOSIS: (C50.412, Z17.0) Malignant neoplasm of upper-outer quadrant of left breast in female, estrogen receptor positive (HCC) (primary encounter diagnosis) PAST MEDICAL HISTORY Diagnosis Date Diabetes (HCC) Endometrial cancer (HCC) Hypertension Hypothyroid FESTUS (obstructive sleep apnea) recently stopped BIPAP due to discomfort PAST SURGICAL HISTORY Procedure Laterality Date BREAST LUMPECTOMY HX Left COLONOSCOPY 2016 D+C HYSTERECTOMY HX 04/10/2018 THYROIDECTOMY TOTAL/COMPLETE Social History Tobacco Use Smoking status: Never Passive exposure: Never Smokeless tobacco: Never Vaping Use Vaping Use: Never used Substance Use Topics Alcohol use: No Drug use: No FAMILY HISTORY Problem Relation Age of Onset Cancer Mother Stroke Mother in her 80s Heart Father in his 80s Breast Cancer Sister Heart Brother in his 70s other (COPD) Sister other (ICH) Sister recent 2018 diagnosis Diabetes Sister Stroke Brother in his 80s Hypertension Brother None Brother No Known Problems Brother None Son Gaby VIRGILIO Melgar [place], [place] CC: Dr. Lucas Kelley I spent a total of 30 minutes on the date of the service which included preparing to see the patient, [id number] patient care, completing clinical documentation, obtaining and/or reviewing separately obtained history, performing a medically appropriate examination, counseling and educating the pat ient/family/caregiver, ordering medications, tests, or procedures, independently interpreting results (not separately reported), and communicating results to the patient/family/caregiver. documented in this encounterWvumedicine [facility]09-29-2023 History of Present illness Narrative* Gaby Melgar APRN.CNP - 07/18/2023 1:57 PM EDT Images from the original note were not included. NAME: Savana Tran [facility] NO.: [id number] DATE OF SERVICE: July 18, 2023 (Liam) Some elements in this clinic note that are critical to medical decision making have been carefully reviewed and included from a prior clinic note dated: January 17, 2023. (Dr. Clark) Referring Provider: Dr. Lucas Melo Additional Clinicians involved in Savana Tran's care: Dr. Connor Persaud, Dr. Kd Kelley, Dr. Charlie Bowden, Dr. Maciej Szymanski CC: Breast cancer follow up. ASSESSMENT/PLAN: 1. Malignant neoplasm of upper-outer quadrant of left breast in female, estrogen receptor positive 73 year old woman with left breast cancer T1c(sn)N0M0 s/p lumpectomy with Dr. Kelley on 09/26/2020. She presents for Medical oncology opinion regarding ER/OR + HER2-gilbert (-) breast cancer with a prior history of resected endometrial adenocarcinoma diagnosed and treated in 07/2018. Oncotype DX recurrence score was 16. She completed radiation. And is currently on AI since December 2020. She also had genetic testing due to her history or multiple cancers. The results are scanned into Pulsant and reviewed and negative. 2. Endometrial cancer Staging for this was: IB endometrioid type endometrial adenocarcinoma, FIGO grade 1, + LVSI, tumor size 6 cm, 72% depth of invasion with limited pelvic sampling s/p pelvic RT after surgery. Normal IHC MMR expression. 3. Cancer of thyroid She has also had a history of papillary thyroid cancer 2019 noted in a thyroidectomy specimen for anodule that was causing her difficulty swallowing. She follows with ENT. Thyroglobulin Ab is elevated Obviating the need for thyroglobulin levels and therefore we will justfollow TSH. 4. Anxiety neurosis Managed by her PCP. PLAN: Continue Femara 2.5 mg daily. Labs 1 week prior to visit CBC, CMP, TSH. Due to the dosing of Reclast which is only given once yearly we will need to switch to Zometa whichwe can give every 6 months. Follow up in 6 months with labs as above. TREATMENT TO DATE: 4. 01/10/2021 -current: Femara 2.5 mg p.o. daily 3. 12/07/2020 -01/03/2021: Radiation to left breast total dose 5005 cGy 2. 10/12/2020: Re-excision and evacuation of hematoma 1. 09/26/2020: [facility] left breast lumpectomy and SLN resection. HPI: Updated Visit, July 18, 2023: Savana Tran returns for 6-month follow-up. She remains on Femara 2.5 mg daily and overall istolerating it fairly well. She has joint and muscle aches but is unsure if it is directly related to the Femara. She is having some issues with the meniscus in her left knee. She denies any breast changes. She has occasional ache to the left breast scar tissue. She has mild exertional shortness of breath and also an occasional cough. She denies any unusual pain. After she receives the bone strengthener she has mild flulike symptoms. Updated Visit, January 17, 2023: Savana returns and has questions regarding. Pap smear was atypical / non- diagnostic and will needto be repeated. Discussed zolendronic acid while on AI. Dr. Bowden examined her breast, Dr. Kelley reviewed Mammogram from 08/2022. Anxious overall. Updated Visit, July 19, 2022: Savana is 72 years old and returns today anticipating start of Reclast however she broke a tooth and had it pulled 2 weeks ago. Hold Reclast that was planned. She is otherwise doing well on Femara 2.5 mg daily. I reviewed the remainder of her laboratories including an elevated thyroglobulin antibody and therefore thyroglobulin levels are not reliable. She does not follow with an endocrinologistwhich in the future may be helpful. For now we will follow her TSH levels. I will defer breast examination today since she is seeing Dr. Kelley after having mammograms next month. Updated Visit, January 11, 2022: Savana is 71 yo and returns in follow up for intermediate AI use for ER+ IDC Left Breast T1c s/p lumpectomy in 09/26/2020. She is doing well and continues to try to modify her diet and weight to managerisk factors. Doing well - Dr. Kelley is examining her every 3-4 months, will defer exam. We discussed bone health and osteoporosis prevention and will obtain a DXA and consider zolendronicacid supplementation to prevent bone morbidity. Updated Visit, September 07, 2021: Doing well overall and has tolerable aches and pains in her joints and muscles. Is really trying tochange her diet and has done so but is frustrated with gaining weight. She will continue to try. Synthroid has been adjusted by Dr. Persaud. She is seeing Dr. Kelley for her exam in a few months. Mammograms were fine and will need them again in 1 year. Updated Visit, May 09, 2021: She will work on her diet again Anxiety is markedly improved Labs are stable. CRF is stable Doing well on Femara Updated Visit, February 07, 2021: Patient started on femara for a stage I er positive breast cancer on 01/10/2021. Tolerating well. Takes it before bed. No arthralgias or hot flashes. She is feeling better everyday. She has no complaints today. Updated Visit, January 10, 2021: Savana is 70 years old and returns having completed breast conservation plus radiation for left breast cancer that was ER positive HER-2 negative diagnosed on 08/09/2020. She is emotional today because she is worried about her own wellbeing given that she has very little family support. She is clearly very lonely having lost her . She has no other complaints. She is already in touch withour health social work professor. And happy to provide any supportive care that I can. Updated Visit, November 13, 2020: Savana is 70 yo and returns to discuss her plan for adjuvant therapy. Given her low RS by [id number]-[id number] analysis, I am recommending adjuvant hormone therapy only. She will proceed with radiation first and then will need AI following for at least 5 years. All questions were answered. Initial Visit, October 23, 2020: Savana Tran presents today Hematology and Oncology evaluation. She is a 70 year old female who Had a routine Mammogram that picked up abnormality 08/03/2020 needle biopsy on 08/09/2020 diagnosed infiltrating ductal adenocarcinoma. She took care of her sister who had metastatic breast cancer and remembering that has caused her a great deal of anxiety. She lives alone but has 1 son and very sweet [id number] that are very supportive. Her initial resection was 09/26/2020 and had a positive margin and developed a hematoma. Re-resection on 10/12/2020 demonstrated no evidence of residual carcinoma. She has also had a history of papillary thyroid cancer 2019 noted in a thyroidectomy specimen for anodule that was causing her difficulty swallowing and breathing. Changed her diet and is eating much better - so far has lost 10 lbs. Prior history of endometrial cancer summarized below SURGERY & DATE: 04/10/2018 Laparoscopic total hysterectomy, bilateral salpingo-oophorectomy, bilateral pelvic lymphadenectomy,and cystoscopy : IB endometrioid type endometrial adenocarcinoma, FIGO grade 1, + LVSI, tumor size 6 cm, 72% depth of invasion with limited pelvic sampling s/p pelvic RT after surgery Pelvic RT: 06/11/18-07/24/2018 We discussed dietary strategies for cancer risk reduction as well as genetic counseling. RADIOGRAPHIC DATA: Reviewed on October 23, 2020 2. 08/09/2020 Mammography / US: left upper breast anomaly 2 O'Clock 1. 02/18/2020 CT CAP: Chest: Stable appearance of numerous bilateral pulmonary nodules measuring up to 5 mm size. No new or enlarging nodules are seen. The central airways are widely patent. Abd/Pelvis: 1. Stable CT of the abdomen and pelvis. No findings to suggest abdominal or pelvic metastatic disease. 2. Hepatic steatosis. Findings suggestive of hepatic hemangiomas. PATHOLOGIC PROFILE/MOLECULAR DATA: Reviewed on October 23, 2020 2. 10/12/2020: Left breast reexcision: Benign breast tissue with no residual tumor. 1. REVIEW OF SYSTEMS Per HPI and otherwise negative by full review of organ systems. ECOG PERFORMANCE STATUS: 0 PHYSICAL EXAMINATION: Vitals: BP 140/56 Pulse 86 Temp (Src) 97.6 (Temporal) Resp 16 Ht 5' 2.992 (1.60m) Wt 239lb 9.6 oz (108.7kg) SpO2 96% BMI 42.45 kg/(m^2). Body surface area is 2.2 meters squared. Exam limited to gross visualization where appropriate due to COVID-19. Gen.: This is an age-appropriate patient in no acute distress. Head: Appears atraumatic with no visible lesions. Eyes: Pupils equally round and reactive to light, extraocular muscles are intact. Neck: Supple. Mouth: Mucous membranes appeared to be moist. Respiratory: Appears to be respiring comfortably. Neurologic: Nonfocal to gross visualization. Alert and oriented 3. Psychiatric: No evidence of inappropriate anxiety or depression. Skin: Visible areas of skin without rash, lesions, wounds or petechiae. Breast exam Deferred ALLERGIES: ALLERGIES No Known Allergies MEDICATIONS: letrozole (FEMARA) 2.5 mg tablet TAKE 1 TABLET BY MOUTH EVERY DAY ergocalciferol 50,000 unit capsule (VITAMIN D2, DRISDOL) take 1 capsule by oral route every week atorvastatin (LIPITOR) 20 mg tablet Take 20 mg by mouth once daily. levothyroxine (SYNTHROID) 125 mcg tablet 125 mcg. mirtazapine (REMERON) 30 mg tablet Take 30 mg by mouth daily at bedtime. melatonin 5 mg chew Take by mouth. MULTIVITAMIN ORAL Take by mouth. doxylamine succinate (SLEEP AID ORAL) Take 1 Cap-Full by mouth as needed. ALPRAZolam (XANAX) 0.25 mg tablet Take 0.25 mg by mouth at bedtime as needed. lisinopril-hydrochlorothiazide (PRINZIDE, ZESTORETIC) 20-25 mg per tablet Take 1 tablet by mouth once daily. 1.5 tablet daily LABORATORY VALUES: WBC (k/uL) Date Value 07/11/2023 5.41 RBC (m/uL) Date Value 07/11/2023 5.14 Hemoglobin (g/dL) Date Value 07/11/2023 15.1 Hematocrit (%) Date Value 07/11/2023 46.4 (H) MCV (fL) Date Value 07/11/2023 90.3 MCH (pg) Date Value 07/11/2023 29.4 MCHC (g/dL) Date Value 07/11/2023 32.5 RDW-CV (%) Date Value 07/11/2023 13.3 Platelet Count (k/uL) Date Value 07/11/2023 227 MPV (fL) Date Value 07/11/2023 10.0 Glucose (mg/dL) Date Value 07/11/2023 115 (H) BUN (mg/dL) Date Value 07/11/2023 19 Creatinine (mg/dL) Date Value 07/11/2023 1.29 (H) Sodium (mmol/L) Date Value 07/11/2023 142 Potassium (mmol/L) Date Value 07/11/2023 3.8 Chloride (mmol/L) Date Value 07/11/2023 103 CO2 (mmol/L) Date Value 07/11/2023 30 Protein, Total (g/dL) Date Value 07/11/2023 7.2 Albumin (g/dL) Date Value 07/11/2023 4.6 Calcium, Total (mg/dL) Date Value 07/11/2023 10.5 (H) Alkaline Phosphatase (U/L) Date Value 07/11/2023 79 Bilirubin, Total (mg/dL) Date Value 07/11/2023 0.4 AST (U/L) Date Value 07/11/2023 18 ALT (U/L) Date Value 07/11/2023 24 DIAGNOSIS: (C50.412, Z17.0) Malignant neoplasm of upper-outer quadrant of left breast in female, estrogen receptor positive (HCC) (primary encounter diagnosis) (C54.1) Endometrial cancer (HCC) (C73) Cancer of thyroid (HCC) PAST MEDICAL HISTORY Diagnosis Date Diabetes (HCC) Endometrial cancer (HCC) Hypertension Hypothyroid FESTUS (obstructive sleep apnea) recently stopped BIPAP due to discomfort PAST SURGICAL HISTORY Procedure Laterality Date BREAST LUMPECTOMY HX Left COLONOSCOPY 2016 D+C HYSTERECTOMY HX 04/10/2018 THYROIDECTOMY TOTAL/COMPLETE Social History Tobacco Use Smoking status: Never Smokeless tobacco: Never Vaping Use Vaping Use: Never used Substance Use Topics Alcohol use: No Drug use: No FAMILY HISTORY Problem Relation Age of Onset Cancer Mother Stroke Mother in her 80s Heart Father in his 80s Breast Cancer Sister Heart Brother in his 70s other (COPD) Sister other (ICH) Sister recent 2018 diagnosis Diabetes Sister Stroke Brother in his 80s Hypertension Brother None Brother No Known Problems Brother None Son Gaby Melgar APRN.CNP [place], [place] CC: Dr. Lucas Kelley I spent a total of 30 minutes on the date of the service which included preparing to see the patient, [id number] patient care, completing clinical documentation, obtaining and/or reviewing separately obtained history, performing a medically appropriate examination, counseling and educating the pat ient/family/caregiver, ordering medications, tests, or procedures, independently interpreting results (not separately reported), and communicating results to the patient/family/caregiver. documented in this encounterWvumed[facility]06-27-2023 Miscellaneous Notes* Telephone Encounter - Gaby Melgar APRN.CNP - 04/15/2023 3:18 PM EDT The following approved medication requests have been transmitted electronically. Requested Prescriptions Signed Prescriptions Disp Refills letrozole (FEMARA) 2.5 mg tablet 90 tablet 2 Sig: TAKE 1 TABLET BY MOUTH EVERY DAY Authorizing Provider: GABY MELGAR APRN.CNP documented in this encounterWvumedicine [facility]03-31-2023 Miscellaneous Notes* Telephone Encounter - Kindra Martinez - 01/17/2023 4:05 PM EDT Patient on 1st time treatment report-non oncology regimen (Reclast) Patient holds medicare coverageand no FA available for this treatment. documented in this encounterWvumedicine [facility]03-24-2023 History of Present illness Narrative* Susanna Delmar, LABORER DRIVER - 01/10/2023 10:29 AM EDT Patient appears on the [facility] First Time Treatment list for a 6 month Reclast treatment. No psychosocial assessment is indicated. YESSICA Gonzalez documented in this encounterWvumedicine [facility]11-15-2022 Miscellaneous Notes* Telephone Encounter - Luis Manuel Muñiz - 09/03/2022 10:39 AM EST Please sign pending Mammogram order so patient can be scheduled. Luis Manuel Muñiz documented in this encounterWvumedicine [facility]09-30-2022 Instructions* Patient Instructions* Jerson Clark MD - 07/19/2022 3:16 PM EDT Labs 1 week prior to visit CBC, CMP, TSH RTC in 6 months to review labs and plan Reclast (Zolendronic acid) same day Next mammograms in 07/2022 - per Dr. Kelley documented in this encounterWvumedicine [facility]09-30-2022 History of Present illness Narrative* Jerson Clark MD - 07/19/2022 3:05 PM EDT Images from the original note were not included. NAME: Marc Savana CLINIC NO.: [id number] DATE OF SERVICE: July 19, 2022 Some elements in this clinic note that are critical to medical decision making have been carefully reviewed and included from a prior clinic note dated: January 11, 2022 Referring Provider: Lucas Melo MD Additional Clinicians involved in Savana Tran's care: Kd Landry CC: Breast cancer follow up ASSESSMENT/PLAN: 1. Malignant neoplasm of upper-outer quadrant of left breast in female, estrogen receptor positive 72 year old woman with left breast cancer T1c(sn)N0M0 s/p lumpectomy with Dr. Kelley on 09/26/2020. She presents for Medical oncology opinion regarding ER/OR + HER2-gilbert (-) breast cancer with a prior history of resected endometrial adenocarcinoma diagnosed and treated in 07/2018. Oncotype DX recurrence score was 16. She completed radiation. And is currently on AI since December 2020 She also had genetic testing due to her history or multiple cancers. The results are scanned into Pulsant and reviewed and negative. 2. Endometrial cancer Staging for this was: IB endometrioid type endometrial adenocarcinoma, FIGO grade 1, + LVSI, tumor size 6 cm, 72% depth of invasion with limited pelvic sampling s/p pelvic RT after surgery. Normal IHC MMR expression 3. Cancer of thyroid She has also had a history of papillary thyroid cancer 2019 noted in a thyroidectomy specimen for anodule that was causing her difficulty swallowing. She follows with ENT. Thyroglobulin Ab is elevated Obviating the need for thyroglobulin levels and therefore we will justfollow TSH. 4. Anxiety neurosis Managed by her PCP PLAN: Labs 1 week prior to visit CBC, CMP, TSH RTC in 6 months to review labs and plan Reclast (Zolendronic acid) same day Next mammograms in 07/2022 - per Dr. Kelley TREATMENT TO DATE: 4. 01/10/2021 -current: Femara 2.5 mg p.o. daily 3. 12/07/2020 -01/03/2021: Radiation to left breast total dose 5005 cGy 2. 10/12/2020: Re-excision and evacuation of hematoma 1. 09/26/2020: [facility] left breast lumpectomy and SLN resection HPI: Updated Visit, July 19, 2022: Savana is 72 years old and returns today anticipating start of Reclast however she broke a tooth and had it pulled 2 weeks ago. Hold Reclast that was planned. She is otherwise doing well on Femara 2.5 mg daily. I reviewed the remainder of her laboratories including an elevated thyroglobulin antibody and therefore thyroglobulin levels are not reliable. She does not follow with an endocrinologistwhich in the future may be helpful. For now we will follow her TSH levels. I will defer breast examination today since she is seeing Dr. Kelley after having mammograms next month. 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 She is doing well and continues to try to modify her diet and weight to managerisk factors. Doing well - Dr. Kelley is examining her every 3-4 months, will defer exam. We discussed bone health and osteoporosis prevention and will obtain a DXA and consider zolendronicacid supplementation to prevent bone morbidity. Updated Visit, September 07, 2021: Doing well overall and has tolerable aches and pains in her joints and muscles. Is really trying tochange her diet and has done so but is frustrated with gaining weight. She will continue to try. Synthroid has been adjusted by Dr. Persaud. She is seeing Dr. Kelley for her exam in a few months. Mammograms were fine and will need them again in 1 year. Updated Visit, May 09, 2021: She will work on her diet again Anxiety is markedly improved Labs are stable. CRF is stable Doing well on Femara Updated Visit, February 07, 2021: Patient started on femara for a stage I er positive breast cancer on 01/10/2021. Tolerating well. Takes it before bed. No arthralgias or hot flashes. She is feeling better everyday. She has no complaints today. Updated Visit, January 10, 2021: Savana is 70 years old and returns having completed breast conservation plus radiation for left breast cancer that was ER positive HER-2 negative diagnosed on 08/09/2020. She is emotional today because she is worried about her own wellbeing given that she has very little family support. She is clearly very lonely having lost her . She has no other complaints. She is already in touch withour health social work professor. And happy to provide any supportive care that I can. Updated Visit, November 13, 2020: Savana is 70 yo and returns to discuss her plan for adjuvant therapy. Given her low RS by [id number] analysis, I am recommending adjuvant hormone therapy only. She will proceed with radiation first and then will need AI following for at least 5 years. All questions were answered. Initial Visit, October 23, 2020: Savana Tran presents today Hematology and Oncology evaluation. She is a 70 year old female who Had a routine Mammogram that picked up abnormality 08/03/2020 needle biopsy on 08/09/2020 diagnosed infiltrating ductal adenocarcinoma. She took care of her sister who had metastatic breast cancer and remembering that has caused her a great deal of anxiety. She lives alone but has 1 son and very sweet ozcyclak-[id number] that are very supportive. Her initial resection was 09/26/2020 and had a positive margin and developed a hematoma. Re-resection on 10/12/2020 demonstrated no evidence of residual carcinoma. She has also had a history of papillary thyroid cancer 2019 noted in a thyroidectomy specimen for anodule that was causing her difficulty swallowing and breathing. Changed her diet and is eating much better - so far has lost 10 lbs. Prior history of endometrial cancer summarized below SURGERY & DATE: 04/10/2018 Laparoscopic total hysterectomy, bilateral salpingo-oophorectomy, bilateral pelvic lymphadenectomy,and cystoscopy : IB endometrioid type endometrial adenocarcinoma, FIGO grade 1, + LVSI, tumor size 6 cm, 72% depth of invasion with limited pelvic sampling s/p pelvic RT after surgery Pelvic RT: 06/11/18-07/24/2018 We discussed dietary strategies for cancer risk reduction as well as genetic counseling. RADIOGRAPHIC DATA: Reviewed on October 23, 2020 2. 08/09/2020 Mammography / US: left upper breast anomaly 2 O'Clock 1. 02/18/2020 CT CAP: Chest: Stable appearance of numerous bilateral pulmonary nodules measuring up to 5 mm size. No new or enlarging nodules are seen. The central airways are widely patent. Abd/Pelvis: 1. Stable CT of the abdomen and pelvis. No findings to suggest abdominal or pelvic metastatic disease. 2. Hepatic steatosis. Findings suggestive of hepatic hemangiomas. PATHOLOGIC PROFILE/MOLECULAR DATA: Reviewed on October 23, 2020 2. 10/12/2020: Left breast reexcision: Benign breast tissue with no residual tumor. 1. REVIEW OF SYSTEMS Per HPI and otherwise negative by full review of organ systems. ECOG PERFORMANCE STATUS: 0 PHYSICAL EXAMINATION: Vitals: BP 147/87 Pulse 90 Temp (Src) 97.4 (Temporal) Resp 16 Ht 5' 2.992 (1.60m) Wt 220lb 9.6 oz (100.1kg) SpO2 98% BMI 39.09 kg/(m^2). Body surface area is 2.11 meters squared. Exam limited to gross visualization where appropriate due to COVID-19. Gen.: This is an age-appropriate patient in no acute distress. Head: Appears atraumatic with no visible lesions. Eyes: Pupils equally round and reactive to light, extraocular muscles are intact. Neck: Supple. Mouth: Mucous membranes appeared to be moist. Respiratory: Appears to be respiring comfortably. Neurologic: Nonfocal to gross visualization. Alert and oriented 3. Psychiatric: No evidence of inappropriate anxiety or depression. Skin: Visible areas of skin without rash, lesions, wounds or petechiae. Breast exam Deferred ALLERGIES: ALLERGIES No Known Allergies MEDICATIONS: atorvastatin (LIPITOR) 20 mg tablet Take 20 mg by mouth once daily. levothyroxine sodium (SYNTHROID ORAL) Take by mouth. levothyroxine (SYNTHROID) 125 mcg tablet 125 mcg. mirtazapine (REMERON) 30 mg tablet Take 30 mg by mouth daily at bedtime. doxepin capsule 10 mg TAKE 1 CAPSULE BY MOUTH EVERY DAY AT BEDTIME melatonin 5 mg chew Take by mouth. MULTIVITAMIN ORAL Take by mouth. ibuprofen (MOTRIN) 600 mg tablet Take 600 mg by mouth every 6 hours as needed. doxylamine succinate (SLEEP AID ORAL) Take 1 Cap-Full by mouth as needed. ALPRAZolam (XANAX) 0.25 mg tablet Take 0.25 mg by mouth at bedtime as needed. lisinopril-hydrochlorothiazide (PRINZIDE, ZESTORETIC) 20-25 mg per tablet Take 1 tablet by mouth once daily. levothyroxine (SYNTHROID) 100 mcg tablet Take 100 mcg by mouth daily before breakfast. 125 mg daily letrozole (FEMARA) 2.5 mg tablet Take 1 tablet by mouth once daily. LABORATORY VALUES: WBC (k/uL) Date Value 07/12/2022 5.74 RBC (m/uL) Date Value 07/12/2022 4.67 Hemoglobin (g/dL) Date Value 07/12/2022 13.9 Hematocrit (%) Date Value 07/12/2022 42.8 MCV (fL) Date Value 07/12/2022 91.6 MCH (pg) Date Value 07/12/2022 29.8 MCHC (g/dL) Date Value 07/12/2022 32.5 RDW-CV (%) Date Value 07/12/2022 13.1 Platelet Count (k/uL) Date Value 07/12/2022 229 MPV (fL) Date Value 07/12/2022 10.3 Glucose (mg/dL) Date Value 01/11/2022 109 (H) BUN (mg/dL) Date Value 01/11/2022 20 Creatinine (mg/dL) Date Value 01/11/2022 1.28 (H) Sodium (mmol/L) Date Value 01/11/2022 137 Potassium (mmol/L) Date Value 01/11/2022 3.8 Chloride (mmol/L) Date Value 01/11/2022 100 CO2 (mmol/L) Date Value 01/11/2022 29 Protein, Total (g/dL) Date Value 01/11/2022 7.4 Albumin (g/dL) Date Value 01/11/2022 4.3 Calcium, Total (mg/dL) Date Value 01/11/2022 10.5 (H) Alkaline Phosphatase (U/L) Date Value 01/11/2022 116 Bilirubin, Total (mg/dL) Date Value 01/11/2022 0.4 AST (U/L) Date Value 01/11/2022 20 ALT (U/L) Date Value 01/11/2022 27 DIAGNOSIS: (C50.412, Z17.0) Malignant neoplasm of upper-outer quadrant of left breast in female, estrogen receptor positive (HCC) Plan: letrozole (FEMARA) 2.5 mg tablet (C54.1) Endometrial cancer (HCC) Plan: letrozole (FEMARA) 2.5 mg tablet (C73) Cancer of thyroid (HCC) Plan: letrozole (FEMARA) 2.5 mg tablet (F41.1) Anxiety neurosis Plan: letrozole (FEMARA) 2.5 mg tablet PAST MEDICAL HISTORY Diagnosis Date Diabetes (HCC) Endometrial cancer (HCC) Hypertension Hypothyroid FESTUS (obstructive sleep apnea) recently stopped BIPAP due to discomfort PAST SURGICAL HISTORY Procedure Laterality Date BREAST LUMPECTOMY HX Left COLONOSCOPY 2016 D+C HYSTERECTOMY HX 04/10/2018 THYROIDECTOMY TOTAL/COMPLETE Social History Tobacco Use Smoking status: Never Smokeless tobacco: Never Vaping Use Vaping Use: Never used Substance Use Topics Alcohol use: No Drug use: No FAMILY HISTORY Problem Relation Age of Onset Cancer Mother Stroke Mother in her 80s Heart Father in his 80s Breast Cancer Sister Heart Brother in his 70s other (COPD) Sister other (ICH) Sister recent 2018 diagnosis Diabetes Sister Stroke Brother in his 80s Hypertension Brother None Brother No Known Problems Brother None Son I spent a total of 30 minutes on the date of the service which included preparing to see the patient, [id number] patient care, completing clinical documentation, obtaining and/or reviewing separately obtained history, performing a medically appropriate examination, counseling and educating the pat ient/family/caregiver, ordering medications, tests, or procedures, and independently interpreting results (not separately reported). Jerson Clark MD, [place], [place] CC: MD Connor Parsons documented in this encounterWvumedicine [facility]03-25-[facility]22 History of Present illness Narrative* Jerson Clark MD - 01/11/2022 3:26 PM EDT Images from the original note were not included. NAME: Savana Tran [facility] NO.: [id number] DATE OF SERVICE: January 11, 2022 Some elements in this clinic note that are critical to medical decision making have been carefully reviewed and included from a prior clinic note dated: September 07, 2021 Referring Provider: Lucas Melo MD Additional Clinicians involved in Savana Tran's care: Kd Landry CC: Breast cancer follow up ASSESSMENT/PLAN: 1. Malignant neoplasm of upper-outer quadrant of left breast in female, estrogen receptor positive 71 year old woman with left breast cancer T1c(sn)N0M0 s/p lumpectomy with Dr. Kelley on 09/26/2020. She presents for Medical oncology opinion regarding ER/OR + HER2-gilbert (-) breast cancer with a prior history of resected endometrial adenocarcinoma diagnosed and treated in 07/2018. Oncotype DX recurrence score was 16. She completed radiation. She was started on Femara and is tolerating it well. Would recommend she continue Femara. Discussed potential side effects related to Femara. She will return in 4 months for follow up. Patient did have genetic testing due to her history or multiple cancers. The results are scanned into Pulsant and reviewed and negative. 2. Endometrial cancer Staging for this was: IB endometrioid type endometrial adenocarcinoma, FIGO grade 1, + LVSI, tumor size 6 cm, 72% depth of invasion with limited pelvic sampling s/p pelvic RT after surgery. Normal IHC MMR expression 3. Cancer of thyroid She has also had a history of papillary thyroid cancer 2019 noted in a thyroidectomy specimen for anodule that was causing her difficulty swallowing. She follows with ENT. 4. Anxiety neurosis Managed by her PCP PLAN: 1. Labs 1 week prior to visit CBC, CMP, TSH, Thyroglob + Ab 2. DXA bone density in 6 months 3. RTC in 6 months to review labs and review DXA - consider Zolendronic acid. 4. Next mammograms in 07/2022 - per Dr. Kelley TREATMENT TO DATE: 4. 01/10/2021 -current: Femara 2.5 mg p.o. daily 3. 12/07/2020 -01/03/2021: Radiation to left breast total dose 5005 cGy 2. 10/12/2020: Re-excision and evacuation of hematoma 1. 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 She is doing well and continues to try to modify her diet and weight to managerisk factors. Doing well - Dr. Kelley is examining her every 3-4 months, will defer exam. We discussed bone health and osteoporosis prevention and will obtain a DXA and consider zolendronicacid supplementation to prevent bone morbidity. Updated Visit, September 07, 2021: Doing well overall and has tolerable aches and pains in her joints and muscles. Is really trying tochange her diet and has done so but is frustrated with gaining weight. She will continue to try. Synthroid has been adjusted by Dr. Persaud. She is seeing Dr. Kelley for her exam in a few months. Mammograms were fine and will need them again in 1 year. Updated Visit, May 09, 2021: She will work on her diet again Anxiety is markedly improved Labs are stable. CRF is stable Doing well on Femara Updated Visit, February 07, 2021: Patient started on femara for a stage I er positive breast cancer on 01/10/2021. Tolerating well. Takes it before bed. No arthralgias or hot flashes. She is feeling better everyday. She has no complaints today. Updated Visit, January 10, 2021: Savana is 70 years old and returns having completed breast conservation plus radiation for left breast cancer that was ER positive HER-2 negative diagnosed on 08/09/2020. She is emotional today because she is worried about her own wellbeing given that she has very little family support. She is clearly very lonely having lost her . She has no other complaints. She is already in touch withour health social work professor. And happy to provide any supportive care that I can. Updated Visit, November 13, 2020: Savana is 70 yo and returns to discuss her plan for adjuvant therapy. Given her low RS by [id number] analysis, I am recommending adjuvant hormone therapy only. She will proceed with radiation first and then will need AI following for at least 5 years. All questions were answered. Initial Visit, October 23, 2020: Savana Tran presents today Hematology and Oncology evaluation. She is a 70 year old female who Had a routine Mammogram that picked up abnormality 08/03/2020 needle biopsy on 08/09/2020 diagnosed infiltrating ductal adenocarcinoma. She took care of her sister who had metastatic breast cancer and remembering that has caused her a great deal of anxiety. She lives alone but has 1 son and very sweet [id number] that are very supportive. Her initial resection was 09/26/2020 and had a positive margin and developed a hematoma. Re-resection on 10/12/2020 demonstrated no evidence of residual carcinoma. She has also had a history of papillary thyroid cancer 2019 noted in a thyroidectomy specimen for anodule that was causing her difficulty swallowing and breathing. Changed her diet and is eating much better - so far has lost 10 lbs. Prior history of endometrial cancer summarized below SURGERY & DATE: 04/10/2018 Laparoscopic total hysterectomy, bilateral salpingo-oophorectomy, bilateral pelvic lymphadenectomy,and cystoscopy : IB endometrioid type endometrial adenocarcinoma, FIGO grade 1, + LVSI, tumor size 6 cm, 72% depth of invasion with limited pelvic sampling s/p pelvic RT after surgery Pelvic RT: 06/11/18-07/24/2018 We discussed dietary strategies for cancer risk reduction as well as genetic counseling. RADIOGRAPHIC DATA: Reviewed on October 23, 2020 2. 08/09/2020 Mammography / US: left upper breast anomaly 2 O'Clock 1. 02/18/2020 CT CAP: Chest: Stable appearance of numerous bilateral pulmonary nodules measuring up to 5 mm size. No new or enlarging nodules are seen. The central airways are widely patent. Abd/Pelvis: 1. Stable CT of the abdomen and pelvis. No findings to suggest abdominal or pelvic metastatic disease. 2. Hepatic steatosis. Findings suggestive of hepatic hemangiomas. PATHOLOGIC PROFILE/MOLECULAR DATA: Reviewed on October 23, 2020 2. 10/12/2020: Left breast reexcision: Benign breast tissue with no residual tumor. 1. REVIEW OF SYSTEMS Per HPI and otherwise negative by full review of organ systems. ECOG PERFORMANCE STATUS: 0 PHYSICAL EXAMINATION: Vitals: BP 144/88 Pulse 93 Temp (Src) 98 (Temporal) Resp 16 Ht 5' 2.992 (1.60m) Wt 238 lb (108.0kg) SpO2 96% BMI 42.17 kg/(m^2). Body surface area is 2.19 meters squared. Exam limited to gross visualization where appropriate due to COVID-19. Gen.: This is an age-appropriate patient in no acute distress. Head: Appears atraumatic with no visible lesions. Eyes: Pupils equally round and reactive to light, extraocular muscles are intact. Neck: Supple. Mouth: Mucous membranes appeared to be moist. Respiratory: Appears to be respiring comfortably. Neurologic: Nonfocal to gross visualization. Alert and oriented 3. Psychiatric: No evidence of inappropriate anxiety or depression. Skin: Visible areas of skin without rash, lesions, wounds or petechiae. Breast exam Deferred since she was recenlty seen by Dr. Kelley ALLERGIES: ALLERGIES No Known Allergies MEDICATIONS: letrozole (FEMARA) 2.5 mg tablet Take 1 tablet by mouth once daily. levothyroxine (SYNTHROID) 125 mcg tablet 125 mcg. mirtazapine (REMERON) 30 mg tablet Take 30 mg by mouth daily at bedtime. melatonin 5 mg chew Take by mouth. MULTIVITAMIN ORAL Take by mouth. ALPRAZolam (XANAX) 0.25 mg tablet Take 0.25 mg by mouth at bedtime as needed. lisinopril-hydrochlorothiazide (PRINZIDE, ZESTORETIC) 20-25 mg per tablet Take 1 tablet by mouth once daily. levothyroxine sodium (SYNTHROID ORAL) Take by mouth. doxepin capsule 10 mg TAKE 1 CAPSULE BY MOUTH EVERY DAY AT BEDTIME ibuprofen (MOTRIN) 600 mg tablet Take 600 mg by mouth every 6 hours as needed. doxylamine succinate (SLEEP AID ORAL) Take 1 Cap-Full by mouth as needed. levothyroxine (SYNTHROID) 100 mcg tablet Take 100 mcg by mouth daily before breakfast. 125 mg daily LABORATORY VALUES: WBC (k/uL) Date Value 01/11/2022 4.64 RBC (m/uL) Date Value 01/11/2022 5.18 Hemoglobin (g/dL) Date Value 01/11/2022 15.2 Hematocrit (%) Date Value 01/11/2022 46.1 (H) MCV (fL) Date Value 01/11/2022 89.0 MCH (pg) Date Value 01/11/2022 29.3 MCHC (g/dL) Date Value 01/11/2022 33.0 RDW-CV (%) Date Value 01/11/2022 13.0 Platelet Count (k/uL) Date Value 01/11/2022 218 MPV (fL) Date Value 01/11/2022 9.9 Glucose (mg/dL) Date Value 01/11/2022 109 (H) BUN (mg/dL) Date Value 01/11/2022 20 Creatinine (mg/dL) Date Value 01/11/2022 1.28 (H) Sodium (mmol/L) Date Value 01/11/2022 137 Potassium (mmol/L) Date Value 01/11/2022 3.8 Chloride (mmol/L) Date Value 01/11/2022 100 CO2 (mmol/L) Date Value 01/11/2022 29 Protein, Total (g/dL) Date Value 01/11/2022 7.4 Albumin (g/dL) Date Value 01/11/2022 4.3 Calcium, Total (mg/dL) Date Value 01/11/2022 10.5 (H) Alkaline Phosphatase (U/L) Date Value 01/11/2022 116 Bilirubin, Total (mg/dL) Date Value 01/11/2022 0.4 AST (U/L) Date Value 01/11/2022 20 ALT (U/L) Date Value 01/11/2022 27 DIAGNOSIS: (C50.412, Z17.0) Malignant neoplasm of upper-outer quadrant of left breast in female, estrogen receptor positive (HCC) (primary encounter diagnosis) Plan: DXA-AXIAL SKELETON (Z79.811) Aromatase inhibitor use Plan: DXA-AXIAL SKELETON (C54.1) Endometrial cancer (HCC) Plan: DXA-AXIAL SKELETON (C73) Cancer of thyroid (HCC) (F41.1) Anxiety neurosis PAST MEDICAL HISTORY Diagnosis Date Diabetes (HCC) Endometrial cancer (HCC) Hypertension Hypothyroid FESTUS (obstructive sleep apnea) recently stopped BIPAP due to discomfort PAST SURGICAL HISTORY Procedure Laterality Date BREAST LUMPECTOMY HX Left COLONOSCOPY 2016 D+C HYSTERECTOMY HX 04/10/2018 THYROIDECTOMY TOTAL/COMPLETE Social History Tobacco Use Smoking status: Never Smoker Smokeless tobacco: Never Used Substance Use Topics Alcohol use: No Drug use: No FAMILY HISTORY Problem Relation Age of Onset Cancer Mother Stroke Mother in her 80s Heart Father in his 80s Breast Cancer Sister Heart Brother in his 70s other (COPD) Sister other (ICH) Sister recent 2018 diagnosis Diabetes Sister Stroke Brother in his 80s Hypertension Brother None Brother No Known Problems Brother None Son Jerson Clark MD, CPE [facility] [place], [place] CC: Lucas Melo MD [address] [facility] [id number] Connor Persaud MD [address] [facility] [address] [facility] [address] Lux Bowden DO [address] [facility] [address] [facility] [id number] documented in this encounterWvumedicine Harrison Community HospitalEvalunemours foundation note* Diagnosis Malignant neoplasm of upper-outer quadrant of left breast in female, estrogen receptor positive (HCC)- Primary Aromatase inhibitor use Use of aromatase inhibitors Endometrial cancer (HCC) Malignant neoplasm of corpus uteri, except isthmus Cancer of thyroid (HCC) Malignant neoplasm of thyroid gland Anxiety neurosis Anxiety state, unspecified documented in this encounter [facility]alunem[facility] foundation noteNo assessment information availableMercy Health Clerm[facility] Work Phone: Evaluation note* Diagnosis Malignant neoplasm of upper-outer quadrant of left breast in female, estrogen receptor positive (HCC) Endometrial cancer (HCC) Malignant neoplasm of corpus uteri, except isthmus Cancer of thyroid (HCC) Malignant neoplasm of thyroid gland Anxiety neurosis Anxiety state, unspecified documented in this encounter [facility]* Diagnosis Malignant neoplasm of upper-outer quadrant of left breast in female, estrogen receptor positive (HCC)- Primary Endometrial cancer (HCC) Malignant neoplasm of corpus uteri, except isthmus documented in this encounter [facility]* Diagnosis Malignant neoplasm of upper-outer quadrant of left breast in female, estrogen receptor positive (HCC) Endometrial cancer (HCC) Malignant neoplasm of corpus uteri, except isthmus Cancer of thyroid (HCC) Malignant neoplasm of thyroid gland Anxiety neurosis Anxiety state, unspecified documented in this encounter [facility]* Diagnosis Malignant neoplasm of upper-outer quadrant of left breast in female, estrogen receptor positive (HCC)- Primary Endometrial cancer (HCC) Malignant neoplasm of corpus uteri, except isthmus Cancer of thyroid (HCC) Malignant neoplasm of [facility] gland [facility] Malignant neoplasm of upper-outer quadrant of left breast in female, estrogen receptor positive (HCC) Endometrial cancer (HCC) Malignant neoplasm of corpus uteri, except isthmus Cancer of thyroid (HCC) Malignant neoplasm of thyroid gland Anxiety neurosis Anxiety state, unspecified [facility] Diagnosis Malignant neoplasm of upper-outer quadrant of left breast in female, estrogen receptor positive (HCC)- Primary [facility] Diagnosis Malignant neoplasm of upper-outer quadrant of left breast in female, estrogen receptor positive (HCC)- Primary Cancer of thyroid (HCC) Malignant neoplasm of thyroid gland [facility] Diagnosis Malignant neoplasm of upper-outer quadrant of left breast in female, estrogen receptor positive (HCC)- Primary [facility] Diagnosis Routine general medical examination at health care facility- Primary Routine general medical examination at a health care facility Hypertriglyceridemia (CMS/HCC) Pure hyperglyceridemia Wellness examination Flu vaccine need Medicare annual wellness visit, subsequent Type 2 diabetes mellitus with stage 3a chronic kidney disease, without long-term current use of insulin (HCC) (CMS/HCC) Estrogen deficiency Other ovarian failure Benign essential hypertension (CMS/HCC)- Primary Essential hypertension, benign Type 2 diabetes mellitus with stage 3a chronic kidney disease, without long-term current use of insulin (HCC) (CMS/HCC) Adjustment disorder with anxiety (CMS/HCC) Adjustment disorder with anxiety Chronic kidney disease, stage 3a (N18.31) Stage 3a chronic kidney disease (HCC) (CMS/HCC) 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)- Primary Morbid (severe) obesity due to excess calories (CMS/HCC) Essential (primary) hypertension (CMS/HCC) Unspecified essential hypertension Body mass index (BMI) 39.0-39.9, adult Type 2 diabetes mellitus with stage 3a chronic kidney disease, without long-term current use of insulin (HCC) (CMS/HCC) Class 2 severe obesity due to excess calories with serious comorbidity and body mass index (BMI) of 38.0 to 38.9 in adult (CMS/HCC) Anxiety Anxiety state, unspecified 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 [facility] Diagnosis Routine general medical examination at health care facility- Primary Routine general medical examination at a health care facility Hypertriglyceridemia (CMS/HCC) Pure hyperglyceridemia Wellness examination Flu vaccine need Medicare annual wellness visit, subsequent Type 2 diabetes mellitus with stage 3a chronic kidney disease, without long-term current use of insulin (HCC) (CMS/HCC) Estrogen deficiency Other ovarian failure Benign essential hypertension (CMS/HCC)- Primary Essential hypertension, benign Type 2 diabetes mellitus with stage 3a chronic kidney disease, without long-term current use of insulin (HCC) (CMS/HCC) Adjustment disorder with anxiety (CMS/HCC) Adjustment disorder with anxiety Chronic kidney disease, stage 3a (N18.31) Stage 3a chronic kidney disease (HCC) (CMS/HCC) 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)- Primary Morbid (severe) obesity due to excess calories (CMS/HCC) Essential (primary) hypertension (CMS/HCC) Unspecified essential hypertension Body mass index (BMI) 39.0-39.9, adult Type 2 diabetes mellitus with stage 3a chronic kidney disease, without long-term current use of insulin (HCC) (CMS/HCC) Class 2 severe obesity due to excess calories with serious comorbidity and body mass index (BMI) of 38.0 to 38.9 in adult (CMS/HCC) Anxiety Anxiety state, unspecified 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 Postoperative hypothyroidism (CMS/HCC)- Primary Postsurgical hypothyroidism [facility] Diagnosis Routine general medical examination at health care facility- Primary Routine general medical examination at a health care facility Hypertriglyceridemia (CMS/HCC) Pure hyperglyceridemia Wellness examination Flu vaccine need Medicare annual wellness visit, subsequent Type 2 diabetes mellitus with stage 3a chronic kidney disease, without long-term current use of insulin (HCC) (CMS/HCC) Estrogen deficiency Other ovarian failure Benign essential hypertension (CMS/HCC)- Primary Essential hypertension, benign Type 2 diabetes mellitus with stage 3a chronic kidney disease, without long-term current use of insulin (HCC) (CMS/HCC) Adjustment disorder with anxiety (CMS/HCC) Adjustment disorder with anxiety Chronic kidney disease, stage 3a (N18.31) Stage 3a chronic kidney disease (HCC) (CMS/HCC) 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)- Primary Morbid (severe) obesity due to excess calories (CMS/HCC) Essential (primary) hypertension (CMS/HCC) Unspecified essential hypertension Body mass index (BMI) 39.0-39.9, adult Type 2 diabetes mellitus with stage 3a chronic kidney disease, without long-term current use of insulin (HCC) (CMS/HCC) Class 2 severe obesity due to excess calories with serious comorbidity and body mass index (BMI) of 38.0 to 38.9 in adult (CMS/HCC) Anxiety Anxiety state, unspecified 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 Routine general medical examination at health care facility- Primary Routine general medical examination at a health care facility Hypertriglyceridemia (CMS/HCC) Pure hyperglyceridemia Wellness examination Encounter for screening for colorectal malignant neoplasm Encounter for vaccination Medicare annual wellness visit, subsequent Primary hypertension (CMS/HCC) Unspecified essential hypertension Type 2 diabetes mellitus with stage 3a chronic kidney disease, without long-term current use of insulin (HCC) (CMS/HCC) Acquired hypothyroidism (CMS/HCC) Unspecified hypothyroidism Cancer of thyroid (CMS/HCC) Malignant neoplasm of thyroid gland Infiltrating ductal carcinoma of breast, unspecified laterality (CMS/HCC) [facility] Diagnosis Malignant neoplasm of upper-outer quadrant of left breast in female, estrogen receptor positive (HCC) Endometrial cancer (HCC) Malignant neoplasm of corpus uteri, except isthmus Cancer of thyroid (HCC) Malignant neoplasm of thyroid gland Anxiety neurosis Anxiety state, unspecified [facility] Diagnosis Postoperative hypothyroidism (CMS/HCC)- Primary Postsurgical hypothyroidism Papillary microcarcinoma of thyroid (CMS/HCC) documented in this encounter [facility]* Diagnosis Routine general medical examination at health care facility- Primary Routine general medical examination at a health care facility Hypertriglyceridemia (CMS/HCC) Pure hyperglyceridemia Wellness examination Flu vaccine need Medicare annual wellness visit, subsequent Type 2 diabetes mellitus with stage 3a chronic kidney disease, without long-term current use of insulin (HCC) (CMS/HCC) Estrogen deficiency Other ovarian failure Benign essential hypertension (CMS/HCC)- Primary Essential hypertension, benign Type 2 diabetes mellitus with stage 3a chronic kidney disease, without long-term current use of insulin (HCC) (CMS/HCC) Adjustment disorder with anxiety (CMS/HCC) Adjustment disorder with anxiety Chronic kidney disease, stage 3a (N18.31) Stage 3a chronic kidney disease (HCC) (CMS/HCC) 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)- Primary Morbid (severe) obesity due to excess calories (CMS/HCC) Essential (primary) hypertension (CMS/HCC) Unspecified essential hypertension Body mass index (BMI) 39.0-39.9, adult Type 2 diabetes mellitus with stage 3a chronic kidney disease, without long-term current use of insulin (HCC) (CMS/HCC) Class 2 severe obesity due to excess calories with serious comorbidity and body mass index (BMI) of 38.0 to 38.9 in adult (CMS/HCC) Anxiety Anxiety state, unspecified 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 Routine general medical examination at health care facility- Primary Routine general medical examination at a health care facility Hypertriglyceridemia (CMS/HCC) Pure hyperglyceridemia Wellness examination Encounter for screening for colorectal malignant neoplasm Encounter for vaccination Medicare annual wellness visit, subsequent Primary hypertension (CMS/HCC) Unspecified essential hypertension Type 2 diabetes mellitus with stage 3a chronic kidney disease, without long-term current use of insulin (HCC) (CMS/HCC) Acquired hypothyroidism (CMS/HCC) Unspecified hypothyroidism Cancer of thyroid (CMS/HCC) Malignant neoplasm of thyroid gland Infiltrating ductal carcinoma of breast, unspecified laterality (CMS/HCC) Postoperative hypothyroidism (CMS/HCC)- Primary Postsurgical hypothyroidism Papillary microcarcinoma of thyroid (CMS/HCC) documented in this encounter [facility]* Diagnosis Routine general medical examination at health care facility- Primary Routine general medical examination at a health care facility Hypertriglyceridemia (CMS/HCC) Pure hyperglyceridemia Wellness examination Flu vaccine need Medicare annual wellness visit, subsequent Type 2 diabetes mellitus with stage 3a chronic kidney disease, without long-term current use of insulin (HCC) (CMS/HCC) Estrogen deficiency Other ovarian failure Benign essential hypertension (CMS/HCC)- Primary Essential hypertension, benign Type 2 diabetes mellitus with stage 3a chronic kidney disease, without long-term current use of insulin (HCC) (CMS/HCC) Adjustment disorder with anxiety (CMS/HCC) Adjustment disorder with anxiety Chronic kidney disease, stage 3a (N18.31) Stage 3a chronic kidney disease (HCC) (CMS/HCC) 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)- Primary Morbid (severe) obesity due to excess calories (CMS/HCC) Essential (primary) hypertension (CMS/HCC) Unspecified essential hypertension Body mass index (BMI) 39.0-39.9, adult Type 2 diabetes mellitus with stage 3a chronic kidney disease, without long-term current use of insulin (HCC) (CMS/HCC) Class 2 severe obesity due to excess calories with serious comorbidity and body mass index (BMI) of 38.0 to 38.9 in adult (CMS/HCC) Anxiety Anxiety state, unspecified 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 Routine general medical examination at health care facility- Primary Routine general medical examination at a health care facility Hypertriglyceridemia (CMS/HCC) Pure hyperglyceridemia Wellness examination Encounter for screening for colorectal malignant neoplasm Encounter for vaccination Medicare annual wellness visit, subsequent Primary hypertension (CMS/HCC) Unspecified essential hypertension Type 2 diabetes mellitus with stage 3a chronic kidney disease, without long-term current use of insulin (HCC) (CMS/HCC) Acquired hypothyroidism (CMS/HCC) Unspecified hypothyroidism Cancer of thyroid (CMS/HCC) Malignant neoplasm of thyroid gland Infiltrating ductal carcinoma of breast, unspecified laterality (CMS/HCC) Malignant neoplasm of upper-outer quadrant of left breast in female, estrogen receptor positive (CMS/HCC)- Primary Positive colorectal cancer screening using Cologuard test [facility]* Diagnosis Routine general medical examination at health care facility- Primary Routine general medical examination at a health care facility Hypertriglyceridemia (CMS/HCC) Pure hyperglyceridemia Wellness examination Flu vaccine need Medicare annual wellness visit, subsequent Type 2 diabetes mellitus with stage 3a chronic kidney disease, without long-term current use of insulin (HCC) (CMS/HCC) Estrogen deficiency Other ovarian failure Benign essential hypertension (CMS/HCC)- Primary Essential hypertension, benign Type 2 diabetes mellitus with stage 3a chronic kidney disease, without long-term current use of insulin (HCC) (CMS/HCC) Adjustment disorder with anxiety (CMS/HCC) Adjustment disorder with anxiety Chronic kidney disease, stage 3a (N18.31) Stage 3a chronic kidney disease (HCC) (CMS/HCC) 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)- Primary Morbid (severe) obesity due to excess calories (CMS/HCC) Essential (primary) hypertension (CMS/HCC) Unspecified essential hypertension Body mass index (BMI) 39.0-39.9, adult Type 2 diabetes mellitus with stage 3a chronic kidney disease, without long-term current use of insulin (HCC) (CMS/HCC) Class 2 severe obesity due to excess calories with serious comorbidity and body mass index (BMI) of 38.0 to 38.9 in adult (CMS/HCC) Anxiety Anxiety state, unspecified 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 Routine general medical examination at health care facility- Primary Routine general medical examination at a health care facility Hypertriglyceridemia (CMS/HCC) Pure hyperglyceridemia Wellness examination Encounter for screening for colorectal malignant neoplasm Encounter for vaccination Medicare annual wellness visit, subsequent Primary hypertension (CMS/HCC) Unspecified essential hypertension Type 2 diabetes mellitus with stage 3a chronic kidney disease, without long-term current use of insulin (HCC) (CMS/HCC) Acquired hypothyroidism (CMS/HCC) Unspecified hypothyroidism Cancer of thyroid (CMS/HCC) Malignant neoplasm of thyroid gland Infiltrating ductal carcinoma of breast, unspecified laterality (CMS/HCC) Positive colorectal cancer screening using Cologuard test- Primary documented in this encounter [facility]* Diagnosis Routine general medical examination at health care facility- Primary Routine general medical examination at a health care facility Hypertriglyceridemia (CMS/HCC) Pure hyperglyceridemia Wellness examination Flu vaccine need Medicare annual wellness visit, subsequent Type 2 diabetes mellitus with stage 3a chronic kidney disease, without long-term current use of insulin (HCC) (CMS/HCC) Estrogen deficiency Other ovarian failure Benign essential hypertension (CMS/HCC)- Primary Essential hypertension, benign Type 2 diabetes mellitus with stage 3a chronic kidney disease, without long-term current use of insulin (HCC) (CMS/HCC) Adjustment disorder with anxiety (CMS/HCC) Adjustment disorder with anxiety Chronic kidney disease, stage 3a (N18.31) Stage 3a chronic kidney disease (HCC) (CMS/HCC) 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)- Primary Morbid (severe) obesity due to excess calories (CMS/HCC) Essential (primary) hypertension (CMS/HCC) Unspecified essential hypertension Body mass index (BMI) 39.0-39.9, adult Type 2 diabetes mellitus with stage 3a chronic kidney disease, without long-term current use of insulin (HCC) (CMS/HCC) Class 2 severe obesity due to excess calories with serious comorbidity and body mass index (BMI) of 38.0 to 38.9 in adult (CMS/HCC) Anxiety Anxiety state, unspecified 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 Routine general medical examination at health care facility- Primary Routine general medical examination at a health care facility Hypertriglyceridemia (CMS/HCC) Pure hyperglyceridemia Wellness examination Encounter for screening for colorectal malignant neoplasm Encounter for vaccination Medicare annual wellness visit, subsequent Primary hypertension (CMS/HCC) Unspecified essential hypertension Type 2 diabetes mellitus with stage 3a chronic kidney disease, without long-term current use of insulin (HCC) (CMS/HCC) Acquired hypothyroidism (CMS/HCC) Unspecified hypothyroidism Cancer of thyroid (CMS/HCC) Malignant neoplasm of thyroid gland Infiltrating ductal carcinoma of breast, unspecified laterality (CMS/HCC) Positive colorectal cancer screening using Cologuard test- Primary Positive colorectal cancer screening using Cologuard test- Primary [facility] Malignant neoplasm of upper-outer quadrant of left breast in female, estrogen receptor positive (HCC)- Primary [facility] Diagnosis Malignant neoplasm of upper-outer quadrant of left breast in female, estrogen receptor positive (HCC)- Primary [facility] Diagnosis Routine general medical examination at health care facility- Primary Routine general medical examination at a health care facility Hypertriglyceridemia (CMS/HCC) Pure hyperglyceridemia Wellness examination Flu vaccine need Medicare annual wellness visit, subsequent Type 2 diabetes mellitus with stage 3a chronic kidney disease, without long-term current use of insulin (HCC) (CMS/HCC) Estrogen deficiency Other ovarian failure Benign essential hypertension (CMS/HCC)- Primary Essential hypertension, benign Type 2 diabetes mellitus with stage 3a chronic kidney disease, without long-term current use of insulin (HCC) (CMS/HCC) Adjustment disorder with anxiety (CMS/HCC) Adjustment disorder with anxiety Chronic kidney disease, stage 3a (N18.31) Stage 3a chronic kidney disease (HCC) (CMS/HCC) 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)- Primary Morbid (severe) obesity due to excess calories (CMS/HCC) Essential (primary) hypertension (CMS/HCC) Unspecified essential hypertension Body mass index (BMI) 39.0-39.9, adult Type 2 diabetes mellitus with stage 3a chronic kidney disease, without long-term current use of insulin (HCC) (CMS/HCC) Class 2 severe obesity due to excess calories with serious comorbidity and body mass index (BMI) of 38.0 to 38.9 in adult (CMS/HCC) Anxiety Anxiety state, unspecified 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 Routine general medical examination at health care facility- Primary Routine general medical examination at a health care facility Hypertriglyceridemia (CMS/HCC) Pure hyperglyceridemia Wellness examination Encounter for screening for colorectal malignant neoplasm Encounter for vaccination Medicare annual wellness visit, subsequent Primary hypertension (CMS/HCC) Unspecified essential hypertension Type 2 diabetes mellitus with stage 3a chronic kidney disease, without long-term current use of insulin (HCC) (CMS/HCC) Acquired hypothyroidism (CMS/HCC) Unspecified hypothyroidism Cancer of thyroid (CMS/HCC) Malignant neoplasm of thyroid gland Infiltrating ductal carcinoma of breast, unspecified laterality (CMS/HCC) Positive colorectal cancer screening using Cologuard test- Primary Type 2 diabetes mellitus with stage 3a chronic kidney disease, without long-term current use of insulin (HCC) (CMS/HCC) Morbid (severe) obesity due to excess calories (CMS/HCC) Essential (primary) hypertension (CMS/HCC) Unspecified essential hypertension Body mass index (BMI) 38.0-38.9, adult Type 2 diabetes mellitus with diabetic cataract (CMS/HCC) Type II or unspecified type diabetes mellitus with ophthalmic manifestations, not stated as uncontrolled Type 2 diabetes mellitus with other specified complication Hyperlipidemia, unspecified (CMS/HCC) Type 2 diabetes mellitus with diabetic peripheral angiopathy without gangrene (CMS/HCC) Chronic kidney disease, stage 3a (HCC) (CMS/HCC) [facility]* Diagnosis Routine general medical examination at health care facility- Primary Routine general medical examination at a health care facility Hypertriglyceridemia Pure hyperglyceridemia Wellness examination Flu vaccine need Medicare annual wellness visit, subsequent Type 2 diabetes mellitus with stage 3a chronic kidney disease, without long-term current use of insulin (HCC) Estrogen deficiency Other ovarian failure Benign essential hypertension- Primary Essential hypertension, benign Type 2 diabetes mellitus with stage 3a chronic kidney disease, without long-term current use of insulin (HCC) Adjustment disorder with anxiety Adjustment disorder with anxiety Chronic kidney disease, stage 3a (N18.31) Stage 3a chronic kidney disease ([facility]) Hypertension due to endocrine disorder- Primary Morbid (severe) obesity due to excess calories ([facility]-HCC) Essential (primary) hypertension Unspecified essential hypertension Body mass index (BMI) 39.0-39.9, adult Type 2 diabetes mellitus with stage 3a chronic kidney disease, without long-term current use of insulin (HCC) Class 2 severe obesity due to excess calories with serious comorbidity and body mass index (BMI) of 38.0 to 38.9 in adult ([facility]) Anxiety Anxiety state, unspecified 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 Routine general medical examination at health care facility- Primary Routine general medical examination at a health care facility Hypertriglyceridemia Pure hyperglyceridemia Wellness examination Encounter for screening for colorectal malignant neoplasm Encounter for vaccination Medicare annual wellness visit, subsequent Primary hypertension Unspecified essential hypertension Type 2 diabetes mellitus with stage 3a chronic kidney disease, without long-term current use of insulin (HCC) Acquired hypothyroidism Unspecified hypothyroidism Cancer of thyroid (HCC) Malignant neoplasm of thyroid gland Infiltrating ductal carcinoma of breast, unspecified laterality (HCC) Positive colorectal cancer screening using Cologuard test- Primary Type 2 diabetes mellitus with stage 3a chronic kidney disease, without long-term current use of insulin (HCC) Morbid (severe) obesity due to excess calories ([facility]) Essential (primary) hypertension Unspecified essential hypertension Body mass index (BMI) 38.0-38.9, adult Type 2 diabetes mellitus with diabetic cataract (HCC) Type II or unspecified type diabetes mellitus with ophthalmic manifestations, not stated as uncontrolled Type 2 diabetes mellitus with other specified complication (HCC) Hyperlipidemia, unspecified Type 2 diabetes mellitus with diabetic peripheral angiopathy without gangrene (HCC) Chronic kidney disease, stage 3a ([facility]-HCC) Malignant neoplasm of upper-outer quadrant of left breast in female, estrogen receptor positive (HCC)- Primary Estrogen receptor positive status (ER+) Estrogen receptor positive status [ER+] documented in [facility]* Diagnosis Routine general medical examination at health care facility- Primary Routine general medical examination at a health care facility Hypertriglyceridemia Pure hyperglyceridemia Wellness examination Flu vaccine need Medicare annual wellness visit, subsequent Type 2 diabetes mellitus with stage 3a chronic kidney disease, without long-term current use of insulin (HCC) Estrogen deficiency Other ovarian failure Benign essential hypertension- Primary Essential hypertension, benign Type 2 diabetes mellitus with stage 3a chronic kidney disease, without long-term current use of insulin (HCC) Adjustment disorder with anxiety Adjustment disorder with anxiety Chronic kidney disease, stage 3a (N18.31) Stage 3a chronic kidney disease ([facility]) Hypertension due to endocrine disorder- Primary Morbid (severe) obesity due to excess calories ([facility]) Essential (primary) hypertension Unspecified essential hypertension Body mass index (BMI) 39.0-39.9, adult Type 2 diabetes mellitus with stage 3a chronic kidney disease, without long-term current use of insulin (HCC) Class 2 severe obesity due to excess calories with serious comorbidity and body mass index (BMI) of 38.0 to 38.9 in adult ([facility]) Anxiety Anxiety state, unspecified 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 Routine general medical examination at [facility] care facility- Primary Routine general medical examination at a health care [facility] Hypertriglyceridemia Pure hyperglyceridemia Wellness examination Encounter for screening for colorectal malignant neoplasm Encounter for vaccination Medicare annual wellness visit, subsequent Primary hypertension Unspecified essential hypertension Type 2 diabetes mellitus with stage 3a chronic kidney disease, without long-term current use of insulin (HCC) Acquired hypothyroidism Unspecified hypothyroidism Cancer of thyroid (HCC) Malignant neoplasm of thyroid gland Infiltrating ductal carcinoma of breast, unspecified laterality (HCC) Positive colorectal cancer screening using Cologuard test- Primary Type 2 diabetes mellitus with stage 3a chronic kidney disease, without long-term current use of insulin (HCC) Morbid (severe) obesity due to excess calories ([facility]) Essential (primary) hypertension Unspecified essential hypertension Body mass index (BMI) 38.0-38.9, adult Type 2 diabetes mellitus with diabetic cataract (HCC) Type II or unspecified type diabetes mellitus with ophthalmic manifestations, not stated as uncontrolled Type 2 diabetes mellitus with other specified complication (HCC) Hyperlipidemia, unspecified Type 2 diabetes mellitus with diabetic peripheral angiopathy without gangrene (HCC) Chronic kidney disease, stage 3a ([facility]) Well woman exam with routine gynecological exam Routine gynecological examination Breast cancer screening by mammogram Postmenopausal state Asymptomatic postmenopausal status (age-related) (natural) documented in this encounter [facility] N[facility]* [place] Prior Authorization (Routine) - Authorized Specialty Diagnoses / Procedures Referred By Contac t Referred To Contact Diagnoses Malignant neoplasm of upper-outer quadrant of left breast in female, estrogen receptor positive (HCC) Jerson Clark MD [address] [place] [address] [place] [address] Phone: tel: fax: Hematology/Oncology [address] [place] [address] [place] [address] Phone: tel: fax: Referral ID Status Reason Start Date Expiration Date V isits Requested Visits Authorized [id number] Authorized 07/18/2023 10/16/2023 99 99 [facility] Summary Purpose Family History Relationship Condition Age at Onset Recorded Date/T jerry father Diabetes mellitus Unknown Cerebrovascular accident (CVA) Unknown brother Leukemia Unknown sister Malignant neoplasm of breast Unknown Chronic obstructive pulmonary disease Unk nown Not Specified Cerebrovascular accident (CVA) Unknown brother Cerebrovascular accident (CVA) Unknown sister Aneurysm Unknown Relationship Condition Age at Onset Recorded Date/T jerry father Diabetes mellitus Unknown Cerebrovascular accident (CVA) Unknown brother Leukemia Unknown sister Malignant neoplasm of breast Unknown Chronic obstructive pulmonary disease Unk nown mother Cerebrovascular accident (CVA) Unknown brother Cerebrovascular accident (CVA) Unknown sister Aneurysm Unknown Advance Directives Advance Directive Response Recorded Date/ Time Advance Directives No April 12 12:13pm Documents on File Type Date Recorded Patient Labor Relations Manager Expl anation Advance Directive(s) 04/08/2018 11:37 AM Advance Directive(s) 04/07/2018 9:13 AM Advance Directive Response Recorded Date/ Time Advance Directives No April 12 1:13pm Procedure Findings Note Patient: SAVANA TRAN Age: 69 years Sex: Female : 1950 Associated Diagnoses: None Author: Bharat Diop MD Postoperative Information Post Operative Note: Post Anesthesia Care Unit. Anesthetic utilized: General. Health Status Allergies: Allergic Reactions (All) No Known Allergies Problem list: All Problems HTN (hypertension) / SNOMED CT 0589069647 / Confirmed Diabetes / SNOMED CT 752526608 / Confirmed Thyroid mass / SNOMED CT 7639111178 / Confirmed Cervical cancer / SNOMED CT 312772263 / Confirmed Anxiety / SNOMED CT 74826731 / Confirmed Physical Examination Intake and Output adequate hydration Pain assessment: Self-reports no pain. General: Alert and oriented, No acute distress. HENT: Oral mucosa is moist, dentition unchanged. Respiratory: Respirations: Are within normal limits. Pattern: Regular. Cardiovascular: Normal rate. Neurologic: Alert, Oriented. Review / Management Lines and Tubes: Peripheral catheter. ECG interpretation: Within norm (more content not included)... Chief Complaint and Reason for Visit Chief Complaint Screening r92.8 r92.8 LT SIDE BREAST CA Left Breast Cancer Left Breast Cancer Left Breast Positive Margins, Left Breast Hematoma Reason for Visit Left breast mass Left breast mass Chief Complaint z78.0 Chief Complaint z78.0 c50.512 Chief Complaint c50.512 z17.0 Chief Complaint Admit Date z10.19September 06, 2024 12:58pm Assessments Diagnosis Onset Date Resolution Status Left breast mass acute Medications Administered Section Inactive Administered Medications - up to 3 most recent administrations Medication Order MAR Action Action Date Dose Rate Site zoledronic acid 5 mg PREMIX piggyback (RECLAST) 5 mg, INTRAVENOUS, at 400 mL/hr, Administer over 15 Minutes, ONCE, 1 dose, On Fri01/17/23 at 1500, Contact the prescriber if any of the following are noted: Recent Dental Procedures done (except cleaning only). Low corrected serum calcium levels (less than 7mg/dL). Creatinine clearance less than 35 ml/min. Hazardous Potential Reproductive Risk Drug: Use appropriate PPE. New Bag/Syringe/Bottle 01/17/2023 2:59 PM EDT 5 mg 400 mL/hr Additional Source Comments INFORMATION SOURCE (unrecogn ized section and content) DATE CREATED AUTHOR 03/15/2020 [facility] DATE CREATED AUTHOR AUTHOR'S ORGANIZ ATION 12/06/2021 [facility] dical Specialist DATE CREATED AUTHOR AUTHOR'S ORGANIZ ATION 12/07/2022 [facility] DATE CREATED AUTHOR AUTHOR'S ORGANIZ ATION 09/08/2024 [facility] DATE CREATED AUTHOR AUTHOR'S ORGANIZ ATION 09/16/2024 [facility] DATE CREATED AUTHOR AUTHOR'S ORGANIZ ATION 01/08/2025 [facility] DATE CREATED AUTHOR AUTHOR'S ORGANIZ ATION 05/28/2025 [facility] dical Specialists EPIC Source Comments (unrecognize d section and content) In the event this informatio n is protected by the Federal Confidentiality of Alcohol and Drug Abuse Patient Records regulations: The Federal rules restrict any use of the information to criminally investigate or prosecute any alcohol or drug abuse patient.[facility] the event this information is protected by the Federal Confidentiality of Alcohol and Drug Abuse Patient Records regulations: The Federal rules restrict any use of the information to criminally investigate or prosecute any alcohol or drug abuse patient.[facility] the event this information is protected by the Federal Confidentiality of Alcohol and Drug Abuse Patient Records regulations: The Federal rules restrict any use of the information to criminally investigate or prosecute any alcohol or drug abuse patient.[facility] the event this information is protected by the Federal Confidentiality of Alcohol and Drug Abuse Patient Records regulations: The Federal rules restrict any use of the information to criminally investigate or prosecute any alcohol or drug abuse patient.[facility] the event this information is protected by the Federal Confidentiality of Alcohol and Drug Abuse Patient Records regulations: The Federal rules restrict any use of the information to criminally investigate or prosecute any alcohol or drug abuse patient.[facility] the event this information is protected by the Federal Confidentiality of Alcohol and Drug Abuse Patient Records regulations: The Federal rules restrict any use of the information to criminally investigate or prosecute any alcohol or drug abuse patient.[facility] the event this information is protected by the Federal Confidentiality of Alcohol and Drug Abuse Patient Records regulations: The Federal rules restrict any use of the information to criminally investigate or prosecute any alcohol or drug abuse patient.[facility] the event this information is protected by the Federal Confidentiality of Alcohol and Drug Abuse Patient Records regulations: The Federal rules restrict any use of the information to criminally investigate or prosecute any alcohol or drug abuse patient.[facility] the event this information is protected by the Federal Confidentiality of Alcohol and Drug Abuse Patient Records regulations: The Federal rules restrict any use of the information to criminally investigate or prosecute any alcohol or drug abuse patient.[facility] the event this information is protected by the Federal Confidentiality of Alcohol and Drug Abuse Patient Records regulations: The Federal rules restrict any use of the information to criminally investigate or prosecute any alcohol or drug abuse patient.[facility] the event this information is protected by the Federal Confidentiality of Alcohol and Drug Abuse Patient Records regulations: The Federal rules restrict any use of the information to criminally investigate or prosecute any alcohol or drug abuse patient.[facility] the event this information is protected by the Federal Confidentiality of Alcohol and Drug Abuse Patient Records regulations: The Federal rules restrict any use of the information to criminally investigate or prosecute any alcohol or drug abuse patient.[facility] the event this information is protected by the Federal Confidentiality of Alcohol and Drug Abuse Patient Records regulations: The Federal rules restrict any use of the information to criminally investigate or prosecute any alcohol or drug abuse patient.[facility] the event this information is protected by the Federal Confidentiality of Alcohol and Drug Abuse Patient Records regulations: The Federal rules restrict any use of the information to criminally investigate or prosecute any alcohol or drug abuse patient.[facility] the event this information is protected by the Federal Confidentiality of Alcohol and Drug Abuse Patient Records regulations: The Federal rules restrict any use of the information to criminally investigate or prosecute any alcohol or drug abuse patient.[facility] the event this information is protected by the Federal Confidentiality of Alcohol and Drug Abuse Patient Records regulations: The Federal rules restrict any use of the information to criminally investigate or prosecute any alcohol or drug abuse patient.[facility] Reason for Visit (unrecogniz ed section and content) Reason Comments Breast Cancer 4 month follow up Reason Comments Breast Cancer Reason Comments Orders Reason Comments Benefits Investigation Specialty Diagnoses / Procedures Referred By Contac t Referred To Contact Diagnoses Endometrial cancer (HCC) Malignant neoplasm of upper-outer quadrant of left breast in female, estrogen receptor positive (HCC) Jerson Clark MD [address] [place] [address] [place] [address] Jc Treat Kay [address] [place] [address] Referral ID Status Reason Start Date Expiration Date V isits Requested Visits Authorized [id number] Authorized 07/20/2022 10/18/2022 99 99 Reason Comments Refill Request Reason Comments Breast Cancer 6 month follow up Specialty Diagnoses / Procedures Referred By Contac Referred To Contact Diagnoses Malignant neoplasm of upper-outer quadrant of left breast in female, estrogen receptor positive (HCC) Jerson Clark MD [address] [place] [address] [place] [address] Jc Treat Kay [address] [place] [address] Referral ID Status Reason Start Date Expiration Date V isits Requested Visits Authorized [id number] Authorized 07/18/2023 10/16/2023 99 99 Reason Comments Diabetes Last A1c was 5.8 Hypertension Reason Comments Hypothyroidism 6 week TSH check [facility] 08/23/24 Reason Comments Medicare Annual Wellness Visit Subsequen t Reason Onset Date Comments Refill Request 09/27/2024 Reason Comments Thyroid Cancer Follow up with ultra sound and labs 07/01/24 [facility] Reason Comments Thyroid Nodule 6 week follow up TSH [facility] Reason Comments 4th poy Lt. lumpectomy Mamms due in Nov. Reason Comments discuss cologuard options Reason Comments 1st pow colonoscopy Reason Comments Diabetes Last A1c was 5.6 Reason Comments 4 1/2 poy Lt. lumpectomy Reason Comments Well Women Visit Care Teams (unrecognized sec tion and content) Team Status: Active Member Role Status Dates Connor Persaud MD Primary Care Provider Active Team Status: Inactive Member Role Status Dates Connor Persaud MD Primary Care Provider Active Luacs Melo MD Attending Provider Active Steel Fitter Relationship Specialty Start Date End Date Connor Persaudphil [address] [place] [address] PCP - General Family Practice 03/12/18 Lux [place] Consulting TRAINING INSTRUCTOR 04/08/18 Susanna Jacobsen LSW Senior Technologist 01/04/21 Team Status: Inactive Member Role Status Dates Connor Persaud MD Primary Care Provider Active Jerson Clark MD Attending Provider Active Steel Fitter Relationship Specialty Start Date End Date Connor Persaudphil [address] [place] [address] PCP - General Family Medicine 03/12/18 Lux [place] DO Consulting TRAINING INSTRUCTOR 04/08/18 Susanna Jacobsen LSW Senior Technologist 01/04/21 Steel Fitter Relationship Specialty Start Date End Date Connor Persaudphil [address] [place] [place] [address] PCP - General Family Medicine 03/12/18 Lux [place] DO [address] [place] [address] Consulting TRAINING INSTRUCTOR 04/08/18 Susanna Jacobsen, LABORER DRIVER Senior Technologist 01/04/21 Steel Fitter Relationship Specialty Start Date End Date Connor Persaudy [address] [place] [address] PCP - General Family Medicine 03/12/18 Lux [place], DO [address] [place] [address] Consulting TRAINING INSTRUCTOR 04/08/18 Susanna Jacobsen LSW Senior Technologist 01/04/21 Steel Fitter Relationship Specialty Start Date End Date Connor Persaudy [address] [place] [address] PCP - General Family Medicine 03/12/18 Lux [place], DO [address] [place] [address] Consulting TRAINING INSTRUCTOR 04/08/18 Susanna Jacobsen, LABORER DRIVER Senior Technologist 01/04/21 Steel Fitter Relationship Specialty Start Date End Date Connor Persaudy [address] [place] [place] [address] PCP - General Family Medicine 03/12/18 Lux [place], DO [address] [place] [place] [address] Consulting TRAINING INSTRUCTOR 04/08/18 Susanna Jacobsen LSW Senior Technologist 01/04/21 Steel Fitter Relationship Specialty Start Date End Date Connor Persaudy [address] [place] [place] [address] PCP - General Family Medicine 03/12/18 Lux [place], DO [address] [place] [address] Consulting TRAINING INSTRUCTOR 04/08/18 Susanna Jacobsen LSW Senior Technologist 01/04/21 Steel Fitter Relationship Specialty Start Date End Date Connor Persaud MD [address] [place] [address] PCP - General Family Medicine 03/12/18 Lux [place] DO [address] [place] [address] Consulting TRAINING INSTRUCTOR 04/08/18 Susanna Jacobsen, LABORER DRIVER Senior Technologist 01/04/21 Steel Fitter Relationship Specialty Start Date End Date Connor Persaud MD [address] [place] [place] [address] PCP - General Family Medicine 03/12/18 Lux [place] DO [address] [place] [address] Consulting Platform Builder 04/08/18 Susanna Jacobsen, LABORER DRIVER Senior Technologist 01/04/21 Steel Fitter Relationship Specialty Start Date End Date Connor Persaud MD [address] [place] [address] PCP - General Family Medicine 03/12/18 Lux [place] DO [address] [place] [address] Consulting Platform Builder 04/08/18 Susanna Jacobsen, LABORER DRIVER Senior Technologist 01/04/21 Steel Fitter Relationship Specialty Start Date End Date Connor Persaud MD [address] [place] [place] [address] PCP - General Family Medicine 03/12/18 Lux [place] DO [address] [place] [address] Consulting Platform Builder 04/08/18 Susanna Jacobsen LSW Senior Technologist 01/04/21 Steel Fitter Relationship Specialty Start Date End Date Connor Persaud MD [address] [place] [place] [address] PCP - General Family Medicine 03/12/18 Lux [place] DO [address] [place] [address] Consulting Platform Builder 04/08/18 Susanna Jacobsen LSW Senior Technologist 01/04/21 Steel Fitter Relationship Specialty Start Date End Date Connor Persaud MD [address] [facility] [address] [place] [address] PCP - General Family Medicine 04/28/23 Connor Persaud MD [address] [facility] [address] [place] [address] PCP - ACO Reach 12/19/23 Steel Fitter Relationship Specialty Start Date End Date Connor Persaud MD [address] [facility] [address] [place] [address] PCP - General Family Medicine 04/28/23 Connor Persuad MD [address] [facility] [address] [place] [address] PCP - ACO Reach 12/19/23 Team Status: Inactive Member Role Status Dates Connor Persaud MD Primary Care Provider Active S tart: September 06, 2024 End: September 06, 2024 Lux [place] DO Attending Provider Active Start : September 06, 2024 End: September 06, 2024 Steel Fitter Relationship Specialty Start Date End Date Connor Persaud MD [address] [place] [address] [place] [address] PCP - General Family Medicine 04/28/23 Connor Persaud MD [address] [place] [address] [place] [address] PCP - ACO Reach 12/19/23 Steel Fitter Relationship Specialty Start Date End Date Connor Persaud MD [address] [place] [address] [place] [address] PCP - General Family Medicine 04/28/23 Connor Persaud MD [address] [place] [address] [place] [address] PCP - ACO Reach 12/19/23 Steel Fitter Relationship Specialty Start Date End Date Connor Persaud MD [address] [place] [address] [place] [address] PCP - General Family Medicine 04/28/23 Connor Persaud MD [address] [place] [address] [place] [address] PCP - ACO Reach 12/19/23 Steel Fitter Relationship Specialty Start Date End Date Connor Persaud MD [address] [place] [address] [place] [address] PCP - General Family Medicine 04/28/23 Connor Persaud MD [address] [place] [address] [place] [address] PCP - ACO Reach 12/19/23 Steel Fitter Relationship Specialty Start Date End Date Connor Persaud MD [address] [place] [address] [place] [address] PCP - General Family Medicine 03/12/18 Lux [place] DO [address] [place] [address] [place] [address] Consulting Platform Builder 04/08/18 Susanna Jacobsen LSW Senior Technologist 01/04/21 Steel Fitter Relationship Specialty Start Date End Date Connor Persaud MD [address] [place] [address] [place] [address] PCP - General Family Medicine 04/28/23 Connor Persaud MD [address] [facility] [address] [place] [address] PCP - ACO Reach 12/19/23 Steel Fitter Relationship Specialty Start Date End Date Connor Persaud MD [address] [facility] [address] [place] [address] PCP - General Family Medicine 04/28/23 Connor Persaud MD [address] [facility] [address] [place] [address] PCP - ACO Reach 12/19/23 Steel Fitter Relationship Specialty Start Date End Date Connor Persaud MD [address] [facility] [address] [place] [address] PCP - General Family Medicine 04/28/23 Connor Persaud MD [address] [facility] [address] [place] [address] PCP - ACO Reach 12/19/23 Steel Fitter Relationship Specialty Start Date End Date Connor Persaud MD [address] [facility] [address] [place] [address] PCP - General Family Medicine 04/28/23 Connor Persaud MD [address] [place] [address] [place] [address] PCP - ACO Reach 12/19/23 Steel Fitter Relationship Specialty Start Date End Date Connor Persaud MD [address] [place] [address] [place] [address] PCP - General Family Medicine 04/28/23 Connor Persaud MD [address] [place] [address] [place] [address] PCP - ACO Reach 12/19/23 Steel Fitter Relationship Specialty Start Date End Date Connor Persaud MD [address] [facility] [address] [place] [address] PCP - General Family Medicine 04/28/23 Connor Persaud MD [address] [facility] [address] [place] [address] PCP - ACO Reach 12/19/23 Steel Fitter Relationship Specialty Start Date End Date Connor Persaud MD [address] [place] [address] [place] [address] PCP - General Family Medicine 03/12/18 Lux [place]den DO [address] [place] [address] [place] [address] Consulting Platform Builder 04/08/18 Susanna Jacobsen LSW Senior Technologist 01/04/21 Steel Fitter Relationship Specialty Start Date End Date Connor Persaud MD [address] [place] [address] [place] [address] PCP - General Family Medicine 03/12/18 Lux Bowden DO [address] [place] [address] [place] [address] Consulting Platform Builder 04/08/18 Susanna Jacobsen LSW Senior Technologist 01/04/21 Steel Fitter Relationship Specialty Start Date End Date Connor Persaud MD [address] [facility] [address] [place] [address] PCP - General Family Medicine 04/28/23 Connor Persaud MD [address] [facility] [address] [place] [address] PCP - ACO Reach 12/19/23 Steel Fitter Relationship Specialty Start Date End Date Connor Persaud MD [address] [facility] [address] [place] [address] PCP - General Family Medicine 04/28/23 Connor Persaud MD [address] [facility] [address] [place] [address] PCP - ACO Reach 12/19/23 Steel Fitter Relationship Specialty Start Date End Date Connor Persaud MD [address] [facility] [address] [place] [address] PCP - General Family Medicine 04/28/23 Connor Persaud MD [address] [facility] [address] [place] [address] PCP - ACO Reach 12/19/23 Steel Fitter Relationship Specialty Start Date End Date Connor Persaud MD [address] [facility] [address] [place] [address] PCP - General Family Medicine 04/28/23 Connor Persaud MD [address] [place] [address] PCP - ACO Reach 12/19/23 Goals (unrecognized section and content) Goals may be documented in a n alternate sectionGoals may be documented in an alternate sectionGoals may be documented in an alternate sectionGoals may be documented in an alternate sectionGoals may be documented in an alternate section FOR RECORDS PERTAINING TO PATIENTS WHO ARE OR HAVE BEEN ENROLLED IN A CHEMICAL DEPENDENCY/SUBSTANCEABUSE PROGRAM, SOME INFORMATION MAY BE OMITTED. This clinical summary was aggregated from multiple sources. Caution should be exercised in using it in the provision of clinical care. This summary normalizes information from multiple sources, and as a consequence, information in this document may materially change the coding, format and clinical context of patient data. In addition, data may be omitted in some cases. CLINICAL DECISIONS SHOULD BE BASED ON THE PRIMARY CLINICAL RECORDS. [employer] [facility]. provides no warranty or guarantee of the accuracy or completeness of information in this document.
[2025-06-10 12:08] LABS: Age Gdln ACOG Testing Note (.); Pap IG (Image Guided) Note (.)
== END 2025-06-07 19:12 | disposition home or self-care (01) ==
LOC: LAB 19:11
PROVIDERS: PCP Family Medicine; Visit Provider Obstetrics & Gynecology
DX: Z01.419 Encounter for gynecological examination (general) (routine) without abnormal findings (principal)
CPT/HCPCS: 88175